=== PATIENT | male | born 1950 | race African-American/Black ===

== ENCOUNTER → 2021-03-31 09:17 | Outpatient (BNVA) | payer MEDICARE, OTHER, SELFPAY | PROVIDERS: Visit Provider Urology ==

== ENCOUNTER → 2021-03-31 14:30 | Outpatient (BNVA) | payer MEDICARE, OTHER, SELFPAY | PROVIDERS: Visit Provider Urology | DX: R97.20 Elevated prostate specific antigen [PSA] (principal); N40.0 Benign prostatic hyperplasia without lower urinary tract symptoms | CPT/HCPCS: Q3014 ==

== ENCOUNTER 2021-04-25 11:23 | Outpatient (REF) | payer MEDICARE, OTHER, SELFPAY ==
[2021-04-25 11:44] VITALS: BMI 28.7
[2021-04-25 11:48] VITALS: BP 153/83; PULSE 77; RESP 16; TEMP 36.4; O2SAT 100
--- NOTE | 2021-04-25 12:40 | W.PM.OPN ---
Operative Note Operative Note Date of Service: 04/25/21 Narrative: Preoperative diagnosis: Elevated PSA Postoperative diagnosis: Elevated PSA Procedure: 1. transrectal ultrasound measurement of prostate 2. transrectal ultrasound-guided pudendal nerve block 3. transrectal ultrasound-guided prostate biopsy 12 core Surgeon: Dr. Joey Kaiser Anesthetic: Local Indications for procedure: Elevated PSA Procedure: After informed consent was verified, the patient was brought into the procedure area and lay left-hand side down on the table. Patient identity confirmed. Perioperative antibiotics confirmed. Iodine/Gel was placed per rectum Ultrasound probe was placed per rectum The prostate was measured in 3 dimensions Total volume equals 90 gm There were no cystic structures and no calcifications noted and the prostate was homogeneous in nature A ultrasound-guided pudendal nerve block was performed using 10 cc of 1% lidocaine. 8 cc was placed at the base and 2 cc of the apex. A 12 core biopsy was performed with 6 cores each side. Two cores were taken at the apex, mid and base. Cores were spaced between lateral and medial. He tolerated the procedure well. Was able to ambulate to bathroom after 5 minutes. Printed instructions regarding antibiotic use and common side effects such as low-grade temperature and bleeding were given.
[2021-04-25 12:41] VITALS: BP 149/91; PULSE 77; RESP 16; O2SAT 97
== END 2021-04-25 11:24 | disposition home or self-care (01) ==
LOC: HO.MS 11:23
PROVIDERS: PCP Internal Medicine; Visit Provider Urology
PROC: (CPT 55700; principal; 2021-04-25 12:00)
DX: C61 Malignant neoplasm of prostate (principal); R97.20 Elevated prostate specific antigen [PSA]
CPT/HCPCS: 55700; 76942; 88305; 88344

== ENCOUNTER → 2021-05-02 08:40 | Outpatient (BNVA) | payer MEDICARE, OTHER, SELFPAY | PROVIDERS: PCP Internal Medicine; Visit Provider Urology | DX: Z13.89 Encounter for screening for other disorder (principal) | CPT/HCPCS: Q3014 ==

== ENCOUNTER 2021-10-02 11:22 | Outpatient (REF) | payer MEDICARE, OTHER, SELFPAY ==
[2021-10-02 13:12] LABS: PSA,Total (Free>4and<10) 5.73 ng/mL (0.00-4.00)
[2021-10-03 11:32] LABS: Free Prostate Spec Ag 0.3 ng/mL; Percent Free Prostate Spec Ag 6 % (calc) (>25); Prostate Specific Ag Total 4.7 ng/mL (< OR = 4.0)
== END 2021-10-02 11:23 | disposition home or self-care (01) ==
LOC: HO.LAB 11:22
PROVIDERS: PCP Internal Medicine; Visit Provider Urology
DX: Z12.5 Encounter for screening for malignant neoplasm of prostate (principal); N40.0 Benign prostatic hyperplasia without lower urinary tract symptoms
CPT/HCPCS: 36415; 84153; 84154

== ENCOUNTER → 2021-10-10 13:53 | Outpatient (BNVA) | payer MEDICARE, OTHER, SELFPAY | PROVIDERS: PCP Internal Medicine; Visit Provider Urology | DX: C61 Malignant neoplasm of prostate (principal); N40.0 Benign prostatic hyperplasia without lower urinary tract symptoms | CPT/HCPCS: 51798; 99212 ==

== ENCOUNTER → 2021-12-08 09:48 | Outpatient (BNVA) | payer MEDICARE, OTHER, SELFPAY | PROVIDERS: PCP Internal Medicine; Visit Provider Urology | DX: N40.0 Benign prostatic hyperplasia without lower urinary tract symptoms (principal); C61 Malignant neoplasm of prostate | CPT/HCPCS: 52000; 99212 ==

== ENCOUNTER → 2022-01-31 11:36 | Outpatient (BNVA) | payer MEDICARE, OTHER, SELFPAY | PROVIDERS: PCP Internal Medicine; Visit Provider Urology | DX: R97.20 Elevated prostate specific antigen [PSA] (principal); C61 Malignant neoplasm of prostate; N40.0 Benign prostatic hyperplasia without lower urinary tract symptoms | CPT/HCPCS: 99212; Q3014 ==

== ENCOUNTER 2022-02-12 05:42 | Day surgery (SDC) | payer MEDICARE, OTHER, SELFPAY ==
[2022-02-07 10:04] VITALS: BMI 28.7
--- NOTE | 2022-02-08 13:38 | HO.ANESPROP2 ---
Documented by User: Celi Tang NP 02/08/22 13:38 HPI - Anesthesia Eval Consult details Narrative: 71yo M for Laser Ablation Prostate w/Green Light PMFSH Active Problems Active Problems: All Active Problems (Updated 05/02/21 @ 10:37 by Joey Kaiser MD) Elevated PSA (Acute) Prostate cancer (Acute) Benign prostatic hyperplasia without lower urinary tract symptoms (Acute) Past Medical History Medical History Benign prostatic hyperplasia without lower urinary tract symptoms Chronic prostatitis Elevated PSA Hypertension Microscopic hematuria Surgical History Surgical History (Updated 02/07/22 @ 09:58 by Palmira Cruz RN) Hx of prostate biopsy Social History Social History Patient Tobacco Use Status: Former Tobacco user Substance Use Frequency: Occasionally Are you DNR?: No Advance Directives: No Advance Directives Information Provided: Yes Nutrition Risks: No Nutritional Risk Meds Allergies Allergy/AdvReac Type Severity Reaction Status Date / Time No Known Allergies Allergy Verified 02/12/22 06:38 Home Medications Medication Instructions Recorded Confirmed Last Taken Type terazosin 5 mg capsule 1 cap PO DAILY 02/07/22 02/07/22 Unknown History Exam Exam Date and Time: February 08, 2022 1338 Height,Weight and Vital Signs: Height 5 ft 11 in Weight 93.44 kg Assessment and Plan Assessment Anesthesia Assessment: Chart Reviewed Documented by User: Indu Coffey MD 02/12/22 07:13 PMFSH Past Medical History Medical History Benign prostatic hyperplasia without lower urinary tract symptoms Chronic prostatitis Elevated PSA Hypertension Microscopic hematuria Family History Family history of problems with anesthesia: No Surgical History Surgical History (Updated 02/07/22 @ 09:58 by Palmira Cruz RN) Hx of prostate biopsy History of Problems with Anesthesia: No Social History Social History Patient Tobacco Use Status: Former Tobacco user Substance Use Frequency: Occasionally Are you DNR?: No Advance Directives: No Advance Directives Information Provided: Yes Nutrition Risks: No Nutritional Risk Meds Allergies Allergy/AdvReac Type Severity Reaction Status Date / Time No Known Allergies Allergy Verified 02/12/22 06:38 Home Medications Medication Instructions Recorded Confirmed Last Taken Type terazosin 5 mg capsule 1 cap PO DAILY 02/07/22 02/07/22 Unknown History Exam Airway Mallampati Class: III TM Dist: >3cm Neck ROM: Full Partial: Upper and Lower Heart: rrr Lungs: cta Assessment and Plan Assessment Anesthesia Assessment: Anesthesia Plan Discussed and Chart Reviewed Final Anesthetic Review Family History of Problems with Anesthesia: No History of Problems with Anesthesia: No NPO: Yes ASA Class: II Final Preanesthetic Review: No Changes in Pt Med Stat, Meds/Allgs Chart Reviewed and Consent Obtained/Reviewed Patient Risk: Intermediate Procedure Risk: Intermediate Anesthetic Plan Anesthetic Plan: GA Disposition: Standard PACU
[2022-02-12] VITALS (7 sets, daily range): BP systolic 97–139; BP diastolic 40–84; PULSE 60–78; RESP 16–18; TEMP 36.3–36.4; O2SAT 96–98
[2022-02-12] MEDS: Lactated Ringers 1,000 ML 100 ML IVCONT (06:31)
--- NOTE | 2022-02-12 07:31 | MHC.SHP ---
Pre-Procedural Eval Section A Date of Service: 02/12/22 The patient is an INPATIENT: No Changes since office visit: No Cold of Flu in the past 2 weeks, No New Medical Problems, No Changes in Medication and No Patient answered all questions The History & Physical has been completed within 30 days and I have reviewed it.: Yes Section B Chief Complaint: bph Details of Present Illness: progressive bph Relevant Family History (Specify if Yes): No Relevant Social History: None Present Medications: see Short Stay Collaborative assessment Medical History: No relevant PMH History of Previous Operations: No relevant previous surgery Allergies: Allergies Allergy/AdvReac Type Severity Reaction Status Date / Time No Known Allergies Allergy Verified 02/12/22 06:38 Review of Systems Sugical H&P ROS: Negative: Constitution, Cardiovascular, Respiratory, Neurological, Psychiatric, Hem-Onc, Allergic/Immunologic, Gastrointestinal, Genitourinary, Musculoskeletal, Integumentary, Endocrine and Eyes/Ears/Nose/Throat Exam Surgical H&P Exam: Normal: HEENT, Normal: Heart, Normal: Lungs, Normal: Extremities, Normal: Abdomen, Normal: Skin and Normal: Neurological Plan Diagnosis/Plan: Unchanged (plan laser prostatectomy) I have reviewed the history and physical and performed a pertinent physical examination on my patient. No changes have occurred unless specified.
--- NOTE | 2022-02-12 08:41 | P.OP_ITS ---
Operative Note Operative Note Date of Service: 02/12/22 Narrative: PreOperative Diagnosis: Bladder outlet obstruction Post Operative Diagnosis: Bladder outlet obstruction Procedure: GreenLight Laser Enucleation of the prostate Surgeon: Dr Joey Kaiser Anesthesia: General Indications for procedure: Persistent progression of symptoms despite medications History of bladder outlet obstruction. Treated with alpha-nav and other medications. Still with symptoms. On cystoscopy in office has trilobar prostat e. Recommendation for prostate procedure with laser enucleation of prostate. It has been discussed. Focus was placed on development of retrograde examination which is a normal part of this procedure. Procedure: After informed consent was verified the patient was brought to the operating room and placed in a supine position. Anesthesia was administered per protocol. Patient was placed in modified dorsal lithotomy position and prepped and draped in a sterile fashion. Safety pause time-out was confirmed. Antibiotics have been given. Twenty-four Citizen [place] laser cystoscope was inserted per urethra. No abnormalities found the anterior posterior urethra. The bladder was filled on both ureteric orifices were seen in normal position away from our area of interest. Using a GreenLight laser settings of 80 w incisions were made at the 5 and 7 o'clock position. They were taken down and then laterally on each side. They were brought from the bladder neck down to the level of the veru. These defined the lateral aspects of the median lobe area. The median lobe was ablated and enucleated tissue removed. Once the median lobe area had been cleaned attention was directed to the lateral lobes. We started with the patient's left lateral lobe. Firstly the 05:00 o'clock groove was further developed. This was moved in the lateral position to undermine the tissue on the lateral side. Focus was then placed on the laser at the 1 o'clock position in developing a secondary groove down to the level of bladder fibers. The intervening tissue between these 2 grooves was removed with a combination of enucleation ablation working from the apex toward the bladder neck. A similar procedure was repeated on the patient's right-hand side. When this was completed debris and pieces of prostate removed from the bladder. Both ureteric orifices were reviewed again in shown to be patent in away from any areas of energy damage. The apical area was reviewed in any stray ooze was controlled. A 22 Citizen [place] 30 cc balloon Sanders catheter was placed over stylet into the bladder. Clear efflux was obtained. 30 cc was placed in the balloon and gentle traction was placed. A snap was used to hold tension once the patient will be moved and transported. Once transportation its finish this novel be removed. A belladonna and opiate suppository was placed for postprocedure pain management. He tolerated procedure well was extubated in the operating and transferred in a stable condition to the recovery area. Total Power 253 kW, lase time 32 minutes Pathology: Prostate tissue Drains: Sanders catheter
[2022-02-12] MEDS: traMADoL HCL 50 MG TABLET PO (09:04)
[2022-02-12] MEDS: Acetaminophen 325 MG TABLET 650 MG PO (09:04)
== END 2022-02-12 10:13 | disposition home or self-care (01) ==
PROVIDERS: PCP Internal Medicine; Visit Provider Urology
PROC: (CPT 52648; principal; 2022-02-12 07:30)
DX: N40.1 Benign prostatic hyperplasia with lower urinary tract symptoms (principal); N13.8 Other obstructive and reflux uropathy; N41.1 Chronic prostatitis; R97.20 Elevated prostate specific antigen [PSA]; R31.29 Other microscopic hematuria; I10 Essential (primary) hypertension; Z79.899 Other long term (current) drug therapy; Z87.891 Personal history of nicotine dependence
CPT/HCPCS: 52648; 88305; J1100; J1956; J2250; J2405; J3010

== ENCOUNTER → 2022-02-15 09:19 | Outpatient (BNVA) | payer MEDICARE, OTHER, SELFPAY | PROVIDERS: PCP Internal Medicine; Visit Provider Urology | DX: N40.0 Benign prostatic hyperplasia without lower urinary tract symptoms (principal) | CPT/HCPCS: 51700; 51798 ==

== ENCOUNTER → 2022-04-18 10:58 | Outpatient (BNVA) | payer MEDICARE, OTHER, SELFPAY | PROVIDERS: PCP Internal Medicine; Visit Provider Urology | DX: C61 Malignant neoplasm of prostate (principal); N40.0 Benign prostatic hyperplasia without lower urinary tract symptoms; M19.019 Primary osteoarthritis, unspecified shoulder | CPT/HCPCS: 51798; 99212 ==

== ENCOUNTER 2022-05-30 10:37 | Outpatient (REF) | payer MEDICARE, OTHER, SELFPAY ==
[2022-05-30 12:22] LABS: Appearance Urine Clear; Color Urine Yellow; Glucose Urine UA Negative (Negative); Leukocyte Esterase Urine Moderate (2+) (Negative); Nitrite Urine Negative (Negative); PH 5.5 (5.0-9.0); UMIC TRIGGER UA YES; Urine Blood Trace (Negative); Urine Ketones Negative (Negative); Urine Protein Negative (Neg-Trace)
[2022-05-30 12:26] LABS: Bacteria Urine None Seen (None Seen); Hyaline Casts Urine 0-2 /LPF (0-2); RBC Urine 0-2 /HPF (0-2); Squamous Epithelial Cell Urine 0-2 /HPF (0-2); WBC Urine 21-50 /HPF (0-5)
== END 2022-05-30 10:38 | disposition home or self-care (01) ==
LOC: HO.LAB 10:37
PROVIDERS: PCP Internal Medicine; Visit Provider Urology
DX: N40.0 Benign prostatic hyperplasia without lower urinary tract symptoms (principal)
CPT/HCPCS: 81001; 87086

== ENCOUNTER 2022-08-06 11:08 | Outpatient (REF) | payer MEDICARE, OTHER, SELFPAY ==
[2022-08-06 14:58] LABS: Prostate Specific Antigen 8.01 ng/mL (<0.05-4.0)
== END 2022-08-06 11:09 | disposition home or self-care (01) ==
LOC: HO.HMGCLDS 11:08
PROVIDERS: PCP Internal Medicine; Visit Provider Urology
DX: C61 Malignant neoplasm of prostate (principal)
CPT/HCPCS: 36415; 84153

== ENCOUNTER → 2022-08-15 10:19 | Outpatient (BNVA) | payer MEDICARE, OTHER, SELFPAY | PROVIDERS: PCP Internal Medicine; Visit Provider Urology | DX: C61 Malignant neoplasm of prostate (principal); N40.0 Benign prostatic hyperplasia without lower urinary tract symptoms | CPT/HCPCS: 99212 ==

== ENCOUNTER → 2022-09-05 12:28 | Outpatient (BNVA) | payer MEDICARE, OTHER, SELFPAY | PROVIDERS: PCP Internal Medicine; Visit Provider Urology | DX: C61 Malignant neoplasm of prostate (principal) | CPT/HCPCS: Q3014 ==

== ENCOUNTER 2022-11-12 06:32 | Day surgery (SDC) | payer MEDICARE, OTHER, SELFPAY ==
[2022-11-08 15:29] VITALS: BMI 28.4
--- NOTE | 2022-11-09 12:04 | HO.ANESPROP2 ---
Documented by User: Celi Tang NP 11/09/22 12:05 HPI - Anesthesia Eval Consult details Narrative: 72yo M for Targeted Prostate Needle Biopsy s/p green light laser 01/2022 with GA-LMA 5 PMFSH Active Problems Active Problems: All Active Problems (Updated 04/18/22 @ 11:58 by Joey Kaiser MD) Shoulder arthritis (Acute) Elevated PSA (Acute) Prostate cancer (Acute) Benign prostatic hyperplasia without lower urinary tract symptoms (Acute) Past Medical History Medical History Benign prostatic hyperplasia without lower urinary tract symptoms Chronic prostatitis Elevated PSA Hypertension Microscopic hematuria Family History Family history of problems with anesthesia: No Surgical History Surgical History (Updated 11/12/22 @ 06:42 by Judith Herr, FIDEL) History of prostate surgery Hx of knee surgery Hx of prostate biopsy History of Problems with Anesthesia: No Social History Social History (Updated 11/08/22 @ 15:29 by Annabelle Hanson RN) Are you a primary patient care provider to a significant other at home: No Do you presently have visiting nurse or other home services: No Patient Tobacco Use Status: Former Tobacco user Quit Date: Tobacco use type: Cigarette Use of substances other than those prescribed or required for medical reasons: No Have you been hit, kicked, punched, or otherwise hurt by someone within the past year? If so, by whom?: No Are you DNR?: No Advance Directives: No Advance Directives Information Provided: Yes Advance Directives on File: No Recently lost weight without trying: No Nutrition Risks: No Nutritional Risk Meds Allergies Allergy/AdvReac Type Severity Reaction Status Date / Time No Known Allergies Allergy Verified 11/12/22 06:42 Home Medications Medication Instructions Recorded Confirmed Last Taken Type finasteride 5 mg tablet 5 mg PO BEDTIME 11/08/22 11/08/22 Unknown History losartan 25 mg tablet 25 mg PO BEDTIME 11/08/22 11/08/22 Unknown History Exam Exam Date and Time: November 09, 2022 1204 Height,Weight and Vital Signs: Height 5 ft 11 in Weight 92.533 kg Assessment and Plan Assessment Anesthesia Assessment: Chart Reviewed Final Anesthetic Review Family History of Problems with Anesthesia: No History of Problems with Anesthesia: No Documented by User: Indu Coffey MD 11/12/22 07:13 PMFSH Past Medical History Medical History Benign prostatic hyperplasia without lower urinary tract symptoms Chronic prostatitis Elevated PSA Hypertension Microscopic hematuria Surgical History Surgical History (Updated 11/12/22 @ 06:42 by Judith Herr, RN) History of prostate surgery Hx of knee surgery Hx of prostate biopsy Social History Social History (Updated 11/08/22 @ 15:29 by Annabelle Hanson RN) Are you a primary patient care provider to a significant other at home: No Do you presently have visiting nurse or other home services: No Patient Tobacco Use Status: Former Tobacco user Quit Date: Tobacco use type: Cigarette Use of substances other than those prescribed or required for medical reasons: No Have you been hit, kicked, punched, or otherwise hurt by someone within the past year? If so, by whom?: No Are you DNR?: No Advance Directives: No Advance Directives Information Provided: Yes Advance Directives on File: No Recently lost weight without trying: No Nutrition Risks: No Nutritional Risk Meds Allergies Allergy/AdvReac Type Severity Reaction Status Date / Time No Known Allergies Allergy Verified 11/12/22 06:42 Home Medications Medication Instructions Recorded Confirmed Last Taken Type finasteride 5 mg tablet 5 mg PO BEDTIME 11/08/22 11/08/22 Unknown History losartan 25 mg tablet 25 mg PO BEDTIME 11/08/22 11/08/22 Unknown History Exam Airway Mallampati Class: II TM Dist: >3cm Neck ROM: Full Partial: Upper and Lower Heart: rrr Lungs: cta Assessment and Plan Assessment Anesthesia Assessment: Anesthesia Plan Discussed Final Anesthetic Review NPO: Yes ASA Class: II Final Preanesthetic Review: No Changes in Pt Med Stat, Meds/Allgs Chart Reviewed and Consent Obtained/Reviewed Patient Risk: Intermediate Procedure Risk: Intermediate Anesthetic Plan Anesthetic Plan: GA Disposition: Standard PACU
[2022-11-12 06:48] VITALS: BP 146/87; PULSE 79; RESP 15; TEMP 36.8; O2SAT 98
[2022-11-12] MEDS: Lactated Ringers 1,000 ML 100 ML IVCONT (07:02)
--- NOTE | 2022-11-12 08:41 | P.HPSUR_ITS ---
Pre-Procedural Eval Section A Date of Service: 11/12/22 The patient is an INPATIENT: No Changes since office visit: No Cold of Flu in the past 2 weeks, No New Medical Problems, No Changes in Medication and No Patient answered all questions The History & Physical has been completed within 30 days and I have reviewed it.: Yes Section B Chief Complaint: Elevated prostate specific antigen [PSA] Details of Present Illness: prostate cancer MRI fusion biopsy Allergies: Allergies Allergy/AdvReac Type Severity Reaction Status Date / Time No Known Allergies Allergy Verified 11/12/22 06:42 Review of Systems Sugical H&P ROS: Negative: Constitution, Cardiovascular, Respiratory, Neurolog ical, Psychiatric, Hem-Onc, Allergic/Immunologic, Gastrointestinal, Genitourinary, Musculoskeletal, Integumentary, Endocrine and Eyes/Ears/Nose/Throat Exam Surgical H&P Exam: Normal: HEENT, Normal: Heart, Normal: Lungs, Normal: Extremities, Normal: Abdomen, Normal: Skin and Normal: Neurological Plan Diagnosis/Plan: Unchanged ( MRI fusion biopsy) I have reviewed the history and physical and performed a pertinent physical examination on my patient. No changes have occurred unless specified. Time Spent With Patient Time: Total time managing care of this patient today ____ minutes.
--- NOTE | 2022-11-12 10:09 | P.OP_ITS ---
Operative Note Operative Note Date of Service: 11/12/22 Narrative: Preoperative diagnosis: Prostate Cancer Postoperative diagnosis: Prostate Cancer Procedure: 1. transrectal ultrasound measurement of prostate 2. transrectal ultrasound-guided pudendal nerve block 3. MRI-US fusion image registration performed 3. transperineal ultrasound-guided prostate biopsy 12 core including targets Surgeon: Dr. Joey Kaiser Anesthetic: Sedation plus local Indications for procedure: Prostate Cancer - PiRads 4 left lateral base Procedure: After informed consent was verified, the patient was brought into the procedure area. Patient identity confirmed. Perioperative antibiotics confirmed. Safety pause time out performed. Anesthesia performed per protocol Ultrasound probe was placed per rectum Focalis software and hardware platform used An ultrasound-guided pudendal nerve block was performed using 10 cc of 1% lid ocaine. 8 cc was placed at the base and 2 cc of the apex. Ultrasound placement was made with grid calibration for height and prostate diameter in both the transverse and longitudinal planes. Once gride calibration was confirmed ultrasound acquisition was performed in the transverse fashion. Three dimensional ultrasound model was created. The planned needle targeting based on prior acquisition of MRI imaging was overlaid on the ultrasound images and targets confirmed through ultrasound review. Based on pre -planning evaluation 18 targets had been identified. These included 3 targets of PiRads 4left lateral mid apical lesion identified lesion/s.. He tolerated the procedure well. Was transferred to stable condition in the PACU. Printed instructions regarding antibiotic use and common side effects such as low-grade temperature, potential infection and bleeding were given Pathology: 18 prostate biopsy
[2022-11-12 10:15] VITALS: BP 121/78; PULSE 64; RESP 16; TEMP 36.3; O2SAT 98
[2022-11-12 10:20] VITALS: BP 125/75; PULSE 61; RESP 16; O2SAT 95
[2022-11-12 10:25] VITALS: BP 140/94; PULSE 81; RESP 16; O2SAT 97
[2022-11-12 10:30] VITALS: BP 134/86; PULSE 72; RESP 16; O2SAT 98
[2022-11-12 10:38] VITALS: BP 140/92; PULSE 71; RESP 16; TEMP 36.1; O2SAT 98
== END 2022-11-12 11:31 | disposition home or self-care (01) ==
PROVIDERS: PCP Internal Medicine; Visit Provider Urology
PROC: (CPT 55700; principal; 2022-11-12 08:40)
DX: R97.20 Elevated prostate specific antigen [PSA] (principal); N40.0 Benign prostatic hyperplasia without lower urinary tract symptoms; N41.1 Chronic prostatitis; C61 Malignant neoplasm of prostate; I10 Essential (primary) hypertension; R31.29 Other microscopic hematuria; Z79.899 Other long term (current) drug therapy; Z98.890 Other specified postprocedural states; Z87.891 Personal history of nicotine dependence
CPT/HCPCS: 55700; 88305; J1100; J1956; J2405; J3010

== ENCOUNTER → 2022-11-30 13:27 | Outpatient (BNVA) | payer MEDICARE, OTHER, SELFPAY | PROVIDERS: PCP Internal Medicine; Visit Provider Urology | DX: C61 Malignant neoplasm of prostate (principal) | CPT/HCPCS: Q3014 ==

== ENCOUNTER → 2022-12-19 09:57 | Outpatient (BNVA) | payer MEDICARE, OTHER, SELFPAY | PROVIDERS: PCP Internal Medicine; Visit Provider Urology | DX: C61 Malignant neoplasm of prostate (principal) | CPT/HCPCS: 96402; J9217 ==

== ENCOUNTER 2023-02-20 11:17 | Outpatient (AMB) | payer MEDICARE, OTHER, SELFPAY ==
--- NOTE | 2023-02-20 11:18 | A.OFFVIS_ITS ---
Intake Intake Visit Reasons: PET/CT (set) Intake Note: Patient is present for Telephone pet/ct Urology Med:Finasteride Antibiotic Allergy:None Blood Thinner: None Pharmacy: [facility] Allergies No Known Allergies Allergy (Verified 02/20/23 11:19) HPI HPI Comments History of Present Illness Details Mr Jackson is a very pleasant male. a patient of Dr Greene. They are seen in the office today for the following urologic conditions. - prostate cancer - elevated PSA - BPH Telemedicine Evaluation 15 min Consultation [employer] [place] Video attempted GnRH given 12/14 Completed radiation oncology evaluation Suitable candidate for external beam with SpaceOAR Will to be organized for seed placement and SpaceOAR in March Prostate cancer diagnosed by Dr. Kaiser March 2021 grade group 3 low volume Prostate cancer diagnosed by Dr. Kaiser March 2021 PSA at diagnosis 5.2 on finasteride 2nd biopsy 11/13 PSA 8.0 on finasteride high-grade, increased volume [place] score: 4+4=8 (F 3.5, F 2.5, e 3.5, e 3.0, e 2.0, 4+3=7 (F 3.0) Tumor quantitation: ? Number cores positive: 6 Total number of cores: 18 % of tissue involved: 20% of all tissue examined Perineural inv.: Present 1st biopsy 05/14 - unfavorable intermediate, low volume Histologic grade: [place] score: 4+3=7 (left base lateral) 1/12 cores total - 20% of core % of tissue involved: Less than 5% of all tissue examined - Periprostatic fat inv. Not identified Seminal vesicle inv.: Not identified Perineural inv. Not identified LVI: Not identified Polaris 08/15 single modal therapy suggested PSA 10/13 4.7-5.7 - 6%, 08/16 8.0 on finasteride Prostate MRI - 75 g prostate, 14 mm left peripheral zone lesion BPH GreenLight procedure January 2022 Significant improvement symptomatology Voiding parameters nocturia x1 with good bladder emptying Elevated PSA/Abnormal JEFF:? ? Laboratory investigations include?a total PSA evaluation ?07/10 3.8, ?03/10 6.8, ?04/09 6.6, 07/11 4.4, 01/08 3.5, 01/09 3.6, 02/10 3.9, 03/14 5.2 ? Symptoms include?weak stream, and are stable ?02/09 , weak stream, nocturia, x 1, and are stable.? Overall symptoms are?mild.? His prior IPSS was?mild.? Therapeutic plan will be?continued surveillance. [facility] Medical History Benign prostatic hyperplasia without lower urinary tract symptoms Chronic prostatitis Elevated PSA Hypertension Microscopic hematuria Surgical History History of prostate surgery Hx of knee surgery Hx of prostate biopsy Social History Are you a primary acute care nursing assistant to a significant other at home: No Do you presently have visiting nurse or other home services: No Patient Tobacco Use Status: Former Tobacco user Quit Date: Tobacco use type: Cigarette Review of Systems Const All systems reviewed & are unremarkable except as noted in HPI and below Reports no additional complaints Resp Reports no additional complaints GI Reports no additional complaints Reports as per HPI Musc Reports no additional complaints Physical Exam Telemedicine evaluation Appropriate responses Regular breathing rate and rhythm HEENT Head: Yes normal to inspection Ears: hearing grossly normal bilaterally Eyes General: appearance normal, both eyes and all related structures Neck Neck: Yes normal visual inspection Chest Chest palpation & inspection: normal inspection of the chest Resp Effort & Inspection: normal respiratory effort and able to speak in complete sentences Assessment & Plan Assessment & Plan (1) Hot flashes related to aromatase inhibitor therapy: Code(s): R23.2 - [place]; T45.1X5A - Adverse effect of antineoplastic and immunosuppressive drugs, initial encounter (2) Prostate cancer: Comment: 04/13 Gl 4+3 07/05 core 20% Code(s): C61 - Malignant neoplasm of prostate Plan Risks, benefits and alternatives to therapy were discussed. These include but are not limited to infection, bleeding, damage to local organs and tissues, need for further interventions. Anesthetic risks regarding cardiac arrhythmia, blood clots, and potential mortality were discussed. The patient understands the typical recovery time and the outpatient nature of the procedure. After consideration of these risks the patient gives full informed consent and they wish to move ahead with the procedure. Space OAR with prostate marker placement Medications: Discontinued finasteride 5 mg PO DAILY 90 days 90 tabs 3RF C61 - Malignant neoplasm of prostate Patient Instructions: Imaging studies, laboratory and physical exam results were discussed and reviewed in detail. No major barriers to patient understanding were identified. An opportunity to ask questions regarding the treatment plan was provided. All questions were answered. The patient expressed understanding and agreement with the above treatment plan. The patient is aware they should contact our office by phone for worsening of their current condition or the appearance of new urologic symptoms. Compliance is encouraged with any medications and followup testing that is ordered. It is a privilege to participate in the urologic care of your patient. If you have any questions or concerns regarding treatment for the above conditions, or other urologic issues, please do not hesitate to contact me. The office te amelieradusin contact is [phone]. This note is constructed using voice recognition software. While every effort has been made to ensure accuracy broach trouble shooter errors may have been included. Yours sincerely, Dr Joey Kaiser MD, [facility] - Urology Providers of Expert, Compassionate Care for the Genitourinary System Telehealth Telehealth Location of provider rendering services: practice address Location of patient: address on file Patient Identification confirmed using: Name, : Yes Telehealth method: video Patient verbally consented to treatment: Yes Patient verbally consented to billing insurance company: Yes Patient informed of any privacy concerns related to visit: Yes Coding Level of Care Code Tele Est Pt Level 4 (08985) Diagnoses Hot flashes related to aromatase inhibitor therapy R23.2; T45.1X5A Prostate cancer C61
== END 2023-02-20 12:24 | disposition home or self-care (01) ==
LOC: HO.HUSH 11:17
PROVIDERS: PCP Internal Medicine; Visit Provider Urology
DX: C61 Malignant neoplasm of prostate (principal); R23.2 Flushing; T45.1X5A Adverse effect of antineoplastic and immunosuppressive drugs, initial encounter
CPT/HCPCS: 99213

== ENCOUNTER → 2023-02-20 11:17 | Outpatient (BNVA) | payer MEDICARE, OTHER, SELFPAY | PROVIDERS: PCP Internal Medicine; Visit Provider Urology ==

== ENCOUNTER 2023-04-15 07:45 | Day surgery (SDC) | payer MEDICARE, OTHER, SELFPAY ==
[2023-04-15 08:39] VITALS: BP 168/82; PULSE 70; RESP 18; TEMP 36.3; O2SAT 99; BMI 28.4
[2023-04-15] MEDS: Lactated Ringers 1,000 ML 100 ML IVCONT (08:50)
[2023-04-15] MEDS: levoFLOXacin 500 MG TABLET PO (08:50)
--- NOTE | 2023-04-15 09:47 | MHC.SHP ---
Pre-Procedural Eval Section A Date of Service: 04/15/23 The patient is an INPATIENT: No Changes since office visit: No Cold of Flu in the past 2 weeks, No New Medical Problems, No Changes in Medication and No Patient answered all questions The History & Physical has been completed within 30 days and I have reviewed it.: No Section B Chief Complaint: Malignant neoplasm of prostate Details of Present Illness: space oar placement with visicoil Relevant Family History (Specify if Yes): No Relevant Social History: None Present Medications: see Short Stay Collaborative assessment Medical History: No relevant PMH History of Previous Operations: Relevant previous surgery/procedure and date(s) Allergies: Allergies Allergy/AdvReac Type Severity Reaction Status Date / Time No Known Allergies Allergy Verified 02/20/23 11:19 Review of Systems Sugical H&P ROS: Negative: Constitution, Cardiovascular, Respiratory, Neurological, Psychiatric, Hem-Onc, Allergic/Immunologic, Gastrointestinal, Genitourinary, Musculoskeletal, Integumentary, Endocrine and Eyes/Ears/Nose/Throat Exam Surgical H&P Exam: Normal: HEENT, Normal: Heart, Normal: Lungs, Normal: Extremities, Normal: Abdomen, Normal: Skin and Normal: Neurological Plan Diagnosis/Plan: Unchanged (space oar with visicoil) I have reviewed the history and physical and performed a pertinent physical examination on my patient. No changes have occurred unless specified. Time Spent With Patient Time: Total time managing care of this patient today ____ minutes.
--- NOTE | 2023-04-15 09:48 | HO.ANESPROP2 ---
HPI - Anesthesia Eval Consult details Narrative: for prostate spacer PMFSH Active Problems Active Problems: All Active Problems (Updated 02/20/23 @ 12:01 by Joey Kaiser MD) Hot flashes related to aromatase inhibitor therapy (Acute) Elevated PSA (Acute) Prostate cancer (Acute) Shoulder arthritis (Acute) Benign prostatic hyperplasia without lower urinary tract symptoms (Acute) Past Medical History Medical History Benign prostatic hyperplasia without lower urinary tract symptoms Chronic prostatitis Elevated PSA Hypertension Microscopic hematuria Family History Family history of problems with anesthesia: No Surgical History Surgical History History of prostate surgery Hx of knee surgery Hx of prostate biopsy History of Problems with Anesthesia: No Social History Social History Are you a primary congregational care pastor to a significant other at home: No Do you presently have visiting nurse or other home services: No Patient Tobacco Use Status: Former Tobacco user Quit Date: Tobacco use type: Cigarette Have you been hit, kicked, punched, or otherwise hurt by someone within the past year? If so, by whom?: No Are you DNR?: No Advance Directives: No Advance Directives Information Provided: Yes Recently lost weight without trying: No Eating poorly because of decreased appetite: No Nutrition Risks: No Nutritional Risk Poor oral hygiene: No Meds Allergies Allergy/AdvReac Type Severity Reaction Status Date / Time No Known Allergies Allergy Verified 02/20/23 11:19 Active Medications: Current Medications Lactated Ringer's (Lr) 1,000 mls @ 100 mls/hr IVCONT .Q10H [facility] Last Admin: 04/15/23 08:50 Dose: 100 mls/hr Home Medications Medication Instructions Recorded Confirmed Last Taken Type finasteride 5 mg tablet 5 mg PO BEDTIME 11/08/22 11/30/22 Unknown History losartan 25 mg tablet 25 mg PO BEDTIME 11/08/22 11/30/22 Unknown History Exam Exam Date and Time: April 15, 2023 0948 Height,Weight and Vital Signs: Height 5 ft 11 in Weight 92.533 kg Last Vital Signs Temp 97.3 F 04/15/23 08:39 Pulse 70 04/15/23 08:39 Resp 18 04/15/23 08:39 BP 168/82 H 04/15/23 08:39 Pulse Ox 99 04/15/23 08:39 O2 Del Method Room Air 04/15/23 08:39 Airway Mallampati Class: II TM Dist: >3cm Neck ROM: Full Partial: Upper Heart: ok Lungs: ok Assessment and Plan Assessment Anesthesia Assessment: Anesthesia Plan Discussed Final Anesthetic Review Family History of Problems with Anesthesia: No History of Problems with Anesthesia: No NPO: Yes ASA Class: III Final Preanesthetic Review: No Changes in Pt Med Stat, Meds/Allgs Chart Reviewed, Consent Obtained/Reviewed and Anes Risks/Benef Reviewed Patient Risk: Intermediate Procedure Risk: Low Anesthetic Plan Anesthetic Plan: GA and Agree w/ Assess. and Plan Disposition: Standard PACU
--- NOTE | 2023-04-15 10:32 | P.OP_ITS ---
Operative Note Operative Note Date of Service: 04/15/23 Narrative: Preoperative diagnosis: Prostate cancer Postoperative diagnosis: Prostate cancer Procedure: 1. Transrectal ultrasound-guided perineal visicoil marker seed placement 2. Transrectal ultrasound-guided perineal SpaceOAR gel placement Surgeon: Dr. Joey Kaiser Anesthetic: Sedation Indications for procedure: Prostate Cancer Procedure: After informed consent was verified, the patient was brought into the operating room and anesthesia was performed per protocol. The patient was placed in a modified dorsal lithotomy position. Gel was placed per rectum Ultrasound probe was placed per rectum. The prostate was visualized in sagittal and transverse dimensions. Local anesthetic was infiltrated in the perineal area using 10 cc of lidocaine Visicoil seed markers were placed in a transperineal fashion using ultrasound guidance 1 on the right - 1 toward mid gland. 1 on the left at mid gland. The purpose is for target triangulation. The 2nd part of the procedure was placement of SpaceOAR gel to allow consolidation for radiation delivery. The kit was prepared on the backtable with assembly of the 2 part solution and syringe delivery system. The delivery needle was advanced bevel down in the midline under ultrasound guidance to the apex of the prostate. It was advanced in the plane the prostate from the rectum to the midpoint of the prostate. Location was determined using sagittal and transverse imaging. At the midpoint of the prostate 1 cc of saline was placed to confirm needle position. Further injection saline was placed to confirm spread toward the base of the prostate. Position was confirmed and needle confirmed to be free from tenting of the rectum. With the needle in the confirmed position 10 cc of gel mixture was injected. This was perfformed over a target time of 15-20 seconds to allow for adequate sp read.. Good separation was seen of the rectum from the prostate space running in the midline from the base toward the apex of the prostate. Following completion of the procedure the probe was removed from the rectum. He tolerated the procedure well. He was extubated in the operating room and transferred in stable condition to the recovery area. Pathology none Drains none
[2023-04-15 10:39] VITALS: BP 112/83; PULSE 76; RESP 14; TEMP 36.3; O2SAT 98
[2023-04-15 10:44] VITALS: BP 113/73; PULSE 70; RESP 16; O2SAT 98
[2023-04-15 10:49] VITALS: BP 115/64; PULSE 67; RESP 16; O2SAT 98
[2023-04-15 10:54] VITALS: BP 126/73; PULSE 65; RESP 16; O2SAT 98
[2023-04-15 11:09] VITALS: BP 123/70; PULSE 67; RESP 16; TEMP 36.4; O2SAT 99
== END 2023-04-15 11:28 | disposition home or self-care (01) ==
PROVIDERS: PCP Internal Medicine; Visit Provider Urology
PROC: (CPT 55874; principal; 2023-04-15 09:50)
DX: C61 Malignant neoplasm of prostate (principal); N40.0 Benign prostatic hyperplasia without lower urinary tract symptoms; N41.1 Chronic prostatitis; I10 Essential (primary) hypertension; Z87.891 Personal history of nicotine dependence
CPT/HCPCS: 55874; 55876; A4648; C1889; J3010

== ENCOUNTER → 2023-04-15 07:45 | Outpatient (BNV) | payer MEDICARE, OTHER, SELFPAY | PROVIDERS: PCP Internal Medicine; Visit Provider Urology | DX: C61 Malignant neoplasm of prostate (principal) | CPT/HCPCS: 55874; 55876; 76872 ==

== ENCOUNTER 2023-05-20 13:19 | Outpatient (AMB) | payer MEDICARE, OTHER, SELFPAY ==
--- NOTE | 2023-05-20 13:34 | HO.NEPHOV ---
HPI HPI Comments History of Present Illness Details I had the privilege of seeing Marc in the office in follow-up of his hypertension. He has prostate cancer and is currently getting radiotherapy . He had PET scan which did not show any metastatic disease as per him. He does not have any dysuria, frequency, hematuria, urinary infection, weight loss, bone pain, nausea, vomiting, diarrhea, orthostatic symptoms, chest pain, shortness of breath or pedal edema. His lipid profile showed high cholesterol and LDL which is closely monitored by his primary care physician. He has had condition on multiple medications for his prostate cancer. He feels well. [facility] Medical History (Updated 05/20/23 @ 22:29 by Ruddy Clifford MD) Benign prostatic hyperplasia without lower urinary tract symptoms Chronic prostatitis Elevated PSA Microscopic hematuria Hypertension Surgical History Hx of knee surgery History of prostate surgery Hx of prostate biopsy Are you a primary daycare manager to a significant other at home: No Do you presently have visiting nurse or other home services: No Patient Tobacco Use Status: Former Tobacco user Quit Date: Tobacco use type: Cigarette Vital Signs 05/20/23 13:37 Height 5 ft 11 in Weight 213 lb BMI 29.7 BP 114/72 Blood Pressure Location Lt brachial Position Sitting Pulse 77 Pulse Source Pulse Oximeter Physical Exam Vital Signs: Last Vital Signs Pulse 77 05/20/23 13:37 BP 114/72 05/20/23 13:37 BMI result Body Mass Index 29.7 Const General: comfortable and no acute distress Orientation/consciousness: patient oriented x3 HEENT Head: Yes normocephalic Mouth: Normal oral and palatal mucosa present Eyes EOM: EOMs intact bilaterally Neck Neck: Yes supple Resp Auscultation: clear to auscultation bilaterally Cardio Jugular venous distension: no JVD Rate: regular rate GI Palpation (GI): Soft to palpation Auscultation: normal bowel sounds General: Yes no CVA tenderness Back/Spine/Pelvis Back: no CVA tenderness Skin General skin exam: no rashes or lesions noted Neuro General: patient oriented x3 and moves all extremities Extrem General: Yes no pedal edema Assessment & Plan Assessment & Plan (1) Hypertension: Code(s): I10 - Essential (primary) hypertension Qualifiers: Hypertension type: primary hypertension Qualified Code(s): I10 - Essential (primary) hypertension Plan Marc has hypertension for long time. His blood pressure is well controlled on current dose of losartan and is at goal. He is compliant with his medications. He should cut back salt in the diet. He should maintain good hydration. He should avoid nonsteroidal anti-inflammatory medications. His renal functions are at baseline. He has no history of LVH or retinopathy. He has mildly high LDL and total cholesterol that is going to be repeated by PCP as per patient. He may need initiation of statins. I did not make any medication changes today. Time spent retrieving data, documentation and patient encounter 21 minutes. Follow-up appointment given. Follow-up blood work and urine studies ordered. Orders: Orders Blood Urea Nitrogen Today I10 - Essential (primary) hypertension Creatinine Today I10 - Essential (primary) hypertension Calcium Today I10 - Essential (primary) hypertension Electrolytes Today I10 - Essential (primary) hypertension Protein Creatinine Ratio, Ur Today I10 - Essential (primary) hypertension Medications: New losartan 25 mg PO BEDTIME 90 tabs 3RF Coding Level of Care Code Est Pt Level 3 (27474) Diagnoses Primary hypertension I10 Hypertension type: primary hypertension
[2023-05-20 13:37] VITALS: BP 114/72; PULSE 77; BMI 29.7
== END 2023-05-20 14:43 | disposition home or self-care (01) ==
PROVIDERS: PCP Internal Medicine; Visit Provider Internal Medicine Nephrology
DX: I10 Essential (primary) hypertension (principal)
CPT/HCPCS: 99213

== ENCOUNTER → 2023-05-20 13:19 | Outpatient (BNVA) | payer MEDICARE, OTHER, SELFPAY | PROVIDERS: PCP Internal Medicine; Visit Provider Internal Medicine Nephrology | DX: I10 Essential (primary) hypertension (principal); C61 Malignant neoplasm of prostate | CPT/HCPCS: 99212 ==

== ENCOUNTER 2023-07-16 09:49 | Outpatient (AMB) | payer MEDICARE, OTHER, SELFPAY ==
--- NOTE | 2023-07-16 10:01 | MHC.OFFVIS ---
Intake Intake Visit Reasons: 3 month PSA(SET) (spaceoar+goldseed) Intake Note: Patient is Present for Follow Up PSA Urology Medication: Finasteride, Dutasteride Antibiotic Allergies: None Blood Thinners: None PVR: 0 Allergies No Known Allergies Allergy (Verified 05/20/23 13:43) HPI HPI Comments History of Present Illness Details Mr Jackson is a very pleasant male. a patient of Dr Greene. They are seen in the office today for the following urologic conditions. - prostate cancer - elevated PSA - BPH PSA 07/17 <0.1 GnRH given 12/14 Radiation completed Effective urinary control Plan for final GnRH to be given by nursing Four month follow-up lab work Prostate cancer diagnosed by Dr. Kaiser March 2021 grade group 3 low volume Prostate cancer diagnosed by Dr. Kaiser March 2021 PSA at diagnosis 5.2 on finasteride 2nd biopsy 11/13 PSA 8.0 on finasteride high-grade, increased volume Joel score: 4+4=8 (F 3.5, F 2.5, e 3.5, e 3.0, e 2.0, 4+3=7 (F 3.0) Tumor quantitation: ? Number cores positive: 6 Total number of cores: 18 % of tissue involved: 20% of all tissue examined Perineural inv.: Present 1st biopsy 05/14 - unfavorable intermediate, low volume Histologic grade: Maywood score: 4+3=7 (left base lateral) 1/12 cores total - 20% of core % of tissue involved: Less than 5% of all tissue examined - Periprostatic fat inv. Not identified Seminal vesicle inv.: Not identified Perineural inv. Not identified LVI: Not identified Polaris 08/15 single modal therapy suggested PSA 10/13 4.7-5.7 - 6%, 08/16 8.0 on finasteride Prostate MRI - 75 g prostate, 14 mm left peripheral zone lesion BPH GreenLight procedure January 2022 Significant improvement symptomatology Voiding parameters nocturia x1 with good bladder emptying Elevated PSA/Abnormal JEFF:? ? Laboratory investigations include?a total PSA evaluation ?07/10 3.8, ?03/10 6.8, ?04/09 6.6, 07/11 4.4, 01/08 3.5, 01/09 3.6, 02/10 3.9, 03/14 5.2 ? Symptoms include?weak stream, and are stable ?02/09 , weak stream, nocturia, x 1, and are stable.? Overall symptoms are?mild.? His prior IPSS was?mild.? Therapeutic plan will be?continued surveillance. [facility] Medical History Benign prostatic hyperplasia without lower urinary tract symptoms Chronic prostatitis Elevated PSA Microscopic hematuria Hypertension Surgical History Hx of knee surgery History of prostate surgery Hx of prostate biopsy Social History Are you a primary pediatric acute care unit nurse to a significant other at home: No Do you presently have visiting nurse or other home services: No Patient Tobacco Use Status: Former Tobacco user Quit Date: Tobacco use type: Cigarette Review of Systems Const Denies chills and Denies fever(s) Card Reports no additional complaints and Denies syncope Resp Denies cough GI Denies abdominal pain and Denies heartburn Reports as per HPI and Denies change in libido Neuro Denies syncope Psych Denies change in libido Endo Denies change in libido Physical Exam Const General: cooperative, healthy appearing, comfortable and no acute distress Orientation/consciousness: patient oriented x3 HEENT Face and sinus: Yes normal facial exam Mouth: moist mucous membranes Neck Neck: Yes normal visual inspection, Yes full ROM and Yes trachea midline Chest Chest palpation & inspection: normal inspection of the chest Resp Effort & Inspection: normal respiratory effort, able to speak in complete sentences and no respiratory distress GI Inspection: Yes normal to inspection Back/Spine/Pelvis Cervical Spine: normal cervical lordosis Thoracic/Lumbar Spine: thoracic and lumbar spine normal to inspection Skin General skin exam: no rashes or lesions noted Neuro General: patient oriented x3, gait normal, tone normal and moves all extremities Extrem General: Yes normal to inspection and Yes capillary refill normal Office Procedures Post Void Residual Post Residual Void Post Void Residual (PVR): 0 14167-[id number] Void Residual by ultrasound Assessment & Plan Assessment & Plan (1) Prostate cancer: Comment: 04/13 Gl 4+3 07/05 core 20% Code(s): C61 - Malignant neoplasm of prostate (2) Hot flashes related to aromatase inhibitor therapy: Code(s): R23.2 - Flushing; T45.1X5A - Adverse effect of antineoplastic and immunosuppressive drugs, initial encounter Plan Two week follow-up GnRH Four month follow-up lab work Orders: Orders AMB Post Void Residual by ultrasound 07/16/23 N40.0 - Benign prostatic hyperplasia without lower urinary tract symptoms Prostate Specific Antigen 4 Months C61 - Malignant neoplasm of prostate Testosterone, Total 4 Months C61 - Malignant neoplasm of prostate Patient Instructions: Imaging studies, laboratory and physical exam results were discussed and reviewed in detail. No major barriers to patient understanding were identified. An opportunity to ask questions regarding the treatment plan was provided. All questions were answered. The patient expressed understanding and agreement with the above treatment plan. The patient is aware they should contact our office by phone for worsening of their current condition or the appearance of new urologic symptoms. Compliance is encouraged with any medications and followup testing that is ordered. It is a privilege to participate in the urologic care of your patient. If you have any questions or concerns regarding treatment for the above conditions, or other urologic issues, please do not hesitate to contact me. The office telephone contact is [phone]. This note is constructed using voice recognition software. While every effort has been made to ensure accuracy sewage reticulation drafting officer errors may have been included. Yours sincerely, Dr Joey Kaiser MD, MADHAV[facility] - Urology Providers of Expert, Compassionate Care for the Genitourinary System Coding Level of Care Code Est Pt Level 4 (17008) Diagnoses Prostate cancer C61 Hot flashes related to aromatase inhibitor therapy R23.2; T45.1X5A CPT Codes Post Residual Void - PVR CPT Code: 29572-Xjgf Void Residual by ultrasound ([id number])
== END 2023-07-16 10:45 | disposition home or self-care (01) ==
PROVIDERS: PCP Internal Medicine; Visit Provider Urology
DX: C61 Malignant neoplasm of prostate (principal); R23.2 Flushing; T45.1X5A Adverse effect of antineoplastic and immunosuppressive drugs, initial encounter
CPT/HCPCS: 99214

== ENCOUNTER → 2023-07-16 09:49 | Outpatient (BNVA) | payer MEDICARE, OTHER, SELFPAY | PROVIDERS: PCP Internal Medicine; Visit Provider Urology | DX: C61 Malignant neoplasm of prostate (principal); R23.2 Flushing; T45.1X5A Adverse effect of antineoplastic and immunosuppressive drugs, initial encounter; N40.0 Benign prostatic hyperplasia without lower urinary tract symptoms; Z92.3 Personal history of irradiation | CPT/HCPCS: 51798; 99212 ==

== ENCOUNTER 2023-07-31 08:57 | Outpatient (AMB) | payer MEDICARE, OTHER, SELFPAY ==
--- NOTE | 2023-07-31 09:00 | AM.OFFVISNUR ---
Intake Intake Visit Reasons: GnRH Allergies No Known Allergies Allergy (Verified 05/20/23 13:43) Office Meds Eligard (6 month) 45 mg (6 month) subcutaneous syringe Performing Provider: Joey Kaiser MD [facility] Administered by: Clifton Zimmer LPN on 07/31/23 09:00 Dose Route Admin Location Dispensed Lot Number Expiration Date [facility] Record Cutter 45 mg subcut left arm 45 mg [id number] 07/25/24 61288-499-40 [employer]. Coding Assessment & Plan Assessment & Plan Orders: Orders AMB Leuprolide Injection - Practice Supplied Today C61 - Malignant neoplasm of prostate
== END 2023-07-31 09:38 | disposition home or self-care (01) ==
PROVIDERS: PCP Internal Medicine; Visit Provider Urology
DX: C61 Malignant neoplasm of prostate (principal)

== ENCOUNTER → 2023-07-31 08:57 | Outpatient (BNVA) | payer MEDICARE, OTHER, SELFPAY | PROVIDERS: PCP Internal Medicine; Visit Provider Urology | DX: C61 Malignant neoplasm of prostate (principal) | CPT/HCPCS: 96402; J9217 ==

== ENCOUNTER 2023-10-28 12:20 | Outpatient (REF) | payer MEDICARE, OTHER, SELFPAY ==
[2023-10-28 15:13] LABS: Prostate Specific Antigen < 0.10 ng/mL (<0.05-4.0)
[2023-11-03 14:54] LABS: Testosterone, Total 4 ng/dL (250-1100)
== END 2023-10-28 12:21 | disposition home or self-care (01) ==
LOC: HO.LAB 12:20
PROVIDERS: PCP Internal Medicine; Visit Provider Urology
DX: Z12.5 Encounter for screening for malignant neoplasm of prostate (principal); C61 Malignant neoplasm of prostate
CPT/HCPCS: 36415; 84153; 84403

== ENCOUNTER 2023-11-13 10:03 | Outpatient (AMB) | payer MEDICARE, OTHER, SELFPAY ==
--- NOTE | 2023-11-13 10:19 | A.OFFVIS_ITS ---
Intake Visit Reasons: 4m/labs(set) Intake Note: Patient is Present for Follow Up PSA Urology Medication: Finasteride (not taking), Dutasteride Antibiotic Allergies: None Blood Thinners: None Probation Officer Required: No Accompanied by: Self / Same As Patient Allergies No Known Allergies Allergy (Verified 11/13/23 10:20) HPI Comments Details: Mr Jackson is a very pleasant male. a patient of Dr Greene. They are seen in the office today for the following urologic conditions. - prostate cancer - elevated PSA - BPH 11/14 PSA <0.1 T 4 - CC finasteride 07/17 <0.1 06/15 completed SBRT [facility] 7000 Gy 28 fractions 2nd GnRH given 04/15 space oar with markers Prostate cancer diagnosed by Dr. Kaiser March 2021 grade group 3 low volume Prostate cancer diagnosed by Dr. Kaiser March 2021 PSA at diagnosis 5.2 on finasteride 2nd biopsy 11/13 PSA 8.0 on finasteride high-grade, increased volume Joel score: 4+4=8 (F 3.5, F 2.5, e 3.5, e 3.0, e 2.0, 4+3=7 (F 3.0) Tumor quantitation: ? Number cores positive: 6 Total number of cores: 18 % of tissue involved: 20% of all tissue examined Perineural inv.: Present 1st biopsy 05/14 - unfavorable intermediate, low volume Histologic grade: Joel score: 4+3=7 (left base lateral) / cores total - 20% of core % of tissue involved: Less than 5% of all tissue examined - Periprostatic fat inv. Not identified Seminal vesicle inv.: Not identified Perineural inv. Not identified LVI: Not identified Polaris 08/15 single modal therapy suggested PSA 10/13 4.7-5.7 - 6%, 08/16 8.0 on finasteride Prostate MRI - 75 g prostate, 14 mm left peripheral zone lesion BPH GreenLight procedure January 2022 Significant improvement symptomatology Voiding parameters nocturia x1 with good bladder emptying Elevated PSA/Abnormal JEFF:? ? Laboratory investigations include?a total PSA evaluation ?07/10 3.8, ?03/10 6.8, ?04/09 6.6, 07/11 4.4, 01/08 3.5, 01/09 3.6, 02/10 3.9, 03/14 5.2 ? Symptoms include?weak stream, and are stable ?02/09 , weak stream, nocturia, x 1, and are stable.? Overall symptoms are?mild.? His prior IPSS was?mild.? Therapeutic plan will be?continued surveillance. [facility] Medical History Benign prostatic hyperplasia without lower urinary tract symptoms Chronic prostatitis Elevated PSA Microscopic hematuria Hypertension Surgical History Hx of knee surgery History of prostate surgery Hx of prostate biopsy Social History Are you a primary nurse care manager to a significant other at home: No Do you presently have visiting nurse or other home services: No Patient Tobacco Use Status: Former Tobacco user Quit Date: Tobacco use type: Cigarette Assessment & Plan Assessment & Plan (1) Hot flashes related to aromatase inhibitor therapy: Code(s): R23.2 - Flushing; T45.1X5A - Adverse effect of antineoplastic and immunosuppressive drugs, initial encounter Category: Medical (2) Prostate cancer: Comment: 04/13 Gl 4+3 07/05 core 20% Code(s): C61 - Malignant neoplasm of prostate Category: Medical Plan Four month follow-up labs Trial micronized progesterone for hot flashes Orders: Orders Prostate Specific Antigen 4 Months C61 - Malignant neoplasm of prostate Testosterone, Total 4 Months C61 - Malignant neoplasm of prostate Medications: New progesterone micronized 200 mg PO BEDTIME 30 caps 0RF 30 days R23.2 - Flushing, T45.1X5A - Adverse effect of antineoplastic and immunosuppressive drugs, initial encounter Patient Instructions: Imaging studies, laboratory and physical exam results were discussed and reviewed in detail. No major barriers to patient understanding were identified. An opportunity to ask questions regarding the treatment plan was provided. All questions were answered. The patient expressed understanding and agreement with the above treatment plan. The patient is aware they should contact our office by phone for worsening of their current condition or the appearance of new urologic symptoms. Compliance is encouraged with any medications and followup testing that is ordered. It is a privilege to participate in the urologic care of your patient. If you have any questions or concerns regarding treatment for the above conditions, or other urologic issues, please do not hesitate to contact me. The office telephone contact is [phone]. This note is constructed using voice recognition software. While every effort has been made to ensure accuracy pocket marker errors may have been included. Yours sincerely, Dr Joey Kaiser MD, MADH[facility] - Urology Providers of Expert, Compassionate Care for the Genitourinary System Coding Level of Care Code Est Pt Level 4 (75013) Complex EM visit Add On G2211 Diagnoses Hot flashes related to aromatase inhibitor therapy R23.2; T45.1X5A Prostate cancer C61
== END 2023-11-13 11:00 | disposition home or self-care (01) ==
PROVIDERS: PCP Internal Medicine; Visit Provider Urology
DX: C61 Malignant neoplasm of prostate (principal); T45.1X5A Adverse effect of antineoplastic and immunosuppressive drugs, initial encounter; R23.2 Flushing
CPT/HCPCS: 99214; G2211

== ENCOUNTER → 2023-11-13 10:03 | Outpatient (BNVA) | payer MEDICARE, OTHER, SELFPAY | PROVIDERS: PCP Internal Medicine; Visit Provider Urology | DX: C61 Malignant neoplasm of prostate (principal); R23.2 Flushing; T45.1X5A Adverse effect of antineoplastic and immunosuppressive drugs, initial encounter | CPT/HCPCS: 99212 ==

== ENCOUNTER 2023-11-26 13:25 | Outpatient (REF) | payer MEDICARE, OTHER, SELFPAY ==
[2023-11-26 18:29] LABS: Anion Gap 12 (12-20); Blood Urea Nitrogen 16 mg/dL (9-16); Calcium 10.5 mg/dL (8.4-10.2); Carbon Dioxide 28 mmol/L (22-29); Chloride 104 mmol/L (96-108); Estimated Glomerular Filt Rate > 60; Potassium 4.4 mmol/L (3.3-5.1); Sodium 140 mmol/L (135-145)
[2023-11-26 18:41] LABS: Creatinine Urine 177.18 mg/dL; Protein/Creatinine Ratio, Ur 0.12 (<0.2); Total Protein Urine Random 21 mg/dL (<12)
== END 2023-11-26 13:26 | disposition home or self-care (01) ==
LOC: HO.HKASLDS 13:25
PROVIDERS: Visit Provider Internal Medicine Nephrology
DX: I10 Essential (primary) hypertension (principal)
CPT/HCPCS: 36415; 80051; 82310; 82565; 82570; 84156; 84520

== ENCOUNTER 2023-12-03 13:20 | Outpatient (AMB) | payer MEDICARE, OTHER, SELFPAY ==
--- NOTE | 2023-12-03 13:22 | HO.NEPHOV ---
Vital Signs 12/03/23 13:35 BP 124/70 Blood Pressure Location Lt brachial Position Sitting Pulse 78 Pulse Source Palpation Intake Visit Reasons: 6M follow up/ Confirmed Allergies No Known Allergies Allergy (Verified 11/13/23 10:20) HPI Comments Details: I had the privilege of seeing Marc in the office in follow-up of his hypertension. He has prostate cancer and had radiotherapy . He had PET scan which did not show any metastatic disease as per him. He does not have any dysuria, frequency, hematuria, urinary infection, weight loss, bone pain, nausea, vomiting, diarrhea, orthostatic symptoms, chest pain, shortness of breath or pedal edema. His lipid profile showed high cholesterol and LDL which is closely monitored by his primary care physician. He has had condition on multiple medications for his prostate cancer. He feels well. [facility] Medical History Benign prostatic hyperplasia without lower urinary tract symptoms Chronic prostatitis Elevated PSA Microscopic hematuria Hypertension Surgical History Hx of knee surgery History of prostate surgery Hx of prostate biopsy Social History Are you a primary laboratory animal care veterinarian to a significant other at home: No Do you presently have visiting nurse or other home services: No Patient Tobacco Use Status: Former Tobacco user Tobacco use type: Cigarette Physical Exam Const General: comfortable and no acute distress Orientation/consciousness: patient oriented x3 HEENT Head: Yes normocephalic Mouth: Normal oral and palatal mucosa present Eyes EOM: EOMs intact bilaterally Neck Neck: Yes supple Resp Auscultation: clear to auscultation bilaterally Cardio Jugular venous distension: no JVD Rate: regular rate GI Palpation (GI): Soft to palpation Auscultation: normal bowel sounds General: Yes no CVA tenderness Back/Spine/Pelvis Back: no CVA tenderness Skin General skin exam: no rashes or lesions noted Neuro General: patient oriented x3 and moves all extremities Extrem General: Yes no pedal edema Results Reviewed Nephrology Results: Sodium 140 mmol/L (135-145) 11/26/23 Potassium 4.4 mmol/L (3.3-5.1) 11/26/23 Chloride 104 mmol/L (96-108) 11/26/23 Carbon Dioxide 28 mmol/L (22-29) 11/26/23 BUN 16 mg/dL (9-16) 11/26/23 Creatinine 1.00 mg/dL (0.5-1.4) 11/26/23 Calcium 10.5 mg/dL (8.4-10.2) H 11/26/23 Urine Creatinine 177.18 mg/dL 11/26/23 Protein/Creatinin Ratio 0.12 (<0.2) 11/26/23 Assessment & Plan Assessment & Plan (1) Hypertension: Code(s): I10 - Essential (primary) hypertension Category: Medical Qualifiers: Hypertension type: primary hypertension Qualified Code(s): I10 - Essential (primary) hypertension Plan Marc has hypertension for long time. His blood pressure is well controlled on current dose of losartan and is at goal. He is compliant with his medications. He should cut back salt in the diet. He should maintain good hydration. He should avoid nonsteroidal anti-inflammatory medications. His renal functions are at baseline. He has no history of LVH or retinopathy. He has mildly high LDL and total cholesterol that is going to be repeated by PCP as per patient. He may need initiation of statins. I asked him to hold Vitamin D and re check calcium . He may need a bone scan if his serum calcium doesn't settle down. I did not make any other medication changes today. Follow-up appointment given. Orders: Orders Creatinine Today I10 - Essential (primary) hypertension Blood Urea Nitrogen Today I10 - Essential (primary) hypertension Calcium Today I10 - Essential (primary) hypertension Immunofixation Pnl, Serum Today I10 - Essential (primary) hypertension Parathyroid Hormone Intact Today I10 - Essential (primary) hypertension Electrolytes Today I10 - Essential (primary) hypertension Vitamin D 25-OH Total Today I10 - Essential (primary) hypertension Vitamin D 1,25 dihydroxy Today I10 - Essential (primary) hypertension Coding Level of Care Code Est Pt Level 4 (65577) Diagnoses Primary hypertension I10 Hypertension type: primary hypertension
[2023-12-03 13:35] VITALS: BP 124/70; PULSE 78
== END 2023-12-03 13:55 | disposition home or self-care (01) ==
PROVIDERS: PCP Internal Medicine; Visit Provider Internal Medicine Nephrology
DX: I10 Essential (primary) hypertension (principal)
CPT/HCPCS: 99214

== ENCOUNTER → 2023-12-03 13:20 | Outpatient (BNVA) | payer MEDICARE, OTHER, SELFPAY | PROVIDERS: PCP Internal Medicine; Visit Provider Internal Medicine Nephrology | DX: I10 Essential (primary) hypertension (principal) | CPT/HCPCS: 99212 ==

== ENCOUNTER 2024-02-25 14:32 | Outpatient (REF) | payer MEDICARE, OTHER, SELFPAY ==
[2024-02-25 18:50] LABS: Prostate Specific Antigen < 0.10 ng/mL (<0.05-4.0)
[2024-03-02 00:33] LABS: Testosterone, Total 1 ng/dL (250-1100)
== END 2024-02-25 14:33 | disposition home or self-care (01) ==
LOC: HO.HKASLDS 14:32
PROVIDERS: Visit Provider Urology
DX: Z13.89 Encounter for screening for other disorder (principal); C61 Malignant neoplasm of prostate
CPT/HCPCS: 36415; 84153; 84403

== ENCOUNTER 2024-02-25 14:40 | Outpatient (REF) | payer MEDICARE, OTHER, SELFPAY ==
[2024-02-25 18:50] LABS: Prostate Specific Antigen < 0.10 ng/mL (<0.05-4.0)
== END 2024-02-25 14:41 | disposition home or self-care (01) ==
LOC: HO.HKASLDS 14:40
PROVIDERS: Visit Provider Urology
DX: C61 Malignant neoplasm of prostate (principal)
CPT/HCPCS: 36415; 84153

== ENCOUNTER 2024-02-25 14:43 | Outpatient (REF) | payer MEDICARE, OTHER, SELFPAY ==
[2024-02-25 18:20] LABS: Anion Gap 14 (12-20); Blood Urea Nitrogen 14 mg/dL (9-16); Calcium 10.3 mg/dL (8.4-10.2); Carbon Dioxide 26 mmol/L (22-29); Chloride 104 mmol/L (96-108); Estimated Glomerular Filt Rate > 60; Sodium 140 mmol/L (135-145)
[2024-02-25 18:25] LABS: Parathyroid Hormone Intact 81.7 pg/mL (8.7-77.1)
[2024-02-25 18:40] LABS: Vitamin D 25-OH Total 54.1 ng/mL (>30)
[2024-02-27 22:34] LABS: IgA 255 mg/dL (70-320); IgG 1170 mg/dL (600-1540); IgM 29 mg/dL (50-300)
[2024-02-29 18:39] LABS: VITAMIN D (1,25 OH) D3 32 pg/mL; Vit D (1,25-Dihydroxy) Total 32 pg/mL (18-72); Vitamin D (1,25 OH) D2 <8 pg/mL
== END 2024-02-25 14:44 | disposition home or self-care (01) ==
LOC: HO.HKASLDS 14:43
PROVIDERS: Visit Provider Internal Medicine Nephrology
DX: I10 Essential (primary) hypertension (principal); Z12.5 Encounter for screening for malignant neoplasm of prostate
CPT/HCPCS: 36415; 80051; 82306; 82310; 82565; 82652; 82784; 83970; 84153; 84403; 84520; 86334

== ENCOUNTER 2024-03-03 14:22 | Outpatient (AMB) | payer MEDICARE, OTHER, SELFPAY ==
[2024-03-03 14:57] VITALS: BP 132/80; PULSE 84; O2SAT 96; BMI 29.4
--- NOTE | 2024-03-03 14:57 | HO.NEPHOV_ITS ---
Vital Signs 03/03/24 14:57 Height 5 ft 11 in Weight 210 lb 8 oz BMI 29.4 BP 132/80 Blood Pressure Location Rt brachial Position Sitting Pulse 84 Pulse Source Pulse Oximeter Pulse Oximetry (%) 96 Oxygen Delivery Method Room Air Intake Visit Reasons: 3mon follow up- Conf Blueprint Duplicator Required: No Accompanied by: Self / Same As Patient Allergies No Known Allergies Allergy (Verified 03/03/24 15:02) HPI Comments Details: I had the privilege of seeing Marc in the office in follow-up of his hypertension. He has prostate cancer and had radiotherapy . He had PET scan which did not show any metastatic disease as per him. He feels depressed and is going to be evaluated for it. His serum calcium has been high which is being investigated. He does not have any dysuria, frequency, hematuria, urinary infection, weight loss, bone pain, nausea, vomiting, diarrhea, orthostatic symptoms, chest pain, shortness of breath or pedal edema. He has had condition on multiple medications for his prostate cancer. He feels well [facility] Medical History Benign prostatic hyperplasia without lower urinary tract symptoms Chronic prostatitis Elevated PSA Microscopic hematuria Hypertension Surgical History Hx of knee surgery History of prostate surgery Hx of prostate biopsy Social History Are you a primary child care lead teacher to a significant other at home: No Do you presently have visiting nurse or other home services: No Patient Tobacco Use Status: Former Tobacco user Tobacco use type: Cigarette Review of Systems Const All systems reviewed & are unremarkable except as noted in HPI and below Physical Exam Vital Signs: Last Vital Signs Pulse 84 03/03/24 14:57 BP 132/80 03/03/24 14:57 Pulse Ox 96 03/03/24 14:57 Oxygen Delivery Method Room Air 03/03/24 14:57 BMI result Body Mass Index 29.4 Const General: comfortable and no acute distress Orientation/consciousness: patient oriented x3 HEENT Head: Yes normocephalic Mouth: Normal oral and palatal mucosa present Eyes EOM: EOMs intact bilaterally Neck Neck: Yes supple Resp Auscultation: clear to auscultation bilaterally Cardio Jugular venous distension: no JVD Rate: regular rate GI Palpation (GI): Soft to palpation Auscultation: normal bowel sounds General: Yes no CVA tenderness Back/Spine/Pelvis Back: no CVA tenderness Skin General skin exam: no rashes or lesions noted Neuro General: patient oriented x3 and moves all extremities Extrem General: Yes no pedal edema Results Reviewed Nephrology Results: Sodium 140 mmol/L (135-145) 02/25/24 Potassium 4.0 mmol/L (3.3-5.1) 02/25/24 Chloride 104 mmol/L (96-108) 02/25/24 Carbon Dioxide 26 mmol/L (22-29) 02/25/24 BUN 14 mg/dL (9-16) 02/25/24 Creatinine 0.95 mg/dL (0.5-1.4) 02/25/24 Calcium 10.3 mg/dL (8.4-10.2) H 02/25/24 PTH Intact 81.7 pg/mL (8.7-77.1) H 02/25/24 Urine Creatinine 177.18 mg/dL 11/26/23 Protein/Creatinin Ratio 0.12 (<0.2) 11/26/23 Assessment & Plan Assessment & Plan (1) Hypertension: Code(s): I10 - Essential (primary) hypertension Category: Medical Qualifiers: Hypertension type: primary hypertension Qualified Code(s): I10 - Essential (primary) hypertension (2) Hypercalcemia: Code(s): E83.52 - Hypercalcemia Category: Medical Plan Marc has hypertension for long time. His blood pressure is well controlled on current dose of losartan and is at goal. He is compliant with his medications. He should cut back salt in the diet. He should maintain good hydration. He should avoid nonsteroidal anti-inflammatory medications. His renal functions are at baseline. He has no history of LVH or retinopathy. He may need initiation of statins. I asked him to hold Vitamin D and re check calcium . I have ordered sestamibi scan. He may need a bone scan if his serum calcium doesn't settle down. I did not make any other medication changes today. Follow- up appointment given. Orders: Orders NM parathyroid Today E83.52 - Hypercalcemia Calcium Today E83.52 - Hypercalcemia, I10 - Essential (primary) hypertension Coding Level of Care Code Est Pt Level 4 (18079) Diagnoses Primary hypertension I10 Hypertension type: primary hypertension Hypercalcemia E83.52
== END 2024-03-03 15:29 | disposition home or self-care (01) ==
PROVIDERS: PCP Internal Medicine; Visit Provider Internal Medicine Nephrology
DX: I10 Essential (primary) hypertension (principal); E83.52 Hypercalcemia
CPT/HCPCS: 99214

== ENCOUNTER → 2024-03-03 14:22 | Outpatient (BNVA) | payer MEDICARE, OTHER, SELFPAY | PROVIDERS: PCP Internal Medicine; Visit Provider Internal Medicine Nephrology | DX: I10 Essential (primary) hypertension (principal); E83.52 Hypercalcemia | CPT/HCPCS: 99212 ==

== ENCOUNTER 2024-03-18 09:52 | Outpatient (AMB) | payer MEDICARE, OTHER, SELFPAY ==
--- NOTE | 2024-03-18 10:05 | A.OFFVIS_ITS ---
Intake Visit Reasons: 4M Follow Up-PSA/Testosterone(set) Intake Note: Patient is Present for Follow Up LABS Urology Medication:Dutasteride Antibiotic Allergies:None Blood Thinners: None Recent PSA: 02/25/24- <0.10 Testo- 1 Charging Board Operator Required: No Allergies No Known Allergies Allergy (Verified 03/03/24 15:02) Medication List - Last Reconciled 03/18/24 by Joey Kaiser MD gabapentin 300 mg PO BEDTIME PRN losartan 25 mg PO BEDTIME progesterone micronized 200 mg PO BEDTIME 30 days HPI Comments Details: Mr Jackson is a very pleasant male. a patient of Dr Greene. They are seen in the office today for the following urologic conditions. - prostate cancer - elevated PSA - BPH Continue good biochemical control Has had some depression from prostate cancer treatment Is doing very well 03/17 PSA <0.1, T 1 11/14 PSA <0.1 T 4 - ceased finasteride 07/17 <0.1 06/15 completed SBRT [facility] 7000 Gy 28 fractions 2nd GnRH given 04/15 Space Oar with Markers Prostate cancer diagnosed by Dr. Kaiser March 2021 grade group 3 low volume Prostate cancer diagnosed by Dr. Kaiser March 2021 PSA at diagnosis 5.2 on finasteride 02/13 PET-CT tribe 2nd biopsy 11/13 PSA 8.0 on finasteride high-grade, increased volume Joel score: 4+4=8 (F 3.5, F 2.5, e 3.5, e 3.0, e 2.0, 4+3=7 (F 3.0) Tumor quantitation: ? Number cores positive: 6 Total number of cores: 18 % of tissue involved: 20% of all tissue examined Perineural inv.: Present 1st biopsy 05/14 - unfavorable intermediate, low volume Histologic grade: Gilbert score: 4+3=7 (left base lateral) / cores total - 20% of core % of tissue involved: Less than 5% of all tissue examined - Periprostatic fat inv. Not identified Seminal vesicle inv.: Not identified Perineural inv. Not identified LVI: Not identified Polaris 08/15 single modal therapy suggested PSA 10/13 4.7-5.7 - 6%, 08/16 8.0 on finasteride Prostate MRI - 75 g prostate, 14 mm left peripheral zone lesion BPH [facility] procedure January 2022 Significant improvement symptomatology Voiding parameters nocturia x1 with good bladder emptying Elevated PSA/Abnormal JEFF:? ? Laboratory investigations include?a total PSA evaluation ?07/10 3.8, ?03/10 6.8, ?04/09 6.6, 07/11 4.4, 01/08 3.5, 01/09 3.6, 02/10 3.9, 03/14 5.2 ? Symptoms include?weak stream, and are stable ?02/09 , weak stream, nocturia, x 1, and are stable.? Overall symptoms are?mild.? His prior IPSS was?mild.? Therapeutic plan will be?continued surveillance. [facility] Medical History Benign prostatic hyperplasia without lower urinary tract symptoms Chronic prostatitis Elevated PSA Microscopic hematuria Hypertension Surgical History Hx of knee surgery History of prostate surgery Hx of prostate biopsy Social History Are you a primary date night caregiver to a significant other at home: No Do you presently have visiting nurse or other home services: No Patient Tobacco Use Status: Former Tobacco user Tobacco use type: Cigarette Review of Systems Const Denies chills and Denies fever(s) Card Reports no additional complaints and Denies syncope Resp Denies cough GI Denies abdominal pain and Denies heartburn Reports as per HPI and Denies change in libido Neuro Denies syncope Psych Denies change in libido Endo Denies change in libido Physical Exam Const General: cooperative, healthy appearing, comfortable and no acute distress Orientation/consciousness: patient oriented x3 HEENT Face and sinus: Yes normal facial exam Mouth: moist mucous membranes Neck Neck: Yes normal visual inspection, Yes full ROM and Yes trachea midline Chest Chest palpation & inspection: normal inspection of the chest Resp Effort & Inspection: normal respiratory effort, able to speak in complete sentences and no respiratory distress GI Inspection: Yes normal to inspection Back/Spine/Pelvis Cervical Spine: normal cervical lordosis Thoracic/Lumbar Spine: thoracic and lumbar spine normal to inspection Skin General skin exam: no rashes or lesions noted Neuro General: patient oriented x3, gait normal, tone normal and moves all extremities Extrem General: Yes normal to inspection and Yes capillary refill normal Assessment & Plan Assessment & Plan (1) Prostate cancer: Comment: 04/13 Gl 4+3 07/05 core 20% Code(s): C61 - Malignant neoplasm of prostate Category: Medical (2) Benign prostatic hyperplasia without lower urinary tract symptoms: Code(s): N40.0 - Benign prostatic hyperplasia without lower urinary tract symptoms Category: Medical Plan continue interval surveillance Orders: Orders Prostate Specific Antigen 3 Months C61 - Malignant neoplasm of prostate Testosterone, Total 3 Months C61 - Malignant neoplasm of prostate Medications: Discontinued dutasteride Discontinued Reason: Patient Completed Course 0.5 mg orally; take 2 capsules daily throughout radiation therapy 90 caps 1RF Patient Instructions: Imaging studies, laboratory and physical exam results were discussed and reviewed in detail. No major barriers to patient understanding were identified. An opportunity to ask questions regarding the treatment plan was provided. All questions were answered. The patient expressed understanding and agreement with the above treatment plan. The patient is aware they should contact our office by phone for worsening of their current condition or the appearance of new urologic symptoms. Compliance is encouraged with any medications and followup testing that is ordered. It is a privilege to participate in the urologic care of your patient. If you have any questions or concerns regarding treatment for the above conditions, or other urologic issues, please do not hesitate to contact me. The office telephone contact is [phone]. This note is constructed using voice recognition software. While every effort has been made to ensure accuracy executive assistant errors may have been included. Yours sincerely, Dr Joey Kaisre MD, [facility] - Urology Providers of Expert, Compassionate Care for the Genitourinary System Coding Level of Care Code Est Pt Level 3 (29150) Diagnoses Prostate cancer C61 Benign prostatic hyperplasia without lower urinary tract symptoms N40.0
== END 2024-03-18 10:40 | disposition home or self-care (01) ==
PROVIDERS: PCP Internal Medicine; Visit Provider Urology
DX: C61 Malignant neoplasm of prostate (principal); N40.0 Benign prostatic hyperplasia without lower urinary tract symptoms
CPT/HCPCS: 99213

== ENCOUNTER → 2024-03-18 09:52 | Outpatient (BNVA) | payer MEDICARE, OTHER, SELFPAY | PROVIDERS: PCP Internal Medicine; Visit Provider Urology | DX: C61 Malignant neoplasm of prostate (principal); N40.0 Benign prostatic hyperplasia without lower urinary tract symptoms | CPT/HCPCS: 99212 ==

== ENCOUNTER → 2024-03-23 07:34 | Outpatient (REF) | payer MEDICARE, OTHER, SELFPAY ==
--- NOTE | ~2024-03-23 | NM_ITS ---
EXAMINATION: NM PARATHYROID SCAN CLINICAL INFORMATION: Hypercalcemia, question parathyroid adenoma. COMPARISON: No previous radionuclide parathyroid or thyroid imaging studies are available for comparison. TECHNIQUE: A double radionuclide study of the thyroid bed region and upper chest in multiple projections was performed 4 hours after the oral administration of 1.0 mCi I-123 sodium iodide and immediately following the intravenous administration of 30 mCi Tc-99m sestamibi. Repeat imaging was performed 2 hours later. The iodide images were electronically subtracted from the sestamibi images using different weighting factors. FINDINGS: There is homogeneous uptake of radioiodine throughout both lobes. The thyroid gland appears to be normal in size and shape. There are no focal areas of increased or diminished uptake. Technetium 99m sestamibi images demonstrate homogeneous thyroid activity. There are no focal areas of increased or decreased Technetium 99m sestamibi activity. Computer-generated digital subtraction images reveal no evidence of excess sestamibi activity. NM/NM parathyroid IMPRESSION: No evidence of excess sestamibi activity suggestive of parathyroid adenoma or hyperplasia. There is homogeneous uptake of radioiodine in the thyroid gland which is also normal in size and shape. Electronically signed by: Marcelo Mojica MD 03/24/2024 04:34 PM EDT
== END ==
LOC: HO.NUCMED 07:34
PROVIDERS: PCP Internal Medicine; Visit Provider Internal Medicine Nephrology
DX: E83.52 Hypercalcemia (principal)
CPT/HCPCS: 78070; A9500; A9516

== ENCOUNTER 2024-05-27 09:14 | Outpatient (REF) | payer MEDICARE, OTHER, SELFPAY ==
[2024-05-27 11:45] LABS: Prostate Specific Antigen < 0.10 ng/mL (<0.05-4.0)
[2024-05-31 06:44] LABS: Testosterone, Total 5 ng/dL (250-1100)
--- OUTSIDE RECORDS SUMMARY | 2024-06-02 16:53 | XMS_ITS | Encounter Summary ---
Author Name [facility] [place] Organization [facility] [place] [facility] [place] Address [address] [place] [id number] Care Team Providers Care Safety And Security Manager Name Role Phone BERENICE DOMINGUEZA Primary Care Provider Unavailabl e Insurance Providers: All historical and current Section Date Range: From patient's date of to the date document was created. This section includes the names of all active insurance providers for the patient. Insurance Provider Type of Coverage Plan Name Start of Policy Coverage End of Policy Coverage Group Number Member ID Insurance Provider's Telephone Number Policy Matias's Name Patient's Relationship to Policy Matias MEDICARE (WNR) MEDICARE (M) PART A Apr 24, 2013 PART A [id number] IMELDA LOZA HN PATIENT MEDICARE (WNR) MEDICARE (M) PART B Apr 24, 2013 PART B [id number] IMELDA LOZA HN PATIENT MEDICARE (WNR) MEDICARE (M) PART B Apr 24, 2013 PART B [id number] IMELDA LOZA HN PATIENT MEDICARE (WNR) MEDICARE (M) PART A Apr 24, 2013 PART A [id number] IMELDA LOZA HN PATIENT [facility] [place] RE Jun 24, 2006 [id number] ISABELLA LOZA SPOUSE [employer] (OPT/PROF ) [place] RE [facility] IN[facility] * Apr 24, 2013 [id number] [phone] ISABELLA LOZA SPOUSE [facility] MEDICAL EXPENSE (OPT/PROF ) NELLY BORGES IND Jun 24, 2006 [id number] ISABELLA LOZA SPOUSE Selected Encounter This section includes the information on record at [place] for the Encounter. Date/Time Encounter Type Encounter Description Reason Provider Source Jun 10, 2023 10:30 AM OFFICE O/P EST LOW 20-29 MIN PODIATRY ICD-10-CM L60.0 Ingrowing nail NEHA WATKINS Adriane Encounter Template Text not used by [place] Assessments - Encounter Diagnoses This section includes the primary and secondary diagnoses documented for the Encounter. Date/Time Primary/Secondary Diagnosis Diagnosis Name Provider Source Jun 10, 2023 10:35 AM PRIMARY Ingrowing nail NEHA WATKINS Jun 10, 2023 10:35 AM SECONDARY Idiopathic progressive neuropathy NEHA WATKINS Plan of Treatment: Future Appointments (+ 6 months) and Future Tests (+/- 45 days) The Plan of Treatment section includes future care activities for the patient from all [place] treatmentfacilities. This section includes future appointments and future orders which are active, pending or scheduled. Future Appointments This section includes appointments that were scheduled to occur 6 months from the date of the Encounter, up to a maximum of 20 appointments. The data comes from all [place] treatment facilities. Appointment Date/Time Appointment Type Appointme nt Facility Name Jul 22, 2023 10:30 AM AMBULATORY - MEDICINE [facility] Oct 16, 2023 09:00 AM AMBULATORY - PSYCHIATRY [facility] November 04, 2023 11:00 AM AMBUL[facility]ORY - MEDICINE [facility] Dec 04, 2023 10:00 AM AMBULATORY PSYCHIATRY [facility] Social History: Smoking Status (Most current) and Tobacco Use (All prior to encounter date) This section includes the most current, and the historical, smoking and tobacco- related health factors from the [facility] facility where the Encounter took place. Current Smoking Status This section includes the most current smoking, or tobacco-related health factor, from the VA facility where the Encounter took place. Date/Time Current Smoking Status Willy mclaughlin Jul 23, 2022 10:30 AM [place]TO[place] FORMER USER [facility] Tobacco Use History This section includes a history of the smoking, or tobacco-related health factors, that were collected on or before the date of the Encounter. The data comes from the [place] facility where the Encounter took place. Date/Time Smoking Status/Tobacco Use Comment F acility Jul 23, 2022 10:30 AM VA-TOBACCO QUIT 15 YRS OR MORE [facility] Jun 07, 2021 11:00 AM VA-TOBACCO FORMER USER [facility] Jun 07, 2021 11:00 AM VA-TOBACCO QUIT 15 YRS OR MORE [facility] Jun 02, 2018 05:44 AM VA-TOBACCO FORMER USER [facility] Jun 02, 2018 05:44 AM VA-TOBACCO QUIT 15 YRS OR MORE [facility] May 14, 2017 08:31 AM QUIT TOBACCO USE > 7 YEARS AGO 25 years ago [facility] May 10, 2016 10:40 AM LIFETIME NON-TOBACCO USER [facility] Aug 27, 2011 08:36 AM QUIT TOBACCO USE > 7 YEARS AGO Patient quit in 1999. [facility] Encounter Notes: All associated encounter notes This section contains the clinical notes associated to the Encounter. Date/Time Encounter Note(s) Provider Source Jun 10, 2023 08:52 AM PODIATRY NOTE: LOCAL TITLE: PODIATRY NOTE STANDARD TITLE: PODIATRY NOTE DATE OF NOTE: JUN 10, 2023@08:52 ENTRY DATE: JUN 10, 2023@08:52:57 AUTHOR: NEHA WATKINS EXP COSIGNER: URGENCY: STATUS: COMPLETED LAST SEEN FOR TREATMENT: 10/03/2022 NOTE: HAS RECEIVED BOTH COVID VACCINE DOSES + BOOSTER AT [facility] S: Pt. is a 73 yo alert [place] AFR/AMER MALE who IS SEEN for CONTINUED podiatric examination & CARE for treatment of a presenting complaint of painful ingrown toenails that he is unable to tend to due to back issues. Patient has been referred by: DR. DOMINGUEZ Location of symptoms are: NAILS 1-2-3-4-5 BILATERAL Onset of symptoms has been several weeks due to this being a recurrent condition that has been exacerbating over the past few weeks. Duration of symptoms is intermittently with periods of exacerbation and remission. Description of symptoms is of an aching nature. Contributing factors are: shoes and increased activity. PMH: Active problems - Computerized Problem List is the source for the following: *NOTE: REVIEWED ABOVE, NOTING NON-CONTRIBUTORY TO THE CC & NO CHANGES SINE PREVIOUS VISIT *NOTE: PLEASE SEE PROBLEM LIST TEMPLATE FOR COMPLETE LIST NEEDED. Family History: Non-contributory Social History: N/A *NOTE: DENIES ANY RECENT CHANGES IN MEDS UPON QUESTIONING TODAY-SEE RECONCILIATION PERFOMED THIS DATE BELOW TOBACCO USE = NONE Allergies:Patient has answered NKA Previous Surgery/Hospitalization: N/A TO THE CC HEIGHT:209 lb [94.80 kg] (07/23/2022 10:43) WEIGHT:71 in [180.3 cm] (07/23/2022 10:43) REVIEW OF SYSTEMS: DEFERRED BEING NON-CONTRIBUTORY TO THE CC & I HAVE REVIEWED THE PCP NOTES & PMH WELL. O: DERMATOLOGICAL: Exam reveals skin color, TEMP & text to be WNL. There is absence of hair noted. Nails are WNL BUT INCURVATED. The affected nails are 1-2-3-4-5 bilat. There are no superficial painful hyperkeratotic lesions noted at this time. There are no rashes, ulcers, indurations or nodules noted. VASCULAR: Exam reveals DP & PT pulses to be +2 equal & symmetrical bilateral. CFT is < 3 sec x 10. There are no superficial varices noted and there is no edema noted. MUSCULOSKELETAL: Exam reveals muscle strength and tone to be equal & symmetrical bilaterally & WNL for an individual of this age and present physical-medical condition. There is pain free ROM at all joints distal to and including the ankle. BILATERAL ASYMPTOMATIC HAV NEUROLOGICAL: Exam reveals S/D, vibratory, light touch & proprioception sensations to be equal & symmetrical bilaterally & diminished for an individual of this age and present physical-medical status. Protective sensation utilizing a [place] lOg monofilament is 0/10 bilateral. BIOMECHANICAL: Exam is deferred at this time as BEING non-contributory to the cc . 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 I DISPENSED A PAIR OF POWER STEPS M 10-10 1/2 IN AN ATTEMPT TOPROVIDE IMPROVED PAIN RELIF AND MAY REQUIRE CUSTOM ORTHOSES. A: Clinical Impression is painful onychocryptic nails in the presence of NEUROPATHY. P: Treatment consists of debridement-reduction of all nails via manual & electric means with excision of the offending nail borders. All care rendered without complications & the patient is progressing well after podiatric care this date and will be scheduled for periodic podiatric care in an attempt to prevent future complications due to the underlying medical conditions. Treatment by a non-professional could be extremely hazardous to the patient's wellbeing due to the underlying medical conditions. RTC: 24 Weeks (PT. CANC 04/08) *DISCVUSSED THE HOLIDAYS WHEN WE WERE YOUNG AND HOW THINGS ARE NOW *DISCUSSED NEW PROTOCOLS AND CALLED [facility] TODAY FOR RESCHEDULING I DISCUSSED THE FINDINGS & PLAN WITH PATIENT (UNCHANGED SINCE PREVIOUS VISIT) & PATIENT AGREES AND UNDERSTANDS PLAN Medication Reconciliation: PERFORMED TODAY - SEE BELOW. Outpatient: Has the patient been taking medications as documented in the EMLR? YES: The patient has been taking medications as documented in the EMLR. Essential Medication List for Review used to complete this medication reconciliation. INCLUDED IN THIS LIST: Alphabetical list of active outpatient prescriptions dispensed from this VA (local) and dispensed from another VA or DoD facility (remote) as well as inpatient orders (local, pending and active), local clinic medications, locally documented non-VA medications, and local prescriptions that have or been discontinued in the past 90 days. - All changes in medications, including all non-VA/Herbal/OTC medications were entered into CPRS. - If there were any medications the patient should no longer take, they were discontinued. - The patient/caregiver was instructed to update this list, discard old lists, and take this list to the next appointment, whether with a VA or non-VA provider. JLV Link Data on this list may not be complete. Please check JLV. Allergies/ADRs (Tool #5) FACILITY ALLERGY/ADR -------- No Remote Allergy/ADR Data available for this patient [facility] No Known Allergies Med Recon NoGlossary (Tool #1) INCLUDED IN THIS LIST: Alphabetical list of active outpatient prescriptions dispensed from this VA (local) and dispensed from another VA or DoD facility (remote) as well as inpatient orders (local pending and active), local clinic medications, locally documented non-VA medications, and local prescriptions that have or been discontinued in the past 90 days. Non-VA Meds Last Documented On: Jul 24, 2021 NOTE The display of VA prescriptions dispensed from another [place] or [facility] facility (remote) is limited to active outpatient prescription entries matched to National Drug File at the originating site and may not include some items such as investigational drugs, compounds, etc. NOT INCLUDED IN THIS LIST: Medications self-entered by the patient into personal health records (i.e. Mind[employer]er) are NOT included in this list. Non-VA medications documented outside this [place], remote inpatient orders (regardless of status) and remote clinic medications are NOT included in this list. The patient and provider must always discuss medications the patient is taking, regardless of where the medication was dispensed or obtained. Non-VA FINASTERIDE 5MG TAB TAKE ONE TABLET BY MOUTH ONCE DAILY Non-VA medication not recommended by VA provider. Medication prescribed by Non-VA provider. OUTPT LOSARTAN 25MG TAB (Status = Active) TAKE ONE TABLET BY MOUTH ONCE DAILY FOR BLOOD PRESSURE/HEART Rx# [id number] Last Released: 05/31/23 Qty/Days Supply: Rx Expiration Date: 08/30/23 Refills Remainin Indication: FOR HIGH BLOOD PRESSURE SUPPLIES /deepika/ NEHA WATKINS DPM SAP MOBILITY ARCHITECT Signed: 06/10/2023 10:37 NEHA WATKINSFIELD
--- OUTSIDE RECORDS SUMMARY | 2024-06-02 16:53 | XMS_ITS | Continuity of Care Document ---
Author Name [facility] Organization [facility] Care Team Providers Care Senior Applications Architect Name Role Phone [facility] Unavailable Unavailable Problems Combined list of problems from Department of Defense and Veterans Affairs facilities. It does not include entries that were removed or entered in error. Problem Status Onset Date Problem Type Date of Resolution Comments Source Benign prostatic hypertrophy Active Condition [facility] Bilateral hearing loss Active Condition [facility] Chronic prostatitis Active Condition Mar 15, 2017 Entered By: CANDE DOMINGUEZ Comment: [facility] Urology - Dr Kaiser [facility] [place] [facility] Colonoscopy Screening Active Condition May 14, 2017 Entered By: CANDE DOMINGUEZ Comment: Approx 2007 [facility] Elevated PSA Active Condition May 14, 2017 Entered By: CANDE DOMINGUEZ Comment: [facility] Urology - Dr Kaiser [facility] [place] [facility] Essential hypertension Active Condition [facility] Exposure to potentially hazardous substance Active Condition Sep 11, 2023 Entered By: JERMAINE MENDEZ Comment: Original MARCY Screen completed 07/23/22 [facility] [place] [facility] Hyperlipidemia Active Condition [facility] Obesity Active Condition [facility] [place] [facility] Primary Care Physician Active Condition May 14, 2017 Entered By: SHAUN HERNANDEZ Comment: Dr. Greene [phone] [facility] specialty providers Active Condition May 14, 2017 Entered By: CANDE DOMINGUEZ Comment: Skin Therapist- -----Dr. Ramirez 2016 Entered By: CANDE DOMINGUEZ Comment: Oncologist--- --Dr. Kaiser [facility] Vitamin D deficiency Active Condition [facility] Tinnitus Inactive Condition 05/14/2017 [facility] Diagnosis: ICD-10-CM L60.0 Ingrowing nail Active Diagnosis [facility] Diagnosis: ICD-10-CM F32.A Depression, unspecified Active Diagnosis [facility] Diagnosis: ICD-10-CM F43.10 Post-traumatic stress disorder, unspecified Active Diagnosis [facility] Diagnosis: ICD-10-CM R32 Unspecified urinary incontinence Active Diagnosis [facility] Diagnosis: ICD-10-CM I11.9 Hypertensive heart disease without heart failure Active Diagnosis [facility] Diagnosis: ICD-10-CM I10 Essential (primary) hypertension Active Diagnosis [facility] Medications Combined list of outpatient medications from Department of [facility] and [facility] facilities.Medications provided include 1) outpatient medications from the last 15 months, and 2) patient-reported medications. Medication Details Route Status Patient Instructions Prescription Expires Prescription Number Last Dispense Date Ordering Provider Order Date Order Qty Source FINASTERIDE 5MG TAB TAKE ONE TABLET BY MOUTH ONCE DAILY ORAL ACTIVE JORDI DOMINGUEZ SA 2021 [facility] LOSARTAN 25MG TAB TAKE ONE TABLET BY MOUTH ONCE DAILY FOR BLOOD PRESSURE /HEART ORAL ACTIVE 09/05/2024 [id number] JORDI DOMINGUEZ SA 2023 90 [facility] LOSARTAN 25MG TAB TAKE ONE TABLET BY MOUTH ONCE DAILY FOR BLOOD PRESSURE /HEART ORAL DISCONT INUED BY PROVIDE R 08/30/2023 [id number] JORDI DOMINGUEZ SA 2022 90 [facility] Immunizations Combined list of available immunizations from the Department of [facility] and [facility] facilities. Immunization Series Date Given Administered By Site Reaction Lot Number CVX Code Drug Pan Cleaner Status Comments Source ZOSTER RECOMBINANT 2 2021 187 complet ed [facility] ZOSTER RECOMBINANT 1 2021 187 complet ed [facility] COVID-19 (PFIZER), MRNA, LNP-S, PF, 30 MCG/0.3 ML DOSE 3 2020 208 complet ed [facility] INFLUENZA, UNSPECIFIED FORMULATION 2020 88 complet ed [facility] COVID-19 (PFIZER), MRNA, LNP-S, PF, 30 MCG/0.3 ML DOSE 2 2020 208 complet ed [facility] COVID-19 ([employer]), MRNA, LNP-S, PF, 30 MCG/0.3 ML DOSE 1 2020 208 complet ed [facility] INFLUENZA, SEASONAL, INJECTABLE 2018 141 complet ed outside [facility] TDAP 2017 115 complet ed Above re entered with correct date of vaccine is 09/04[facility] FLU,3 YRS (HISTORICAL) 2011 88 complet ed [facility] DTAP, UNSPECIFIED FORMULATION 2005 107 complet ed [facility] Vital Signs Combined list of inpatient and outpatient Vital Signs from Department of Defense and Veterans Affairs, ranging from 12 months to all on record, depending upon the facility. Vital Sign Value Date Comments Source SYSTOLIC BLOOD PRESSURE 135 12/16/19 09:14:12 [facility] [place] [facility] DIASTOLIC BLOOD PRESSURE 82 024 09:14:12 [facility] [place] [facility] PULSE OXIMETRY 98 12/16/2023 09:14:12 [facility] [place] [facility] WEIGHT 214.8 12/16/2023 09:14:12 [facility] [place] [facility] BMI 30kg/m2 12/16/2023 09:14:12 [facility] [place] [facility] PAIN 0 12/16/2023 09:14:12 [facility] [place] [facility] HEIGHT 71 12/16/2023 09:14:12 [facility] [place] [facility] TEMPERATURE 98.1 12/16/2023 09:14:12 [facility] [place] [facility] PULSE 81 12/16/2023 09:14:12 [facility] [place] [facility] RESPIRATION 16 12/16/2023 09:14:12 [facility] [place] [facility] SYSTOLIC BLOOD PRESSURE 126 07/22/19 24 10:35:36 [facility] [place] [facility] DIASTOLIC BLOOD PRESSURE 86 024 10:35:36 [facility] PULSE OXIMETRY 99 07/22/2023 10:35:36 [facility] WEIGHT 209.8 07/22/2023 10:35:36 [facility] BMI 29kg/m2 07/22/2023 10:35:36 [facility] PAIN 0 07/22/2023 10:35:36 [facility] HEIGHT 71 07/22/2023 10:35:36 [facility] TEMPERATURE 98.2 07/22/2023 10:35:36 [facility] PULSE 86 07/22/2023 10:35:36 [facility] RESPIRATION 16 07/22/2023 10:35:36 [facility] Encounters Combined list of: 1) Encounters from Department of Veterans Affairs facilities going back up to thelast 18 months. 2) Encounters from the Department of Defense facilities going back up to 280 months. Location Location Details Encounter Type Encounter Number Reason For Visit Attending Provider ADM Date DC Date Status Disposition Source [place] OFF/OP EST OCTOBER X REQ PHY/QHP [id number] Diagnos is: ICD-10- CM I10 Essenti al (primar y) hyperte nsion<b r/> MASSIEL SHARPE IC K 12/05 [place] [facility]counter [id number] 12/05 [facility] Encounter [id number] 04/03 [facility] [place] PSY[place] W PT 60 MINUTES [id number] Diagnos is: ICD-10- CM F43.10 Post-tr aumatic stress disorde r, unspeci fied
Doris GILLILAND YLER 04/10 [place] OFF[place] O/P EST LOW 20-29 MIN [id number] Diagnos is: ICD-10- CM L60.0 Ingrowi ng nail
YOGI WATKINS ES F 06/10 [place] [facility] Outpatient Encounter [id number] 07/22 [facility] [place] OFF[place] O/P EST LOW 20 MIN [id number] Diagnos is: ICD-10- CM I11.9 Hyperte nsive heart disease without heart failure
BERENICE DOMINGUEZ 07[place]22 [place] [facility] Outpatient Encounter [id number] 09/01 [facility] Outpatient Encounter [id number] 09/04 [facility] [place] [facility] W PT 60 MINUTES [id number] Diagnos is: ICD-10- CM F43.10 Post-tr aumatic stress disorde r, unspeci fied
Doris GILLILAND YLER 10/15 [place] [facility] Outpatient Encounter [id number] 11/03 [facility] [place] [facility] W PT 60 MINUTES [id number] Diagnos is: ICD-10- CM F43.10 Post-tr aumatic stress disorde r, unspeci fied
Doris GILLILAND YLER 12/03 [place] [facility] Outpatient Encounter [id number] 12/05 [facility] [place] [facility] O/P EST LOW 20 MIN [id number] Diagnos is: ICD-10- CM R32 Unspeci fied urinary inconti nence<b r/> BERENICE DOMINGUEZ 12/15 [place] W PT 60 MINUTES [id number] Diagnos is: ICD-10- CM F43.10 Post-tr aumatic stress disorde r, unspeci fied
TALAT,T YLER 12/17 [place] W PT 60 MINUTES [id number] Diagnos is: ICD-10- CM F43.10 Post-tr aumatic stress disorde r, unspeci fied
TALAT,T YLER 03/04 [place] W PT 60 MINUTES [id number] Diagnos is: ICD-10- CM F43.10 Post-tr aumatic stress disorde r, unspeci fied
REJI MOSCOSO 04/15 [place] W PT 60 MINUTES [id number] Diagnos is: ICD-10- CM F43.10 Post-tr aumatic stress disorde r, unspeci fied
TALAT,T YLER 05/06 [place] [facility]Y[place] W PT 60 MINUTES [id number] Diagnos is: ICD-10- CM F32.A Depress ion, unspeci fied
TALAT,T YLER 05/27 [place] O/P EST LOW 20 MIN [id number] Diagnos is: ICD-10- CM L60.0 Ingrowi ng nail
ROSS,CHARL ES F 05/29 [facility] Outpatient Encounter [id number] 06/02 [facility] Social History Combined list of available smoking, tobacco, and other social history from Department of Defense and Veterans Affairs facilities. Social History Type Response Date Comment Source Tobacco smoking status NHIS [facility]-TO[facility]ACCO FORMER USER 07/22/2023 [facility] History of tobacco use AL-TOBACCO QUIT 15 YRS OR MORE 07/22/2023 [facility] History of tobacco use AL-TOBACCO FORMER USER 07/23/2022 [facility] History of tobacco use AL-TOBACCO FORMER USER 06/07/2021 [facility] History of tobacco use AL-TOBACCO FORMER USER 06/03/2020 [facility] History of tobacco use AL-TOBACCO QUIT 15 YRS OR MORE 06/02/2018 [facility] History of tobacco use QUIT TOBACCO USE > 7 YEARS AGO 05/14/2017 25 years ago [facility] History of tobacco use LIFETIME NON-TOBACCO USER 05/10/2016 [facility] History of tobacco use QUIT TOBACCO USE > 7 YEARS AGO 08/27/2011 Patient quit in 1999. [facility] Plan of Care List of future care activities from Department of Veterans Affairs facilities. Additional future care activities may be listed in the Assessment and Plan section. Date/Time Care Activity Care Activity Detail Facili ty 07/03/2024 AMBULATORY - PSYCHIATRY AMBULAT[facility] 07/22/2024 AMBULATORY - MEDICINE [facility]BUL[facility] - MEDICI [facility]
--- OUTSIDE RECORDS SUMMARY | 2024-06-02 16:53 | XMS_ITS | Encounter Summary ---
Author Name [facility] [place] [facility] [place] Address [address] [place] [address] Care Team Providers Care Tint Layer Name Role Phone CANDE DOMINGUEZ Primary Care Provider Unavailabl e Insurance Providers: [...] PART A Apr 24, 2013 PART A [id number] IMELDA LOZA HN PATIENT MEDICARE (WNR) MEDICARE (M) PART B Apr 24, 2013 PART B [id number] IMELDA LOZA HN PATIENT MEDICARE (WNR) MEDICARE (M) PART A Apr 24, 2013 PART A [id number] IMELDA LOZA HN PATIENT MEDICARE (WNR) MEDICARE (M) PART B Apr 24, 2013 PART B [id number] IMELDA LOZA HN PATIENT [facility] [place] RE Jun 24, 2006 [id number] [phone] ISABELLA LOZA SPOUSE [employer] (OPT/PROF ) [place] RE STATE INDEM * Apr 24, 2013 [id number] [phone] ISABELLA LOZA SPOUSE [employer] (OPT/PROF ) NELLY BORGES IND Jun 24, 2006 [id number] ISABELLA LOZA SPOUSE Selected Encounter This section includes the information on record at [place] for the Encounter. Date/Time Encounter Type Encounter Description Reason Provider Source Jul 22, 2023 10:30 AM OFFICE O/P EST LOW 20 MIN PRIMARY CARE/MEDICINE ICD-10-CM I11.9 Hypertensive heart disease without heart failure CANDE DOMINGUEZ Encounter Template Text not used by [place] Assessments - Encounter Diagnoses This section includes the primary and secondary diagnoses documented for the Encounter. Date/Time Primary/Secondary Diagnosis Diagnosis Name Provider Source Jul 22, 2023 10:42 AM PRIMARY Hypertensive heart disease without heart failure CANDE DOMINGUEZ Jul 22, 2023 10:42 AM SECONDARY Benign prostatic hyperplasia with lower urinary tract symp CANDE DOMINGUEZ Jul 22, 2023 10:42 AM SECONDARY Hyperlipidemia, unspecified CANDE DOMINGUEZ Plan of Treatment: Future Appointments (+ 6 months) and Future Tests (+/- 45 days) The Plan of Treatment section includes future care activities for the patient from all [place] treatmentfacilities. This section includes future appointments and future orders which are active, pending or scheduled. Future Appointments This section includes appointments that were scheduled to occur 6 months from the date of the Encounter, up to a maximum of 20 appointments. The data comes from all [place] treatment facilities. Appointment Date/Time Appointment Type Appointme nt Facility Name Oct 16, 2023 09:00 AM [facility] November 04[facility] 2023 11:00 AM [facility] Dec 04, 2023 10:00 AM [place] [facility] [place] [facility] Dec 16, 2023 09:00 AM [facility] Dec 18, 2023 01:00 PM [facility] Social History: Smoking Status (Most current) and Tobacco Use (All prior to encounter date) This section includes the most current, and the historical, smoking and tobacco- related health factors from the [facility] facility where the Encounter took place. Current Smoking Status This section includes the most current smoking, or tobacco-related health factor, from the [facility] where the Encounter took place. Date/Time Current Smoking Status Comment George mclaughlin Jul 22, 2023 10:30 AM VA-TOBACCO FORMER USER [facility] Tobacco Use History This section includes a history of the smoking, or tobacco-related health factors, that were collected on or before the date of the Encounter. The data comes from the [place] facility where the Encounter took place. Date/Time Smoking Status/Tobacco Use Comment F acility Jul 22, 2023 10:30 AM VA-TOBACCO QUIT 15 YRS OR MORE [facility] Jul 23, 2022 10:30 AM VA-TOBACCO FORMER USER [facility] Jul 23, 2022 10:30 AM VA-TOBACCO QUIT 15 YRS OR MORE [facility] Jun 07, 2021 11:00 AM VA-TOBACCO FORMER USER [facility] Jun 07, 2021 11:00 AM VA-TOBACCO QUIT 15 YRS OR MORE [facility] Jun 02, 2018 05:44 AM VA-TOBACCO FORMER USER [facility] Jun 02, 2018 05:44 AM VA-TOBACCO QUIT 15 YRS OR MORE [facility] May 14, 2017 08:31 AM QUIT TOBACCO USE > 7 YEARS AGO 25 years ago [facility] May 10, 2016 10:40 AM LIFETIME NON-TOBACCO USER [facility] Aug 27, 2011 08:36 AM QUIT TOBACCO USE > 7 YEARS AGO Patient quit in 1999. [facility] Encounter Notes: All associated encounter notes This section contains the clinical notes associated to the Encounter. Date/Time Encounter Note(s) Provider Source Jul 22, 2023 10:36 AM PREVENTIVE MEDICIN E NURSING NOTE: LOCAL TITLE: CLINICAL REMINDERS/NURSING STANDARD TITLE: PREVENTIVE MEDICINE NURSING NOTE DATE OF NOTE: JUL 22, 2023@10:36 ENTRY DATE: JUL 22, 2023@10:36:23 AUTHOR: RM LYLES COSIGNER: URGENCY: STATUS: COMPLETED Tobacco Pack Year History: Patient used cigarettes in the past, but quit and does not currently use them: Quit smoking GREATER THAN OR EQUAL to 15 years ago. Advance Directive Screen MH AD: Patient does not have a completed advance directive on file at any facility, [place] or outside. S/he is not interested in completing one at this time. The patient received education about Advance Directives and written notification of his/her rights. Suicide Screen: C-SSRS Screening [place] Suicide Severity Rating Scale (C-SSRS) screener 1. Over the past month, have you wished you were or wished you could go to sleep and not wake up? No 2. Over the past month, have you had any actual thoughts of killing yourself? No 3. Over the past month, have you been thinking about how you might do this? Response not required due to responses to other questions. 4. Over the past month, have you had these thoughts and had some intention of acting on them? Response not required due to responses to other questions. 5. Over the past month, have you started to work out or worked out the details of how to kill yourself? Response not required due to responses to other questions. 6. If yes, at any time in the past month did you intend to carry out this plan? Response not required due to responses to other questions. 7. In your lifetime, have you ever done anything, started to do anything, or prepared to do anything to end your life (for example, collected pills, obtained a gun, gave away valuables, went to the roof but didn't jump)? No 8. If YES, was this within the past 3 months? Response not required due to responses to other questions. Homelessness/Food Insecurity Screen: In the past 2 months, have you been living in stable housing that you own, rent, or stay in as part of a household? Yes - Living in stable housing. Are you worried or concerned that in the next 2 months you may NOT have stable housing that you own, rent, or stay in as part of a household? No - Not worried about housing near future The [facility] reports the following: Within the past 12 months, you worried whether your food would run out before you got money to buy more. Never true Within the past 12 months, the food you bought just didn't last and you didn't have money to get more. Never true Depression Screening: Perform PHQ-2 A PHQ-2 screen was performed. The score was 0 which is a negative screen for depression. Over the past two weeks, how often have you been bothered by the following problems? 1. Little interest or pleasure in doing things Not at all 2. Feeling down, depressed, or hopeless Not at all Avg Risk Colorectal Cancer Screen: AVERAGE RISK colorectal cancer screening is due based on information available to this clinical reminder Patient has arranged or is choosing to arrange this care independent of and without assistance from this [facility]. Falls & Incontinence Screen: Falls Screen: During the past 12 months, did the patient report any falls? 4. No falls within the past year. Incontinence Screen: During the past 12 months, has the patient has any characteristics of incontinence (ability, voiding, leakage, etc.)? No incontinence. Pneumococcal Conjugate Vaccine (PCV15/PCV20): Refuses PCV vaccine Immunization: PNEUMOCOCCAL CONJUGATE, UNSPECIFIED FORMULATION Refusal Reason: PATIENT DECISION Patient refuses all immunization(s) in the PneumoPCV group Date Documented: 07/22/23 10:38 Tobacco Use Screening: The patient is a former tobacco user. The patient quit fifteen or more years ago. Influenza Immunization: The patient declines to receive the recommended dose of seasonal influenza vaccine. Immunization: INFLUENZA, UNSPECIFIED FORMULATION Refusal Reason: PATIENT DECISION Patient refuses all immunization(s) in the FLU group Date Documented: 07/22/23 10:38 Alcohol Use Screen (AUDIT-C): Alcohol Screen: SCREEN FOR ALCOHOL (AUDIT-C) An alcohol screening test (AUDIT-C) was negative (score=1). 1. How often did you have a drink containing alcohol in the past year? Consider a drink to be a 12 ounce can or bottle of regular beer, 8 ounces of malt liquor, a 5 ounce glass of table wine, or a 1.5 ounce shot of liquor (like scotch, gin, or vodka). Monthly or less 2. How many drinks containing alcohol did you have on a typical day when you were drinking in the past year? One or two drinks 3. How often did you have six or more drinks on one occasion in the past year? Never COVID-19 Immunization: Defer vaccine, reassess in 1 year Reason: decline Sexual Orientation: The patient thinks of their sexual orientation as: Straight or Heterosexual /deepika/ RM LYLES LPN PACDoris 10 Signed: 07/22/2023 10:40 RM LYLES [facility] Jul 22, 2023 06:05 AM PHYSICIAN NOTE: LOCAL TITLE: NOTE STANDARD TITLE: PHYSICIAN NOTE DATE OF NOTE: JUL 22, 2023@06:05 ENTRY DATE: JUL 22, 2023@06:05:06 AUTHOR: CANDE DOMINGUEZ EXP COSIGNER: URGENCY: STATUS: COMPLETED HISTORY OF PRESENT ILLNESS: ANANTH LOZA, is a 73 yo MALE , who presents at the [facility] for his annual visit. Pt maintains a non-VA PCP: Dr Greene. [facility] utilizes podiatry, pharmacy, and MH services at the [place]. NonVA Providers: Urologist: Dr Kaiser Coffee Machine Technician: Dr Alexis Active problems - Computerized Problem List is the source for the followin. Primary Care Physician 2. Colonoscopy Screening 3. Vitamin D deficiency 4. Obesity 5. Benign prostatic hypertrophy 6. specialty providers 7. Elevated PSA 8. Chronic prostatitis 9. Essential hypertension 10. Hyperlipidemia 11. Bilateral hearing loss The following VA and Non-VA meds were reconciled with patient: Active Outpatient Medications (including Supplies): Issue Date Status Last Fill Active Outpatient Medications Refills Expiration ======= 1) LOSARTAN 25MG TAB Qty: 90 for 90 days ACTIVE Issu:08-29-22 Sig: TAKE ONE TABLET BY MOUTH ONCE Refills: 0 Last:05-31-23 DAILY FOR BLOOD PRESSURE/HEART Expr:08-30-23 Start Date Active Non-VA Medications Refills Expiration ======= 1) Non-VA FINASTERIDE 5MG TAB SiMG BY ACTIVE MOUTH ONCE DAILY 2 Total Medications ALLERGIES: ========= Patient has answered NKA HISTORY: PERIOD OF SERVICE - FROM May TO Mar COMBAT SERVICE INDICATED: No VITAL SIGNS: Blood Pressure 126/86 (07/22/2023 10:35) Pulse 86 (07/22/2023 10:35) Respiration 16 (07/22/2023 10:35) Pulse Oximetry 99% (07/22/2023 10:35) Temperature 98.2 F [36.8 C] (07/22/2023 10:35) Pain 0 (07/22/2023 10:35) Height 71 in [180.3 cm] (07/22/2023 10:35) Weight 209.8 lb [95.16 kg] (07/22/2023 10:35) BMI BMI: 29.3 REVIEW OF SYSTEMS: CARDIOVASCULAR: No chest pain, no palpitations RESPIRATORY: No SOB, no wheezing GASTROINTESTINAL: No abd pain, no N/V/D GENITOURINARY: No dysuria, no hematuria MUSCULOSKELETAL: No joint pain, no joint swelling PSYCHIATRIC: No anxiety, no trouble sleeping, no depression NEUROLOGIC: No H/A, no numbness, no weakness, no tingling EXAMINATION: GENERAL: WD/WN , pleasant & in NAD HEENT: Moist mucosa NECK: Supple, no carotid bruits HEART: RRR, S1-S2, no murmurs LUNGS: CTA B/L, no wheezes ABDOMEN: Soft, NT/ND, no HSM, + BS x 4 Quads PERIPH PULSES: 2+ B/L EXTREMITIES: FROM x 4, no edema, gait normal NEUROLOGIC: AAO x3, no focal neurological deficits ASSESSMENT/PLAN: 1. Hypertension: well controlled on losartan 25mg/day, followed annually by Dr Alexis/hourly sign language interpreter 2. Prediabetes: encouraged to moniter carbs/simple sugars in diet 3. BPH/Chronic Prostatitis: on finasteride 5mg/day, managed by Dr Kaiser 4. Prostate CA: TURP 04/2021, completed radiation txs, now undergoing hormonal txs since 10/2022, monitered by Dr Kaiser 5. PTSD: [place] 05/1967 - 03/[place], managed by 6. Colonoscopy Screening: approx 2018 per vet, 2 polyps, repeat age 73, on hold for now due to recent treatment for prostate CA FOLLOW UP 1 year - Annual - vet to bring PCP labs ========= UPCOMING APPOINTMENTS: 10/21/2023 10:00 CWM/SO/KATI/TALAT [facility] 11/04/2023 11:00 CWM/SO/PODIATRY/ROLAND No barriers; Patient understands and agrees to current treatment plan. If pt has any questions, concerns, or changes in current health status he/she will call or come in to the VA. Medication Reconciliation: Outpatient: Has the patient been taking medications [...] Remote Allergy/ADR Data available for this patient [facility] [place] [facility] No Known Allergies Med Recon NoGlossary (Tool [...] display of VA prescriptions dispensed from another [place] or [facility] facility (remote) is limited to active outpatient prescription entries matched to National Drug File at the originating site and may not include some items such as investigational drugs, compounds, etc. NOT INCLUDED IN THIS LIST: Medications self-entered by the patient into personal health records (i.e. [employer]) are NOT included in this list. Non-VA medications documented outside this [place], remote inpatient orders (regardless of status) and remote clinic medications are NOT included in this list. The patient and provider must always discuss medications the patient is taking, regardless of where the medication was dispensed or obtained. ------ Non-VA FINASTERIDE 5MG TAB TAKE ONE TABLET BY MOUTH ONCE DAILY Non-VA medication not recommended by VA provider. Medication prescribed by Non-VA provider. OUTPT LOSARTAN 25MG TAB (Status = Active) TAKE ONE TABLET BY MOUTH ONCE DAILY FOR BLOOD PRESSURE/HEART Rx# [id number] Last Released: 05/31/23 Qty/Days Supply: Rx Expiration Date: 08/30/23 Refills Remainin Indication: FOR HIGH BLOOD PRESSURE ------ SUPPLIES ------ /deepika/ CANDE DOMINGUEZ MD Primary Care Physician Signed: 07/22/2023 11:46 CANDE DOMINGUEZ [facility]
--- OUTSIDE RECORDS SUMMARY | 2024-06-02 16:53 | XMS_ITS | Encounter Summary ---
Author Name [facility] [place] Address [address] [place] [address] Care Team Providers Care Benzol Still Operator Name Role Phone BERENICE DOMINGUEZA Primary Care [...] PART A Apr 24, 2013 PART A [id number] DAGOIMELDA HN PATIENT MEDICARE (WNR) MEDICARE (M) PART B Apr 24, 2013 PART B [id number] DAGOIMELDA HN PATIENT MEDICARE (WNR) MEDICARE (M) PART A Apr 24, 2013 PART A [id number] DAGOIMELDA HN PATIENT MEDICARE (WNR) MEDICARE (M) PART B Apr 24, 2013 PART B [id number] DAGOIMELDA HN PATIENT [facility] [place] RE Jun 24, 2006 [id number] ISABELLA LOZA ENDOLYN SPOUSE [employer] (OPT/PROF ) [place] RE STATE INDEM * Apr 24, 2013 [id number] ISABELLA LOZA SPOUSE [employer] (OPT/PROF ) NELLY BORGES IND Jun 24, 2006 [id number] ISABELLA LOZA SPOUSE Selected Encounter This section includes the information on record at [place] for the Encounter. Date/Time Encounter Type Encounter Description Reason Pro vider Source Jul 22, 2023 12:00 AM Outpatient Encounter EVENT (HISTORICAL) IHE Encounter Template Text not used by [place] Plan of Treatment: Future Appointments (+ 6 months) and Future Tests (+/- 45 days) The Plan of Treatment section includes future care activities for the patient from all [place] treatmentfacilities. This section includes future appointments and future orders which are active, pending or scheduled. Future Appointments This section includes appointments that were scheduled to occur 6 months from the date of the Encounter, up to a maximum of 20 appointments. The data comes from all [place] treatment facilities. Appointment Date/Time Appointment Type Appointme nt Facility Name Oct 16, 2023 09:00 AM [facility] November 04, 2023 11:00 AM [facility] Dec 04, 2023 10:00 AM AM[place] [facility] [place] [facility] Dec 16, 2023 09:00 AM [facility] Dec 18, 2023 01:00 PM [facility] Vital Signs: All taken on the encounter date This section contains inpatient and outpatient Vital Signs collected on the date of the Encounter. Date/Time Temperature Pulse Blood Pressure Respiratory Rate SP02 Pain Height Weight Body Mass Index Source Jul 22, 2023 10:35 AM 98.2 86 126/86 16 99 0 71 209.8 29 [facility] Social History: Smoking Status (Most current) and Tobacco Use (All prior to encounter date) This section includes the most current, and the historical, smoking and tobacco- related health factors from the [place] facility where the Encounter took place. Current Smoking Status This section includes the most current smoking, or tobacco-related health factor, from the [place] facility where the Encounter took place. Date/Time Current Smoking Status Willy mclaughlin Jun 03, 2020 10:02 AM [place]-TOBACCO QUIT 15 YRS OR MORE [facility] Tobacco Use History This section includes a history of the smoking, or tobacco-related health factors, that were collected on or before the date of the Encounter. The data comes from the [place] facility where the Encounter took place. Date/Time Smoking Status/Tobacco Use Comment F acility Jun 03, 2020 10:02 AM [place]-TOBACCO QUIT 15 YRS OR MORE [facility]
--- OUTSIDE RECORDS SUMMARY | 2024-06-02 16:56 | XMS_ITS | Encounter Summary ---
Author Name [facility] [place] [facility] [place] [facility] [place] Address [address] [place] [address] Care Team Providers Care Chapter Relations Administrator Name Role Phone ALBERTOCANDE Primary Care Provider Unavailabl e Insurance Providers: [...] PART A Apr 24, 2013 PART A [id number] IMELDA LOZA HN PATIENT MEDICARE (WNR) MEDICARE (M) PART B Apr 24, 2013 PART B [id number] IMELDA LOZA HN PATIENT MEDICARE (WNR) MEDICARE (M) PART A Apr 24, 2013 PART A [id number] IMELDA LOZA HN PATIENT MEDICARE (WNR) MEDICARE (M) PART B Apr 24, 2013 PART B [id number] IMELDA LOZA HN PATIENT [facility] [place] RE Jun 24, 2006 [id number] ISABELLA LOZA ENDOLYN SPOUSE [employer] MED[employer] EXPENSE (OPT/PROF ) [place] RE STATE INDEM * Apr 24, 2013 [id number] [phone] ISABELLA LOZA SPOUSE [employer] EXP[employer] (OPT/PROF ) NELLY LYNN STATE IND Jun 24, 2006 [id number] ISABELLA LOZA SPOUSE Selected Encounter This section includes the information on record at NH for the Encounter. Date/Time Encounter Type Encounter Description Reason Pro vider Source Dec 06, 2023 09:18 AM Outpatient Encounter ADMIN PAT ACTIVTIES (MASNONCT) IHE Encounter Template Text not used by NH Plan of Treatment: Future Appointments (+ 6 months) and Future Tests (+/- 45 days) The Plan of Treatment section includes future care activities for the patient from all NH treatmentfacilities. This section includes future appointments and future orders which are active, pending or scheduled. Future Appointments This section includes appointments that were scheduled to occur 6 months from the date of the Encounter, up to a maximum of 20 appointments. The data comes from all NH treatment facilities. Appointment Date/Time Appointment Type Appointme nt Facility Name Dec 16, 2023 09:00 AM AMBULATORY - MEDICINE [facility] [place] [facility] Dec 18, 2023 01:00 PM AMBULATORY - PSYCHIATRY [place] [facility] [place] [facility] Mar 04, 2024 09:00 AM AMBULATORY - PSYCHIATRY [place] [facility] [place] [facility] Apr 15, 2024 10:00 AM AMBULATORY - PSYCHIATRY [place] [facility] [place] [facility] May 06, 2024 10:00 AM AMBULATORY - PSYCHIATRY [place] [facility] [place] [facility] May 27, 2024 11:00 AM AMBULATORY - PSYCHIATRY [place] [facility] [place] [facility] May 29, 2024 09:30 AM AMBULATORY - MEDICINE [facility] Social History: Smoking Status (Most current) and Tobacco Use (All prior to encounter date) This section includes the most current, and the historical, smoking and tobacco- related health factors from the NH facility where the Encounter took place. Current Smoking Status This section includes the most current smoking, or tobacco-related health factor, from the NH facility where the Encounter took place. Date/Time Current Smoking Status Willy mclaughlin Jun 03, 2020 10:02 AM [facility]-TO[facility]ACCO [facility]RS [facility] Tobacco Use History This section includes a history of the smoking, or tobacco-related health factors, that were collected on or before the date of the Encounter. The data comes from the NH facility where the Encounter took place. Date/Time Smoking Status/Tobacco Use Comment F acility Jun 03, 2020 10:02 AM VA-TOBACCO QUIT 15 YRS OR MORE [facility] Encounter Notes: All associated encounter notes This section contains the clinical notes associated to the Encounter. Date/Time Encounter Note(s) Provider Source Dec 06, 2023 11:15 AM ADDENDUM: LOCAL TITLE: Addendum STANDARD TITLE: ADDENDUM DATE OF NOTE: DEC 06, 2023@11:15:09 ENTRY DATE: DEC 06, 2023@11:15:10 AUTHOR: TRAV RAMEY COSIGNER: URGENCY: STATUS: COMPLETED Spoke with the and he would like to discuss his prostate cancer with the provider. Inquired if the has spoken to his Non-VA PCP about this issue and he stated that he has and would like to speak with his VA provider. was asked if he is still seeing his Non-VA Urologist to which he stated I am all setup with them and we are good there . Will forward to PACT AMSA to please schedule an appointment with the provider to be seen. /deepika/ TRAV RAMEY RN REGISTERED NURSE Signed: 12/06/2023 11:20 Receipt Acknowledged By: 12/06/2023 16:16 /deepika/ SILVANO AGOSTO ADVANCED TAPE KELLER OPERATOR === --- Original Document --- 12/06/23 CCC: SCHEDULING ADMINISTRATION: Patient Demographics Patient Name: ANANTH LOZA Patient Primary Phone: [phone] Patient Primary [address]: [address] [place] [address] Patient : 1950 Patient Age: 73 Current Location: [facility] Call Back Number: [phone] Caller/Recipient Relation to Patient: Self If Other Describe Relation to Patient: OTHER Caller Name: LOZA Administrative Administrative Note Reason: Other Administrative Note Comments: [place] called who stated, he is a cancer survivor and he has a personal medical matter that he needs to speak with pcp team. Vet denied pain or discomfort, he also denied to speak with triage nurse. Please reached out to vet at [phone]. Homa DE GUZMAN Signed: 12/06/2023 09:19 Receipt Acknowledged By: 12/06/2023 11:15 /deepika/ TRAV RAMEY RN REGISTERED NURSE 12/06/2023 15:08 /es/ RM LYLES IN SHOP SERVICE TECHNICIAN PACT 10 12/06/2023 ADDENDUM STATUS: COMPLETED LM ON /deepika/ SILVANO AGOSTO ADVANCED TAPE KELLER OPERATOR Signed: 12/06/2023 13:49 12/06/2023 ADDENDUM STATUS: UNSIGNED You may not VIEW this UNSIGNED Addendum. TRAV RAMEY [facility] [place] [facility] Dec 06, 2023 09:18 AM ADMINISTRATIVE NOTE: LOCAL TITLE: CCC: SCHEDULING ADMINISTRATION STANDARD TITLE: ADMINISTRATIVE NOTE DATE OF NOTE: DEC 06, 2023@09:18:57 ENTRY DATE: DEC 06, 2023@09:18:57 AUTHOR: SIDNEY MCINTYRE EXP COSIGNER: URGENCY: STATUS: COMPLETED CCC: SCHEDULING ADMINISTRATION Has ADDENDA Patient Demographics Patient Name: NAANTH LOZA Patient Primary Phone: [phone] Patient Primary Address: [address] [place] [address] Patient : 1950 Patient Age: 73 Current Location: [facility] Call Back Number: [phone] Caller/Recipient Relation to Patient: Self If Other Describe Relation to Patient: OTHER Caller Name: LOZA Administrative Administrative Note Reason: Other Administrative Note Comments: called who stated, he is a cancer survivor and he has a personal medical matter that he needs to speak with pcp team. Vet denied pain or discomfort, he also denied to speak with triage nurse. Please reached out to vet at [phone]. Homa DE GUZMAN Signed: 12/06/2023 09:19 Receipt Acknowledged By: 12/06/2023 11:15 /es/ TRAV RAMEY RN REGISTERED NURSE 12/06/2023 15:08 /deepika/ RM LYLES LPN PACT 10 12/06/2023 ADDENDUM STATUS: COMPLETED Spoke with the and he would like to discuss his prostate cancer with the provider. Inquired if the has spoken to his Non-VA PCP about this issue and he stated that he has and would like to speak with his VA provider. was asked if he is still seeing his Non-VA Urologist to which he stated I am all setup with them and we are good there . Will forward to PACT AMSA to please schedule an appointment with the provider to be seen. /jackson RAMEY RN REGISTERED NURSE Signed: 12/06/2023 11:20 Receipt Acknowledged By: 12/06/2023 16:16 /jackson AGOSTO ADVANCED TAPE KELLER OPERATOR 12/06/2023 ADDENDUM STATUS: COMPLETED LM ON /jackson AGOSTO ADVANCED TAPE KELLER OPERATOR Signed: 12/06/2023 13:49 12/06/2023 ADDENDUM STATUS: COMPLETED SCHEDULED APPT WITH VET FOR 12/15 @ 9 AM /jackson AGOSTO ADVANCED TAPE KELLER OPERATOR Signed: 12/06/2023 16:16 SIDNEY MCINTYRE [place] [facility] [place] [facility]
--- OUTSIDE RECORDS SUMMARY | 2024-06-02 16:56 | XMS_ITS | Encounter Summary ---
Author Name [facility] [place] [facility] [place] Address [address] [place] [address] Care Team Providers Care Baseball Hand Sewer Name Role Phone CANDE DOMINGUEZ Primary Care [...] PART A Apr 24, 2013 PART A [id number] IMELDA LOZA HN PATIENT MEDICARE (WNR) MEDICARE (M) PART B Apr 24, 2013 PART B [id number] IMELDA LOZA HN PATIENT MEDICARE (WNR) MEDICARE (M) PART B Apr 24, 2013 PART B [id number] IMELDA LOZA HN PATIENT MEDICARE (WNR) MEDICARE (M) PART A Apr 24, 2013 PART A [id number] IMELDA LOZA HN PATIENT [facility] [place] RE Jun 24, 2006 [id number] [phone] ISABELLA LOZA SPOUSE [employer]PENSE (OPT/PROF ) [place] RE STATE INDEM * Apr 24, 2013 [id number] ISABELLA LOZA SPOUSE [employer] EXP[employer] (OPT/PROF ) NELLY LYNN STATE IND Jun 24, 2006 [id number] ISABELLA LOZA MARUJASON SPOUSE Selected Encounter This section includes the information on record at [place] for the Encounter. Date/Time Encounter Type Encounter Description Reason Provider Source Dec 04, 2023 10:00 AM PSYTX W PT 60 MINUTES [facility] - IND ICD-10-CM F43.10 Post-traumatic stress disorder, unspecified ELIF GILLILAND Adriane Encounter Template Text not used by [place] Assessments - Encounter Diagnoses This section includes the primary and secondary diagnoses documented for the Encounter. Date/Time Primary/Secondary Diagnosis Diagnosis Name Provider Source Jan 01, 2024 02:37 PM PRIMARY Post-traumatic stress disorder, unspecified ELIF GILLILAND [place] Plan of Treatment: Future Appointments (+ 6 months) and Future Tests (+/- 45 days) The Plan of Treatment section includes future care activities for the patient from all [place] treatmentfacilities. This section includes future appointments and future orders which are active, pending or scheduled. Future Appointments This section includes appointments that were scheduled to occur 6 months from the date of the Encounter, up to a maximum of 20 appointments. The data comes from all [place] treatment facilities. Appointment Date/Time Appointment Type Appointme nt Facility Name Dec 16, 2023 09:00 AM AMBULATORY - MEDICINE [facility] [place] [facility] Dec 18, 2023 01:00 PM AMBULATORY - PSYCHIATRY [place] [facility] [place] [facility] Mar 04, 2024 09:00 AM AMBULATORY - PSYCHIATRY [place] [facility] [place] [facility] Apr 15, 2024 10:00 AM AMBULATORY - PSYCHIATRY [facility] [place] [facility] May 06, 2024 10:00 AM AMBULATORY - PSYCHIATRY [place] [facility] [place] [facility] May 27, 2024 11:00 AM AMBULATORY - PSYCHIATRY [place] [facility] [place] [facility] May 29, 2024 09:30 AM AMBULATORY - MEDICINE [facility] Social History: Smoking Status (Most current) and Tobacco Use (All prior to encounter date) This section includes the most current, and the historical, smoking and tobacco- related health factors from the [place] facility where the Encounter took place. Current Smoking Status This section includes the most current smoking, or tobacco-related health factor, from the [place] facility where the Encounter took place. Date/Time Current Smoking Status Comment George ity Jul 22, 2023 10:30 AM VA-TOBACCO FORMER USER [place] Tobacco Use History This section includes a history of the smoking, or tobacco-related health factors, that were collected on or before the date of the Encounter. The data comes from the [place] facility where the Encounter took place. Date/Time Smoking Status/Tobacco Use Comment F acility Jul 22, 2023 10:30 AM VA-TOBACCO QUIT 15 YRS OR MORE [place] Jul 23, 2022 10:30 AM VA-TOBACCO FORMER USER [place] Jul 23, 2022 10:30 AM VA-TOBACCO QUIT 15 YRS OR MORE [place] Jun 07, 2021 11:00 AM VA-TOBACCO FORMER USER [place] Jun 07, 2021 11:00 AM VA-TOBACCO QUIT 15 YRS OR MORE [place] Jun 02, 2018 05:44 AM VA-TOBACCO FORMER USER [place] Jun 02, 2018 05:44 AM VA-TOBACCO QUIT 15 YRS OR MORE [place] May 14, 2017 08:31 AM QUIT TOBACCO USE > 7 YEARS AGO 25 years ago [place] May 10, 2016 10:40 AM LIFETIME NON-TOBACCO USER [place] Aug 27, 2011 08:36 AM QUIT TOBACCO USE > 7 YEARS AGO Patient quit in 1999. [place] Encounter Notes: All associated encounter notes This section contains the clinical notes associated to the Encounter. Date/Time Encounter Note(s) Provider Source Dec 05, 2023 09:44 AM SOCIAL WORK NOTE: LOCAL TITLE: SOCIAL WORK NOTE STANDARD TITLE: SOCIAL WORK NOTE DATE OF NOTE: DEC 05, 2023@09:44 ENTRY DATE: DEC 05, 2023@09:44:22 AUTHOR: ELIF GILLILAND COSIGNER: CECY MOSCOSO URGENCY: STATUS: COMPLETED INFORMED CONSENT REVIEWED: At beginning of session reviewed rights and limits of confidentiality, mandatory reporting situations, duty to warn and protect, Diop Warning, (if treatment team finds patient to be an acute danger to himself or others, that this information could be relayed to a court of law and presented to a grinding wheel facer), and DOD access for active duty service members. Provided Suicide Prevention Hotline number, and other contact numbers as necessary. VISIT DURATION 60 minutes DIAGNOSES: PTSD, unspec [employer]ER[employer] STATEMENT OF GOALS/CONCERNS: I had some things happen to me during [place], when I was in [place], that sometimes come back to haunt me and I have trouble getting them off my mind. I like to come in and talk to someone and get things back in order in my head just once in a while because most of the time my life is going really well. I just need help getting over these humps sometimes. SESSION FOCUS: Roberto reported an increase in anger and depression over the past two to three months that have gained the notice of his friends and family members. Roberto stated that he believes that the hormones that he was given after cancer radiation treatment has been affecting his moods. also stated that the treatment left many parts of his body hairless including his chest, which stated strong feelings of distress about. stated, Normally I'm a happy go hermilo sandie. I don't get stressed about things. But now I don't want to talk to people about anything, not even to say good morning. Roberto would like to increase session frequency to bi-weekly so that he can address these sympoms more carefully. INTERVENTIONS: Psychotherapeutic Interventions: Active listening, validating Psychoeducation reviewed: NA ASSESSMENT: BRIEF ASSESSMENT OF MENTAL STATUS: 1. Appearance (grooming, attire, apparent age) within normal limits: Yes 2. Thought content was organized and goal directed: Yes 3. Speech was coherent and unimpaired: Yes 4. Affect was appropriate and unremarkable: Yes 5. Demeanor was calm, with no signs of agitation or restlessness: Yes 6. Sleep was largely unimpaired and restful: Yes 7. No evidence of psychosis (hallucinations or delusions): Yes 8. Mood was normal: Yes Other Observations: RISK ASSESSMENT: Denies current suicidal/homicidal ideation PLAN FOR FOLLOW-UP: Semi-Annual Sessions This case is supervised by AV Stokes. Diagnosis, treatment plan, and response to care are reviewed in standard 1-hour, or more, weekly individual supervision meeting. /deepika/ ELIF GILLILAND LEARNING SUPPORT SPECIALIST Signed: 12/05/2023 09:50 /deepika/ [facility] [employer] Formula Checker Mental Health Cosigned: 12/05/2023 10:16 ELIF GILLILAND
--- OUTSIDE RECORDS SUMMARY | 2024-06-02 16:56 | XMS_ITS | Encounter Summary ---
Author Name [facility] [place] [place] Organization [facility] [place] Address [address] [place] [address] Care Team Providers Care Model And Dye Person Name Role Phone ALBERTOCANDE Primary Care Provider [...] PART A Apr 24, 2013 PART A [id number] DAGOIMELDA HN PATIENT MEDICARE (WNR) MEDICARE (M) PART B Apr 24, 2013 PART B [id number] IMELDA LOZA HN PATIENT MEDICARE (WNR) MEDICARE (M) PART A Apr 24, 2013 PART A [id number] DAGOIMELDA HN PATIENT MEDICARE (WNR) MEDICARE (M) PART B Apr 24, 2013 PART B [id number] DAGOIMELDA HN PATIENT [facility] [place] RE Jun 24, 2006 [id number] ISABELLA LOZALYN SPOUSE [employer] EXPENSE (OPT/PROF ) [place] RE STATE INDEM * Apr 24, 2013 [id number] [phone] ISABELLA LOZA SPOUSE [facility] MEDICAL EXPENSE (OPT/PROF ) NELLY BORGES IND Jun 24, 2006 [id number] ISABELLA LOZA SPOUSE Selected Encounter This section includes the information on record at NH for the Encounter. Date/Time Encounter Type Encounter Description Reason Pro vider Source November 04, 2023 04:05 PM Outpatient Encounter PODIATRY IHE Encounter Template Text not used by [...] Appointment Type Appointme nt Facility Name Dec 04, 2023 10:00 AM AMBULATORY - PSYCHIATRY [place] [facility] [place] [facility] Dec 16, 2023 09:00 AM AMBULATORY - MEDICINE [place] [facility] [place] [facility] Dec 18, 2023 01:00 PM AMBULATORY - PSYCHIATRY [place] [facility] [place] [facility] Mar 04, 2024 09:00 AM AMBULATORY PSYCHIATRY [place] [facility] [place] [facility] Apr 15, 2024 10:00 AM AMBULATORY - PSYCHIATRY [place] [facility] [place] [facility] May 06, 2024 10:00 AM [facility] Social History: Smoking Status (Most [...] took place. Date/Time Current Smoking Status Comment Facil ity Jun 03, 2020 10:02 AM [facility] Tobacco Use History This section includes a history of the smoking, or tobacco-related health factors, that were collected on or before the date of the Encounter. The data comes from the [place] facility where the Encounter took place. Date/Time Smoking Status/Tobacco Use Comment F acility Jun 03, 2020 10:02 AM VA-TOBACCO QUIT 15 YRS OR MORE [place] [facility] [place] [place] [facility] Encounter Notes: All associated encounter notes This section contains the clinical notes associated to the Encounter. Date/Time Encounter Note(s) Provider Source November 04, 2023 04:05 PM CLERICAL NOTE: LOCAL TITLE: APPOINTMENT NO SHOW STANDARD TITLE: CLERICAL NOTE DATE OF NOTE: NOVEMBER 04, 2023@16:05 ENTRY DATE: NOVEMBER 04, 2023@16:05:54 AUTHOR: RORY HOLCOMB EXP COSIGNER: URGENCY: STATUS: COMPLETED Patient Name: ANANTH LOZA Patient SSN: [id number] Date and time of Appointment No show : 11/04/23 16:05 PATIENT PHONE - PHONE NUMBER [CELLULAR] - Patient's medical record was reviewed. Follow-up actions were determined and initiated: Please check/complete as applies: [ ]Telephoned Directly [ ]Re-scheduled for next available appt [ ]Sent a N0-show letter ( must call for appointment) [ ]Other (Emergent/Overbook, etc.): Additional Comments: second cxp / ns Future Clinic Visits 05/06/2024 10:00 CWM/SO/MHC/TALAT ADAMS 07/22/2024 10:30 CWM/SO/PACT // RORY DE GUZMAN Signed: 11/04/2023 16:06 RORY HOLCOMB PAUPACK
--- OUTSIDE RECORDS SUMMARY | 2024-06-02 16:57 | XMS_ITS | Encounter Summary ---
Author Name [facility] [place] Organization [place] Address [address] [place] [id number] Care Team Providers Care Head Tennis Coach Name Role Phone CANDE DOMINGUEZ Primary Care [...] PART A Apr 24, 2013 PART A [id number] IMELDA LOZA HN PATIENT MEDICARE (WNR) MEDICARE (M) PART B Apr 24, 2013 PART B [id number] IMELDA LOZA HN PATIENT MEDICARE (WNR) MEDICARE (M) PART B Apr 24, 2013 PART B [id number] DAGOIMELDA HN PATIENT MEDICARE (WNR) MEDICARE (M) PART A Apr 24, 2013 PART A [id number] IMELDA LOZA HN PATIENT [facility] [place] RE Jun 24, 2006 [id number] ISABELLA OLZA SPOUSE [employer] MEDICAL EXPENSE (OPT/PROF ) [place] RE STATE INDEM * Apr 24, 2013 [id number] ISABELLA LOZA SPOUSE [employer] MEDICAL EXPENSE (OPT/PROF ) [place]LLY BORGES IND Jun 24, 2006 [id number] ISABELLA LOZA SPOUSE Selected Encounter This section includes the information on record at CT for the Encounter. Date/Time Encounter Type Encounter Description Reason Provider Source Dec 16, 2023 09:00 AM OFFICE O/P EST LOW 20 MIN PRIMARY CARE/MEDICINE ICD-10-CM R32 Unspecified urinary incontinence CANDE DOMINGUEZ Encounter Template Text not used by CT Assessments - Encounter Diagnoses This section includes the primary and secondary diagnoses documented for the Encounter. Date/Time Primary/Secondary Diagnosis Diagnosis Name Provider Source Jan 09, 2024 01:20 PM PRIMARY Unspecified urinary incontinence CANDE DOMINGUEZ Plan of Treatment: Future Appointments (+ 6 months) and Future Tests (+/- 45 days) The Plan of Treatment section includes future care activities for the patient from all CT treatmentfacilities. This section includes future appointments and future orders which are active, pending or scheduled. Future Appointments This section includes appointments that were scheduled to occur 6 months from the date of the Encounter, up to a maximum of 20 appointments. The data comes from all CT treatment facilities. Appointment Date/Time Appointment Type Appointme nt Facility Name Dec 18, 2023 01:00 PM [facility] Mar 04, 2024 09:00 AM [facility] Apr 15, 2024 10:00 AM [facility] May 06, 2024 10:00 AM [facility] May 27, 2024 11:00 AM [facility] May 29, 2024 09:30 AM AM[facility]ULATORY - MEDICINE [facility] Social History: Smoking Status (Most current) and Tobacco Use (All prior to encounter date) This section includes the most current, and the historical, smoking and tobacco- related health factors from the [place] facility where the Encounter took place. Current Smoking Status This section includes the most current smoking, or tobacco-related health factor, from the [place] facility where the Encounter took place. Date/Time Current Smoking Status Comment George mclaughlin Jul 22, 2023 10:30 AM VA-TOBACCO FORMER USER [place] Tobacco Use History This section includes a history of the smoking, or tobacco-related health factors, that were collected on or before the date of the Encounter. The data comes from the [place] facility where the Encounter took place. Date/Time Smoking Status/Tobacco Use Comment F acility Jul 22, 2023 10:30 AM VA-TOBACCO QUIT 15 YRS OR MORE [place] Jul 23, 2022 10:30 AM VA-TOBACCO FORMER USER [place] Jul 23, 2022 10:30 AM VA-TOBACCO QUIT 15 YRS OR MORE [place] Jun 07, 2021 11:00 AM VA-TOBACCO FORMER USER [place] Jun 07, 2021 11:00 AM VA-TOBACCO QUIT 15 YRS OR MORE [place] Jun 02, 2018 05:44 AM VA-TOBACCO FORMER USER [place] Jun 02, 2018 05:44 AM VA-TOBACCO QUIT 15 YRS OR MORE [place] May 14, 2017 08:31 AM QUIT TOBACCO USE > 7 YEARS AGO 25 years ago [place] May 10, 2016 10:40 AM LIFETIME NON-TOBACCO USER [place] Aug 27, 2011 08:36 AM QUIT TOBACCO USE > 7 YEARS AGO Patient quit in 1999. [place] Encounter Notes: All associated encounter notes This section contains the clinical notes associated to the Encounter. Date/Time Encounter Note(s) Provider Source Dec 16, 2023 09:14 AM PREVENTIVE MEDICIN E NURSING NOTE: LOCAL TITLE: CLINICAL REMINDERS/NURSING STANDARD TITLE: PREVENTIVE MEDICINE NURSING NOTE DATE OF NOTE: DEC 16, 2023@09:14 ENTRY DATE: DEC 16, 2023@09:14:50 AUTHOR: RM LYLES EXP COSIGNER: URGENCY: STATUS: COMPLETED Pneumococcal Conjugate Vaccine (PCV15/PCV20): Refuses PCV vaccine Immunization: PNEUMOCOCCAL CONJUGATE, UNSPECIFIED FORMULATION Refusal Reason: PARENTAL DECISION Patient refuses all immunization(s) in the PneumoPCV group Date Documented: 12/16/23 09:15 Influenza Immunization: No influenza vaccination was received during the recent influenza season. COVID-19 Immunization: Referred to another clinic for immunization (desired vaccine unavailable at this location) RHS Screen: RHS Screen Session Format: Face to Face Environmental Check Upon inquiry, the individual reports that the environment is safe to proceed. Informed Consent to Screen and Document The individual consents to proceed with screening. The individual consents to documentation of responses. PRIMARY SCREEN: In the past 12 months, how often did a current or former intimate partner (e.g., boyfriend, girlfriend, , , sexual partner): 1. Scream or curse at you Never 2. Insult or talk down to you Never 3. Threaten you with harm Never 4. Physically hurt you Never 5. Force or pressure you to have sexual contact against your will, or when you were unable to say no Never ?? The HITS tool (items 1-4 above) is US copyright protected by Jefferson Santizo MD, and the user has full rights to use it throughout the [place] system. PRIMARY SCREEN RESULT: The Primary Screen is NEGATIVE. The individual answered never to all forms of IPV above (i.e., answered never to all 5 items) The individual accepts education and/or resources: No EDUCATION: The individual indicated readiness to learn. Education offered during this session as noted above. The individual indicated understanding by asking relevant questions and making appropriate comments. No barriers to learning were observed or identified. /deepika/ RM LYLES LPN PACT 10 Signed: 12/16/2023 09:17 RM LYLES Dec 16, 2023 05:32 AM PHYSICIAN NOTE: LOCAL TITLE: MD NOTE STANDARD TITLE: PHYSICIAN NOTE DATE OF NOTE: DEC 16, 2023@05:32 ENTRY DATE: DEC 16, 2023@05:32:25 AUTHOR: CANDE DOMINGUEZ EXP COSIGNER: URGENCY: STATUS: COMPLETED HISTORY OF PRESENT ILLNESS: ANANTH LOZA, is a 73 yo MALE [place], who presents at the [facility] to discuss his prostate cancer. He has been having incontinence on occassion, a couple times a week. He is requesting liners to prevent leakage when he goes out. Pt maintains a non-VA PCP: Dr Greene. utilizes podiatry, pharmacy, and MH services at the [place]. NonVA Providers: Urologist: Dr Kaiser Trade Mark Examiner: Dr Alexis Active problems - Computerized Problem List is the source for the followin. Exposure to potentially hazardous substance 2. Primary Care Physician 3. Colonoscopy Screening 4. Vitamin D deficiency 5. Obesity 6. Benign prostatic hypertrophy 7. specialty providers 8. Elevated PSA 9. Chronic prostatitis 10. Essential hypertension 11. Hyperlipidemia 12. Bilateral hearing loss The following VA and Non-VA meds were reconciled with patient: Active Outpatient Medications (including Supplies): Issue Date Status Last Fill Active Outpatient Medications Refills Expiration ======= 1) LOSARTAN 25MG TAB Qty: 90 for 90 days ACTIVE Issu:09-05-23 Sig: TAKE ONE TABLET BY MOUTH ONCE Refills: 3 Last:09-06-23 DAILY FOR BLOOD PRESSURE/HEART Expr:09-05-24 Start Date Active Non-VA Medications Refills Expiration ======= 1) Non-VA FINASTERIDE 5MG TAB SiMG BY ACTIVE MOUTH ONCE DAILY 2 Total Medications ALLERGIES: ========= Patient has answered NKA HISTORY: PERIOD OF SERVICE - [facility] FROM May TO Mar COMBAT SERVICE INDICATED: No VITAL SIGNS: Blood Pressure 135/82 (12/16/2023 09:14) Pulse 81 (12/16/2023 09:14) Respiration 16 (12/16/2023 09:14) Pulse Oximetry 98% (12/16/2023 09:14) Temperature 98.1 F [36.7 C] (12/16/2023 09:14) Pain 0 (12/16/2023 09:14) Height 71 in [180.3 cm] (12/16/2023 09:14) Weight 214.8 lb [97.43 kg] (12/16/2023 09:14) BMI BMI: 30.0 REVIEW OF SYSTEMS: CARDIOVASCULAR: No chest pain RESPIRATORY: No SOB, no wheezing GASTROINTESTINAL: No abd pain, no N/V/D GENITOURINARY: + incontinence on occassion NEUROLOGIC: No H/A, no numbness, no weakness EXAMINATION: GENERAL: WD/WN , pleasant & in NAD HEENT: Moist mucosa NECK: Supple EXTREMITIES: FROM x 4 NEUROLOGIC: AAO x3, no focal findings PSYCHIATRIC: Good eye contact, affect normal ASSESSMENT/PLAN: 1. Prostate CA: TURP 04/2021, completed radiation txs, now undergoing hormonal txs since 10/2022, last Eliguard injection in 07/2023, monitered by Dr Kaiser 2. Incontinence: will Rx Depends for daily prn use, size XL FOLLOW UP: as scheduled 07/22/24 - Annual ========= UPCOMING APPOINTMENTS: 12/18/2023 13:00 CWM/SO/MHC/TALAT 05/06/2024 10:00 CWM/SO/MHC/TALAT 07/22/2024 10:30 CWM/SO/PACT 10 No barriers; Patient understands and agrees to [...] Remote Allergy/ADR Data available for this patient [facility] [place] [facility] No Known Allergies Med [facility]con [facility] ([facility] INCLUDED IN THIS LIST: Alphabetical list of active outpatient prescriptions dispensed from this CT (local) and dispensed from another CT or [facility] facility (remote) as well as inpatient orders (local pending and active), local clinic medications, locally documented non-VA medications, and local prescriptions that have or been discontinued in the past 90 days. Non-VA Meds Last Documented On: Jul 24, 2021 NOTE The display of VA prescriptions dispensed from another VA or DoD facility (remote) is limited to active outpatient prescription entries matched to National Drug File at the originating site and may not include some items such as investigational drugs, compounds, etc. NOT INCLUDED IN THIS LIST: Medications self-entered by the patient into personal health records (i.e. [facility]) are NOT included in this list. Non-VA medications documented outside this CT, remote inpatient orders (regardless of status) and [...] MOUTH ONCE DAILY FOR BLOOD PRESSURE/HEART Rx# [id number] Last Released: 09/07/23 Qty/Days Supply: Rx Expiration Date: 09/05/24 Refills Remainin Indication: FOR HIGH BLOOD PRESSURE ------ SUPPLIES ------ /deepika/ CANDE DOMINGUEZ MD Primary Care Physician Signed: 12/16/2023 09:33 CANDE DOMINGUEZFIELD
--- OUTSIDE RECORDS SUMMARY | 2024-06-02 16:58 | XMS_ITS | Encounter Summary ---
Author Name Department of [place]a [place] Organization [place] Address [address] [place] [id number] Care Team Providers Care Director Software Quality Assurance Name Role Phone CANDE DOMINGUEZ Primary Care [...] PART A Apr 24, 2013 PART A [id number] IMELDA LOZA HN PATIENT MEDICARE (WNR) MEDICARE (M) PART B Apr 24, 2013 PART B [id number] IMELDA LOZA HN PATIENT MEDICARE (WNR) MEDICARE (M) PART A Apr 24, 2013 PART A [id number] IMELDA LOZA HN PATIENT MEDICARE (WNR) MEDICARE (M) PART B Apr 24, 2013 PART B [id number] IMELDA LOZA HN PATIENT [facility] [place] RE Jun 24, 2006 [id number] ISABELLA LOZA SPOUSE [employer] MEDICAL EXPENSE (OPT/PROF ) [place] RE STATE INDEM * Apr 24, 2013 [id number] ISABELLA LOZA SPOUSE [employer] EXPENSE (OPT/PROF ) NELLY BORGES IND Jun 24, 2006 [id number] DAGOISABELLA MARUJASON SPOUSE Selected Encounter This section includes the information on record at [place] for the Encounter. Date/Time Encounter Type Encounter Description Reason Provider Source May 27, 2024 11:00 AM PSYTX W PT 60 MINUTES [facility] - IND ICD-10-CM F32.A Depression, unspecified ELIF GILLILAND Adriane Encounter Template Text not used by [place] Assessments - Encounter Diagnoses This section includes the primary and secondary diagnoses documented for the Encounter. Date/Time Primary/Secondary Diagnosis Diagnosis Name Provider Source May 27, 2024 12:03 PM PRIMARY Depression, unspecified ELIF GILLILAND May 27, 2024 12:03 PM SECONDARY Post-traumatic stress disorder, unspecified ELIF GILLILAND Plan of Treatment: Future Appointments (+ 6 months) and Future Tests (+/- 45 days) The Plan of Treatment section includes future care activities for the patient from all [place] treatmentfacilities. This section includes future appointments and future orders which are active, pending or scheduled. Future Appointments This section includes appointments that were scheduled to occur 6 months from the date of the Encounter, up to a maximum of 20 appointments. The data comes from all [place] treatment facilities. Appointment Date/Time Appointment Type Appointme nt Facility Name May 29, 2024 09:30 AM AMBULATORY - [facility]INE [facility] Jul 03, 2024 09:00 AM [facility] Jul 22, 2024 10:30 AM [facility]INE [facility] Social History: Smoking Status (Most current) [...] Date/Time Current Smoking Status Willy mclaughlin Jul 22, 2023 10:30 AM [place]-TOBACCO FORMER USER [place] Tobacco Use History This section includes a history of the smoking, or tobacco-related health factors, that were collected on or before the date of the Encounter. The data comes from the [place] facility where the Encounter took place. Date/Time Smoking Status/Tobacco Use Comment F acility Jul 22, 2023 10:30 AM VA-TOBACCO QUIT 15 YRS OR MORE [place] Jul 23, 2022 10:30 AM VA-TOBACCO FORMER USER [place] Jul 23, 2022 10:30 AM VA-TOBACCO QUIT 15 YRS OR MORE [place] Jun 07, 2021 11:00 AM VA-TOBACCO FORMER USER [place] Jun 07, 2021 11:00 AM VA-TOBACCO QUIT 15 YRS OR MORE [place] Jun 02, 2018 05:44 AM VA-TOBACCO FORMER USER [place] Jun 02, 2018 05:44 AM VA-TOBACCO QUIT 15 YRS OR MORE [place] May 14, 2017 08:31 AM QUIT TOBACCO USE > 7 YEARS AGO 25 years ago [place] May 10, 2016 10:40 AM LIFETIME NON-TOBACCO USER [place] Aug 27, 2011 08:36 AM QUIT TOBACCO USE > 7 YEARS AGO Patient quit in 1999. [place] Encounter Notes: All associated encounter notes This section contains the clinical notes associated to the Encounter. Date/Time Encounter Note(s) Provider Source May 27, 2024 11:56 AM SOCIAL WORK NOTE: LOCAL TITLE: SOCIAL WORK NOTE STANDARD TITLE: SOCIAL WORK NOTE DATE OF NOTE: MAY 27, 2024@11:56 ENTRY DATE: MAY 27, 2024@11:56:58 AUTHOR: ELIF GILLILAND COSIGNER: CECY MOSCOSO URGENCY: STATUS: COMPLETED INFORMED CONSENT REVIEWED: At beginning of session reviewed rights and limits of confidentiality, mandatory reporting situations, duty to warn and protect, Diop Warning, (if treatment team finds patient to be an acute danger to himself or others, that this information could be relayed to a court of law and presented to a personal lines account manager), and [facility] access for active duty service members. Provided [...] getting over these humps sometimes. SESSION FOCUS: Smyer reported continued struggle with having had prostate cancer. Smyer stated that he has noticed some reduction in his reactivity toward others but still feels a great deal of distress when thoughts of cancer emerge. used BLS tappers as an introduction to the possibility of EMDR treatment. processed his feelings about having cancer with some affective moments, but generally remained in too much of a protected state to experience the maximum value of the tapping. and Photographer Apprentice discussed doing the EMDR protocol formally in future sessions. expressed some reluctance and some curiosity. INTERVENTIONS: Psychotherapeutic Interventions: Active listening, validating Psychoeducation reviewed: EMDR ASSESSMENT: BRIEF ASSESSMENT OF MENTAL STATUS: 1. [...] Denies current suicidal/homicidal ideation PLAN FOR FOLLOW-UP: RTC March This case is supervised by [facility]. Diagnosis, treatment plan, and response to care are reviewed in standard 1-hour, or more, weekly individual supervision meeting. /deepika/ ELIF GILLILAND PURSE MAKER Signed: 05/27/2024 12:03 /deepika/ [facility] Normalizer Mental Health Cosigned: 05/28/2024 07:36 ELIF GILLILAND
--- OUTSIDE RECORDS SUMMARY | 2024-06-02 16:58 | XMS_ITS | Encounter Summary ---
Author Name [place] Address [address] [place] [id number] Care Team Providers Care Technical Marketing Engineer Name Role Phone CANDE DOMINGUEZ Primary Care [...] Policy [place] MEDICARE (WNR) MEDICARE (M) PART B Apr 24, 2013 PART B [id number] IMELDA LOZA HN PATIENT MEDICARE (WNR) MEDICARE (M) PART A Apr 24, 2013 PART A [id number] IMELDA LOZA HN PATIENT MEDICARE (WNR) MEDICARE (M) PART A Apr 24, 2013 PART A [id number] IMELDA LOZA HN PATIENT MEDICARE (WNR) MEDICARE (M) PART B Apr 24, 2013 PART B [id number] IMELDA LOZA HN PATIENT [facility] [place] RE Jun 24, 2006 [id number] [id number] ISABELLA LOZA SPOUSE [employer] EXPENSE (OPT/PROF ) [place] RE STATE INDEM * Apr 24, 2013 [id number] [phone] ISABELLA LOZA SPOUSE [employer] EXPENSE (OPT/PROF ) NELLY LYNN STATE IND Jun 24, 2006 [id number] ISABELLA LOZA MARUJASON SPOUSE Selected Encounter This section includes the information on record at [place] for the Encounter. Date/Time Encounter Type Encounter Description Reason Provider Source Dec 18, 2023 01:00 PM PSYTX W PT 60 MINUTES [facility]ENT[facility] - IND ICD-10-CM F43.10 Post-traumatic stress disorder, unspecified ELIF GILLILAND Adriane Encounter Template Text not used by [place] Assessments - Encounter Diagnoses This section includes the primary and secondary diagnoses documented for the Encounter. Date/Time Primary/Secondary Diagnosis Diagnosis Name Provider Source Jan 16, 2024 06:19 PM PRIMARY Post-traumatic stress disorder, unspecified ELIF GILLILAND ENRICO Plan of Treatment: Future Appointments (+ 6 months) and Future Tests (+/- 45 days) The Plan of Treatment section includes future care activities for the patient from all [place] treatmentfacilities. This section includes future appointments and future orders which are active, pending or scheduled. Future Appointments This section includes appointments that were scheduled to occur 6 months from the date of the Encounter, up to a maximum of 20 appointments. The data comes from all [place] treatment facilities. Appointment Date/Time Appointment Type Appointme nt Facility Name Mar 04, 2024 09:00 AM AMBULATORY PSYCHIATRY [facility] Apr 15, 2024 10:00 AM AMBULATORY PS[facility]CHIATRY [facility] May 06, 2024 10:00 AM AMBULATORY PSYCHIATRY [facility] May 27, 2024 11:00 AM AMBULATORY PS[facility]CHIATRY [facility] May 29, 2024 09:30 AM AMBULATORY - MEDICINE [facility] Social History: Smoking Status (Most current) and Tobacco Use (All prior to encounter date) This section includes the most current, and the historical, smoking and tobacco- related health factors from the [place] facility where the Encounter took place. Current Smoking Status This section includes the most current smoking, or tobacco-related health factor, from the [place] facility where the Encounter took place. Date/Time Current Smoking Status Willy mclaughlin Jul 22, 2023 10:30 [facility] [place] Tobacco Use History This section includes a history of the smoking, or tobacco-related health factors, that were collected on or before the date of the Encounter. The data comes from the [place] facility where the Encounter took place. Date/Time Smoking Status/Tobacco Use Comment F acility Jul 22, 2023 10:30 AM VA-TOBACCO QUIT 15 YRS OR MORE [place] Jul 23, 2022 10:30 AM VA-TOBACCO FORMER USER [place] Jul 23, 2022 10:30 AM VA-TOBACCO QUIT 15 YRS OR MORE [place] Jun 07, 2021 11:00 AM VA-TOBACCO FORMER USER [place] Jun 07, 2021 11:00 AM VA-TOBACCO QUIT 15 YRS OR MORE [place] Jun 02, 2018 05:44 AM VA-TOBACCO FORMER USER [place] Jun 02, 2018 05:44 AM VA-TOBACCO QUIT 15 YRS OR MORE [place] May 14, 2017 08:31 AM QUIT TOBACCO USE > 7 YEARS AGO 25 years ago [place] May 10, 2016 10:40 AM LIFETIME NON-TOBACCO USER [place] Aug 27, 2011 08:36 AM QUIT TOBACCO USE > 7 YEARS AGO Patient quit in 1999. [place] Encounter Notes: All associated encounter notes This section contains the clinical notes associated to the Encounter. Date/Time Encounter Note(s) Provider Source Jan 20, 2024 02:58 PM ADMINISTRATIVE NOT E: LOCAL TITLE: ADMINISTRATIVE NOTE STANDARD TITLE: ADMINISTRATIVE NOTE DATE OF NOTE: JAN 20, 2024@14:58 ENTRY DATE: JAN 20, 2024@14:58:43 AUTHOR: AIRAM MOOREIGNER: URGENCY: STATUS: COMPLETED information was passed to this rewriter that had called to rs his mh appt. rewriter spoke to and was able to get new appt 04/15/24 @ 1000. also requested reminder letter. sent at this time. /deepika/ AIRAM MOORE ADVANCED MACHINE TECH Signed: 01/20/2024 15:01 Receipt Acknowledged By: 01/20/2024 16:33 /deepika/ ELIF GILLILAND INTERMEDIATE MANAGER AIRAM MOORE [place] Dec 19, 2023 07:49 AM SOCIAL WORK NOTE: LOCAL TITLE: SOCIAL WORK NOTE STANDARD TITLE: SOCIAL WORK NOTE DATE OF NOTE: DEC 19, 2023@07:49 ENTRY DATE: DEC 19, 2023@07:49:38 AUTHOR: ELIF GILLILAND EXP COSIGNER: CECY MOSCOSO URGENCY: STATUS: COMPLETED INFORMED CONSENT REVIEWED: At beginning of session reviewed rights and limits of confidentiality, mandatory reporting situations, duty to warn and protect, Diop Warning, (if treatment team finds patient to be an acute danger to himself or others, that this information could be relayed to a court of law and presented to a dressage judge), and [employer] access for active duty service members. Provided Suicide Prevention Hotline number, and other contact numbers as necessary. VISIT DURATION 60 minutes DIAGNOSES: PTSD, unspec [employer] STATEMENT OF GOALS/CONCERNS: I had some things happen to me during [place], when I was in [facility], that sometimes come back to haunt me and I have trouble getting them off my mind. I like to come in and talk to someone and get things back in order in my head just once in a while because most of the time my life is going really well. I just need help getting over these humps sometimes. SESSION FOCUS: Florissant reported a slight improvement to mood swings since last session. Florissant stated, I wake up with thoughts in my head that I've never had before. I'm short fused and I don't want to speak to people and my family members keep asking me what's wrong with me? Florissant repeated his assertion that this shift is primarily due to the hormone injections that he received as part of his cancer treatment. Florissant stated that his doctor told him that this is one of the known side effects and that that the mood dysregulation usually passes with time. and Commercial Drafter talked about ways for him to monitor his own mood because he is having trouble noticing the mood shifts that others are. Roberto requested to follow up in March. INTERVENTIONS: Psychotherapeutic Interventions: Active listening, validating Psychoeducation [...] weekly individual supervision meeting. /deepika/ ELIF GILLILAND INTERMEDIATE MANAGER Signed: 12/19/2023 07:55 /deepika/ [facility] Box Loader Mental Health Cosigned: 12/19/2023 08:16 ELIF GILLILAND
--- OUTSIDE RECORDS SUMMARY | 2024-06-02 16:58 | XMS_ITS | Encounter Summary ---
Author Name [facility] [place] [facility] [place] Address [address] [place] [address] Care Team Providers Care Foreign Exchange Dealer Name Role Phone CANDE DOMINGUEZ Primary Care [...] PART A Apr 24, 2013 PART A [id number] IMELDA LOZA HN PATIENT MEDICARE (WNR) MEDICARE (M) PART B Apr 24, 2013 PART B [id number] IMELDA LOZA HN PATIENT MEDICARE (WNR) MEDICARE (M) PART B Apr 24, 2013 PART B [id number] IMELDA LOZA HN PATIENT MEDICARE (WNR) MEDICARE (M) PART A Apr 24, 2013 PART A [id number] IMELDA LOZA HN PATIENT [facility] [place] RE Jun 24, 2006 [id number] [phone] ISABELLA LOZA SPOUSE [employer] (OPT/PROF ) [place] RE STATE INDEM * Apr 24, 2013 [id number] ISABELLA LOZA SPOUSE [employer] (OPT/PROF ) NELLY BORGES IND Jun 24, 2006 [id number] ISABELLA LOZA MARUJASON SPOUSE Selected Encounter This section includes the information on record at [place] for the Encounter. Date/Time Encounter Type Encounter Description Reason Provider Source Mar 04, 2024 09:00 AM PSYTX W PT 60 MINUTES [facility] - IND ICD-10-CM F43.10 Post-traumatic stress disorder, unspecified ELIF GILLILAND Adriane Encounter Template Text not used by [place] Assessments - Encounter Diagnoses This section includes the primary and secondary diagnoses documented for the Encounter. Date/Time Primary/Secondary Diagnosis Diagnosis Name Provider Source Mar 21, 2024 06:25 AM PRIMARY Post-traumatic stress disorder, unspecified ELIF GILLILAND [facility] Plan of Treatment: Future Appointments (+ 6 months) and Future Tests (+/- 45 days) The Plan of Treatment section includes future care activities for the patient from all [place] treatmentfacilities. This section includes future appointments and future orders which are active, pending or scheduled. Future Appointments This section includes appointments that were scheduled to occur 6 months from the date of the Encounter, up to a maximum of 20 appointments. The data comes from all [place] treatment facilities. Appointment Date/Time Appointment Type Appointme nt Facility Name Apr 15, 2024 10:00 AM [facility] May 06, 2024 10:00 AM [facility] May 27, 2024 11:00 AM [facility] [place] [facility] [place] [facility] [place] [facility] May 29, 2024 09:30 AM [facility] Jul 03, 2024 09:00 AM AMBULATORY - [place]RY [place] [facility] [place] [facility] Jul 22, 2024 10:30 AM AMBULATORY - MEDICINE [place] [facility] Social History: Smoking Status (Most current) [...] place. Date/Time Current Smoking Status Comment Facil [facility] Jul 22, 2023 10:30 AM VA-TOBACCO FORMER USER [facility] Tobacco Use History This section includes a history of the smoking, or tobacco-related health factors, that were collected on or before the date of the Encounter. The data comes from the [place] facility where the Encounter took place. Date/Time Smoking Status/Tobacco Use Comment F acility Jul 22, 2023 10:30 AM VA-TOBACCO QUIT 15 YRS OR MORE [facility] Jul 23, 2022 10:30 AM VA-TOBACCO FORMER USER [facility] Jul 23, 2022 10:30 AM VA-TOBACCO QUIT 15 YRS OR MORE [facility] Jun 07, 2021 11:00 AM VA-TOBACCO FORMER USER [facility] Jun 07, 2021 11:00 AM VA-TOBACCO QUIT 15 YRS OR MORE [facility] Jun 02, 2018 05:44 AM VA-TOBACCO FORMER USER [facility] Jun 02, 2018 05:44 AM VA-TOBACCO QUIT 15 YRS OR MORE [facility] May 14, 2017 08:31 AM QUIT TOBACCO USE > 7 YEARS AGO 25 years ago [facility] May 10, 2016 10:40 AM LIFETIME NON-TOBACCO USER [facility] Aug 27, 2011 08:36 AM QUIT TOBACCO USE > 7 YEARS AGO Patient quit in 1999. [facility] Encounter Notes: All associated encounter notes This section contains the clinical notes associated to the Encounter. Date/Time Encounter Note(s) Provider Source Mar 04, 2024 09:57 AM SOCIAL WORK NOTE: LOCAL TITLE: SOCIAL WORK NOTE STANDARD TITLE: SOCIAL WORK NOTE DATE OF NOTE: MAR 04, 2024@09:57 ENTRY DATE: MAR 04, 2024@09:58:07 AUTHOR: ELIF GILLILAND EXP COSIGNER: CECY MOSCOSO URGENCY: STATUS: COMPLETED INFORMED CONSENT REVIEWED: At beginning of session reviewed rights and limits of confidentiality, mandatory reporting situations, duty to warn and protect, Diop Warning, (if treatment team finds patient to be an acute danger to himself or others, that this information could be relayed to a court of law and presented to a dye and chemical coordinator), and DOD access for active duty service members. Provided Suicide Prevention Hotline number, and other contact numbers as necessary. VISIT DURATION 60 minutes DIAGNOSES: PTSD, unspec VETERANS STATEMENT OF GOALS/CONCERNS: I had some things happen to me during [place], when I was in [place], that sometimes come back to haunt [...] these humps sometimes. SESSION FOCUS: Roberto reported continued struggle with having had prostate cancer. Although the cancer has been successfully treated, Roberto states that he is finding himself in a depressive state on a frequent basis. said that his family members are noticing mood swings that he is often unaware of. 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 Woolrich stated that there are times when he dreads going home and will go to the park instead. Woolrich expressed some strong emotion at this point in the session and stated that he has never publicly expressed these kinds of feelings. Official Greeter and sat together with the feelings for some time and then returned to conversation. denies suicide ideations. INTERVENTIONS: Psychotherapeutic Interventions: Active listening, validating Psychoeducation [...] weekly individual supervision meeting. /deepika/ ELIF GILLILAND HAND TUBE WINDER Signed: 03/04/2024 10:06 /deepika/ [facility] Cosigned: 03/04/2024 15:49 ELIF GILLILAND [facility]
--- OUTSIDE RECORDS SUMMARY | 2024-06-02 16:58 | XMS_ITS | Encounter Summary ---
Author Name [facility] [place] Address [address] [place] [id number] Care Team Providers Care Recruit Instructor Name Role Phone CANDE DOMINGUEZ Primary Care [...] PART A Apr 24, 2013 PART A [id number] IMELDA LOZA HN PATIENT MEDICARE (WNR) MEDICARE (M) PART B Apr 24, 2013 PART B [id number] IMELDA LOZA HN PATIENT MEDICARE (WNR) MEDICARE (M) PART A Apr 24, 2013 PART A [id number] IMELDA LOZA HN PATIENT MEDICARE (WNR) MEDICARE (M) PART B Apr 24, 2013 PART B [id number] IMELDA LOZA HN PATIENT [facility] [place] RE Jun 24, 2006 [id number] ISABELLA LOZA SPOUSE [employer] EXPENSE (OPT/PROF ) [place] RE STATE INDEM * Apr 24, 2013 [id number] ISABELLA LOZA SPOUSE [employer] (OPT/PROF ) NELLY BORGES IND Jun 24, 2006 [id number] DAGOISABELLA MARUJASON SPOUSE Selected Encounter This section includes the information on record at [place] for the Encounter. Date/Time Encounter Type Encounter Description Reason Provider Source Apr 15, 2024 10:00 AM PSYTX W PT 60 MINUTES [facility] - IND ICD-10-CM F43.10 Post-traumatic stress disorder, unspecified CECY MOSCOSO Adriane Encounter Template Text not used by [place] Assessments - Encounter Diagnoses This section includes the primary and secondary diagnoses documented for the Encounter. Date/Time Primary/Secondary Diagnosis Diagnosis Name Provider Source Apr 27, 2024 12:22 PM PRIMARY Post-traumatic stress disorder, unspecified ELIF GILLILAND Plan of Treatment: Future Appointments (+ 6 months) and Future Tests (+/- 45 days) The Plan of Treatment section includes future care activities for the patient from all [place] treatmentfacilities. This section includes future appointments and future orders which are active, pending or scheduled. Future Appointments This section includes appointments that were scheduled to occur 6 months from the date of the Encounter, up to a maximum of 20 appointments. The data comes from all [place] treatment facilities. Appointment Date/Time Appointment Type Appointme nt Facility Name May 06, 2024 10:00 AM [facility] May 27, 2024 11:00 AM [facility] May 29, 2024 09:30 AM [facility] Jul 03, 2024 09:00 AM [facility] Jul 22, 2024 10:30 AM AMBULATORY - MEDICINE [facility] Social History: Smoking Status (Most current) and Tobacco Use (All prior to encounter date) This section includes the most current, and the historical, smoking and tobacco- related health factors from the [place] facility where the Encounter took place. Current Smoking Status This section includes the most current smoking, or tobacco-related health factor, from the [place] facility where the Encounter took place. Date/Time Current Smoking Status Willy mclaughlin Jul 22, 2023 10:30 AM [place]-TOBACCO FORMER USER [facility] Tobacco Use History This section includes a history of the smoking, or tobacco-related health factors, that were collected on or before the date of the Encounter. The data comes from the [place] facility where the Encounter took place. Date/Time Smoking Status/Tobacco Use Comment F acility Jul 22, 2023 10:30 AM VA-TOBACCO QUIT 15 YRS OR MORE [facility] Jul 23, 2022 10:30 AM VA-TOBACCO FORMER USER [facility] Jul 23, 2022 10:30 AM VA-TOBACCO QUIT 15 YRS OR MORE [facility] Jun 07, 2021 11:00 AM VA-TOBACCO FORMER USER [facility] Jun 07, 2021 11:00 AM VA-TOBACCO QUIT 15 YRS OR MORE [facility] Jun 02, 2018 05:44 AM VA-TOBACCO FORMER USER [facility] Jun 02, 2018 05:44 AM VA-TOBACCO QUIT 15 YRS OR MORE [facility] May 14, 2017 08:31 AM QUIT TOBACCO USE > 7 YEARS AGO 25 years ago [facility] May 10, 2016 10:40 AM LIFETIME NON-TOBACCO USER [facility] Aug 27, 2011 08:36 AM QUIT TOBACCO USE > 7 YEARS AGO Patient quit in 1999. [facility] Encounter Notes: All associated encounter notes This section contains the clinical notes associated to the Encounter. Date/Time Encounter Note(s) Provider Source Apr 15, 2024 11:46 AM SOCIAL WORK NOTE: LOCAL TITLE: SOCIAL WORK NOTE STANDARD TITLE: SOCIAL WORK NOTE DATE OF NOTE: APR 15, 2024@11:46 ENTRY DATE: APR 15, 2024@11:46:26 AUTHOR: ELIF GILLILAND COSIGNER: CECY MOSCOSO URGENCY: STATUS: COMPLETED INFORMED CONSENT REVIEWED: At beginning of session reviewed rights and limits of confidentiality, mandatory reporting situations, duty to warn and protect, Diop Warning, (if treatment team finds patient to be an acute danger to himself or others, that this information could be relayed to a court of law and presented to a yarn examiner skeins), and DOD access for active duty service members. Provided Suicide Prevention Hotline number, and other contact numbers as necessary. VISIT DURATION 60 minutes DIAGNOSES: PTSD, unspec VETERANS STATEMENT OF GOALS/CONCERNS: I had some things happen to me during [place], when I was in [place], that sometimes come back to haunt me [...] a depressive state on a frequent basis. Roberto said that his family members are noticing mood swings that he is often unaware of. 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 Roberto said that he met people at his mosque who were also treated for cancer and they compared experiences. Roberto stated that this conversation was very helpful to him and felt relieving in many ways. Roberto stated that he is aware that there are cancer survivor groups that he might attend in the community and he thinks that he might actually attend one someday. INTERVENTIONS: Psychotherapeutic Interventions: Active listening, validating Psychoeducation [...] weekly individual supervision meeting. /deepika/ ELIF GILLILAND SHAKE SAWYER Signed: 04/15/2024 11:50 /deepika/ [facility] [employer] Cosigned: 04/15/2024 12:13 ELIF GILLILAND
--- OUTSIDE RECORDS SUMMARY | 2024-06-02 16:59 | XMS_ITS | Encounter Summary ---
Author Name [facility] [place] [facility] [place] [facility] [place] Address [address] [place] [id number] Care Team Providers Care Reciprocating Drill Operator Name Role Phone CANDE DOMINGUEZ Primary Care [...] PART A Apr 24, 2013 PART A [id number] IMELDA LOZA HN PATIENT MEDICARE (WNR) MEDICARE (M) PART B Apr 24, 2013 PART B [id number] IMELDA LOZA HN PATIENT MEDICARE (WNR) MEDICARE (M) PART A Apr 24, 2013 PART A [id number] IMELDA LOZA HN PATIENT MEDICARE (WNR) MEDICARE (M) PART B Apr 24, 2013 PART B [id number] IMELDA LOZA HN PATIENT [facility] [place] RE Jun 24, 2006 [id number] [phone] ISABELLA LOZA SPOUSE [employer] EXPENSE (OPT/PROF ) [place] RE STATE INDEM * Apr 24, 2013 [id number] ISABELLA LOZA SPOUSE [employer] MEDICAL EXPENSE (OPT/PROF ) NELLY BORGES IND Jun 24, 2006 [id number] ISABELLA LOZA SPOUSE Selected Encounter This section includes the information on [place] at [place] for the Encounter. Date/Time Encounter Type Encounter Description Reason Provider Source May 29, 2024 09:30 AM OFFICE O/P EST LOW 20 MIN PODIATRY ICD-10-CM L60.0 Ingrowing nail NEHA WATKINS Adriane Encounter Template Text not used by [place] Assessments - Encounter Diagnoses This section includes the primary and secondary diagnoses documented for the Encounter. Date/Time Primary/Secondary Diagnosis Diagnosis Name Provider Source May 29, 2024 09:58 AM PRIMARY Ingrowing nail NEHA WATKINS May 29, 2024 09:58 AM SECONDARY Pain in left toe(s) NEHA WATKINS May 29, 2024 09:58 AM SECONDARY Pain in right toe(s) NEHA WATKINS CHANCELLOR May 29, 2024 09:58 AM SECONDARY Peripheral vascular disease, unspecified NEHA WATKINS Plan of Treatment: Future Appointments [...] Appointment Type Appointme nt Facility Name Jul 03, 2024 09:00 AM AMBULATORY - PS[facility]CHIATRY [facility] Jul 22, 2024 10:30 AM [facility] [place] [facility] Social History: Smoking Status (Most current) [...] MEDICAL CENTERTOBACCO QUIT 15 YRS OR MORE [facility] Tobacco Use History This section includes a history of the smoking, or tobacco-related health factors, that were collected on or before the date of the Encounter. The data comes from the [place] facility where the Encounter took place. Date/Time Smoking Status/Tobacco Use Comment F acility Jul 22, 2023 10:30 AM VA-TOBACCO QUIT 15 YRS OR MORE [facility] Jul 23, 2022 10:30 AM VA-TOBACCO FORMER USER [facility] Jul 23, 2022 10:30 AM VA-TOBACCO QUIT 15 YRS OR MORE [facility] Jun 07, 2021 11:00 AM VA-TOBACCO FORMER USER [facility] Jun 07, 2021 11:00 AM VA-TOBACCO QUIT 15 YRS OR MORE [facility] Jun 02, 2018 05:44 AM VA-TOBACCO FORMER USER [facility] Jun 02, 2018 05:44 AM VA-TOBACCO QUIT 15 YRS OR MORE [facility] May 14, 2017 08:31 AM QUIT TOBACCO USE > 7 YEARS AGO 25 years ago [facility] May 10, 2016 10:40 AM LIFETIME NON-TOBACCO USER [facility] Aug 27, 2011 08:36 AM QUIT TOBACCO USE > 7 YEARS AGO Patient quit in 1999. [facility] Encounter Notes: All associated encounter notes This section contains the clinical notes associated to the Encounter. Date/Time Encounter Note(s) Provider Source May 29, 2024 07:34 AM PODIATRY NOTE: LOCAL TITLE: PODIATRY NOTE STANDARD TITLE: PODIATRY NOTE DATE OF NOTE: MAY 29, 2024@07:34 ENTRY DATE: MAY 29, 2024@07:35 AUTHOR: NEHA WATKINS COSIGNER: URGENCY: STATUS: COMPLETED LAST SEEN FOR TREATMENT: 06/10/2023 (11/03-N/S) NOTE: HAS RECEIVED BOTH COVID VACCINE DOSES + BOOSTER AT [facility] S: Pt. is a 74 yo alert WDWN AFR/AMER MALE who IS [...] NON-CONTRIBUTORY TO THE CC & NO CHANGES SINCE PREVIOUS VISIT *NOTE: PLEASE SEE PROBLEM LIST [...] strength and tone to be equal & symmetricalbilaterally & WNL for an individual of this age and present physical- medical condition. There is pain free ROM at all joints distal to and including the ankle. BILATERAL ASYMPTOMATIC HAV NEUROLOGICAL: Exam reveals S/D, vibratory, light touch & proprioception sensations to be equal & symmetrical bilaterally & diminished for an individual of this age and present physical-medical status. Protective sensation utilizing a Frostproof-Sonia lOg monofilament is 0/10 bilateral. BIOMECHANICAL: Exam is deferred at this time as BEING non-contributory to the cc . 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 I DISPENSED A PAIR OF POWER STEPS M 10-10 1/2 IN AN ATTEMPT TO PROVIDE IMPROVED PAIN RELIF AND MAY REQUIRE CUSTOM [...] the underlying medical conditions. RTC: 24 Weeks ( 09/23 @ 9:30am ) *DISCUSSED NEW PROTOCOLS AND CALLED [facility] TODAY FOR RESCHEDULING I DISCUSSED THE FINDINGS & PLAN WITH PATIENT (UNCHANGED SINCE PREVIOUS VISIT) & PATIENT AGREES AND UNDERSTANDS PLAN DISCUSSED A VARIETY OF FAMILY TOPICS ANAD OUR GROWING UP AND POSSIBLY HIM NOWQ WILLING TO TRY SUSHI WITH A FRIEND OF HIS Medication Reconciliation: PERFORMED TODAY - SEE BELOW. Outpatient: Has the patient been taking medications as documented in the EMLR? YES: The patient has been taking medications as documented in the EMLR. Essential Medication List for Review used to complete this medication reconciliation. INCLUDED IN THIS LIST: Alphabetical list of active outpatient prescriptions dispensed from this [place] (local) and dispensed from another [place] or [facility]D facility (remote) as well as [...] Remote Allergy/ADR Data available for this patient [place] [facility] [place] [facility] No Known Allergies Med Recon NoGlossary (Tool #1) INCLUDED IN THIS LIST: Alphabetical list of active outpatient prescriptions dispensed from this [place] (local) and dispensed from another [place] or [facility] facility (remote) as well as inpatient orders (local pending and active), local clinic medications, locally documented non-VA medications, and local prescriptions that have or been discontinued in the past 90 days. Non-VA Meds Last Documented On: Jul 24, 2021 NOTE The display of VA prescriptions dispensed from another [place] or [facility] facility (remote) is limited to active outpatient prescription entries matched to National Drug File at the originating site and may not include some items such as investigational drugs, compounds, etc. NOT INCLUDED IN THIS LIST: Medications self-entered by the patient into personal health records (i.e. [employer]) are NOT included in this list. Non-VA medications documented outside this [place], remote inpatient orders (regardless of status) and [...] MOUTH ONCE DAILY FOR BLOOD PRESSURE/HEART Rx# [id number] Last Released: 03/17/24 Qty/Days Supply: Rx Expiration Date: 09/05/24 Refills Remainin Indication: FOR HIGH BLOOD PRESSURE SUPPLIES OUTPT DEPEND UNDERWEAR,MAXIMUM,MEN X-LARGE (Status = Active) USE 1 BRIEF DIRECTED ONCE DAILY NEEDED FOR BLOWEL/BLADDER CARE Rx# [id number] Last Released: 12/17/23 Qty/Days Supply: Rx Expiration Date: 12/16/24 Refills Remainin Indication: FOR BLOWEL/BLADDER CARE /es/ NEHA WATKINS DPM THORACIC MEDICINE SPECIALIST Signed: 05/29/2024 09:59 NEHA WATKINS CHANCELLOR
== END 2024-05-27 09:15 | disposition home or self-care (01) ==
LOC: HO.10HDL 09:14
PROVIDERS: Visit Provider Urology
DX: Z12.5 Encounter for screening for malignant neoplasm of prostate (principal); C61 Malignant neoplasm of prostate
CPT/HCPCS: 36415; 84153; 84403

== ENCOUNTER 2024-06-03 09:26 | Outpatient (AMB) | payer MEDICARE, OTHER, SELFPAY ==
--- NOTE | 2024-06-03 09:27 | A.OFFVIS_ITS ---
Intake Visit Reasons: 3m/PSA/Testo(set) Intake Note: Patient is present for PSA/ testo. Urology Med: None Antibiotic Allergy: None Blood Thinner: None Patient Symptoms: Patient states everything is the same, no new symptoms Mold Carpenter Required: No Accompanied by: Self / Same As Patient Allergies No Known Allergies Allergy (Verified 06/03/24 09:28) HPI Comments Details: Mr Jackson is a very pleasant male. He is a patient of Dr. Greene. He seen for the following urologic conditions - prostate cancer - lower urinary tract symptoms Telemedicine Evaluation 15 min Consultation Automation Alley Padilla Video Lab work anayeli Has planned upcoming [place] cruise with family to [place] and [place] Continue good biochemical control Has had some reactive depressive symptoms from prostate cancer treatment Incidents of hot flashes slowly resolving 06/16 <0.1, T 5 03/17 PSA <0.1, T 1 11/14 PSA <0.1 T 4 - ceased finasteride 07/17 <0.1 06/15 completed SBRT [facility] 7000 Gy 28 fractions 2nd GnRH given 04/15 Space Oar with Markers Prostate cancer diagnosed by Dr. Kaiser March 2021 grade group 3 low volume Prostate cancer diagnosed by Dr. Kaiser March 2021 PSA at diagnosis 5.2 on finasteride 02/13 PET-CT [facility] 2nd biopsy 11/13 PSA 8.0 on finasteride high-grade, increased volume [place] score: 4+4=8 (F 3.5, F 2.5, e 3.5, e 3.0, e 2.0, 4+3=7 (F 3.0) Tumor quantitation: ? Number cores positive: 6 Total number of cores: 18 % of tissue involved: 20% of all tissue examined Perineural inv.: Present 1st biopsy 05/14 - unfavorable intermediate, low volume Histologic grade: [place] score: 4+3=7 (left base lateral) 07/05 cores total - 20% of core % of tissue involved: Less than 5% of all tissue examined - Periprostatic fat inv. Not identified Seminal vesicle inv.: Not identified Perineural inv. Not identified LVI: Not identified Polaris 08/15 single modal therapy suggested PSA 10/13 4.7-5.7 - 6%, 08/16 8.0 on finasteride Prostate MRI - 75 g prostate, 14 mm left peripheral zone lesion BPH GreenLight procedure January 2022 Significant improvement symptomatology Voiding parameters nocturia x1 with good bladder emptying Elevated PSA/Abnormal JEFF:? ? Laboratory investigations include?a total PSA evaluation ?07/10 3.8, ?03/10 6.8, ?04/09 6.6, 07/11 4.4, 01/08 3.5, 01/09 3.6, 02/10 3.9, 03/14 5.2 ? Symptoms include?weak stream, and are stable ?02/09 , weak stream, nocturia, x 1, and are stable.? Overall symptoms are?mild.? His prior IPSS was?mild.? Therapeutic plan will be?continued surveillance. [facility] Medical History Benign prostatic hyperplasia without lower urinary tract symptoms Chronic prostatitis Elevated PSA Microscopic hematuria Hypertension Surgical History Hx of knee surgery History of prostate surgery Hx of prostate biopsy Social History Are you a primary day care attendant to a significant other at home: No Do you presently have visiting nurse or other home services: No Patient Tobacco Use Status: Former Tobacco user Tobacco use type: Cigarette Review of Systems Const All systems reviewed & are unremarkable except as noted in HPI and below Reports no additional complaints Resp Reports no additional complaints GI Reports no additional complaints Reports as per HPI Musc Reports no additional complaints Physical Exam Telemedicine evaluation Appropriate responses Regular breathing rate and rhythm HEENT Head: Yes normal to inspection Ears: hearing grossly normal bilaterally Eyes General: appearance normal, both eyes and all related structures Neck Neck: Yes normal visual inspection Chest Chest palpation & inspection: normal inspection of the chest Resp Effort & Inspection: normal respiratory effort and able to speak in complete sentences Telehealth Telehealth Telehealth Platform: [facility] Location of provider rendering services: practice address Location of patient: address on file Patient Identification confirmed using: Name, : Yes Telehealth method: video Patient verbally consented to treatment: Yes Patient verbally consented to billing insurance company: Yes Patient informed of any privacy concerns related to visit: Yes Minutes spent on Phone/Video with Pt.: 15 Assessment & Plan Assessment & Plan (1) Prostate cancer: Comment: 04/13 Gl 4+3 07/05 core 20% Code(s): C61 - Malignant neoplasm of prostate Category: Medical (2) Hot flashes related to aromatase inhibitor therapy: Code(s): R23.2 - [place]; T45.1X5A - Adverse effect of antineoplastic and immunosuppressive drugs, initial encounter Category: Medical Plan Four month follow-up lab work Orders: Orders Testosterone, Total 4 Months C61 - Malignant neoplasm of prostate Prostate Specific Antigen 4 Months C61 - Malignant neoplasm of prostate Patient Instructions: Imaging studies, laboratory and physical exam results were discussed and reviewed in detail. No major barriers to patient understanding were identified. An opportunity to ask questions regarding the treatment plan was provided. All questions were answered. The patient expressed understanding and agreement with the above treatment plan. The patient is aware they should contact our office by phone for worsening of their current condition or the appearance of new urologic symptoms. Compliance is encouraged with any medications and followup testing that is ordered. It is a privilege to participate in the urologic care of your patient. If you have any questions or concerns regarding treatment for the above conditions, or other urologic issues, please do not hesitate to contact me. The office telephone contact is [phone]. This note is constructed using voice recognition software. While every effort has been made to ensure accuracy health social work professor errors may have been included. Yours sincerely, Dr Joey Kaiser MD, [facility] - Urology Providers of Expert, Compassionate Care for the Genitourinary System Coding Level of Care Code Tele Est Pt Level 3 (46870) Diagnoses Prostate cancer C61 Hot flashes related to aromatase inhibitor therapy R23.2; T45.1X5A
--- OUTSIDE RECORDS SUMMARY | 2024-06-03 23:45 | XMS_ITS | Encounter Summary ---
Author Name [facility] [place] Organization [facility] [place] Address [address] [place] [id number] Care Team Providers Care Car Salter Name Role Phone ALBERTOCANDE Primary Care Provider [...] PART A Apr 24, 2013 PART A [id number] DAGOIMELDA HN PATIENT MEDICARE (WNR) MEDICARE (M) PART B Apr 24, 2013 PART B [id number] DAGOIMELDA HN PATIENT MEDICARE (WNR) MEDICARE (M) PART A Apr 24, 2013 PART A [id number] DAGOIMELDA HN PATIENT MEDICARE (WNR) MEDICARE (M) PART B Apr 24, 2013 PART B [id number] DAGOIMELDA HN PATIENT [facility] [place] RE Jun 24, 2006 [id number] ISABELLA LOZA ENDOLYN SPOUSE [employer] (OPT/PROF ) [place] RE STATE INDEM * Apr 24, 2013 [id number] ISABELLA LOZA SPOUSE [employer] (OPT/PROF ) NELLY BORGES IND Jun 24, 2006 [id number] ISABELLA LOZA SPOUSE Selected Encounter This section includes the information on record at [place] for the Encounter. Date/Time Encounter Type Encounter Description Reason Pro vider Source Sep 02, 2023 02:37 PM Outpatient Encounter PRIMARY CARE/MEDICINE IHE Encounter Template Text not used by [place] Plan of Treatment: Future Appointments (+ 6 months) and Future Tests (+/- 45 days) The Plan of Treatment section includes future care activities for the patient from all [place] treatmentfacilities. This section includes future appointments and future orders which are active, pending or scheduled. Future Appointments This section includes appointments that were scheduled to occur 6 months from the date of the Encounter, up to a maximum of 20 appointments. The data comes from all [place] treatment facilities. Appointment Date/Time Appointment Type Appointme nt Facility Name Oct 16, 2023 09:00 [facility] [place] [facility] November 04, 2023 11:00 AM AMBULATORY MEDICINE [facility] Dec 04, 2023 10:00 AM AMBULATORY PSYCHIATRY [facility] [place] [facility] Dec 16, 2023 09:00 AM AMBULATORY MEDICINE [facility] Dec 18, 2023 01:00 PM AMBULATORY PSYCHIATRY [facility] [place] [facility] Mar 04, 2024 09:00 AM [facility] Social History: Smoking Status (Most current) and Tobacco Use (All prior to encounter date) This section includes the most current, and the historical, smoking and tobacco- related health factors from the [place] facility where the Encounter took place. Current Smoking Status This section includes the most current smoking, or tobacco-related health factor, from the [place] facility where the Encounter took place. Date/Time Current Smoking Status Comment George ity Jun 03, 2020 10:02 AM VA-TOBACCO FORMER USER [facility] Tobacco Use History This section includes a history of the smoking, or tobacco-related health factors, that were collected on or before the date of the Encounter. The data comes from the [place] facility where the Encounter took place. Date/Time Smoking Status/Tobacco Use Comment F acility Jun 03, 2020 10:02 AM DE-TOBACCO QUIT 15 YRS OR MORE [facility] [place] [facility] Encounter Notes: All associated encounter notes This section contains the clinical notes associated to the Encounter. Date/Time Encounter Note(s) Provider Source Sep 02, 2023 02:37 PM PRIMARY CARE NOTE: LOCAL TITLE: WALK-IN NOTE PRIMARY CARE (T) STANDARD TITLE: PRIMARY CARE NOTE DATE OF NOTE: SEP 02, 2023@14:37 ENTRY DATE: SEP 02, 2023@14:37:54 AUTHOR: LEVAR PLATA COSIGNER: URGENCY: STATUS: COMPLETED WALK-IN NOTE PRIMARY CARE (T) Has ADDENDA <====Click to Start Advanced Medical Support presents to the Primary Care clinic with the following request: [ X ]Medication Renewal/Refill [ ]Consultation with Team RN [ ]Symptoms [ ]Other [facility] states they are: [ ]Waiting [ X ]Not Waiting No Walk in visit scheduled with PACT Nurse [ X ] At this encounter the [facility]'s demographics were verified. [ X ] At this encounter the 's Insurance information was verified. [ X ] At this encounter the below scheduled visits for the [facility] were discussed and appointment reminder card was offered. IS REQUESTING PRESCRIPTION RENEWAL/REFILL FOR LOS[place]AN. WILL RAILWAY PATROL OFFICER PRESCRIPTION IN [facility]ARM[facility]Y. Future appointments: 10/21/2023 10:00 CWM/SO/MHC/TALAT ADAMS 11/04/2023 11:00 CWM/SO/PODIATRY/[place] 07/22/2024 10:30 CWM/SO/PACT 10 /deepika/ CHINTAN PLATA [employer] Signed: 09/02/2023 14:40 Receipt Acknowledged By: 09/02/2023 15:38 /deepika/ TRAV RAMEY RN REGISTERED NURSE 09/02/2023 14:51 /deepika/ GIOVANI FARRIS 10 09/02/2023 ADDENDUM STATUS: COMPLETED Left message for Vet to get a new script. /deepika/ RM LYLES LPN PACT 10 Signed: 09/02/2023 14:54 CHINTAN PLATA MELROSE
--- OUTSIDE RECORDS SUMMARY | 2024-06-03 23:45 | XMS_ITS | Continuity of Care Document ---
Author Name [facility] Organization [facility] Care Team Providers Care Money Counter Name Role Phone [facility] Unavailable Unavailable Problems Combined list of problems [...] 15, 2017 Entered By: CANDE DOMINGUEZ Comment: [facility] - [facility] Kaiser [facility] [place] [facility] Colonoscopy Screening Active Condition May 14, 2017 Entered By: CANDE DOMINGUEZ Comment: Approx 2007 [facility] [place] [facility] Elevated PSA Active Condition May 14, 2017 Entered By: CANDE DOMINGUEZ Comment: [facility] - Dr Kasier [place] [facility] [place] [facility] Essential hypertension Active Condition [facility] Exposure to potentially hazardous substance Active Condition Sep 11, 2023 Entered By: JERMAINE MENDEZ Comment: Original MARCY Screen completed 07/23/22 [facility] [place] [facility] Hyperlipidemia Active Condition [facility] Obesity Active Condition [facility] [place] [facility] Primary Care Physician Active Condition May 14, 2017 Entered By: SHAUN HERNANDEZ Comment: Dr. Greene [phone] [facility] [place] [facility] specialty providers Active Condition May 14, 2017 Entered By: CANDE DOMINGUEZ Comment: [employer]- -----Dr. Ramirez 2016 Entered By: CANDE DOMINGUEZ Comment: Oncologist--- --Dr. Kaiser [facility] [place] [facility] Vitamin D deficiency Active Condition [facility] [place] [facility] Tinnitus Inactive Condition 05/14/2017 [facility] [place] [facility] Diagnosis: ICD-10-CM L60.0 Ingrowing nail Active Diagnosis [facility] [facility] Diagnosis: ICD-10-CM F32.A Depression, unspecified Active Diagnosis [place] Diagnosis: ICD-10-CM F43.10 Post-traumatic stress disorder, unspecified Active Diagnosis [facility] Diagnosis: ICD-10-CM R32 Unspecified urinary incontinence Active Diagnosis [facility] Diagnosis: ICD-10-CM I11.9 Hypertensive heart disease without heart failure Active Diagnosis [place] Diagnosis: ICD-10-CM I10 Essential (primary) hypertension Active Diagnosis [facility] Medications Combined list of outpatient medications from Department of Defense and Veterans [facility] facilities.Medications provided include 1) outpatient medications from the last 15 months, and 2) patient-reported medications. Medication Details Route Status Patient Instructions Prescription Expires Prescription Number Last Dispense Date Ordering Provider Order Date Order Qty Source FINASTERIDE 5MG TAB TAKE ONE TABLET BY MOUTH ONCE DAILY ORAL ACTIVE JORDI DOMINGUEZ SA 2021 [facility] [place] 25MG TAB TAKE ONE TABLET BY MOUTH ONCE DAILY FOR BLOOD PRESSURE /HEART ORAL ACTIVE 09/05/2024 [id number] JORDI DOMINGUEZ SA 2023 90 [facility] [place] 25MG TAB TAKE ONE TABLET BY MOUTH ONCE DAILY FOR BLOOD PRESSURE /HEART ORAL DISCONT INUED BY PROVIDE R 08/30/2023 [id number] JORDI DOMINGUEZ SA 2022 90 [facility] Immunizations Combined list of available immunizations from the Department of [facility] and [facility] facilities. Immunization Series Date Given Administered By Site Reaction Lot Number CVX Code Drug Storage Garage Manager Status Comments Source ZOSTER RECOMBINANT 2 2021 187 complet ed [facility] ZOSTER RECOMBINANT 1 2021 187 complet ed [facility] COVID-19 (PFIZER), MRNA, LNP-S, PF, 30 MCG/0.3 ML DOSE 3 2020 208 complet ed [facility] [place] INFLUENZA, UNSPECIFIED FORMULATION 2020 88 complet ed [facility] [place] COVID-19 (PFIZER), MRNA, LNP-S, PF, 30 MCG/0.3 ML DOSE 2 2020 208 complet ed [facility] [place] COVID-19 ([employer]), MRNA, LNP-S, PF, 30 MCG/0.3 ML DOSE 1 2020 208 complet ed [facility] INFLUENZA, SEASONAL, INJECTABLE 2018 141 complet ed outside [facility] [place] [facility] TDAP 2017 115 complet ed Above re entered with correct date of vaccine is 09/04/2017 [facility] [place] FLU,3 YRS (HISTORICAL) 2011 88 complet ed [facility] [facility] DTAP, UNSPECIFIED FORMULATION 2005 107 complet ed [facility] Vital Signs Combined list of inpatient and outpatient Vital Signs from Department of Defense and Veterans Affairs, ranging from 12 months to all on record, depending upon the facility. Vital Sign Value Date Comments Source SYSTOLIC BLOOD PRESSURE 135 12/16/19 09:14:12 [facility] [place] [facility] DIASTOLIC BLOOD PRESSURE 82 024 09:14:12 [facility] [place] [facility] PULSE OXIMETRY 98 12/16/2023 09:14:12 [facility] [place] [facility] WEIGHT 214.8 12/16/2023 09:14:12 [facility] [place] [facility] BMI 30kg/m2 12/16/2023 09:14:12 [facility] [place] [facility] PAIN 0 12/16/2023 09:14:12 [facility] [place] [facility] HEIGHT 71 12/16/2023 09:14:12 [facility] [place] [facility] TEMPERATURE 98.1 12/16/2023 09:14:12 [facility] [place] [facility] PULSE 81 12/16/2023 09:14:12 [facility] [place] [facility] RESPIRATION 16 12/16/2023 09:14:12 [facility] [place] [facility] SYSTOLIC BLOOD PRESSURE 126 07/22/19 24 10:35:36 [facility] [place] [facility] DIASTOLIC BLOOD PRESSURE 86 024 10:35:36 [...] LD OFF/OP EST OCTOBER X REQ PHY/QHP [id number] Diagnos is: ICD-10- CM I10 Essenti al (primar y) hyperte nsion<b r/> MASSIEL SHARPE IC K 12/05 [place] [facility] [place] En[facility] [id number] 12/05 [facility] [place] Encounter [id number] 04/03 [facility] [place] [place] PSYTX W PT 60 MINUTES [id number] Diagnos is: ICD-10- CM F43.10 Post-tr aumatic stress disorde r, unspeci fied
Doris GILLILAND YLER 04/10 [place] OFF[place] O/P EST LOW 20-29 MIN [id number] Diagnos is: ICD-10- CM L60.0 Ingrowi ng nail
YOGI WATKINS ES F 06/10 [place] [facility] Outpatient Encounter [id number] 07/22 [facility] [place] [facility] [place] OFF[place] O/P EST LOW 20 MIN [id number] Diagnos is: ICD-10- CM I11.9 Hyperte nsive heart disease without heart failure
BERENICE DOMINGUEZ 07/22 [place] [facility] [place] Outpatient Encounter [id number] 09/01 [facility] [place] [facility] [place] [facility] Outpatient Encounter [id number] 09/04 [facility] [place] [facility] [place] PSY[place] W PT 60 MINUTES [id number] Diagnos is: ICD-10- CM F43.10 Post-tr aumatic stress disorde r, unspeci fied
Doris GILLILAND YLER 10/15 [place] [facility] [place] [facility] Outpatient Encounter [id number] 11/03 [facility] [place] [facility] [place] PSY[place] W PT 60 MINUTES [id number] Diagnos is: ICD-10- CM F43.10 Post-tr aumatic stress disorde r, unspeci fied
Doris G[place]IL[place] YLER 12/03 [place] [facility] [place] [facility] Outpatient Encounter [id number] 12/05 [facility] [place] [place] O/P EST LOW 20 MIN [id number] Diagnos is: ICD-10- CM R32 Unspeci fied urinary inconti nence<b r/> BERENICE DOMINGUEZ 12/15 [place] W PT 60 MINUTES [id number] Diagnos is: ICD-10- CM F43.10 Post-tr aumatic stress disorde r, unspeci fied
TALAT,T YLER 12/17 [place] PSY[place] W PT 60 MINUTES [id number] Diagnos is: ICD-10- CM F43.10 Post-tr aumatic stress disorde r, unspeci fied
TALAT,T YLER 03/04 [place] PSY[place] W PT 60 MINUTES [id number] Diagnos is: ICD-10- CM F43.10 Post-tr aumatic stress disorde r, unspeci fied
REJI MOSCOSO 04/15 [place] PSY[place] W PT 60 MINUTES [id number] Diagnos is: ICD-10- CM F43.10 Post-tr aumatic stress disorde r, unspeci fied
TALAT,T YLER 05/06 [place] PSY[place] W PT 60 MINUTES [id number] Diagnos is: ICD-10- CM F32.A Depress ion, unspeci fied
TALAT,T YLER 05/27 [place] OFF[place] O/P EST LOW 20 MIN [id number] Diagnos is: ICD-10- CM L60.0 Ingrowi ng nail
ROSS,CHARL ES F 05/29 [facility] [place] [facility] Outpatient Encounter [id number] 06[facility]02 [facility] Social History Combined list of available smoking, tobacco, and other social history from Department of Defense and Veterans Affairs facilities. Social History Type Response Date Comment Source Tobacco smoking status NHIS ME-TOBACCO FORMER USER 07/22/2023 [place] History of tobacco use ME-TOBACCO QUIT 15 YRS OR MORE 07/22/2023 [place] History of tobacco use ME-TOBACCO FORMER USER 07/23/2022 [place] History of tobacco use ME-TOBACCO FORMER USER 06/07/2021 [place] History of tobacco use ME-TOBACCO FORMER [facility]ER 06[facility]03/[facility] History of tobacco use ME-TOBACCO FORMER USER 06/02/2018 [place] History of tobacco use QUIT TOBACCO USE > 7 YEARS AGO 05/14/2017 25 years ago [facility] History of tobacco use LIFETIME NON-TOBACCO USER 05/10/2016 [place] History of tobacco use QUIT TOBACCO USE > 7 YEARS AGO 08/27/2011 Patient quit in 1999. [place] Plan of Care List of future care activities from Department of Veterans Affairs facilities. Additional future care activities may be listed in the Assessment and Plan section. Date/Time Care Activity Care Activity Detail Facili ty 07/03/2024 AMBULATORY - PSYCHIATRY AMBULATORY - [facility] 07/22/2024 AMBULATORY - MEDICINE [facility]
--- OUTSIDE RECORDS SUMMARY | 2024-06-03 23:46 | XMS_ITS | Encounter Summary ---
Author Name [facility] [place] Address [address] [place] [address] Care Team Providers Care Medical Claims Representative Name Role Phone ALBERTOCANDE Primary Care Provider [...] PART A Apr 24, 2013 PART A [id number] DAGOIMELDA HN PATIENT MEDICARE (WNR) MEDICARE (M) PART B Apr 24, 2013 PART B [id number] DAGOIMELDA HN PATIENT MEDICARE (WNR) MEDICARE (M) PART A Apr 24, 2013 PART A [id number] DAGOIMELDA HN PATIENT MEDICARE (WNR) MEDICARE (M) PART B Apr 24, 2013 PART B [id number] DAGOIMELDA HN PATIENT [facility] [place] RE Jun 24, 2006 [id number] ISABELLA LOZA ENDOLYN SPOUSE [employer] EXPENSE (OPT/PROF ) [place] RE STATE INDEM * Apr 24, 2013 [id number] [phone] ISABELLA LOZA SPOUSE [employer] EXPENSE (OPT/PROF ) NELLY BORGES IND Jun 24, 2006 [id number] ISABELLA LOZA SPOUSE Selected Encounter This section includes the information on record at [place] for the Encounter. Date/Time Encounter Type Encounter Description Reason Pro vider Source Jun 02, 2024 03:53 PM Outpatient Encounter [facility] - IND IHE Encounter Template Text not used by [place] Plan of Treatment: Future Appointments (+ 6 months) and Future Tests (+/- 45 days) The Plan of Treatment section includes future care activities for the [facility] [place] [facility] This section includes future appointments and future orders which are active, pending or scheduled. Future Appointments This section includes appointments that were scheduled to occur 6 months from the date of the Encounter, up to a maximum of 20 appointments. The data comes from all [place] treatment facilities. Appointment Date/Time Appointment Type Appointme nt Facility Name Jul 03, 2024 09:00 AM AMBULATORY - PSYCHIATRY [facility] Jul 22, 2024 10:30 AM AMBULATORY - MEDICINE [facility] Social History: Smoking Status (Most current) and Tobacco Use (All prior to encounter date) This section includes the most current, and the historical, smoking and tobacco- related health factors from the [place] facility where the Encounter took place. Current Smoking Status This section includes the most current smoking, or tobacco-related health factor, from the [place] facility where the Encounter took place. Date/Time Current Smoking Status Comment Facil ity Jun 03, 2020 10:02 AM [place]-TOBACCO QUIT 15 YRS OR MORE [facility] Tobacco Use History This section includes a history of the smoking, or tobacco-related health factors, that were collected on or before the date of the Encounter. The data comes from the [place] facility where the Encounter took place. Date/Time Smoking Status/Tobacco Use Comment F acility Jun 03, 2020 10:02 AM [place]-TOBACCO QUIT 15 YRS OR MORE [facility] Encounter Notes: All associated encounter notes This section contains the clinical notes associated to the Encounter. Date/Time Encounter Note(s) Provider Source Jun 02, 2024 03:53 PM ADMINISTRATIVE NOT E: LOCAL TITLE: ADMINISTRATIVE NOTE STANDARD TITLE: ADMINISTRATIVE NOTE DATE OF NOTE: JUN 02, 2024@15:53 ENTRY DATE: JUN 02, 2024@15:53:24 AUTHOR: AIRAM MOORE COSIGNER: URGENCY: STATUS: COMPLETED called office and asked to cx upcoming appt 06/10/24. states he thought he was doing once a month appts and will keep his july 02 appt. /deepika/ AIRMA MOORE ADVANCED ATHLETIC TURF WORKER Signed: 06/02/2024 15:55 Receipt Acknowledged By: 06/03/2024 07:46 /es/ ELIF GILLILAND ONLINE MARKETING MANAGERAIRAM GARRIDOFIELD
--- OUTSIDE RECORDS SUMMARY | 2024-06-03 23:46 | XMS_ITS | Encounter Summary ---
Author Name [facility] [place] Address [address] [place] [address] Care Team Providers Care Furniture Maker Name Role Phone BERENICE DOMINGUEZA Primary Care [...] PART A Apr 24, 2013 PART A [id number] IMELDA LOZA HN PATIENT MEDICARE (WNR) MEDICARE (M) PART B Apr 24, 2013 PART B [id number] IMELDA LOZA HN PATIENT MEDICARE (WNR) MEDICARE (M) PART A Apr 24, 2013 PART A [id number] IMELDA LOZA HN PATIENT MEDICARE (WNR) MEDICARE (M) PART B Apr 24, 2013 PART B [id number] IMELDA LOZA HN PATIENT [facility] [place] RE Jun 24, 2006 [id number] ISABELLA LOZA SPOUSE [employer] EXP[employer] (OPT/PROF ) [place] RE STATE INDEM * Apr 24, 2013 [id number] 37 ISABELLA LOZA SPOUSE [employer] (OPT/PROF ) [place] RE STATE IND Jun 24, 2006 [id number] ISABELLA LOZA SPOUSE Selected Encounter This section includes the information on record at [place] for the Encounter. Date/Time Encounter Type Encounter Description Reason Pro vider Source IHE Encounter Template Text not used by [place]
--- OUTSIDE RECORDS SUMMARY | 2024-06-03 23:46 | XMS_ITS | Encounter Summary ---
Author Name [facility] [place] [facility] [place] Address [address] [place] [address] Care Team Providers Care Casey Saw Operator Name Role Phone ALBERTOCANDE Primary Care Provider [...] PART A Apr 24, 2013 PART A [id number] DAGOIMELDA HN PATIENT MEDICARE (WNR) MEDICARE (M) PART B Apr 24, 2013 PART B [id number] DAGOIMELDA HN PATIENT MEDICARE (WNR) MEDICARE (M) PART A Apr 24, 2013 PART A [id number] DAGOIMELDA HN PATIENT MEDICARE (WNR) MEDICARE (M) PART B Apr 24, 2013 PART B [id number] DAGOIMELDA HN PATIENT [facility] [place] RE Jun 24, 2006 [id number] [phone] ISABELLA LOZA ENDOLYN SPOUSE [employer] EXPENSE (OPT/PROF ) [place] RE STATE INDEM * Apr 24, 2013 [id number] ISABELLA LOZA SPOUSE [employer] EXPENSE (OPT/PROF ) NELLY BORGES IND Jun 24, 2006 [id number] ISABELLA LOZA SPOUSE Selected Encounter This section includes the information on record at [place] for the Encounter. Date/Time Encounter Type Encounter Description Reason Pro vider Source Sep 05, 2023 03:52 PM Outpatient Encounter PRIMARY CARE/MEDICINE [place] Encounter Template Text not used by [place] Plan of Treatment: Future Appointments (+ 6 months) and Future Tests (+/- 45 days) The Plan of Treatment section includes future care activities for the patient from all [place] treatmentfacilities. This section includes future appointments and future orders which are active, pending or scheduled. Future Appointments This section includes appointments that were scheduled to occur 6 months from the date of the Encounter, up to a maximum of 20 appointments. The data comes from all [place] treatment facilities. Appointment Date/Time Appointment Type Appointme nt Facility Name Oct 16, 2023 09:00 AM [facility] November 04, 2023 11:00 AM [facility] Dec 04, 2023 10:00 AM [facility] [place] [facility] Dec 16, 2023 09:00 AM [facility]ORY MED[facility] Dec 18, 2023 01:00 PM AMBULATORY PS[facility]CHIAT[facility] [place] [facility] Mar 04, 2024 09[facility]00 AM [facility] Social History: Smoking Status (Most current) and Tobacco Use (All prior to encounter date) This section includes the most current, and the historical, smoking and tobacco- related health factors from the [place] facility where the Encounter took place. Current Smoking Status This section includes the most current smoking, or tobacco-related health factor, from the [place] facility where the Encounter took place. Date/Time Current Smoking Status Comment George ity Jun 03, 2020 10:02 AM [place]-TOBACCO [facility] US[facility] Tobacco Use History This section includes a history of the smoking, or tobacco-related health factors, that were collected on or before the date of the Encounter. The data comes from the [place] facility where the Encounter took place. Date/Time Smoking Status/Tobacco Use Comment F acility Jun 03, 2020 10:02 AM VA-TOBACCO QUIT 15 YRS OR MORE [facility] [place] [facility] Encounter Notes: All associated encounter notes This section contains the clinical notes associated to the Encounter. Date/Time Encounter Note(s) Provider Source Sep 05, 2023 03:52 PM NURSING ADMINISTRA BARBARA NOTE: LOCAL TITLE: NON-VA PRESCRIPTION STANDARD TITLE: NURSING ADMINISTRATIVE NOTE DATE OF NOTE: SEP 05, 2023@15:52 ENTRY DATE: SEP 05, 2023@15:52:41 AUTHOR: RM LYLES COSIGNER: URGENCY: STATUS: COMPLETED Outside script received form Dr. Ruddy Clifford [address] [place] [address]. [id number] P: Rx: Losartan 25 mg tablet Si tablet at bedtime Qty: 90 Ref: 3 Change: No /deepika/ RM LYLES LPN PACT 10 Signed: 09/05/2023 15:57 Receipt Acknowledged By: 09/05/2023 16:02 /es/ CANDE DOMINGUEZ MD Primary Care Physician RM LYLES
--- OUTSIDE RECORDS SUMMARY | 2024-06-03 23:46 | XMS_ITS | Encounter Summary ---
Author Name [facility] [place] Organization [facility] [place] Address [address] [place] [address] Care Team Providers Care Miscellaneous Machine Operator Name Role Phone CANDE DOMINGUEZ Primary [...] PART A Apr 24, 2013 PART A [id number] IMELDA LOZA HN PATIENT MEDICARE (WNR) MEDICARE (M) PART B Apr 24, 2013 PART B [id number] IMELDA LOZA HN PATIENT MEDICARE (WNR) MEDICARE (M) PART A Apr 24, 2013 PART A [id number] IMELDA LOZA HN PATIENT MEDICARE (WNR) MEDICARE (M) PART B Apr 24, 2013 PART B [id number] IMELDA LOZA HN PATIENT [facility] [place] RE Jun 24, 2006 [id number] ISABELLA LOZA SPOUSE [employer] EXPENSE (OPT/PROF ) [place] RE STATE INDEM * Apr 24, 2013 [id number] ISABELLA LOZA SPOUSE [employer] EXPENSE (OPT/PROF ) NELLY BORGES IND Jun 24, 2006 [id number] ISABELLA LOZA MARUJASON SPOUSE Selected Encounter This section includes the information on record at [place] for the Encounter. Date/Time Encounter Type Encounter Description Reason Provider Source May 06, 2024 10:00 AM PSYTX W PT 60 MINUTES [facility] - IND ICD-10-CM F43.10 Post-traumatic stress disorder, unspecified ELIF GILLILAND Adriane Encounter Template Text not used by [place] Assessments - Encounter Diagnoses This section includes the primary and secondary diagnoses documented for the Encounter. Date/Time Primary/Secondary Diagnosis Diagnosis Name Provider Source May 16, 2024 07:24 AM PRIMARY Post-traumatic stress disorder, unspecified ELIF GILLILAND ENRICO Plan of Treatment: Future Appointments (+ 6 months) and Future Tests (+/- 45 days) The Plan of Treatment section includes future care activities for the patient from all [place] treatmentfacilities. This section includes future appointments and future orders which are active, pending or scheduled. Future Appointments This section includes appointments that were scheduled to occur 6 months from the date of the Encounter, up to a maximum of 20 appointments. The data comes from all [place] treatment facilities. Appointment Date/Time Appointment Type Appointme nt Facility Name May 27, 2024 11:00 AM AMBULATORY - PSYCHIATRY [facility] May 29, 2024 09:30 AM AMBULATORY - MEDICINE [facility] Jul 03, 2024 09:00 AM AMBULATORY PSYCHIATRY [facility] Jul 22, 2024 10:30 AM AM[facility]ULATORY - MEDICINE [facility] Social History: Smoking Status (Most current) [...] Willy mclaughlin Jul 22, 2023 10:30 AM [place]-TOBACCO FORMER USER [facility] Tobacco Use History This section includes a history of the smoking, or tobacco-related health factors, that were collected on or before the date of the Encounter. The data comes from the [place] facility where the Encounter took place. Date/Time Smoking Status/Tobacco Use Comment F acility Jul 22, 2023 10:30 AM VA-TOBACCO QUIT 15 YRS OR MORE [facility] Jul 23, 2022 10:30 AM VA-TOBACCO FORMER USER [facility] Jul 23, 2022 10:30 AM VA-TOBACCO QUIT 15 YRS OR MORE [facility] Jun 07, 2021 11:00 AM VA-TOBACCO FORMER USER [facility] Jun 07, 2021 11:00 AM VA-TOBACCO QUIT 15 YRS OR MORE [facility] Jun 02, 2018 05:44 AM VA-TOBACCO FORMER USER [facility] Jun 02, 2018 05:44 AM VA-TOBACCO QUIT 15 YRS OR MORE [facility] May 14, 2017 08:31 AM QUIT TOBACCO USE > 7 YEARS AGO 25 years ago [facility] May 10, 2016 10:40 AM LIFETIME NON-TOBACCO USER [facility] Aug 27, 2011 08:36 AM QUIT TOBACCO USE > 7 YEARS AGO Patient quit in 1999. [facility] Encounter Notes: All associated encounter notes This section contains the clinical notes associated to the Encounter. Date/Time Encounter Note(s) Provider Source May 06, 2024 11:02 AM SOCIAL WORK NOTE: LOCAL TITLE: SOCIAL WORK NOTE STANDARD TITLE: SOCIAL WORK NOTE DATE OF NOTE: MAY 06, 2024@11:02 ENTRY DATE: MAY 06, 2024@11:02:12 AUTHOR: ELIF GILLILAND COSIGNER: CECY MOSCOSO URGENCY: STATUS: COMPLETED INFORMED CONSENT REVIEWED: At beginning of session reviewed rights and limits of confidentiality, mandatory reporting situations, duty to warn and protect, Diop Warning, (if treatment team finds patient to be an acute danger to himself or others, that this information could be relayed to a court of law and presented to a field cane scaler helper), and DOD access for active duty service members. Provided Suicide Prevention Hotline number, and other contact numbers as necessary. VISIT DURATION 60 minutes DIAGNOSES: PTSD, unspec [employer] STATEMENT OF GOALS/CONCERNS: I had some things happen to me during [place], when I was in [place], that sometimes come back to haunt me and I have trouble getting them off my mind. I like to come in and talk to someone and get things back in order in my head just once in a while because most of the time my life is going really well. I just need help getting over these humps sometimes. SESSION FOCUS: [place] reported continued struggle with having had prostate cancer. Although the cancer has been successfully treated, states that he is finding himself in a depressive or angry state on a frequent basis. said that his family members are noticing mood swings that he is often unaware of. and Platen Builder Up discussed treatment options including the possibility of EMDR to address both his distress around the cancer treatment and his earlier life experiences of racism in the . [place] expressed enthusiasm. INTERVENTIONS: Psychotherapeutic Interventions: Active listening, validating Psychoeducation [...] weekly individual supervision meeting. /deepika/ ELIF GILLILAND MEDICAL PRACTICE ADMINISTRATOR Signed: 05/06/2024 11:05 /deepika/ [facility] Civil Engineering Director Mental Health Cosigned: 05/06/2024 11:55 ELIF GILLILAND
--- OUTSIDE RECORDS SUMMARY | 2024-06-03 23:46 | XMS_ITS | Encounter Summary ---
Author Name [facility] [place] Address [address] [place] [address] Care Team Providers Care Outside Sales Advertising Executive Name Role Phone CANDE DOMINGUEZ Primary Care [...] PART B Apr 24, 2013 PART B [id number] IMELDA LOZA HN PATIENT MEDICARE (WNR) MEDICARE (M) PART A Apr 24, 2013 PART A [id number] IMELDA OLZA HN PATIENT MEDICARE (WNR) MEDICARE (M) PART A Apr 24, 2013 PART A [id number] IMELDA LOZA HN PATIENT MEDICARE (WNR) MEDICARE (M) PART B Apr 24, 2013 PART B [id number] IMELDA LOZA HN PATIENT [facility] [place] RE Jun 24, 2006 [id number] ISABELLA LOZA SPOUSE [employer] EXPENSE (OPT/PROF ) [place] RE STATE INDEM * Apr 24, 2013 [id number] ISABELLA LOZA SPOUSE [employer] EXPENSE (OPT/PROF ) NELLY BORGES IND Jun 24, 2006 [id number] ISABELLA LOZA MARUJASON SPOUSE Selected Encounter This section includes the information on record at [place] for the Encounter. Date/Time Encounter Type Encounter Description Reason Provider Source Oct 16, 2023 09:00 AM PSYTX W PT 60 MINUTES [facility] - IND ICD-10-CM F43.10 Post-traumatic stress disorder, unspecified ELIF GILLILAND Adriane Encounter Template Text not used by [place] Assessments - Encounter Diagnoses This section includes the primary and secondary diagnoses documented for the Encounter. Date/Time Primary/Secondary Diagnosis Diagnosis Name Provider Source Oct 16, 2023 10:05 AM PRIMARY Post-traumatic stress disorder, unspecified ELIF GILLILAND [facility] Plan of Treatment: Future Appointments (+ 6 months) and Future Tests (+/- 45 days) The Plan of Treatment section includes future care activities for the patient from all [place] treatmentfacilities. This section includes future appointments and future orders which are active, pending or scheduled. Future Appointments This section includes appointments that were scheduled to occur 6 months from the date of the Encounter, up to a maximum of 20 appointments. The data comes from all [place] treatment facilities. Appointment Date/Time Appointment Type Appointme nt Facility Name November 04, 2023 11:00 AM AMBULATORY - MEDICINE [facility] Dec 04, 2023 10:00 AM AM[facility] [place] [facility] [place] [place] [facility] Dec 16, 2023 09:00 AM AMBULATORY - MEDICINE [facility] [place] [facility] Dec 18, 2023 01:00 PM AMBULATORY - [facility] [place] [place] [facility] Mar 04, 2024 09:00 AM AMB[facility]ATORY [place] [place] [facility] [place] [facility] Apr 15, 2024 10:00 AM [facility] Social History: Smoking Status (Most [...] 22, 2023 10:30 AM [place]-TOBACCO FORMER USER [facility] Tobacco Use History This section includes a history of the smoking, or tobacco-related health factors, that were collected on or before the date of the Encounter. The data comes from the [place] facility where the Encounter took place. Date/Time Smoking Status/Tobacco Use Comment F acility Jul 22, 2023 10:30 AM VA-TOBACCO QUIT 15 YRS OR MORE [facility] Jul 23, 2022 10:30 AM VA-TOBACCO FORMER USER [facility] Jul 23, 2022 10:30 AM VA-TOBACCO QUIT 15 YRS OR MORE [facility] Jun 07, 2021 11:00 AM VA-TOBACCO FORMER USER [facility] Jun 07, 2021 11:00 AM VA-TOBACCO QUIT 15 YRS OR MORE [facility] Jun 02, 2018 05:44 AM VA-TOBACCO FORMER USER [facility] Jun 02, 2018 05:44 AM VA-TOBACCO QUIT 15 YRS OR MORE [facility] May 14, 2017 08:31 AM QUIT TOBACCO USE > 7 YEARS AGO 25 years ago [facility] May 10, 2016 10:40 AM LIFETIME NON-TOBACCO USER [facility] Aug 27, 2011 08:36 AM QUIT TOBACCO USE > 7 YEARS AGO Patient quit in 1999. [facility] Encounter Notes: All associated encounter notes This section contains the clinical notes associated to the Encounter. Date/Time Encounter Note(s) Provider Source Oct 16, 2023 09:57 AM SOCIAL WORK NOTE: LOCAL TITLE: SOCIAL WORK NOTE STANDARD TITLE: SOCIAL WORK NOTE DATE OF NOTE: OCT 16, 2023@09:57 ENTRY DATE: OCT 16, 2023@09:57:45 AUTHOR: ELIF GILLILAND EXP COSIGNER: CECY MOSCOSO URGENCY: STATUS: COMPLETED INFORMED CONSENT REVIEWED: At beginning of session reviewed rights and limits of confidentiality, mandatory reporting situations, duty to warn and protect, Diop Warning, (if treatment team finds patient to be an acute danger to himself or others, that this information could be relayed to a court of law and presented to a project management intern), and DOD access for active duty service [...] getting over these humps sometimes. SESSION FOCUS: oRberto reports his last six months have been generally positive however he was diagnosed with colon cancer and went through radiation treatment. [place] said the treatment was successful and painless. noted that this event brought about many thoughts about his life, especially the racist experiences that he's had both in and out of the . [place] talked about some specific racist experiences and his thoughts about whether or not he should have reacted more violently to the injustices. On balance, [place] stated that he is glad that he did not resort to violence in the face of racism but he acknowledges that sometimes he feels a desire to encounter certain perpetrators again so he can express to them his anger at being treated unfairly. Roberto will return to clinic in April 2024. INTERVENTIONS: Psychotherapeutic Interventions: Active listening, validating Psychoeducation [...] Semi-Annual Sessions This case is supervised by [facility]. Diagnosis, treatment plan, and response to care are reviewed in standard 1-hour, or more, weekly individual supervision meeting. /deepika/ ELIF GILLILAND SUPERVISOR FEED MILL Signed: 10/16/2023 10:06 /deepika/ [facility] Harp Regulator Mental Health Cosigned: 10/16/2023 11:59 ELIF GILLILAND
== END 2024-06-03 10:22 | disposition home or self-care (01) ==
LOC: HO.HUSH 09:26
PROVIDERS: PCP Internal Medicine; Visit Provider Urology
DX: C61 Malignant neoplasm of prostate (principal); R23.2 Flushing; T45.1X5A Adverse effect of antineoplastic and immunosuppressive drugs, initial encounter
CPT/HCPCS: 99213

== ENCOUNTER → 2024-06-03 09:26 | Outpatient (BNVA) | payer MEDICARE, OTHER, SELFPAY | PROVIDERS: PCP Internal Medicine; Visit Provider Urology ==

== ENCOUNTER 2024-06-10 08:11 | Outpatient (REF) | payer MEDICARE, OTHER, SELFPAY ==
--- OUTSIDE RECORDS SUMMARY | 2024-06-10 08:22 | XMS_ITS | Encounter Summary ---
Author Name [facility] [place] Organization [place] Address [address] [place] [address] Care Team Providers Care Pit Furnace Operator Name Role Phone BERENICE DOMINGUEZA Primary [...] PART B Apr 24, 2013 PART B [id number] IMELDA LOZA HN PATIENT MEDICARE (WNR) MEDICARE (M) PART A Apr 24, 2013 PART A [id number] IMELDA LOZA HN PATIENT MEDICARE (WNR) MEDICARE (M) PART A Apr 24, 2013 PART A [id number] IMELDA LOZA HN PATIENT MEDICARE (WNR) MEDICARE (M) PART B Apr 24, 2013 PART B [id number] IMELDA LOZA HN PATIENT [facility] [place] RE Jun 24, 2006 [id number] ISABELLA LOZA SPOUSE [facility] EXPENSE (OPT/PROF ) [place] RE [facility] INDEM * Apr 24, 2013 [id number] ISABELLA LOZA SPOUSE [facility] MEDICAL EXPENSE (OPT/PROF ) NELLY BORGES IND Jun 24, 2006 [id number] ISABELLA LOZA SPOUSE Selected Encounter This section includes the information on record at [place] for the Encounter. Date/Time Encounter Type Encounter Description Reason Provider Source Jun 10, 2023 10:30 AM OFFICE O/P EST LOW 20-29 MIN PODIATRY ICD-10-CM L60.0 Ingrowing nail NEHA WATKINS Adriane Encounter Template Text not used by [place] Assessments - Encounter Diagnoses This section includes [...] care activities for the patient from all [place] treatmentfacilities. This section includes future appointments and future orders which are active, pending or scheduled. Future Appointments This section includes appointments that were scheduled to occur 6 months from the date of the Encounter, up to a maximum of 20 appointments. The data comes from all [place] treatment facilities. Appointment Date/Time Appointment Type Appointme nt Facility Name Jul 22, 2023 10:30 AM AMBULATORY - MEDICINE [facility] Oct 16, 2023 09:00 AM AMBULATORY - PSYCHIATRY [facility] November 04, 2023 11:00 AM AMBULATORY - MEDICINE [facility] Dec 04, 2023 10:00 AM AMBULATORY - PSYCHIATRY [facility] Social History: Smoking Status (Most current) and [...] Willy mclaughlin Jul 23, 2022 10:30 [facility] OR [facility] Tobacco Use History This section includes a history of the smoking, or tobacco-related health factors, that were collected on or before the date of the Encounter. The data comes from the [place] facility where the Encounter took place. Date/Time Smoking Status/Tobacco Use Comment F acility Jul 23, 2022 10:30 AM VA-TOBACCO QUIT 15 YRS OR MORE [facility] Jun 07, 2021 11:00 AM VA-TOBACCO FORMER USER [facility] Jun 07, 2021 11:00 AM VA-TOBACCO QUIT 15 YRS OR MORE [facility] [place] Jun 02, 2018 05:44 AM VA-TOBACCO FORMER USER [facility] Jun 02, 2018 05:44 AM VA-TOBACCO QUIT 15 YRS OR MORE [facility] [place] May 14, 2017 08:31 AM QUIT TOBACCO USE > 7 YEARS AGO 25 years ago [facility] [place] May 10, 2016 10:40 AM LIFETIME NON-TOBACCO USER [facility] Aug 27, 2011 08:36 AM QUIT TOBACCO USE > 7 YEARS AGO Patient quit in 1999. [facility] [place] Encounter Notes: All associated encounter notes This [...] BOTH COVID VACCINE DOSES + BOOSTER AT [facility] S: Pt. is a 73 yo alert [...] present physical-medical status. Protective sensation utilizing a Concepcion-Sonia lOg monofilament is 0/10 bilateral. BIOMECHANICAL: Exam [...] Remote Allergy/ADR Data available for this patient [place] [facility] [place] [facility] No Known Allergies Med Recon [...] display of VA prescriptions dispensed from another [place] or [facility] facility (remote) is limited to active outpatient prescription entries matched to National Drug File at the originating site and may not include some items such as investigational drugs, compounds, etc. NOT INCLUDED IN THIS LIST: Medications self-entered by the patient into personal health records (i.e. [employer]) are NOT included in this list. Non-VA medications documented outside this [place], remote inpatient orders (regardless of status) and [...] MOUTH ONCE DAILY FOR BLOOD PRESSURE/HEART Rx# [id number] Last Released: 05/31/23 Qty/Days Supply: Rx Expiration Date: 08/30/23 Refills Remainin Indication: FOR HIGH BLOOD PRESSURE SUPPLIES /deepika/ NEHA WATKINS DPM MARKETING SALES REPRESENTATIVE Signed: 06/10/2023 10:37 NEHA WATKINSFIELD
--- OUTSIDE RECORDS SUMMARY | 2024-06-10 08:22 | XMS_ITS | Encounter Summary ---
Author Name Department [place] Organization [place] Address [address] [place] [id number] Care Team Providers Care Filling Hand Name Role Phone ALBERTOCANDE Primary Care Provider [...] PART A Apr 24, 2013 PART A [id number] DAGOIMELDA HN PATIENT MEDICARE (WNR) MEDICARE (M) PART B Apr 24, 2013 PART B [id number] DAGOIMELDA HN PATIENT MEDICARE (WNR) MEDICARE (M) PART B Apr 24, 2013 PART B [id number] DAGOIMELDA HN PATIENT MEDICARE (WNR) MEDICARE (M) PART A Apr 24, 2013 PART A [id number] DAGOIMELDA HN PATIENT [facility] [place] RE Jun 24, 2006 [id number] ISABELLA LOZA ENDOLYN SPOUSE [facility] (OPT/PROF ) [place] RE STATE INDEM * Apr 24, 2013 [id number] ISABELLA LOZA SPOUSE [facility] (OPT/PROF ) NELLY BORGES IND Jun 24, 2006 [id number] ISABELLA LOZA SPOUSE Selected Encounter This section includes the information on record at [place] for the Encounter. Date/Time Encounter Type Encounter Description Reason Pro vider Source Sep 02, 2023 02:37 PM Outpatient Encounter PRIMARY CARE/MEDICINE IHE Encounter Template Text not used by [place] Plan of Treatment: Future Appointments (+ 6 months) and Future Tests (+/- 45 days) The Plan of Treatment section includes future care activities for the patient from all [place] treatmentfacilities. This section includes future appointments and future orders which are active, pending or scheduled. Future Appointments This section includes appointments that were scheduled to occur 6 months from the date of the Encounter, up to a maximum of 20 appointments. The data comes from all [place] treatment facilities. Appointment Date/Time Appointment Type Appointme nt Facility Name Oct 16, 2023 09:00 [facility] [place] [facility] November 04, 2023 11:[address] [facility] Dec 04, 2023 10:00 AM AMBUL[place]RY [place] [facility] [place] [facility] Dec 16, 2023 09:00 AM [facility] Dec 18, 2023 01:00 PM AMBUL[place]RY [place] [facility] [place] [facility] Mar 04, 2024 09:00 AM [facility] Social History: Smoking Status (Most current) and Tobacco Use (All prior to encounter date) This section includes the most current, and the historical, smoking and tobacco- related health factors from the [place] facility where the Encounter took place. Current Smoking Status This section includes the most current smoking, or tobacco-related health factor, from the [place] facility where the Encounter took place. Date/Time Current Smoking Status Comment George ity Jun 03, 2020 10:02 AM VA-TOBACCO FOR[facility]ER [facility] Tobacco Use History This section includes a history of the smoking, or tobacco-related health factors, that were collected on or before the date of the Encounter. The data comes from the [place] facility where the Encounter took place. Date/Time Smoking Status/Tobacco Use Comment F acility Jun 03, 2020 10:02 AM [place]-TOBACCO QUIT 15 YRS OR MORE [place] [facility] [place] [facility] Encounter Notes: All associated encounter notes [...] Team RN [ ]Symptoms [ ]Other The [facility] states they are: [ ]Waiting [ X ]Not Waiting No Walk in visit scheduled with PACT Nurse [ X ] At this encounter the [facility]'s demographics were verified. [ X ] At this encounter the 's Insurance information was verified. [ X ] At this encounter the below scheduled visits for the [facility] were discussed and appointment reminder card was offered. IS REQUESTING PRESCRIPTION RENEWAL/REFILL FOR [place]. 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 /deepika/ RM LYLES LPN PACT 10 Signed: 09/02/2023 14:54 CHINTAN PLATA [place]
--- OUTSIDE RECORDS SUMMARY | 2024-06-10 08:22 | XMS_ITS | Encounter Summary ---
Author Name Department of [place] Organization [place] Address [address] [place] [address] Care Team Providers Care Freight Separator Name Role Phone BERENICE DOMINGUEZA Primary Care [...] PART B Apr 24, 2013 PART B [id number] IMELDA LOZA HN PATIENT MEDICARE (WNR) MEDICARE (M) PART A Apr 24, 2013 PART A [id number] IMELDA LOZA HN PATIENT MEDICARE (WNR) MEDICARE (M) PART A Apr 24, 2013 PART A [id number] IMELDA LOZA HN PATIENT MEDICARE (WNR) MEDICARE (M) PART B Apr 24, 2013 PART B [id number] IMELDA LOZA HN PATIENT [facility] [place] RE Jun 24, 2006 [id number] [phone] ISBAELLA LOZA SPOUSE [facility] [facility] (OPT/PROF ) [place] RE STATE INDEM * Apr 24, 2013 [id number] ISABELLA LOZA SPOUSE [facility] [facility] EXP[facility] (OPT/PROF ) [place] RE STATE IND Jun 24, 2006 [id number] ISABELLA LOZA SPOUSE Selected Encounter This section includes the information on record at [place] for the Encounter. Date/Time Encounter Type Encounter Description Reason Pro vider Source IHE Encounter Template Text not used by [place]
--- OUTSIDE RECORDS SUMMARY | 2024-06-10 08:22 | XMS_ITS | Encounter Summary ---
Author Name Department of [place] ([place] Organization [place] Address [address] [place] [address] Care Team Providers Care Tugboat Operator Name Role Phone CANDE DOMINGUEZ Primary [...] PART A Apr 24, 2013 PART A [id number] IMELDA LOZA HN PATIENT MEDICARE (WNR) MEDICARE (M) PART B Apr 24, 2013 PART B [id number] IMELDA LOZA HN PATIENT MEDICARE (WNR) MEDICARE (M) PART B Apr 24, 2013 PART B [id number] IMELDA LOZA HN PATIENT MEDICARE (WNR) MEDICARE (M) PART A Apr 24, 2013 PART A [id number] IMELDA LOZA HN PATIENT [facility] [place] RE Jun 24, 2006 [id number] ISABELLA LOZA SPOUSE [facility] (OPT/PROF ) [place] RE STATE INDEM * Apr 24, 2013 [id number] [phone] ISABELLA LOZA SPOUSE [facility] [facility] (OPT/PROF ) NELLY BORGES IND Jun 24, 2006 [id number] 37 ISABELLA LOZA MARUJASON SPOUSE Selected Encounter [...] PRIMARY Post-traumatic stress disorder, unspecified ELIF GILLILAND [place] Plan of Treatment: Future Appointments (+ 6 [...] 04, 2023 11:00 AM AMBULATORY - MEDICINE [facility] Dec 04, 2023 10:00 AM AMBULATORY - [place]CHIATRY [place] [place] [facility] Dec 16, 2023 09:00 AM AMBULATORY - MEDICINE [facility] [place] [facility] Dec 18, 2023 01:00 PM AMBULATORY - PSYCHIATRY [place] [facility] [place] [facility] Mar 04, 2024 09:00 AM AMBULATORY - PS[place]CHIATRY [place] [facility] [place] [facility] Apr 15, 2024 10:00 AM AMBULAT[facility] - [facility] Social History: Smoking Status (Most current) [...] 22, 2023 10:30 AM VA-TOBACCO FORMER USER [place] Tobacco Use History This section includes a history of the smoking, or tobacco-related health factors, that were collected on or before the date of the Encounter. The data comes from the [place] facility where the Encounter took place. Date/Time Smoking Status/Tobacco Use Comment F acility Jul 22, 2023 10:30 AM VA-TOBACCO QUIT 15 YRS OR MORE [facility] Jul 23, 2022 10:30 AM VA-TOBACCO FORMER USER [facility] Jul 23, 2022 10:30 AM VA-TOBACCO QUIT 15 YRS OR MORE [place] Jun 07, 2021 11:00 AM VA-TOBACCO FORMER USER [place] Jun 07, 2021 11:00 AM VA-TOBACCO QUIT 15 YRS OR MORE [place] Jun 02, 2018 05:44 AM VA-TOBACCO FORMER USER [place] Jun 02, 2018 05:44 AM VA-TOBACCO QUIT 15 YRS OR MORE [place] May 14, 2017 08:31 AM QUIT TOBACCO USE > 7 YEARS AGO 25 years ago [facility] May 10, 2016 10:40 AM LIFETIME NON-TOBACCO USER [facility] Aug 27, 2011 08:36 AM QUIT TOBACCO USE > 7 YEARS AGO Patient quit in 1999. 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 SESSION FOCUS: Roberto reports his last six months have been generally positive however he was diagnosed with colon cancer and went through radiation treatment. Acworth said the treatment was successful and painless. noted that this event brought about many thoughts about his life, especially the racist experiences that he's had both in and out of the . Acworth talked about some specific racist experiences and his thoughts about whether or not he should have reacted more violently to the injustices. On balance, Acworth stated that he is glad that he [...] weekly individual supervision meeting. /deepika/ ELIF GILLILAND PROCEDURE WRITER Signed: 10/16/2023 10:06 /deepika/ [facility] Fur Stylist Mental Health Cosigned: 10/16/2023 11:59 ELIF GILLILAND
--- OUTSIDE RECORDS SUMMARY | 2024-06-10 08:22 | XMS_ITS | Encounter Summary ---
Author Name Department [place] Organization [place] Address [address] [place] [address] Care Team Providers Care Communications Equipment Operator Name Role Phone BERENICE DOMINGUEZA Primary [...] PART A Apr 24, 2013 PART A [id number] DAGOIMELDA HN PATIENT MEDICARE (WNR) MEDICARE (M) PART B Apr 24, 2013 PART B [id number] DAGOIMELDA HN PATIENT MEDICARE (WNR) MEDICARE (M) PART A Apr 24, 2013 PART A [id number] DAGOIMELDA HN PATIENT MEDICARE (WNR) MEDICARE (M) PART B Apr 24, 2013 PART B [id number] DAGOIMELDA HN PATIENT [facility] [place] RE Jun 24, 2006 [id number] ISABELLA LOZA ENDOLYN SPOUSE [facility] [facility] (OPT/PROF ) [place] RE STATE INDEM * Apr 24, 2013 [id number] ISABELLA LOZA SPOUSE [employer] [facility] EXPENSE (OPT/PROF ) NELLY BORGES IND Jun 24, 2006 [id number] ISABELLA LOZA SPOUSE Selected Encounter This section includes the information on record at [place] for the Encounter. Date/Time Encounter Type Encounter Description Reason Pro vider Source Jul 22, 2023 12:00 AM Outpatient Encounter EVENT (HISTORICAL) IHE Encounter Template Text not used by [place] Plan of Treatment: Future Appointments (+ 6 months) and Future Tests (+/- 45 days) The Plan of Treatment section includes future care activities for the patient from all [place] treatmentfacilities. This section includes future appointments and future orders which are active, pending or scheduled. Future Appointments This section includes appointments that were scheduled to occur 6 months from the date of the Encounter, up to a maximum of 20 appointments. The data comes from all [place] treatment facilities. Appointment Date/Time Appointment Type Appointme nt Facility Name Oct 16, 2023 09:00 AM AMBULATORY - [place]ATRY [place] [place] [facility] November 04, 2023 11:00 AM AMBULATORY - MEDICINE [facility] Dec 04, 2023 10:00 AM AMBUL[place]ORY [place]RY [place] [facility] Dec 16, 2023 09:00 AM AM[facility]ULATORY [facility] Dec 18, 2023 01:00 PM [facility] Vital Signs: All taken on the encounter date This section contains inpatient and outpatient Vital Signs collected on the date of the Encounter. Date/Time Temperature Pulse Blood Pressure Respiratory Rate SP02 Pain Height Weight Body Mass Index Source Jul 22, 2023 10:35 AM 98.2 86 126/86 16 99 0 71 209.8 29 [place] [facility] Social History: Smoking Status (Most current) and Tobacco Use (All prior to encounter date) This section includes the most current, and the historical, smoking and tobacco- related health factors from the [place] facility where the Encounter took place. Current Smoking Status This section includes the most current smoking, or tobacco-related health factor, from the [place] facility where the Encounter took place. Date/Time Current Smoking Status Willy mclaughlin Jun 03, 2020 10:02 AM VA-TOBACCO FORMER USER [facility] Tobacco Use History This section includes a history of the smoking, or tobacco-related health factors, that were collected on or before the date of the Encounter. The data comes from the [place] facility where the Encounter took place. Date/Time Smoking Status/Tobacco Use Comment F acility Jun 03, 2020 10:02 AM [place]-TOBACCO QUIT 15 YRS OR MORE [facility]
--- OUTSIDE RECORDS SUMMARY | 2024-06-10 08:22 | XMS_ITS | Encounter Summary ---
Author Name Department [place] Organization [place] Address [address] [place] [address] Care Team Providers Care Floor Clerk Name Role Phone ALBERTOCANDE Primary Care Provider [...] PART B Apr 24, 2013 PART B [id number] DAGOIMELDA HN PATIENT MEDICARE (WNR) MEDICARE (M) PART A Apr 24, 2013 PART A [id number] DAGOIMELDA HN PATIENT MEDICARE (WNR) MEDICARE (M) PART A Apr 24, 2013 PART A [id number] DAGOIMELDA HN PATIENT MEDICARE (WNR) MEDICARE (M) PART B Apr 24, 2013 PART B [id number] DAGOIMELDA HN PATIENT [facility] [place] RE Jun 24, 2006 [id number] [phone] ISABELLA LOZALYN SPOUSE [employer] [facility]PENSE (OPT/PROF ) [place] RE STATE INDEM * Apr 24, 2013 [id number] [phone] ISABELLA LOZA SPOUSE [facility] MEDICAL EXPENSE (OPT/PROF ) NELLY BORGES IND Jun 24, 2006 [id number] ISABELLA LOZA SPOUSE Selected Encounter This section includes the information on record at [place] for the Encounter. Date/Time Encounter Type Encounter Description Reason Pro vider Source November 04, 2023 04:05 PM Outpatient Encounter PODIATRY IHE Encounter Template Text not used by [place] Plan of Treatment: Future Appointments (+ 6 months) and Future Tests (+/- 45 days) The Plan of Treatment section includes future care activities for the patient from all [place] treatmentfacilities. This section includes future appointments and future orders which are active, pending or scheduled. Future Appointments This section includes appointments that were scheduled to occur 6 months from the date of the Encounter, up to a maximum of 20 appointments. The data comes from all [place] treatment facilities. Appointment Date/Time Appointment Type Appointme nt Facility Name Dec 04, 2023 10:00 AM AMBULATORY - PS[place]CHIATRY [place] [place] [facility] Dec 16, 2023 09:00 AM AMBULATORY - MEDICINE [place] [facility] Dec 18, 2023 01:00 PM AMBULATORY - PSYCHIATRY [place] [facility] [place] [facility] Mar 04, 2024 09:00 AM AMBULATORY PSYCHIATRY [place] [place] [facility] Apr 15, 2024 10:00 AM AMBULATORY - PSYCHIATRY [place] [facility] May 06, 2024 10:00 AM [facility] Social History: Smoking Status (Most current) and Tobacco Use (All prior to encounter date) This section includes the most current, and the historical, smoking and tobacco- related health factors from the [place] facility where the Encounter took place. Current Smoking Status This section includes the most current smoking, or tobacco-related health factor, from the [place] facility where the Encounter took place. Date/Time Current Smoking Status Comment Facil ity Jun 03, 2020 10:02 AM [place]-TOBACCO [facility] Tobacco Use History This section includes a history of the smoking, or tobacco-related health factors, that were collected on or before the date of the Encounter. The data comes from the [place] facility where the Encounter took place. Date/Time Smoking Status/Tobacco Use Comment F acility Jun 03, 2020 10:02 AM VA-TOBACCO QUIT 15 YRS OR MORE [place] [facility] [place] [facility] Encounter Notes: All associated encounter [...] COMPLETED Patient Name: ANANTH LOZA Patient SSN: [id number] Date and time of Appointment No show [...] DE GUZMAN Signed: 11/04/2023 16:06 RORY HOLCOMB RUSSELL
--- OUTSIDE RECORDS SUMMARY | 2024-06-10 08:22 | XMS_ITS | Continuity of Care Document ---
Author Name [facility] Organization [facility] Care Team Providers Care Processes Chemical Design Engineer Name Role Phone [facility] Unavailable Unavailable Problems Combined list of problems [...] 15, 2017 Entered By: CANDE DOMINGUEZ Comment: [facility] - Dr Kaiser [place] [facility] [place] [facility] Colonoscopy Screening Active Condition May 14, 2017 Entered By: CANDE DOMINGUEZ Comment: Approx 2007 [facility] Elevated PSA Active Condition May 14, 2017 Entered By: CANDE DOMINGUEZ Comment: [facility] - [facility] Kaiser [place] [facility] [place] [facility] Essential hypertension Active Condition [facility] Exposure to potentially hazardous substance Active Condition Sep 11, 2023 Entered By: JERMAINE MENDEZ Comment: Original MARCY Screen completed 07/23/22 [facility] [place] [facility] Hyperlipidemia Active Condition [facility] [place] Obesity Active Condition [facility] [place] [facility] Primary Care Physician Active Condition May 14, 2017 Entered By: SHAUN HERNANDEZ Comment: Dr. Greene [phone] [facility] specialty providers Active Condition May 14, 2017 Entered By: CANDE DOMINGUEZ Comment: Selling Underwriter- -----Dr. Ramirez 2016 Entered By: CANDE DOMINGUEZ Comment: Oncologist--- --Dr. Kaiser [facility] Vitamin D deficiency Active Condition [facility] Tinnitus Inactive Condition 05/14/2017 [facility] Diagnosis: ICD-10-CM L60.0 Ingrowing nail Active Diagnosis [facility] Diagnosis: ICD-10-CM F32.A Depression, unspecified Active Diagnosis [facility] Diagnosis: ICD-10-CM F43.10 Post-traumatic stress disorder, unspecified Active Diagnosis [facility] Diagnosis: ICD-10-CM R32 Unspecified urinary incontinence Active Diagnosis [facility] Diagnosis: ICD-10-CM I11.9 Hypertensive heart disease without heart failure Active Diagnosis [facility] Medications Combined list of outpatient medications from Department of [facility] and [facility] facilities.Medications provided include 1) outpatient medications from the last 15 months, and 2) patient-reported medications. Medication Details Route Status Patient Instructions Prescription Expires Prescription Number Last Dispense Date Ordering Provider Order Date Order Qty Source FINASTERIDE 5MG TAB TAKE ONE TABLET BY MOUTH ONCE DAILY ORAL ACTIVE JORDI DOMINGUEZ SA 2021 [facility] LOSARTAN 25MG TAB TAKE ONE TABLET BY MOUTH ONCE DAILY FOR BLOOD PRESSURE /HEART ORAL ACTIVE 09/05/2024 [id number] JORDI DOMINGUEZ SA 2023 90 [facility] [place] LOSARTAN 25MG TAB TAKE ONE TABLET BY MOUTH ONCE DAILY FOR BLOOD PRESSURE /HEART ORAL DISCONT INUED BY PROVIDE R 08/30/2023 [id number] JORDI DOMINGUEZ SA 2022 90 [facility] [place] Immunizations Combined list of available immunizations from the Department of [facility] and [facility] facilities. Immunization Series Date Given Administered By Site Reaction Lot Number CVX Code Drug Aircrewman Status Comments Source ZOSTER RECOMBINANT 2 2021 187 complet ed [facility] I[facility] ZOSTER RECOMBINANT 1 2021 187 complet ed [facility] [place] COVID-19 (PFIZER), MRNA, LNP-S, PF, 30 MCG/0.3 ML DOSE 3 2020 208 complet ed [facility] INFLUENZA, UNSPECIFIED FORMULATION 2020 88 complet ed [facility] COVID-19 (PFIZER), MRNA, LNP-S, PF, 30 MCG/0.3 ML DOSE 2 2020 208 complet ed [facility] COVID-19 (PFIZER), MRNA, LNP-S, PF, 30 MCG/0.3 ML DOSE 1 2020 208 complet ed [facility] [place] [facility] INFLUENZA, SEASONAL, INJECTABLE 2018 141 complet ed outside [facility] TDAP 2017 115 complet ed Above re entered with correct date of vaccine is 09/04/2017 [facility] [place] FLU,3 YRS (HISTORICAL) 2011 88 complet ed [facility] [place] [facility] DTAP, UNSPECIFIED FORMULATION 2005 107 complet ed [facility] [place] [facility] Vital Signs Combined list of inpatient and outpatient Vital Signs from Department of Defense and Veterans Affairs, ranging from 12 months to all on record, depending upon the facility. Vital Sign Value Date Comments Source SYSTOLIC BLOOD PRESSURE 135 12/16/19 09:14:12 [facility] [place] [facility] DIASTOLIC BLOOD PRESSURE 82 024 09:14:12 [facility] [place] [facility] PULSE OXIMETRY 98 12/16/2023 09:14:12 [facility] [place] [facility] WEIGHT 214.8 12/16/2023 09:14:12 [facility] [place] [facility] BMI 30kg/m2 12/16/2023 09:14:12 [facility] PAIN 0 12/16/2023 09:14:12 [facility] [place] [facility] HEIGHT 71 12/16/2023 09:14:12 [facility] [place] [facility] TEMPERATURE 98.1 12/16/2023 09:14:12 [facility] [place] [facility] PULSE 81 12/16/2023 09:14:12 [facility] RESPIRATION 16 12/16/2023 09:14:12 [facility] [place] [facility] SYSTOLIC BLOOD PRESSURE 126 07/22/19 24 10:35:36 [facility] [place] [facility] DIASTOLIC BLOOD PRESSURE 86 024 10:35:36 [facility] [place] [facility] PULSE OXIMETRY 99 07/22/2023 10:35:36 [facility] [...] ADM Date DC Date Status Disposition Source [facility] Outpatient Encounter [id number] 04/03 [facility] [place] W PT 60 MINUTES [id number] Diagnos is: ICD-10- CM F43.10 Post-tr aumatic stress disorde r, unspeci fied
Doris GILLILAND YLER 04/10 [facility] [place] OFFICE O/P EST LOW 20-29 MIN [id number] Diagnos is: ICD-10- CM L60.0 Ingrowi ng nail
YOGI WATKINS ES F 06/10 [place] [facility] En[facility] [id number] 07/22 [facility] [place] O/P EST LOW 20 MIN [id number] Diagnos is: ICD-10- CM I11.9 Hyperte nsive heart disease without heart failure
BERENICE DOMINGUEZ 07/22 [place] [facility] Outpatient Encounter [id number] 09/01 [facility] Outpatient Encounter [id number] 09/04 [facility] [place] [facility] [place] W PT 60 MINUTES [id number] Diagnos is: ICD-10- CM F43.10 Post-tr aumatic stress disorde r, unspeci fied
Doris GILLILAND YLER 10/15 [place] [facility] [facility] Outpatient Encounter [id number] 11/03 [facility] [place] [facility] [place] W PT 60 MINUTES [id number] Diagnos is: ICD-10- CM F43.10 Post-tr aumatic stress disorde r, unspeci fied
Doris GILLILAND YLER 12/03 [place] [facility] [facility] Outpatient Encounter [id number] 12/05 [facility] [place] [facility] [place] O/P EST LOW 20 MIN [id number] Diagnos is: ICD-10- CM R32 Unspeci fied urinary inconti nence<b r/> BERENICE DOMINGUEZ 12/15 [place] W PT 60 MINUTES [id number] Diagnos is: ICD-10- CM F43.10 Post-tr aumatic stress disorde r, unspeci fied
TALAT,T YLER 12/17 [facility] [place] PSY[place] W PT 60 MINUTES [id number] Diagnos is: ICD-10- CM F43.10 Post-tr aumatic stress disorde r, unspeci fied
TALAT,T YLER 03/04 [facility] [place] PSY[place] W PT 60 MINUTES [id number] Diagnos is: ICD-10- CM F43.10 Post-tr aumatic stress disorde r, unspeci fied
REJI MOSCOSO AH 04/15 [facility] [place] PSY[place] W PT 60 MINUTES [id number] Diagnos is: ICD-10- CM F43.10 Post-tr aumatic stress disorde r, unspeci fied
TALAT,T YLER 05/06 [facility] [place] PSY[place] W PT 60 MINUTES [id number] Diagnos is: ICD-10- CM F32.A Depress ion, unspeci fied
TALAT,T YLER 05/27 [facility] [place] O/P EST LOW 20 MIN [id number] Diagnos is: ICD-10- CM L60.0 Ingrowi ng nail
YOGI WATKINS ES F 05/29 [facility] Outpatient Encounter [id number] 06/02 [facility] [place] [facility] Social History Combined list of available smoking, tobacco, and other social history from Department of Defense and Veterans Affairs facilities. Social History Type Response Date Comment Source Tobacco smoking status [facility] VA-TOBACCO FORMER USER 07/22/2023 [facility] History of tobacco use NV-TOBACCO QUIT 15 YRS OR MORE 07/22/2023 [facility] History of tobacco use VA-TOBACCO FORMER USER 07/23/2022 [facility] History of tobacco use NV-TOBACCO QUIT 15 YRS OR MORE 06/07/2021 [facility] History of tobacco use NV-TOBACCO FORMER USER 06/03/2020 [facility] History of tobacco use NV-TOBACCO FORMER USER 06/02/2018 [facility] History of tobacco use QUIT TOBACCO USE > 7 YEARS AGO 05/14/2017 25 years ago [facility] History of tobacco use LIFETIME NON-TOBACCO USER 05/10/2016 [facility] History of tobacco use QUIT TOBACCO USE > 7 YEARS AGO 08/27/2011 Patient quit in 1999. [facility] Plan of Care List of future care activities from Department of [facility] Affairs facilities. Additional future care activities may be listed in the Assessment and Plan section. Date/Time Care Activity Care Activity Detail Facili ty 07/03/2024 AMBULATORY - PSYCHIATRY AMBULATORY - PS[facility]C [facility] 07/22/2024 AMBULATORY - MEDICINE AMBULATORY - MEDICI NE [facility]
--- OUTSIDE RECORDS SUMMARY | 2024-06-10 08:22 | XMS_ITS | Encounter Summary ---
Author Name [facility] Organization [facility] [place] Address [address] [place] [address] Care Team Providers Care International Affairs Vice President Name Role Phone CANDE DOMINGUEZ Primary Care [...] PART A Apr 24, 2013 PART A [id number] IMELDA LOZA HN PATIENT MEDICARE (WNR) MEDICARE (M) PART B Apr 24, 2013 PART B [id number] IMELDA LOZA HN PATIENT MEDICARE (WNR) MEDICARE (M) PART B Apr 24, 2013 PART B [id number] IMELDA LOZA HN PATIENT MEDICARE (WNR) MEDICARE (M) PART A Apr 24, 2013 PART A [id number] IMELDA LOZA HN PATIENT [facility] [place] RE Jun 24, 2006 [id number] ISABELLA LOZA SPOUSE [employer] EXP[employer] (OPT/PROF ) [place] RE STATE INDEM * Apr 24, 2013 [id number] ISABELLA LOZA SPOUSE [employer] (OPT/PROF ) NELLY BORGES IND Jun 24, 2006 [id number] ISABELLA LOZA SPOUSE Selected Encounter This section includes the information on record at [place] for the Encounter. Date/Time Encounter Type Encounter Description Reason Provider Source Jul 22, 2023 10:30 AM OFFICE O/P EST LOW 20 MIN PRIMARY CARE/MEDICINE ICD-10-CM I11.9 Hypertensive heart disease without heart failure CANDE DOMINGUEZ Encounter Template Text not used by [place] Assessments - Encounter Diagnoses This section includes [...] 16, 2023 09:00 AM [facility] November 04, 2023 11:00 AM AMBULATORY - MEDICINE [facility] Dec 04, 2023 10:00 AM AMBULATORY PSYCHIATRY [place] [facility] [place] [facility] Dec 16, 2023 09:00 AM [facility] Dec 18, 2023 01:00 PM [facility] Social History: Smoking Status (Most current) and Tobacco Use (All prior to encounter date) This section includes the most current, and the historical, smoking and tobacco- related health factors from the VA facility where the Encounter took place. Current Smoking Status This section includes the most current smoking, or tobacco-related health factor, from the [facility] where the Encounter took place. Date/Time Current Smoking Status Comment George mclaughlin Jul 22, 2023 10:30 AM VA-TOBACCO FORMER USER [facility] Tobacco Use History This section includes a history of the smoking, or tobacco-related health factors, that were collected on or before the date of the Encounter. The data comes from the [place] facility where the Encounter took place. Date/Time Smoking Status/Tobacco Use Comment F acility Jul 22, 2023 10:30 AM VA-TOBACCO QUIT 15 YRS OR MORE [facility] Jul 23, 2022 10:30 AM VA-TOBACCO FORMER USER [facility] Jul 23, 2022 10:30 AM VA-TOBACCO QUIT 15 YRS OR MORE [facility] Jun 07, 2021 11:00 AM VA-TOBACCO FORMER USER [facility] Jun 07, 2021 11:00 AM VA-TOBACCO QUIT 15 YRS OR MORE [facility] Jun 02, 2018 05:44 AM VA-TOBACCO FORMER USER [facility] Jun 02, 2018 05:44 AM VA-TOBACCO QUIT 15 YRS OR MORE [facility] May 14, 2017 08:31 AM QUIT TOBACCO USE > 7 YEARS AGO 25 years ago [facility] May 10, 2016 10:40 AM LIFETIME NON-TOBACCO USER [facility] Aug 27, 2011 08:36 AM QUIT TOBACCO USE > 7 YEARS AGO Patient quit in 1999. [facility] Encounter Notes: All associated encounter notes This [...] advance directive on file at any facility, [place] or outside. S/he is not interested in completing one at this time. The patient received education about Advance Directives and written notification of his/her rights. Suicide Screen: C-SSRS Screening [place] Suicide Severity Rating Scale (C-SSRS) screener 1. [...] Not worried about housing near future [facility] reports the following: Within the past 12 [...] PACDoris 10 Signed: 07/22/2023 10:40 RM LYLES [facility] Jul 22, 2023 06:05 AM PHYSICIAN NOTE: LOCAL TITLE: NOTE STANDARD TITLE: PHYSICIAN NOTE DATE OF NOTE: JUL 22, 2023@06:05 ENTRY DATE: JUL 22, 2023@06:05:06 AUTHOR: CANDE DOMINGUEZ EXP COSIGNER: URGENCY: STATUS: COMPLETED HISTORY OF PRESENT ILLNESS: ANANTH LOZA, is a 73 yo MALE , who presents at the [facility] for his annual visit. Pt maintains a non-VA PCP: Dr Greene. [place] utilizes podiatry, pharmacy, and MH services at the [place]. NonVA Providers: Urologist: Dr Kaiser Manager Voice: Dr Alexis Active problems - Computerized Problem [...] on losartan 25mg/day, followed annually by Dr Alexis/cash specialist 2. Prediabetes: encouraged to moniter carbs/simple sugars in diet 3. BPH/Chronic Prostatitis: on finasteride 5mg/day, managed by Dr Kaiser 4. Prostate CA: TURP 04/2021, completed radiation txs, now undergoing hormonal txs since 10/2022, monitered by Dr Kaiser 5. PTSD: in the [facility] 05/1967 - 03/1969, managed by 6. Colonoscopy [...] Remote Allergy/ADR Data available for this patient [place] [facility] [place] [facility] No Known Allergies Med Recon NoGlossary (Tool [...] display of VA prescriptions dispensed from another [place] or [facility] facility (remote) is limited to active outpatient prescription entries matched to National Drug File at the originating site and may not include some items such as investigational drugs, compounds, etc. NOT INCLUDED IN THIS LIST: Medications self-entered by the patient into personal health records (i.e. [employer]) are NOT included in this list. Non-VA medications documented outside this [place], remote inpatient orders (regardless of status) and [...] MOUTH ONCE DAILY FOR BLOOD PRESSURE/HEART Rx# [id number] Last Released: 05/31/23 Qty/Days Supply: Rx Expiration Date: 08/30/23 Refills Remainin Indication: FOR HIGH BLOOD PRESSURE ------ SUPPLIES ------ /deepika/ CANDE DOMINGUEZ MD Primary Care Physician Signed: 07/22/2023 11:46 CANDE DOMINGUEZ [facility]
--- OUTSIDE RECORDS SUMMARY | 2024-06-10 08:23 | XMS_ITS | Encounter Summary ---
Author Name [facility] [place] Organization [facility] [place] Address [address] [place] [address] Care Team Providers Care Nurse Practitioner Adult Name Role Phone CANDE DOMINGUEZ Primary Care [...] PART B Apr 24, 2013 PART B [id number] IMELDA LOZA HN PATIENT MEDICARE (WNR) MEDICARE (M) PART A Apr 24, 2013 PART A [id number] IMELDA LOZA HN PATIENT MEDICARE (WNR) MEDICARE (M) PART A Apr 24, 2013 PART A [id number] IMELDA LOZA HN PATIENT MEDICARE (WNR) MEDICARE (M) PART B Apr 24, 2013 PART B [id number] IMELDA LOZA HN PATIENT [facility] [place] RE Jun 24, 2006 [id number] ISABELLA LOZA SPOUSE [employer] EXP[employer] (OPT/PROF ) [place] RE STATE IN[place]M * Apr 24, 2013 [id number] ISABELLA LOZA SPOUSE [employer] (OPT/PROF ) NELLY BORGES IND Jun 24, 2006 [id number] ISABELLA LOZA SPOUSE Selected Encounter This section includes the information on record at [place] for the Encounter. Date/Time Encounter Type Encounter Description Reason Provider Source Dec 16, 2023 09:00 AM OFFICE O/P EST LOW 20 MIN PRIMARY CARE/MEDICINE ICD-10-CM R32 Unspecified urinary incontinence CANDE DOMINGUEZ Encounter Template Text not used by [place] [...] 18, 2023 01:00 PM [facility] Mar 04, 2024 09:[address] [facility] [facility] Apr 15, 2024 10:[address] [facility] [facility] May 06, 2024 10:[address] [facility] [facility] May 27, 2024 11:[address] [facility] [facility] May 29, 2024 09:30 AM AMBULATORY - MEDICINE [facility] Social History: Smoking Status (Most current) and Tobacco Use (All prior to encounter date) This section includes the most current, and the historical, smoking and tobacco- related health factors from the [place] facility where the Encounter took place. Current Smoking Status This section includes the most current smoking, or tobacco-related health factor, from the [place] facility where the Encounter took place. Date/Time Current Smoking Status Comment George mclaughlin Jul 22, 2023 10:30 AM VA-TOBACCO FORMER USER [place] Tobacco Use History This section includes a history of the smoking, or tobacco-related health factors, that were collected on or before the date of the Encounter. The data comes from the [place] facility where the Encounter took place. Date/Time Smoking Status/Tobacco Use Comment F acility Jul 22, 2023 10:30 AM VA-TOBACCO QUIT 15 YRS OR MORE [place] Jul 23, 2022 10:30 AM VA-TOBACCO FORMER USER [place] Jul 23, 2022 10:30 AM VA-TOBACCO QUIT 15 YRS OR MORE [place] Jun 07, 2021 11:00 AM VA-TOBACCO FORMER USER [place] Jun 07, 2021 11:00 AM VA-TOBACCO QUIT 15 YRS OR MORE [place] Jun 02, 2018 05:44 AM VA-TOBACCO FORMER USER [place] Jun 02, 2018 05:44 AM VA-TOBACCO QUIT 15 YRS OR MORE [place] May 14, 2017 08:31 AM QUIT TOBACCO USE > 7 YEARS AGO 25 years ago [facility] May 10, 2016 10:40 AM LIFETIME NON-TOBACCO USER [place] Aug 27, 2011 08:36 AM QUIT TOBACCO USE > 7 YEARS AGO Patient quit in 1999. [facility] Encounter Notes: All associated encounter notes This [...] full rights to use it throughout the [place] system. PRIMARY SCREEN RESULT: The Primary Screen [...] ANANTH LOZA, is a 73 yo MALE [place], who presents at the [facility] to discuss his prostate cancer. He has been having incontinence on occassion, a couple times a week. He is requesting liners to prevent leakage when he goes out. Pt maintains a non-VA PCP: Dr Greene. utilizes podiatry, pharmacy, and MH services at the [place]. NonVA Providers: Urologist: Dr Kaiser Shoe Repairer Apprentice: Dr Alexis Active problems - Computerized Problem [...] answered NKA HISTORY: PERIOD OF SERVICE - [facility] FROM May TO Mar COMBAT SERVICE INDICATED: [...] Remote Allergy/ADR Data available for this patient [place] [facility] [place] [facility] No Known Allergies [facility] INCLUDED IN THIS LIST: Alphabetical list of active outpatient prescriptions dispensed from this [place] (local) and dispensed from another [place] or [facility] facility (remote) as well as inpatient orders [...] the patient into personal health records (i.e. [employer]) are NOT included in this list. Non-VA medications documented outside this [place], remote inpatient orders (regardless of status) and [...] MOUTH ONCE DAILY FOR BLOOD PRESSURE/HEART Rx# [id number] Last Released: 09/07/23 Qty/Days Supply: Rx Expiration Date: 09/05/24 Refills Remainin Indication: FOR HIGH BLOOD PRESSURE ------ SUPPLIES ------ /deepika/ CANDE DOMINGUEZ MD Primary Care Physician Signed: 12/16/2023 09:33 CANDE DOMINGUEZFIELD
--- OUTSIDE RECORDS SUMMARY | 2024-06-10 08:23 | XMS_ITS | Encounter Summary ---
Author Name [facility] [place] Address [address] [place] [address] Care Team Providers Care County Court Judge Name Role Phone CANDE DOMINGUEZ Primary Care [...] PART A Apr 24, 2013 PART A [id number] IMELDA LOZA HN PATIENT MEDICARE (WNR) MEDICARE (M) PART B Apr 24, 2013 PART B [id number] IMELDA LOZA HN PATIENT MEDICARE (WNR) MEDICARE (M) PART A Apr 24, 2013 PART A [id number] IMELDA LOZA HN PATIENT MEDICARE (WNR) MEDICARE (M) PART B Apr 24, 2013 PART B [id number] IMELDA LOZA HN PATIENT [facility] [place] RE Jun 24, 2006 [id number] ISABELLA LOZA SPOUSE UN[employer]ARE MEDICAL EXPENSE (OPT/PROF ) [place] RE STATE INDEM * Apr 24, 2013 [id number] ISABELLA LOZA SPOUSE [employer] MEDICAL EXPENSE (OPT/PROF ) NELLY LYNN STATE IND Jun 24, 2006 [id number] ISABELLA LOZA MARUJASON SPOUSE Selected Encounter This section includes the information on record at [place] for the Encounter. Date/Time Encounter Type Encounter Description Reason Provider Source Dec 18, 2023 01:00 PM PSYTX W PT 60 MINUTES [facility] ICD-10-CM F43.10 Post-traumatic stress disorder, unspecified ELIF GILLILAND Adriane Encounter Template Text not used by [place] Assessments - Encounter Diagnoses This section includes the primary and secondary diagnoses documented for the Encounter. Date/Time Primary/Secondary Diagnosis Diagnosis Name Provider Source Jan 16, 2024 06:19 PM PRIMARY Post-traumatic stress disorder, unspecified ELIF GILLILAND Plan of Treatment: Future Appointments (+ 6 months) and Future Tests (+/- 45 days) The Plan of Treatment section includes future care activities for the patient from all [place] treatmentfacilities. This section includes future appointments and future orders which are active, pending or scheduled. Future Appointments This section includes appointments that were scheduled to occur 6 months from the date of the Encounter, up to a maximum of 20 appointments. The data comes from all [place] treatment facilities. Appointment Date/Time Appointment Type Appointme nt Facility Name Mar 04, 2024 09:00 AM AMBULATORY PS[facility]CHI[facility]RY [facility] Apr 15, 2024 10:00 AM AMBULATORY [facility] May 06, 2024 10:00 AM AM[facility]ULATORY [facility] May 27, 2024 11:00 AM AMBULATORY [facility]RY [facility] May 29, 2024 09:30 AM AMBULATORY - MEDICINE [facility] Social History: Smoking Status (Most current) and Tobacco Use (All prior to encounter date) This section includes the most current, and the historical, smoking and tobacco- related health factors from the [place] facility where the Encounter took place. Current Smoking Status This section includes the most current smoking, or tobacco-related health factor, from the [place] facility where the Encounter took place. Date/Time Current Smoking Status Willy mclaughlin Jul 22, 2023 10:30 [facility] [place] Tobacco Use History This section includes a history of the smoking, or tobacco-related health factors, that were collected on or before the date of the Encounter. The data comes from the [place] facility where the Encounter took place. Date/Time Smoking Status/Tobacco Use Comment F acility Jul 22, 2023 10:30 AM VA-TOBACCO QUIT 15 YRS OR MORE [place] Jul 23, 2022 10:30 AM VA-TOBACCO FORMER USER [place] Jul 23, 2022 10:30 AM VA-TOBACCO QUIT 15 YRS OR MORE [place] Jun 07, 2021 11:00 AM VA-TOBACCO FORMER USER [place] Jun 07, 2021 11:00 AM VA-TOBACCO QUIT 15 YRS OR MORE [place] Jun 02, 2018 05:44 AM VA-TOBACCO FORMER USER [place] Jun 02, 2018 05:44 AM VA-TOBACCO QUIT 15 YRS OR MORE [place] May 14, 2017 08:31 AM QUIT TOBACCO USE > 7 YEARS AGO 25 years ago [place] May 10, 2016 10:40 AM LIFETIME NON-TOBACCO USER [place] Aug 27, 2011 08:36 AM QUIT TOBACCO USE > 7 YEARS AGO Patient quit in 1999. [place] Encounter Notes: All associated encounter notes This section contains the clinical notes associated to the Encounter. Date/Time Encounter Note(s) Provider Source Jan 20, 2024 02:58 PM ADMINISTRATIVE NOT E: LOCAL TITLE: ADMINISTRATIVE NOTE STANDARD TITLE: ADMINISTRATIVE NOTE DATE OF NOTE: JAN 20, 2024@14:58 ENTRY DATE: JAN 20, 2024@14:58:43 AUTHOR: AIRAM MOORE EXP COSIGNER: URGENCY: STATUS: COMPLETED information was passed to this policy writer sales that had called to rs his mh appt. policy writer sales spoke to and was able to get new appt 04/15/24 @ 1000. also requested reminder letter. sent at this time. /deepika/ AIRAM MOORE ADVANCED CUTTING AND SPLICING SUPERVISOR Signed: 01/20/2024 15:01 Receipt Acknowledged By: 01/20/2024 16:33 /deepika/ ELIF GILLILAND TRANSFER CAR OPERATOR AIRAM MOORE [place] Dec 19, 2023 07:49 AM SOCIAL WORK [...] court of law and presented to a material reprocessing associate), and DOD access for active duty service members. Provided Suicide Prevention Hotline number, and other contact numbers as necessary. VISIT DURATION 60 minutes DIAGNOSES: PTSD, unspec [employer]ETER[employer] STATEMENT OF GOALS/CONCERNS: I had some things happen to me during [place], when I was in [facility], that sometimes come back to haunt me and I have trouble getting them off my mind. I like to come in and talk to someone and get things back in order in my head just once in a while because most of the time my life is going really well. I just need help getting over these humps sometimes. SESSION FOCUS: reported a slight improvement to mood swings since last session. Jackson stated, I wake up with thoughts in my head that I've never had before. I'm short fused and I don't want to speak to people and my family members keep asking me what's wrong with me? Jackson repeated his assertion that this shift is primarily due to the hormone injections that he received as part of his cancer treatment. stated that his doctor told him that this is one of the known side effects and that that the mood dysregulation usually passes with time. Jackson and Cloth Edge Singer talked about ways for him to monitor his own mood because he is having trouble noticing the mood shifts that others are. requested to follow up in March. INTERVENTIONS: [...] weekly individual supervision meeting. /deepika/ ELIF GILLILAND TRANSFER CAR OPERATOR Signed: 12/19/2023 07:55 /deepika/ [place] [facility] Knowledge Architect Mental Health Cosigned: 12/19/2023 08:16 ELIF GILLILANDFIELD
--- OUTSIDE RECORDS SUMMARY | 2024-06-10 08:23 | XMS_ITS | Encounter Summary ---
Author Name [facility] [place] Address [address] [place] [address] Care Team Providers Care Supervisor Type Bar And Segment Name Role Phone CANDE DOMINGUEZ Primary Care [...] PART A Apr 24, 2013 PART A [id number] IMELDA LOZA HN PATIENT MEDICARE (WNR) MEDICARE (M) PART B Apr 24, 2013 PART B [id number] IMELDA LOZA HN PATIENT MEDICARE (WNR) MEDICARE (M) PART A Apr 24, 2013 PART A [id number] IMELDA LOZA HN PATIENT MEDICARE (WNR) MEDICARE (M) PART B Apr 24, 2013 PART B [id number] IMELDA LOZA HN PATIENT [facility] [place] RE Jun 24, 2006 [id number] [phone] ISABELLA LOZA SPOUSE [employer] MEDICAL EXPENSE (OPT/PROF ) [place] RE STATE INDEM * Apr 24, 2013 [id number] ISABELLA LOZA SPOUSE [employer] MEDICAL EXPENSE (OPT/PROF ) NELLY BORGES IND Jun 24, 2006 [id number] ISABELLA LOZA MARUJASON SPOUSE Selected Encounter This section includes the information on record at [place] for the Encounter. Date/Time Encounter Type Encounter Description Reason Provider Source Mar 04, 2024 09:00 AM PSYTX W PT 60 MINUTES [facility] - IND ICD-10-CM F43.10 Post-traumatic stress disorder, unspecified ELIF GILLILAND Adriane Encounter Template Text not used by [place] Assessments - Encounter Diagnoses This section includes the primary and secondary diagnoses documented for the Encounter. Date/Time Primary/Secondary Diagnosis Diagnosis Name Provider Source Mar 21, 2024 06:25 AM PRIMARY Post-traumatic stress disorder, unspecified ELIF GILLILAND [place] Plan of Treatment: Future Appointments (+ 6 months) and Future Tests (+/- 45 days) The Plan of Treatment section includes future care activities for the patient from all [place] treatmentfacilities. This section includes future appointments and future orders which are active, pending or scheduled. Future Appointments This section includes appointments that were scheduled to occur 6 months from the date of the Encounter, up to a maximum of 20 appointments. The data comes from all [place] treatment facilities. Appointment Date/Time Appointment Type Appointme nt Facility Name Apr 15, 2024 10:00 AM [facility] May 06, 2024 10:00 AM [facility] May 27, 2024 11:00 AM [facility] [place] [facility] May 29, 2024 09:30 AM [facility] Jul 03, 2024 09:00 AM AMBULATORY - [facility]RY [facility] [place] [facility] Jul 22, 2024 10:30 AM [facility] Social History: Smoking Status (Most current) [...] 22, 2023 10:30 AM VA-TOBACCO FORMER USER [place] Tobacco Use History This section includes a history of the smoking, or tobacco-related health factors, that were collected on or before the date of the Encounter. The data comes from the [place] facility where the Encounter took place. Date/Time Smoking Status/Tobacco Use Comment F acility Jul 22, 2023 10:30 AM VA-TOBACCO QUIT 15 YRS OR MORE [place] Jul 23, 2022 10:30 AM VA-TOBACCO FORMER USER [place] Jul 23, 2022 10:30 AM VA-TOBACCO QUIT 15 YRS OR MORE [place] Jun 07, 2021 11:00 AM VA-TOBACCO FORMER USER [place] Jun 07, 2021 11:00 AM VA-TOBACCO QUIT 15 YRS OR MORE [place] Jun 02, 2018 05:44 AM VA-TOBACCO FORMER USER [place] Jun 02, 2018 05:44 AM VA-TOBACCO QUIT 15 YRS OR MORE [place] May 14, 2017 08:31 AM QUIT TOBACCO USE > 7 YEARS AGO 25 years ago [place] May 10, 2016 10:40 AM LIFETIME NON-TOBACCO USER [place] Aug 27, 2011 08:36 AM QUIT TOBACCO USE > 7 YEARS AGO Patient quit in 1999. [place] Encounter Notes: All associated encounter notes This [...] court of law and presented to a trial judge), and DOD access for active duty [...] swings that he is often unaware of. 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 Unadilla stated that there are times when he dreads going home and will go to the park instead. [place] expressed some strong emotion at this point in the session and stated that he has never publicly expressed these kinds of feelings. Acid Loader and sat together with the feelings for [...] weekly individual supervision meeting. /deepika/ ELIF GILLILAND SALES SUPERVISOR Signed: 03/04/2024 10:06 /deepika/ [facility] Jewelry Maker Mental Health Cosigned: 03/04/2024 15:49 ELIF GILLILAND [place]
--- OUTSIDE RECORDS SUMMARY | 2024-06-10 08:23 | XMS_ITS | Encounter Summary ---
Author Name [facility] [place] [facility] [place] Organization [facility] [place] Address [address] [place] [address] Care Team Providers Care Locker Plant Attendant Name Role Phone ALBERTOCANDE Primary Care Provider [...] PART A Apr 24, 2013 PART A [id number] DAGOIMELDA HN PATIENT MEDICARE (WNR) MEDICARE (M) PART B Apr 24, 2013 PART B [id number] IMELDA LOZA HN PATIENT MEDICARE (WNR) MEDICARE (M) PART B Apr 24, 2013 PART B [id number] IMELDA LOZA HN PATIENT MEDICARE (WNR) MEDICARE (M) PART A Apr 24, 2013 PART A [id number] DAGOIMELDA HN PATIENT [facility] [place] RE Jun 24, 2006 [id number] ISABELLA LOZA ENDOLYN SPOUSE [employer] MEDICAL EXPENSE (OPT/PROF ) [place] RE STATE INDEM * Apr 24, 2013 [id number] [phone] ISABELLA LOZA SPOUSE [employer] MEDICAL EXPENSE (OPT/PROF ) NELLY LYNN STATE IND Jun 24, 2006 [id number] ISABELLA LOZA SPOUSE Selected Encounter This section includes the information on record at [place] for the Encounter. Date/Time Encounter Type Encounter Description Reason Pro vider Source Dec 06, 2023 09:18 AM Outpatient Encounter ADMIN PAT ACTIVTIES (MASNONCT) IHE Encounter Template Text not used by [place] Plan of Treatment: Future Appointments (+ 6 [...] 16, 2023 09:00 AM AMBULATORY - MEDICINE [place] [facility] [place] [facility] Dec 18, 2023 01:00 PM AMBULATORY - PSYCHIATRY [facility] [place] [facility] Mar 04, 2024 09:00 AM AMBULATORY - PSYCHIATRY [facility] [place] [facility] Apr 15, 2024 10:00 AM AMBULATORY - PSYCHIATRY [facility] [place] [facility] May 06, 2024 10:00 AM AMBULATORY - PSYCHIATRY [facility] [place] [facility] May 27, 2024 11:00 AM AMBULATORY - PSYCHIATRY [facility] [place] [facility] May 29, 2024 09:30 AM AMBULATORY - MEDICINE [facility] Social History: Smoking Status (Most current) and Tobacco Use (All prior to encounter date) This section includes the most current, and the historical, smoking and tobacco- related health factors from the [place] facility where the Encounter took place. Current Smoking Status This section includes the most current smoking, or tobacco-related health factor, from the [place] facility where the Encounter took place. Date/Time Current Smoking Status Willy mclaughlin Jun 03, 2020 10:02 AM [facility] Tobacco Use History This section includes a history of the smoking, or tobacco-related health factors, that were collected on or before the date of the Encounter. The data comes from the [place] facility where the Encounter took place. Date/Time Smoking Status/Tobacco Use Comment Hanna travis Jun 03, 2020 10:02 AM VA-TOBACCO QUIT 15 YRS OR MORE [facility] Encounter Notes: All associated encounter notes This section contains the clinical notes associated to the Encounter. Date/Time Encounter Note(s) Provider Source Dec 06, 2023 11:15 AM ADDENDUM: LOCAL TITLE: Addendum STANDARD TITLE: ADDENDUM DATE OF NOTE: DEC 06, 2023@11:15:09 ENTRY DATE: DEC 06, 2023@11:15:10 AUTHOR: TRAV RAMEY EXP COSIGNER: URGENCY: STATUS: COMPLETED Spoke with the [...] By: 12/06/2023 16:16 /deepika/ SILVANO AGOSTO ADVANCED CORPORATE ASSOCIATE === --- Original Document --- 12/06/23 CCC: SCHEDULING ADMINISTRATION: Patient Demographics Patient Name: ANANTH LOZA Patient Primary Phone: [phone] Patient Primary Address: [address] [place] [address] Patient : 1950 Patient Age: 73 Current Location: [facility] Call Back Number: [phone] Caller/Recipient Relation to Patient: Self If Other Describe Relation to Patient: OTHER Caller Name: [place] Administrative Administrative Note Reason: Other Administrative Note Comments: [place] called who stated, he is a cancer survivor and he has a personal medical matter that he needs to speak with pcp team. Vet denied pain or discomfort, he also denied to speak with triage nurse. Please reached out to vet at [phone]. Homa /jackson DE GUZMAN Signed: 12/06/2023 09:19 Receipt Acknowledged By: 12/06/2023 11:15 /jackson RAMEY RN REGISTERED NURSE 12/06/2023 15:08 /deepika/ RM LYLES LPN PACT 10 12/06/2023 ADDENDUM STATUS: COMPLETED LM ON /deepika/ SILVANO AGOSTO ADVANCED CORPORATE ASSOCIATE Signed: 12/06/2023 13:49 12/06/2023 ADDENDUM STATUS: UNSIGNED You may not VIEW this UNSIGNED Addendum. TRAV RAMEY [facility] [place] [facility] Dec 06, 2023 09:18 AM ADMINISTRATIVE NOTE: LOCAL TITLE: CCC: SCHEDULING ADMINISTRATION STANDARD TITLE: ADMINISTRATIVE NOTE DATE OF NOTE: DEC 06, 2023@09:18:57 ENTRY DATE: DEC 06, 2023@09:18:57 AUTHOR: SIDNEY MCINTYRE EXP COSIGNER: URGENCY: STATUS: COMPLETED CCC: SCHEDULING ADMINISTRATION Has ADDENDA Patient Demographics Patient Name: ANANTH LOZA Patient Primary Phone: [phone] Patient Primary Address: [address] [place] [address] Patient : 1950 Patient Age: 73 Current Location: [facility] Call Back Number: [phone] Caller/Recipient Relation to Patient: Self If Other Describe Relation to Patient: OTHER Caller Name: [place] Administrative Administrative Note Reason: Other Administrative Note Comments: called who stated, he is a cancer survivor and he has a personal medical matter that he needs to speak with pcp team. Vet denied pain or discomfort, he also denied to speak with triage nurse. Please reached out to vet at [phone]. Homa DE GUZMAN Signed: 12/06/2023 09:19 Receipt Acknowledged By: 12/06/2023 11:15 /jackson RAMEY RN REGISTERED NURSE 12/06/2023 15:08 /deepika/ [...] Acknowledged By: 12/06/2023 16:16 /jackson AGOSTO ADVANCED CORPORATE ASSOCIATE 12/06/2023 ADDENDUM STATUS: COMPLETED LM ON VM /jackson AGOSTO ADVANCED CORPORATE ASSOCIATE Signed: 12/06/2023 13:49 12/06/2023 ADDENDUM STATUS: COMPLETED SCHEDULED APPT WITH VET FOR 12/15 @ 9 AM /jackson AGOSTO ADVANCED CORPORATE ASSOCIATE Signed: 12/06/2023 16:16 SIDNEY MCINTYRE ME [facility]
--- OUTSIDE RECORDS SUMMARY | 2024-06-10 08:23 | XMS_ITS | Encounter Summary ---
Author Name [facility] [place] Address [address] [place] [address] Care Team Providers Care Set Illustrator Name Role Phone CANDE DOMINGUEZ Primary Care [...] PART A Apr 24, 2013 PART A [id number] IMELDA LOZA HN PATIENT MEDICARE (WNR) MEDICARE (M) PART B Apr 24, 2013 PART B [id number] IMELDA LOZA HN PATIENT MEDICARE (WNR) MEDICARE (M) PART A Apr 24, 2013 PART A [id number] IMELDA LOZA HN PATIENT MEDICARE (WNR) MEDICARE (M) PART B Apr 24, 2013 PART B [id number] IMELDA LOZA HN PATIENT [facility] [place] RE Jun 24, 2006 [id number] ISABELLA LOZA SPOUSE [employer]ICAL EXPENSE (OPT/PROF ) [place] RE STATE INDEM * Apr 24, 2013 [id number] ISABELLA LOZA SPOUSE [employer]ICAL EXPENSE (OPT/PROF ) NELLY BORGES IND Jun 24, 2006 [id number] DAGOISABELLA MARUJASON SPOUSE Selected Encounter This section includes the information on record at [place] for the Encounter. Date/Time Encounter Type Encounter Description Reason Provider Source Apr 15, 2024 10:00 AM PSYTX W PT 60 MINUTES [facility] - [place] ICD-10-CM F43.10 Post-traumatic stress disorder, unspecified CECY MOSCOSO Adriane Encounter Template Text not used by [place] Assessments - Encounter Diagnoses This section includes the primary and secondary diagnoses documented for the Encounter. Date/Time Primary/Secondary Diagnosis Diagnosis Name Provider Source Apr 27, 2024 12:22 PM PRIMARY Post-traumatic stress disorder, unspecified ELIF GILLILAND Plan of Treatment: Future Appointments (+ 6 months) and Future Tests (+/- 45 days) The Plan of Treatment section includes future care activities for the patient from all [place] treatmentfacilities. This section includes future appointments and future orders which are active, pending or scheduled. Future Appointments This section includes appointments that were scheduled to occur 6 months from the date of the Encounter, up to a maximum of 20 appointments. The data comes from all [place] treatment facilities. Appointment Date/Time Appointment Type Appointme nt Facility Name May 06, 2024 10:00 AM [facility] May 27, 2024 11:00 AM [facility] May 29, 2024 09:30 AM [facility] Jul 03, 2024 09:00 AM [facility] Jul 22, 2024 10:30 AM AMBULATORY - MEDICINE [facility] Social History: Smoking Status (Most current) and Tobacco Use (All prior to encounter date) This section includes the most current, and the historical, smoking and tobacco- related health factors from the [place] facility where the Encounter took place. Current Smoking Status This section includes the most current smoking, or tobacco-related health factor, from the [place] facility where the Encounter took place. Date/Time Current Smoking Status Willy mclaughlin Jul 22, 2023 10:30 AM [place]-TOBACCO FORMER USER [place] Tobacco Use History This section includes a history of the smoking, or tobacco-related health factors, that were collected on or before the date of the Encounter. The data comes from the [place] facility where the Encounter took place. Date/Time Smoking Status/Tobacco Use Comment F acility Jul 22, 2023 10:30 AM VA-TOBACCO QUIT 15 YRS OR MORE [place] Jul 23, 2022 10:30 AM VA-TOBACCO FORMER USER [place] Jul 23, 2022 10:30 AM VA-TOBACCO QUIT 15 YRS OR MORE [place] Jun 07, 2021 11:00 AM VA-TOBACCO FORMER USER [place] Jun 07, 2021 11:00 AM VA-TOBACCO QUIT 15 YRS OR MORE [place] Jun 02, 2018 05:44 AM VA-TOBACCO FORMER USER [place] Jun 02, 2018 05:44 AM VA-TOBACCO QUIT 15 YRS OR MORE [place] May 14, 2017 08:31 AM QUIT TOBACCO USE > 7 YEARS AGO 25 years ago [place] May 10, 2016 10:40 AM LIFETIME NON-TOBACCO USER [place] Aug 27, 2011 08:36 AM QUIT TOBACCO USE > 7 YEARS AGO Patient quit in 1999. 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 Roberto said that he met people at his spiritism who were also treated for cancer and [...] weekly individual supervision meeting. /deepika/ ELIF GILLILAND WEB DEVELOPMENT DIRECTOR Signed: 04/15/2024 11:50 /deepika/ [place] [facility] Tin Tie Machine Operator Automatic Mental Health Cosigned: 04/15/2024 12:13 ELIF GILLILAND
--- OUTSIDE RECORDS SUMMARY | 2024-06-10 08:24 | XMS_ITS | Encounter Summary ---
Author Name [facility] [place] Organization [place] Address [address] [place] [address] Care Team Providers Care Refrigeration Service Technician Name Role Phone CANDE DOMINGUEZ Primary Care [...] PART A Apr 24, 2013 PART A [id number] IMELDA LOZA HN PATIENT MEDICARE (WNR) MEDICARE (M) PART B Apr 24, 2013 PART B [id number] IMELDA LOZA HN PATIENT MEDICARE (WNR) MEDICARE (M) PART B Apr 24, 2013 PART B [id number] IMELDA LOZA HN PATIENT MEDICARE (WNR) MEDICARE (M) PART A Apr 24, 2013 PART A [id number] IMELDA LOZA HN PATIENT [facility] [place] RE Jun 24, 2006 [id number] [phone] ISABELLA LOZA SPOUSE [employer] EXPENSE (OPT/PROF ) [place] RE STATE INDEM * Apr 24, 2013 [id number] ISABELLA LOZA SPOUSE [employer] EXPENSE (OPT/PROF ) [facility]GES IND Jun 24, 2006 [id number] ISABELLA LOZA SPOUSE Selected Encounter This section includes the information on record at [place] for the Encounter. Date/Time Encounter Type Encounter Description Reason Provider Source May 29, 2024 09:30 AM OFFICE O/P EST LOW 20 MIN PODIATRY ICD-10-CM L60.0 Ingrowing nail NEHA WATKINS Adriane Encounter Template Text not used by [place] Assessments - Encounter Diagnoses This section includes the primary and secondary diagnoses documented for the Encounter. Date/Time Primary/Secondary Diagnosis Diagnosis Name Provider Source May 29, 2024 09:58 AM PRIMARY Ingrowing nail NEHA WATKINS May 29, 2024 09:58 AM SECONDARY Pain in left toe(s) NEHA WATKINS May 29, 2024 09:58 AM SECONDARY Pain in right toe(s) NEHA WATKINS May 29, 2024 09:58 AM SECONDARY Peripheral vascular disease, unspecified NEHA WATKINS Plan of Treatment: Future Appointments (+ 6 months) and Future Tests (+/- 45 days) The Plan of Treatment section includes future care activities for the patient from all [place] treatmentfacilities. This section includes future appointments and future orders which are active, pending or scheduled. Future Appointments This section includes appointments that were scheduled to occur 6 months from the date of the Encounter, up to a maximum of 20 appointments. The data comes from all [place] treatment facilities. Appointment Date/Time Appointment Type Appointme nt Facility Name Jul 03, 2024 09:00 AM AMBULATORY - [facility]CHIATRY [facility] Jul 22, 2024 10:30 AM [facility] Social History: Smoking Status (Most [...] Willy mclaughlin Jul 22, 2023 10:30 AM [place]-TOBACCO FORMER USER [facility] Tobacco Use History This section includes a history of the smoking, or tobacco-related health factors, that were collected on or before the date of the Encounter. The data comes from the [place] facility where the Encounter took place. Date/Time Smoking Status/Tobacco Use Comment F acility Jul 22, 2023 10:30 AM VA-TOBACCO QUIT 15 YRS OR MORE [facility] Jul 23, 2022 10:30 AM VA-TOBACCO FORMER USER [facility] Jul 23, 2022 10:30 AM VA-TOBACCO QUIT 15 YRS OR MORE [facility] Jun 07, 2021 11:00 AM VA-TOBACCO FORMER USER [facility] Jun 07, 2021 11:00 AM VA-TOBACCO QUIT 15 YRS OR MORE [facility] Jun 02, 2018 05:44 AM VA-TOBACCO FORMER USER [facility] Jun 02, 2018 05:44 AM VA-TOBACCO QUIT 15 YRS OR MORE [facility] May 14, 2017 08:31 AM QUIT TOBACCO USE > 7 YEARS AGO 25 years ago [facility] May 10, 2016 10:40 AM LIFETIME NON-TOBACCO USER [facility] Aug 27, 2011 08:36 AM QUIT TOBACCO USE > 7 YEARS AGO Patient quit in 1999. [facility] Encounter Notes: All associated encounter notes This [...] BOTH COVID VACCINE DOSES + BOOSTER AT [facility] S: Pt. is a 74 yo alert [...] present physical-medical status. Protective sensation utilizing a Clinton-Sonia lOg monofilament is 0/10 bilateral. BIOMECHANICAL: Exam [...] of active outpatient prescriptions dispensed from this [facility] (local) and dispensed from another [place] or [facility] facility (remote) as well as inpatient orders [...] Remote Allergy/ADR Data available for this patient [facility] No Known Allergies Med Recon NoGlossary (Tool #1) INCLUDED IN THIS LIST: Alphabetical list of active outpatient prescriptions dispensed from this [facility] (local) and dispensed from another [facility] or [facility] facility (remote) as well as inpatient orders (local pending and active), local clinic medications, locally documented non-VA medications, and local prescriptions that have or been discontinued in the past 90 days. Non-VA Meds Last Documented On: Jul 24, 2021 NOTE The display of VA prescriptions dispensed from another [place] or [facility] facility (remote) is limited to active outpatient prescription entries matched to National Drug File at the originating site and may not include some items such as investigational drugs, compounds, etc. NOT INCLUDED IN THIS LIST: Medications self-entered by the patient into personal health records (i.e. [facility]) are NOT included in this list. Non-VA medications documented outside this [place], remote inpatient orders (regardless of status) and [...] MOUTH ONCE DAILY FOR BLOOD PRESSURE/HEART Rx# [id number] Last Released: 03/17/24 Qty/Days Supply: Rx Expiration Date: 09/05/24 Refills Remainin Indication: FOR HIGH BLOOD PRESSURE SUPPLIES OUTPT DEPEND UNDERWEAR,MAXIMUM,MEN X-LARGE (Status = Active) USE 1 BRIEF DIRECTED ONCE DAILY NEEDED FOR BLOWEL/BLADDER CARE Rx# [id number] Last Released: 12/17/23 Qty/Days Supply: Rx Expiration Date: 12/16/24 Refills Remainin Indication: FOR BLOWEL/BLADDER CARE /es/ NEHA WATKINS DPM ANALYTICS ANALYST Signed: 05/29/2024 09:59 NEHA WATKINS
--- OUTSIDE RECORDS SUMMARY | 2024-06-10 08:24 | XMS_ITS | Encounter Summary ---
Author Name [facility] [place] [place] Organization [facility] [place] Address [address] [place] [address] Care Team Providers Care Pork Cutlet Maker Name Role Phone ALBERTOCANDE Primary Care Provider [...] PART B Apr 24, 2013 PART B [id number] DAGOIMELDA HN PATIENT MEDICARE (WNR) MEDICARE (M) PART A Apr 24, 2013 PART A [id number] DAGOIMELDA HN PATIENT MEDICARE (WNR) MEDICARE (M) PART A Apr 24, 2013 PART A [id number] DAGOIMELDA HN PATIENT MEDICARE (WNR) MEDICARE (M) PART B Apr 24, 2013 PART B [id number] DAGOIMELDA HN PATIENT [facility] [place] RE Jun 24, 2006 [id number] [phone] ISABELLA LOZA ENDOLYN SPOUSE [employer] EXPENSE (OPT/PROF ) [place] RE STATE INDEM * Apr 24, 2013 [id number] ISABELLA LOZA SPOUSE [employer] EXPENSE (OPT/PROF ) NELLY BORGES IND Jun 24, 2006 [id number] ISABELLA LOZA SPOUSE Selected Encounter This section includes the information on record at [place] for the Encounter. Date/Time Encounter Type Encounter Description Reason Pro vider Source Jun 02, 2024 03:53 PM Outpatient Encounter [facility] Encounter Template Text not used by [place] Plan of Treatment: Future Appointments (+ 6 [...] 03, 2024 09:00 AM AMBULATORY - PSYCHIATRY [facility] Jul 22, 2024 10:30 AM AMBULATORY - MEDICINE [facility] Social History: Smoking Status (Most current) and Tobacco Use (All prior to encounter date) This section includes the most current, and the historical, smoking and tobacco- related health factors from the [place] facility where the Encounter took place. Current Smoking Status This section includes the most current smoking, or tobacco-related health factor, from the [place] facility where the Encounter took place. Date/Time Current Smoking Status Comment Facil ity Jun 03, 2020 10:02 AM [place]-TOBACCO FORMER USER [facility] Tobacco Use History This section includes a history of the smoking, or tobacco-related health factors, that were collected on or before the date of the Encounter. The data comes from the [place] facility where the Encounter took place. Date/Time Smoking Status/Tobacco Use Comment F acility Jun 03, 2020 10:02 AM [place]-TOBACCO QUIT 15 YRS OR MORE [facility] Encounter Notes: All associated encounter notes This section contains the clinical notes associated to the Encounter. Date/Time Encounter Note(s) Provider Source Jun 02, 2024 03:53 PM ADMINISTRATIVE NOT E: LOCAL TITLE: ADMINISTRATIVE NOTE STANDARD TITLE: ADMINISTRATIVE NOTE DATE OF NOTE: JUN 02, 2024@15:53 ENTRY DATE: JUN 02, 2024@15:53:24 AUTHOR: AIRAM MOORE EXP COSIGNER: URGENCY: STATUS: COMPLETED called office and asked to cx upcoming appt 06/10/24. states he thought he was doing once a month appts and will keep his july 02 appt. /deepika/ AIRAM MOORE ADVANCED CHIEF AIRLINE RADIO OPERATOR Signed: 06/02/2024 15:55 Receipt Acknowledged By: 06/03/2024 07:46 /es/ ELIF GILLILAND SILICA DRY PRESS HELPER AIRAM MOOREFIELD
--- OUTSIDE RECORDS SUMMARY | 2024-06-10 08:24 | XMS_ITS | Encounter Summary ---
Author Name [facility] [place] [facility] [place] [facility] [place] Address [address] [place] [address] Care Team Providers Care Supervisory Lifeguard Name Role Phone CANDE DOMINGUEZ Primary Care [...] PART A Apr 24, 2013 PART A [id number] IMELDA LOZA HN PATIENT MEDICARE (WNR) MEDICARE (M) PART B Apr 24, 2013 PART B [id number] IMELDA LOZA HN PATIENT MEDICARE (WNR) MEDICARE (M) PART A Apr 24, 2013 PART A [id number] IMELDA LOZA HN PATIENT MEDICARE (WNR) MEDICARE (M) PART B Apr 24, 2013 PART B [id number] IMELDA LOZA HN PATIENT [facility] [place] RE Jun 24, 2006 [id number] ISABELLA LOZA SPOUSE [employer] EXPENSE (OPT/PROF ) [place] RE STATE INDEM * Apr 24, 2013 [id number] ISABELLA LOZA SPOUSE [employer] EXPENSE (OPT/PROF ) NELLY BORGES IND Jun 24, 2006 [id number] ISABELLA LOZA MARUJASON SPOUSE Selected Encounter This section includes the information on record at [place] for the Encounter. Date/Time Encounter Type Encounter Description Reason Provider Source May 06, 2024 10:00 AM PSYTX W PT 60 MINUTES [facility] - IND ICD-10-CM F43.10 Post-traumatic stress disorder, unspecified ELIF GILLILAND Adriane Encounter Template Text not used by [place] Assessments - Encounter Diagnoses This section includes [...] 27, 2024 11:00 AM AMBULATORY - PSYCHIATRY [facility] May 29, 2024 09:30 AM AMBULATORY - MEDICINE [facility] Jul 03, 2024 09:00 AM AMBULATORY PSYCHIATRY [facility] Jul 22, 2024 10:30 AM AMBULATORY - MEDICINE [facility] Social History: Smoking Status (Most current) and [...] Willy mclaughlin Jul 22, 2023 10:30 AM [place]-TOBACCO FORMER USER [facility] Tobacco Use History This section includes a history of the smoking, or tobacco-related health factors, that were collected on or before the date of the Encounter. The data comes from the [place] facility where the Encounter took place. Date/Time Smoking Status/Tobacco Use Comment F acility Jul 22, 2023 10:30 AM VA-TOBACCO QUIT 15 YRS OR MORE [facility] Jul 23, 2022 10:30 AM VA-TOBACCO FORMER USER [facility] Jul 23, 2022 10:30 AM VA-TOBACCO QUIT 15 YRS OR MORE [facility] Jun 07, 2021 11:00 AM VA-TOBACCO FORMER USER [facility] Jun 07, 2021 11:00 AM VA-TOBACCO QUIT 15 YRS OR MORE [facility] Jun 02, 2018 05:44 AM VA-TOBACCO FORMER USER [facility] Jun 02, 2018 05:44 AM VA-TOBACCO QUIT 15 YRS OR MORE [facility] May 14, 2017 08:31 AM QUIT TOBACCO USE > 7 YEARS AGO 25 years ago [facility] May 10, 2016 10:40 AM LIFETIME NON-TOBACCO USER [facility] Aug 27, 2011 08:36 AM QUIT TOBACCO USE > 7 YEARS AGO Patient quit in 1999. [facility] Encounter Notes: All associated encounter notes This [...] court of law and presented to a development officer), and DOD access for active duty service members. Provided Suicide Prevention Hotline number, and other contact numbers as necessary. VISIT DURATION 60 minutes DIAGNOSES: PTSD, unspec [employer]ETERANS STATEMENT OF GOALS/CONCERNS: I had some things happen to me during [place], when I was in [place], that sometimes come back to haunt me and I have trouble getting them off my mind. I like to come in and talk to someone and get things back in order in my head just once in a while because most of the time my life is going really well. I just need help getting over these humps sometimes. SESSION FOCUS: [place] reported continued struggle with having had prostate cancer. Although the cancer has been successfully treated, states that he is finding himself in a depressive or angry state on a frequent basis. said that his family members are noticing mood swings that he is often unaware of. and Belt Press Operator discussed treatment options including the possibility of EMDR to address both his distress around the cancer treatment and his earlier life experiences of racism in the . [place] expressed enthusiasm. INTERVENTIONS: Psychotherapeutic Interventions: Active listening, [...] weekly individual supervision meeting. /deepika/ ELIF GILLILAND RAILWAY PATROL OFFICER Signed: 05/06/2024 11:05 /deepika/ [facility] Tunnel Kiln Repairer Mental Health Cosigned: 05/06/2024 11:55 ELIF GILLILAND
--- OUTSIDE RECORDS SUMMARY | 2024-06-10 08:24 | XMS_ITS | Encounter Summary ---
Author Name [facility] [place] [facility] [place] Organization [place] Address [address] [place] [address] Care Team Providers Care Cost Manager Name Role Phone CANDE DOMINGUEZ Primary Care [...] PART B Apr 24, 2013 PART B [id number] IMELDA LOZA HN PATIENT MEDICARE (WNR) MEDICARE (M) PART A Apr 24, 2013 PART A [id number] IMELDA LOZA HN PATIENT MEDICARE (WNR) MEDICARE (M) PART A Apr 24, 2013 PART A [id number] IMELDA LOZA HN PATIENT MEDICARE (WNR) MEDICARE (M) PART B Apr 24, 2013 PART B [id number] IMELDA LOZA HN PATIENT [facility] [place] RE Jun 24, 2006 [id number] ISABELLA LOZA SPOUSE [employer] MEDICAL EXPENSE (OPT/PROF ) [place] RE STATE INDEM * Apr 24, 2013 [id number] ISABELLA LOZA SPOUSE [employer] EXPENSE (OPT/PROF ) NELLY BORGES IND Jun 24, 2006 [id number] DAGOISABELLA MARUJASON SPOUSE Selected Encounter This [...] 29, 2024 09:30 AM AMBULATORY - MEDICINE [facility] Jul 03, 2024 09:00 AM [facility] Jul 22, 2024 10:30 AM [place] [facility] Social History: Smoking Status (Most current) [...] Willy mclaughlin Jul 22, 2023 10:30 AM [place]-TOBACCO FORMER USER [facility] Tobacco Use History This section includes a history of the smoking, or tobacco-related health factors, that were collected on or before the date of the Encounter. The data comes from the [place] facility where the Encounter took place. Date/Time Smoking Status/Tobacco Use Comment F acility Jul 22, 2023 10:30 AM VA-TOBACCO QUIT 15 YRS OR MORE [facility] Jul 23, 2022 10:30 AM VA-TOBACCO FORMER USER [facility] Jul 23, 2022 10:30 AM VA-TOBACCO QUIT 15 YRS OR MORE [facility] Jun 07, 2021 11:00 AM VA-TOBACCO FORMER USER [facility] Jun 07, 2021 11:00 AM VA-TOBACCO QUIT 15 YRS OR MORE [facility] Jun 02, 2018 05:44 AM VA-TOBACCO FORMER USER [facility] Jun 02, 2018 05:44 AM VA-TOBACCO QUIT 15 YRS OR MORE [facility] May 14, 2017 08:31 AM QUIT TOBACCO USE > 7 YEARS AGO 25 years ago [facility] May 10, 2016 10:40 AM LIFETIME NON-TOBACCO USER [facility] Aug 27, 2011 08:36 AM QUIT TOBACCO USE > 7 YEARS AGO Patient quit in 1999. [facility] Encounter Notes: All associated encounter notes This [...] court of law and presented to a juvenile court judge), and [facility] access for active duty service members. Provided [...] getting over these humps sometimes. SESSION FOCUS: [place] reported continued struggle with having had prostate cancer. [place] stated that he has noticed some reduction in his reactivity toward others but still feels a great deal of distress when thoughts of cancer emerge. [place] used BLS tappers as an introduction to the possibility of EMDR treatment. processed his feelings about having cancer with some affective moments, but generally remained in too much of a protected state to experience the maximum value of the tapping. and Horizontal Drill Operator discussed doing the EMDR protocol formally in [...] weekly individual supervision meeting. /deepika/ ELIF GILLILAND SOLDERER Signed: 05/27/2024 12:03 /deepika/ [facility] Inspector Advanced [employer]posite Mental Health Cosigned: 05/28/2024 07:36 ELIF GILLILAND
[2024-06-10 10:43] LABS: Calcium 9.9 mg/dL (8.4-10.2)
== END 2024-06-10 08:12 | disposition home or self-care (01) ==
LOC: HO.10HDL 08:11
PROVIDERS: Visit Provider Internal Medicine Nephrology
DX: I10 Essential (primary) hypertension (principal); E83.52 Hypercalcemia
CPT/HCPCS: 36415; 82310

== ENCOUNTER 2024-06-30 14:49 | Outpatient (AMB) | payer MEDICARE, OTHER, SELFPAY ==
--- NOTE | 2024-06-30 14:52 | HO.NEPHOV ---
Vital Signs 06/30/24 14:57 Height 5 ft 11 in Weight 213 lb 8 oz BMI 29.8 BP 122/70 Blood Pressure Location Lt brachial Position Sitting Pulse 86 Pulse Source Pulse Oximeter Pulse Oximetry (%) 98 Oxygen Delivery Method Room Air Intake Visit Reasons: 3 mon follow up/ Conf Screen Print Operator Required: No Accompanied by: Self / Same As Patient Allergies No Known Allergies Allergy (Verified 06/30/24 14:56) HPI Comments Details: Marc in the office in follow-up of his hypertension. He has prostate cancer and had radiotherapy . He had PET scan which did not show any metastatic disease as per him. He feels depressed and is going to be evaluated for it. His serum calcium has been high which is being investigated. He does not have any dysuria, frequency, hematuria, urinary infection, weight loss, bone pain, nausea, vomiting, diarrhea, orthostatic symptoms, chest pain, shortness of breath or pedal edema. He has had condition on multiple medications for his prostate cancer. He feels well [facility] Medical History Benign prostatic hyperplasia without lower urinary tract symptoms Chronic prostatitis Elevated PSA Microscopic hematuria Hypertension Surgical History Hx of knee surgery History of prostate surgery Hx of prostate biopsy Social History Are you a primary career guidance technician to a significant other at home: No Do you presently have visiting nurse or other home services: No Patient Tobacco Use Status: Former Tobacco user Tobacco use type: Cigarette Review of Systems Const All systems reviewed & are unremarkable except as noted in HPI and below Physical Exam Vital Signs: Last Vital Signs Pulse 86 06/30/24 14:57 BP 122/70 06/30/24 14:57 Pulse Ox 98 06/30/24 14:57 Oxygen Delivery Method Room Air 06/30/24 14:57 BMI result Body Mass Index 29.8 Const General: comfortable and no acute distress Orientation/consciousness: patient oriented x3 HEENT Head: Yes normocephalic Mouth: Normal oral and palatal mucosa present Eyes EOM: EOMs intact bilaterally Neck Neck: Yes supple Resp Auscultation: clear to auscultation bilaterally Cardio Jugular venous distension: no JVD Rate: regular rate GI Palpation (GI): Soft to palpation Auscultation: normal bowel sounds General: Yes no CVA tenderness Back/Spine/Pelvis Back: no CVA tenderness Skin General skin exam: no rashes or lesions noted Neuro General: patient oriented x3 and moves all extremities Extrem General: Yes no pedal edema Results Reviewed Nephrology Results: Sodium 140 mmol/L (135-145) 02/25/24 Potassium 4.0 mmol/L (3.3-5.1) 02/25/24 Chloride 104 mmol/L (96-108) 02/25/24 Carbon Dioxide 26 mmol/L (22-29) 02/25/24 BUN 14 mg/dL (9-16) 02/25/24 Creatinine 0.95 mg/dL (0.5-1.4) 02/25/24 Calcium 9.9 mg/dL (8.4-10.2) 06/10/24 PTH Intact 81.7 pg/mL (8.7-77.1) H 02/25/24 Assessment & Plan Assessment & Plan (1) Hypercalcemia: Code(s): E83.52 - Hypercalcemia Category: Medical (2) Hypertension: Code(s): I10 - Essential (primary) hypertension Category: Medical Qualifiers: Hypertension type: primary hypertension Qualified Code(s): I10 - Essential (primary) hypertension Plan Macr has hypertension for long time. His blood pressure is well controlled on current dose of losartan and is at goal. He is compliant with his medications. He should cut back salt in the diet. He should maintain good hydration. He should avoid nonsteroidal anti-inflammatory medications. His renal functions are at baseline. He has no history of LVH or retinopathy. He may need initiation of statins. I asked him to hold Vitamin D and re check calcium . His calcium has normalized. Sestamibi scan was negative. If calcium goes up, he needs a bone scan. I did not make any other medication changes today. Follow-up appointment given. Orders: Orders Calcium 6 Months E83.52 - Hypercalcemia, I10 - Essential (primary) hypertension Blood Urea Nitrogen 6 Months E83.52 - Hypercalcemia, I10 - Essential (primary) hypertension Creatinine 6 Months E83.52 - Hypercalcemia, I10 - Essential (primary) hypertension Electrolytes 6 Months E83.52 - Hypercalcemia, I10 - Essential (primary) hypertension Coding Level of Care Code Est Pt Level 4 (48719) Diagnoses Hypercalcemia E83.52 Primary hypertension I10 Hypertension type: primary hypertension
[2024-06-30 14:57] VITALS: BP 122/70; PULSE 86; O2SAT 98; BMI 29.8
--- OUTSIDE RECORDS SUMMARY | 2024-06-30 18:39 | XMS_ITS | Continuity of Care Document ---
Author Name [facility] Organization [facility] Care Team Providers Care Customer Sales Service Manager Name Role Phone [facility] Unavailable Unavailable Problems Combined list of problems [...] 15, 2017 Entered By: CANDE DOMINGUEZ Comment: [facility] Urology - Dr Kaiser [place] [facility] [facility] Colonoscopy Screening Active Condition May 14, 2017 Entered By: CANDE DOMINGUEZ Comment: Approx 2007 [facility] [place] [facility] Elevated PSA Active Condition May 14, 2017 Entered By: CANDE DOMINGUEZ Comment: [facility] Urology - Dr Kaiser [place] [facility] [facility] [facility] Essential hypertension Active Condition [place] Exposure to potentially hazardous substance Active Condition Sep 11, 2023 Entered By: JERMAINE MENDEZ Comment: Original MARCY Screen completed 07/23/22 [place] [facility] [place] [facility] Hyperlipidemia Active Condition [facility] Obesity Active Condition [place] [facility] [place] [facility] Primary Care Physician Active Condition May 14, 2017 Entered By: SHAUN HERNANDEZ Comment: Dr. Greene [phone] [facility] [place] [facility] specialty providers Active Condition May 14, 2017 Entered By: CANDE DOMINGUEZ Comment: [employer]- -----Dr. Ramirez 2016 Entered By: CANDE DOMINGUEZ Comment: Oncologist--- --Dr. Kaiser [facility] [place] [facility] Vitamin D deficiency Active Condition [facility] Tinnitus Inactive Condition 05/14/2017 [facility] [place] [facility] Diagnosis: ICD-10-CM L60.0 Ingrowing nail Active Diagnosis [place] Diagnosis: ICD-10-CM F32.A Depression, unspecified Active Diagnosis [place] Diagnosis: ICD-10-CM F43.10 Post-traumatic stress disorder, unspecified Active Diagnosis [place] Diagnosis: ICD-10-CM R32 Unspecified urinary incontinence Active Diagnosis [place] Diagnosis: ICD-10-CM I11.9 Hypertensive heart disease without heart failure Active Diagnosis [place] Medications Combined list of outpatient medications from Department of [facility] and [facility] facilities.Medications provided include 1) outpatient medications from the last 15 months, and 2) patient-reported medications. Medication Details Route Status Patient Instructions Prescription Expires Prescription Number Last Dispense Date Ordering Provider Order Date Order Qty Source FINASTERIDE 5MG TAB TAKE ONE TABLET BY MOUTH ONCE DAILY ORAL ACTIVE JORDI DOMINGUEZ SA 2021 [place] [facility] LOSARTAN 25MG TAB TAKE ONE TABLET BY MOUTH ONCE DAILY FOR BLOOD PRESSURE /HEART ORAL ACTIVE 09/05/2024 [id number] JORDI DOMINGUEZ SA 2023 90 [facility] LOSARTAN 25MG TAB TAKE ONE TABLET BY MOUTH ONCE DAILY FOR BLOOD PRESSURE /HEART ORAL DISCONT INUED BY PROVIDE R 08/30/2023 [id number] JORDI DOMINGUEZ SA 2022 90 [facility] Immunizations Combined list of available immunizations from the Department of Defense and [facility] facilities. Immunization Series Date Given Administered By Site Reaction Lot Number CVX Code Drug Truck Safety Inspector Status Comments Source ZOSTER RECOMBINANT 2 2021 187 complet ed [facility] ZOSTER RECOMBINANT 1 2021 187 complet ed [facility] COVID-19 (PFIZER), MRNA, LNP-S, PF, 30 [...] complet ed [place] [facility] [place] [facility] INFLUENZA, SEASONAL, INJECTABLE 2018 141 complet ed outside [facility] TDAP 2017 115 complet ed Above re entered with correct date of vaccine is 09/04/2017 [facility] [place] [facility] FLU,3 YRS (HISTORICAL) 2011 88 complet ed [facility] [place] [facility] DTAP, UNSPECIFIED FORMULATION 2005 107 complet ed [facility] [place] [facility] Vital Signs Combined list of inpatient and outpatient Vital Signs from Department of Defense and Veterans Affairs, ranging from 12 months to all on record, depending upon the facility. Vital Sign Value Date Comments Source SYSTOLIC BLOOD PRESSURE 135 12/16/19 09:14:12 [facility] [place] [facility] DIASTOLIC BLOOD PRESSURE 82 024 09:14:12 [facility] [place] [facility] PULSE OXIMETRY 98 12/16/2023 09:14:12 [facility] [place] [facility] WEIGHT 214.8 12/16/2023 09:14:12 [facility] [place] [facility] BMI 30kg/m2 12/16/2023 09:14:12 [facility] PAIN 0 12/16/2023 09:14:12 [facility] [place] [facility] HEIGHT 71 12/16/2023 09:14:12 [facility] [place] [facility] TEMPERATURE 98.1 12/16/2023 09:14:12 [facility] [place] [facility] PULSE 81 12/16/2023 09:14:12 [facility] RESPIRATION 16 12/16/2023 09:14:12 [facility] [place] [facility] SYSTOLIC BLOOD PRESSURE 126 07/22/19 24 10:35:36 [facility] [place] [facility] DIASTOLIC BLOOD PRESSURE 86 024 10:35:36 [facility] [place] [facility] PULSE OXIMETRY 99 07/22/2023 10:35:36 [...] Disposition Source [facility] [facility] Outpatient Encounter [id number] 04/03 [facility] [place] W PT 60 MINUTES [id number] Diagnos is: ICD-10- CM F43.10 Post-tr aumatic stress disorde r, unspeci fied
Doris GILLILAND YLER 04/10 [facility] [place] OFFICE O/P EST LOW 20-29 MIN [id number] Diagnos is: ICD-10- CM L60.0 Ingrowi ng nail
YOGI WATKINS ES F 06/10 [place] [facility] Out[facility] En[facility] [id number] 07/22 [facility] [place] O/P EST LOW 20 MIN [id number] Diagnos is: ICD-10- CM I11.9 Hyperte nsive heart disease without heart failure
BERENICE DOMINGUEZ 07/22 [place] [facility] [place] [facility] Outpatient Encounter [id number] 09/01 [facility] [place] [facility] [place] [facility] Outpatient Encounter [id number] 09/04 [facility] [place] [facility] [place] W PT 60 MINUTES [id number] Diagnos is: ICD-10- CM F43.10 Post-tr aumatic stress disorde r, unspeci fied
Doris GILLILAND YLER 10/15 [place] [facility] [facility] [facility] Outpatient Encounter [id number] 11/03 [facility] [place] [facility] [place] W PT 60 MINUTES [id number] Diagnos is: ICD-10- CM F43.10 Post-tr aumatic stress disorde r, unspeci fied
Doris GILLILAND YLER 12/03 [place] [facility] [facility] [facility] Outpatient Encounter [id number] 12/05 [facility] [place] [facility] [place] O/P EST LOW 20 MIN [id number] Diagnos is: ICD-10- CM R32 Unspeci fied urinary inconti nence<b r/> BERENICE DOMINGUEZ 12/15 [place] W PT 60 MINUTES [id number] Diagnos is: ICD-10- CM F43.10 Post-tr aumatic stress disorde r, unspeci fied
TALAT,T YLER 12/17 [facility] [place] PSY[place] W PT 60 MINUTES [id number] Diagnos is: ICD-10- CM F43.10 Post-tr aumatic stress disorde r, unspeci fied
TALAT,T YLER 03/04 [facility] [place] W PT 60 MINUTES [id number] Diagnos is: ICD-10- CM F43.10 Post-tr aumatic stress disorde r, unspeci fied
REJI MOSCOSO AH 04/15 [facility] [place] W PT 60 MINUTES [id number] Diagnos is: ICD-10- CM F43.10 Post-tr aumatic stress disorde r, unspeci fied
TALAT,T YLER 05/06 [facility] [place] W PT 60 MINUTES [id number] Diagnos is: ICD-10- CM F32.A Depress ion, unspeci fied
TALAT,T YLER 05/27 [facility] [place] O/P EST LOW 20 MIN [id number] Diagnos is: ICD-10- CM L60.0 Ingrowi ng nail
[facility]I [facility]INS ES F [facility]29 [facility] [place] [facility] [facility] Outpatient Encounter [id number] 06/02 [place] [facility] [facility] Social History Combined list of available smoking, tobacco, and other social history from Department of Defense and Veterans Affairs facilities. Social History Type Response Date Comment Source Tobacco smoking status [facility] [place]-TOBACCO FORMER USER 07/22/2023 [place] History of tobacco use [place] 15 YRS OR MORE 07/22/2023 [place] History of tobacco use VA-TOBACCO FORMER USER 07/23/2022 [place] History of tobacco use [place] FORMER US[place] 06/07/2021 [place] of tobacco use [place] [facility] History of tobacco use [place] FORMER US[place] 06/02/2018 [place] History of tobacco use QUIT TOBACCO USE > 7 YEARS AGO 05/14/2017 25 years ago [place] History of tobacco use LIFETIME NON-TOBACCO USER 05/10/2016 [place] History of tobacco use QUIT TOBACCO USE > 7 YEARS AGO 08/27/2011 Patient quit in 1999. [place] Plan of Care List of future care activities from Department of [facility] facilities. Additional future care activities may be listed in the Assessment and Plan section. Date/Time Care Activity Care Activity Detail Facili ty 07/03/2024 AMBULATORY - PSYCHIATRY AMBULATORY - [facility]C [facility] 07/22/2024 AMBULATORY - MEDICINE [facility] 09/23/2024 AMBULATORY - MEDICINE AMBULATORY - MEDICI [facility]
--- OUTSIDE RECORDS SUMMARY | 2024-06-30 18:40 | XMS_ITS | Encounter Summary ---
Author Name [facility] Organization [facility] [place] Address [address] [place] [address] Care Team Providers Care Claim Manager Name Role Phone ALBERTOCANDE Primary Care Provider [...] PART A Apr 24, 2013 PART A [id number] DAGOIMELDA HN PATIENT MEDICARE (WNR) MEDICARE (M) PART B Apr 24, 2013 PART B [id number] DAGOIMELDA HN PATIENT MEDICARE (WNR) MEDICARE (M) PART A Apr 24, 2013 PART A [id number] DAGOIMELDA HN PATIENT MEDICARE (WNR) MEDICARE (M) PART B Apr 24, 2013 PART B [id number] DAGOIMELDA HN PATIENT [facility] [place] RE Jun 24, 2006 [id number] [phone] ISABELLA LOZA ENDOLYN SPOUSE [employer] (OPT/PROF ) [place] RE STATE INDEM * Apr 24, 2013 [id number] [phone] ISABELLA LOZA SPOUSE [employer] (OPT/PROF ) NELLY BORGES IND Jun 24, 2006 [id number] ISABELLA LOZA SPOUSE Selected Encounter This [...] Oct 16, 2023 09:00 AM AMBULATORY [facility]RY [facility] November 04, 2023 11:00 AM AMBULATORY MEDICINE [facility] Dec 04, 2023 10:00 AM AMBULATORY PSYCHIATRY [facility] [place] [facility] Dec 16, 2023 09:00 AM AMBULATORY MEDICINE [facility] Dec 18, 2023 01:00 PM AMBULATORY PS[place]CHIATRY [place] [facility] [place] [facility] Mar 04, 2024 09:00 AM [facility] Social History: Smoking Status (Most current) and [...] 03, 2020 10:02 AM VA-TOBACCO FOR[facility] USER [facility] Tobacco Use History This section includes a [...] Outside script received form Dr. Ruddy Clifford [address] [place] [address]. [phone] P: Rx: Losartan 25 mg tablet Si tablet at bedtime Qty: 90 Ref: 3 Change: No /deepika/ RM LYLES LPN PACT 10 Signed: 09/05/2023 15:57 Receipt Acknowledged By: 09/05/2023 16:02 /es/ CANDE DOMINGUEZ MD Primary Care Physician RM LYLES
--- OUTSIDE RECORDS SUMMARY | 2024-06-30 18:40 | XMS_ITS | Encounter Summary ---
Author Name [facility] Organization [facility] [place] Address [address] [place] [address] Care Team Providers Care Cad Designer Name Role Phone CANDE DOMINGUEZ Primary Care [...] PART A Apr 24, 2013 PART A [id number] IMELDA LOZA HN PATIENT MEDICARE (WNR) MEDICARE (M) PART B Apr 24, 2013 PART B [id number] IMELDA LOZA HN PATIENT MEDICARE (WNR) MEDICARE (M) PART B Apr 24, 2013 PART B [id number] IMELDA LOZA HN PATIENT MEDICARE (WNR) MEDICARE (M) PART A Apr 24, 2013 PART A [id number] IMELDA LOZA HN PATIENT [facility] [place] RE Jun 24, 2006 [id number] [phone] ISABELLA LOZA SPOUSE [employer] (OPT/PROF ) [place] RE STATE INDEM * Apr 24, 2013 [id number] ISABELLA LOZA SPOUSE [employer] (OPT/PROF ) NELLY LYNN STATE IND Jun 24, 2006 [id number] ISABELLA LOZA MARUJASON SPOUSE Selected Encounter [...] PRIMARY Post-traumatic stress disorder, unspecified ELIF GILLILAND [place] Plan of Treatment: Future Appointments (+ 6 [...] 16, 2023 09:00 AM AMBULATORY - MEDICINE [facility] [place] [facility] Dec 18, 2023 01:00 PM AMBULATORY [place]CHIAT[place] [facility] [place] [facility] Mar 04, 2024 09:00 AM AMBULATORY [place]IAT[place] [facility] [place] [facility] Apr 15, 2024 10:00 AM AMBULATORY [place]IAT[place] [facility] [place] [facility] May 06, 2024 10:00 AM AMBUL[place]ORY [place]AT[place] [facility] [place] [facility] May 27, 2024 11:00 AM AMBUL[place]ORY - [place]IATRY [place] [facility] [place] [facility] May 29, 2024 09:30 AM AMBULATORY - MEDICINE [facility] Social History: Smoking Status (Most current) [...] 22, 2023 10:30 AM VA-TOBACCO FORMER USER [place] Tobacco Use History This section includes a history of the smoking, or tobacco-related health factors, that were collected on or before the date of the Encounter. The data comes from the [place] facility where the Encounter took place. Date/Time Smoking Status/Tobacco Use Comment F acility Jul 22, 2023 10:30 AM VA-TOBACCO QUIT 15 YRS OR MORE [place] Jul 23, 2022 10:30 AM VA-TOBACCO FORMER USER [place] Jul 23, 2022 10:30 AM VA-TOBACCO QUIT 15 YRS OR MORE [place] Jun 07, 2021 11:00 AM VA-TOBACCO FORMER USER [place] Jun 07, 2021 11:00 AM VA-TOBACCO QUIT 15 YRS OR MORE [place] Jun 02, 2018 05:44 AM VA-TOBACCO FORMER USER [place] Jun 02, 2018 05:44 AM VA-TOBACCO QUIT 15 YRS OR MORE [place] May 14, 2017 08:31 AM QUIT TOBACCO USE > 7 YEARS AGO 25 years ago [place] May 10, 2016 10:40 AM LIFETIME NON-TOBACCO USER [place] Aug 27, 2011 08:36 AM QUIT TOBACCO USE > 7 YEARS AGO Patient quit in 1999. 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 /deepika/ ELIF GILLILAND LOADER MACHINE Signed: 12/05/2023 09:50 /deepika/ [facility] [employer] [facility] Cosigned: 12/05/2023 10:16 ELIF GILLILAND
--- OUTSIDE RECORDS SUMMARY | 2024-06-30 18:40 | XMS_ITS | Encounter Summary ---
Author Name [facility] [place] [facility] [place] Organization [facility] [place] Address [address] [place] [address] Care Team Providers Care Post Office Clerk Name Role Phone CANDE DOMINGUEZ Primary Care [...] PART A Apr 24, 2013 PART A [id number] IMELDA LOZA HN PATIENT MEDICARE (WNR) MEDICARE (M) PART B Apr 24, 2013 PART B [id number] IMELDA LOZA HN PATIENT MEDICARE (WNR) MEDICARE (M) PART A Apr 24, 2013 PART A [id number] IMELDA LOZA HN PATIENT MEDICARE (WNR) MEDICARE (M) PART B Apr 24, 2013 PART B [id number] IMELDA LOZA HN PATIENT [facility] [place] RE Jun 24, 2006 [id number] [phone] ISABELLA LOZA SPOUSE [employer] (OPT/PROF ) [place] RE STATE INDEM * Apr 24, 2013 [id number] [phone] ISABELLA LOZA SPOUSE [employer] EXPENSE (OPT/PROF ) NELLY BORGES IND Jun 24, 2006 [id number] ISABELLA LOZA SPOUSE Selected Encounter This section includes the information on record at [place] for the Encounter. Date/Time Encounter Type Encounter Description Reason Provider Source May 29, 2024 09:30 AM OFFICE O/P EST LOW 20 MIN PODIATRY ICD-10-CM L60.0 Ingrowing nail NEHA WATKINS Adriane Encounter Template Text not used by [place] Assessments - Encounter Diagnoses This section includes the primary and secondary diagnoses documented for the Encounter. Date/Time Primary/Secondary Diagnosis Diagnosis Name Provider Source Jun 30, 2024 12:56 PM PRIMARY Ingrowing nail NEHA WATKINS Jun 30, 2024 12:56 PM SECONDARY Pain in left toe(s) NEHA WATKINS Jun 30, 2024 12:56 PM SECONDARY Pain in right toe(s) NEHA WATKINS [place] Jun 30, 2024 12:56 PM SECONDARY Peripheral vascular disease, unspecified NEHA WATKINS Plan of Treatment: Future Appointments (+ 6 months) and Future Tests (+/- 45 days) The Plan of Treatment section includes future care activities for the patient from all [place] treatmentfacilities. This section includes future appointments and future orders which are active, pending or scheduled. Future Appointments This section includes appointments that were scheduled to occur 6 months from the date of the Encounter, up to a maximum of 20 appointments. The data comes from all [place] treatment facilities. Appointment Date/Time Appointment Type Appointme nt Facility Name Jul 03, 2024 09:00 AM [facility] Jul 22, 2024 10:30 AM [facility] [place] [facility] Sep 23, 2024 09:30 AM AMBULATORY - MEDICINE [facility] Social History: Smoking Status (Most current) and Tobacco Use (All prior to encounter date) This section includes the most current, and the historical, smoking and tobacco- related health factors from the [facility] facility where the Encounter took place. Current Smoking Status This section includes the most current smoking, or tobacco-related health factor, from the [place] facility where the Encounter took place. Date/Time Current Smoking Status Willy mclaughlin Jul 22, 2023 10:30 AM VA-TOBACCO FORMER USER [place] Tobacco Use History This section includes a history of the smoking, or tobacco-related health factors, that were collected on or before the date of the Encounter. The data comes from the [place] facility where the Encounter took place. Date/Time Smoking Status/Tobacco Use Comment F acility Jul 22, 2023 10:30 AM VA-TOBACCO QUIT 15 YRS OR MORE [place] Jul 23, 2022 10:30 AM VA-TOBACCO FORMER USER [place] Jul 23, 2022 10:30 AM VA-TOBACCO QUIT 15 YRS OR MORE [place] Jun 07, 2021 11:00 AM VA-TOBACCO FORMER USER [place] Jun 07, 2021 11:00 AM VA-TOBACCO QUIT 15 YRS OR MORE [place] Jun 02, 2018 05:44 AM VA-TOBACCO FORMER USER [place] Jun 02, 2018 05:44 AM VA-TOBACCO QUIT 15 YRS OR MORE [place] May 14, 2017 08:31 AM QUIT TOBACCO USE > 7 YEARS AGO 25 years ago [place] May 10, 2016 10:40 AM LIFETIME NON-TOBACCO USER [place] Aug 27, 2011 08:36 AM QUIT TOBACCO USE > 7 YEARS AGO Patient quit in 1999. [place] Encounter Notes: All associated encounter notes This [...] BOTH COVID VACCINE DOSES + BOOSTER AT [facility] S: Pt. is a 74 yo alert [...] present physical-medical status. Protective sensation utilizing a Heber-Sonia lOg monofilament is 0/10 bilateral. BIOMECHANICAL: Exam [...] of active outpatient prescriptions dispensed from this [place] (local) and dispensed from another [place] or DoD facility (remote) as well as [...] Remote Allergy/ADR Data available for this patient [place] [facility] [place] [facility] No Known Allergies [...] the patient into personal health records (i.e. [employer]) are NOT included in this list. Non-VA medications documented outside this [place], remote inpatient orders (regardless of status) and [...] MOUTH ONCE DAILY FOR BLOOD PRESSURE/HEART Rx# [id number] Last Released: 03/17/24 Qty/Days Supply: Rx Expiration Date: 09/05/24 Refills Remainin Indication: FOR HIGH BLOOD PRESSURE SUPPLIES OUTPT DEPEND UNDERWEAR,MAXIMUM,MEN X-LARGE (Status = Active) USE 1 BRIEF DIRECTED ONCE DAILY NEEDED FOR BLOWEL/BLADDER CARE Rx# [id number] Last Released: 12/17/23 Qty/Days Supply: Rx Expiration Date: 12/16/24 Refills Remainin Indication: FOR BLOWEL/BLADDER CARE /es/ NEHA WATKINS DPM DEVELOPMENTAL MATHEMATICS PROFESSOR Signed: 05/29/2024 09:59 NEHA WATKINS
== END 2024-06-30 15:33 | disposition home or self-care (01) ==
PROVIDERS: PCP Internal Medicine; Visit Provider Internal Medicine Nephrology
DX: E83.52 Hypercalcemia (principal); I10 Essential (primary) hypertension
CPT/HCPCS: 99214

== ENCOUNTER → 2024-06-30 14:49 | Outpatient (BNVA) | payer MEDICARE, OTHER, SELFPAY | PROVIDERS: PCP Internal Medicine; Visit Provider Internal Medicine Nephrology | DX: I10 Essential (primary) hypertension (principal); E83.52 Hypercalcemia | CPT/HCPCS: 99212 ==

== ENCOUNTER 2024-09-21 11:05 | Outpatient (REF) | payer MEDICARE, OTHER, SELFPAY ==
--- OUTSIDE RECORDS SUMMARY | 2024-09-21 12:43 | XMS_ITS | Clinical Summary ---
Author Organization [facility] Address [address] [facility] [address] [place] [address] Phone Care Team Providers Care Mutuel Teller Name Role Phone Tor Greene MD Primary Care Provider [phone] Allergies No known active allergies Medications finasteride (PROSCAR) 5 MG tablet Take 1 tablet by mouth 1 (one) time each day Active losartan (COZAAR) 25 MG tablet Take 1 tablet (25 mg total) by mouth 1 (one) time each day 90 tablet 5 08/28/2022 Active Active Problems Problem Noted Date Diagnosed Date Hypertension 08/07/2021 Benign essential hypertension 08/15/2020 Family History Medical History Relation Comments Hypertension Mother Hypertension Sibling 1 Cancer Sibling 2 Relation Status Comments Father Mother Alive Sibling 1 Sibling 2 Social History Tobacco Use Types Packs/Day Years Used Date Smoking Tobacco: Never Smokeless Tobacco: Never Tobacco Cessation:Counseling Given: Not Answered Alcohol Use Standard Drinks/Week Comments Yes 0 (1 standard drink = 0.6 oz pure alcohol) Alcoholic Drinks/day: Occasional social drink Sex and Gender Information Value Date Recorded Sex Assigned at Not on file Legal Sex Male 5:09 PM EST Gender Identity Not on file Sexual Orientation Not on file Last Filed Vital Signs Vital Sign Reading Time Taken Comments Blood Pressure 130/72 07/16/2022 1:06 PM EST Pulse 76 07/16/2022 1:06 PM EST Temperature - - Respiratory Rate - - Oxygen Saturation 99% 08/07/2021 1:12 PM EST Inhaled Oxygen Concentration - - Weight 97.3 kg (214 lb 6.4 oz) 07/16/2022 1:06 P M EST Height 180.3 cm (5' 11 ) 05/05/2019 12:00 PM EST Body Mass Index 29.9 05/05/2019 12:00 PM EST Plan of Treatment Health Maintenance Due Date Last Done Comments Pneumococcal Vaccine: 65+ Years (1 of 2 - PCV) 1956 Influenza Vaccine (#1) 2024 1, 06/24/2011 Hepatitis B Vaccine Aged Out No longe r eligible based on patient's age to complete this topic [facility] Care Teams Mutuel Teller Relationship Specialty Start Date End Date Tor Greene MD [address] [place] [address] PCP - General 07/04/20
--- OUTSIDE RECORDS SUMMARY | 2024-09-21 12:43 | XMS_ITS | Continuity of Care Document ---
Author Name [facility] Organization [facility] Care Team Providers Care Setter Induction Heating Equipment Name Role Phone [facility] Unavailable Unavailable Problems Combined list of problems from Department of Defense and Veterans Affairs facilities. It does not include entries that were removed or entered in error. Problem Status Onset Date Problem Type Date of Resolution Comments Source Benign prostatic hypertrophy Active Condition [facility] Bilateral hearing loss Active Condition [facility] [facility] Chronic prostatitis Active Condition Mar 15, 2017 Entered By: CANDE DOMINGUEZ Comment: [facility] [place] Kaiser [place] [facility] [place] [facility] Colonoscopy Screening Active Condition May 14, 2017 Entered By: CANDE DOMINGUEZ Comment: Approx 2007 [place] [facility] [place] [facility] Elevated PSA Active Condition May 14, 2017 Entered By: CANDE DOMINGUEZ Comment: [facility] [place] [facility] Kaiser [place] [facility] [place] [facility] Essential hypertension Active Condition [place] Exposure to potentially hazardous substance Active Condition Sep 11, 2023 Entered By: JERMAINE MENDEZ Comment: Original MARCY Screen completed 07/23/22 [facility] [place] [facility] Hyperlipidemia Active Condition [facility] Obesity Active Condition [facility] [place] [facility] Primary Care Physician Active Condition May 14, 2017 Entered By: SHAUN HERNANDEZ Comment: Dr. Greene [phone] [place] [facility] [place] [facility] specialty providers Active Condition May 14, 2017 Entered By: CANDE DOMINGUEZ Comment: [facility] Lumite Injector- -----Dr. Ramirez 2016 Entered By: CANDE DOMINGUEZ Comment: Oncologist--- --Dr. Kaiser [facility] Tinnitus Inactive Condition 05/14/2017 [place] [facility] [place] [facility] Diagnosis: ICD-10-CM I11.9 Hypertensive heart disease without heart failure Active Diagnosis [facility] Diagnosis: ICD-10-CM F43.12 Post-traumatic stress disorder, chronic Active Diagnosis [place] Diagnosis: ICD-10-CM F43.10 Post-traumatic stress disorder, unspecified Active Diagnosis [place] Diagnosis: ICD-10-CM F32.A Depression, unspecified Active Diagnosis [place] Diagnosis: ICD-10-CM L60.0 Ingrowing nail Active Diagnosis [place] Diagnosis: ICD-10-CM R32 Unspecified urinary incontinence Active Diagnosis [place] Medications Combined list of outpatient medications from Department of Defense and Veterans [facility] facilities.Medications provided include 1) outpatient medications from the last 15 months, and 2) patient-reported medications. Medication Details Route Status Patient Instructions Prescription Expires Prescription Number Last Dispense Date Ordering Provider Order Date Order Qty Source LOSARTAN 25MG TAB TAKE ONE TABLET BY MOUTH ONCE DAILY FOR BLOOD PRESSURE /HEART ORAL ACTIVE 09/19/2025 [id number] JORDI DOMINGUEZ SA 2024 90 [facility] LOSARTAN 25MG TAB TAKE ONE TABLET BY MOUTH ONCE DAILY FOR BLOOD PRESSURE /HEART ORAL DISCONT INUED BY PROVIDE R 09/05/2024 [id number] JORDI DOMINGUEZ SA 2023 90 [facility] Immunizations Combined list of available immunizations from the Department of Defense and [facility] facilities. Immunization Series Date Given Administered By Site Reaction Lot Number CVX Code Drug Alarm Signaler Status Comments Source ZOSTER RECOMBINANT 2 2021 187 complet ed [facility] ZOSTER RECOMBINANT 1 2021 187 complet ed [facility] COVID-19 (PFIZER), MRNA, LNP-S, PF, 30 [...] complet ed [facility] INFLUENZA, SEASONAL, INJECTABLE 2018 141 complet ed outside [facility] TDAP 2017 115 complet ed Above re entered with correct date of vaccine is 09/04/2017 [facility] [place] [place] FLU,3 YRS (HISTORICAL) 2011 88 complet ed [facility] DTAP, UNSPECIFIED FORMULATION 2005 107 complet ed [facility] [place] Vital Signs Combined list of inpatient and outpatient Vital Signs from Department of Defense and Veterans Affairs, ranging from 12 months to all on record, depending upon the facility. Vital Sign Value Date Comments Source SYSTOLIC BLOOD PRESSURE 139 07/22/19 25 10:50:52 [facility] DIASTOLIC BLOOD PRESSURE 89 025 10:50:52 [facility] PULSE OXIMETRY 97 07/22/2024 10:50:52 [facility] WEIGHT 210 07/22/2024 10:50:52 [facility] BMI 29 kg/m2 07/22/2024 10:50:52 [facility] PAIN 0 07/22/2024 10:50:52 [facility] [place] [facility] HEIGHT 71 07/22/2024 10:50:52 [facility] TEMPERATURE 97.6 07/22/2024 10:50:52 [facility] PULSE 76 07/22/2024 10:50:52 [facility] RESPIRATION 16 07/22/2024 10:50:52 [facility] SYSTOLIC BLOOD PRESSURE 135 12/16/19 24 09:14:12 [facility] DIASTOLIC BLOOD PRESSURE 82 024 09:14:12 [facility] PULSE OXIMETRY 98 12/16/2023 09:14:12 [facility] WEIGHT 214.8 12/16/2023 09:14:12 [facility] BMI 30 kg/m2 12/16/2023 09:14:12 [facility] PAIN 0 12/16/2023 09:14:12 [facility] HEIGHT 71 12/16/2023 09:14:12 [facility] TEMPERATURE 98.1 12/16/2023 09:14:12 [facility] PULSE 81 12/16/2023 09:14:12 [facility] RESPIRATION 16 12/16/2023 09:14:12 [facility] Encounters Combined list of: 1) Encounters from Department of Veterans Affairs facilities going backup to the last 18 months, not all VA inpatient encounters are included; 2) Encounters from the Department of [facility] facilities going backup to 280 months. Location Location Details Encounter Type Encounter Number Reason For Visit Attending Provider ADM Date DC Date Status Disposition Source [facility] Outpatient Encounter [id number] 04/03 [facility] [place] PT 60 MINUTES [id number] Diagnos is: ICD-10- CM F43.10 Post-tr aumatic stress disorde r, unspeci fiDoris Coker 04/10 [facility] [place] OFF[place] O/P EST LOW 20-29 MIN [id number] Diagnos is: ICD-10- CM L60.0 Ingrowi ng YOGI Rodas F 06/10 [place] [facility] Out[facility] Encounter [id number] 07/22 [facility] [place] O/P EST LOW 20 MIN [id number] Diagnos is: ICD-10- CM I11.9 Hyperte nsive heart disease without heart failure BERENICE DOMINGUEZ JANN 07/22 [place] [facility] Outpatient Encounter [id number] 09/01 [facility] [facility] Outpatient Encounter [id number] 09/04 [facility] [place] W PT 60 MINUTES [id number] Diagnos is: ICD-10- CM F43.10 Post-tr aumatic stress disorde r, unspeci fied Doris GILLILAND YLER 10/15 [place] [facility] Outpatient Encounter [id number] 11/03 [facility] [place] [facility] [place] W PT 60 MINUTES [id number] Diagnos is: ICD-10- CM F43.10 Post-tr aumatic stress disorde r, unspeci fied Doris GILLILAND YLER 12/03 [place] [facility] Outpatient Encounter [id number] 12/05 [facility] [place] [facility] [place] O/P EST LOW 20 MIN [id number] Diagnos is: ICD-10- CM R32 Unspeci fied urinary inconti BERENICE Quinonez 12/15 [place] W PT 60 MINUTES [id number] Diagnos is: ICD-10- CM F43.10 Post-tr aumatic stress disorde r, unspeci fied Doris GILLILAND YLER 12/17 [place] W PT 60 MINUTES [id number] Diagnos is: ICD-10- CM F43.10 Post-tr aumatic stress disorde r, unspeci fied TALAT,T YLER 03/04 [facility] [place] W PT 60 MINUTES [id number] Diagnos is: ICD-10- CM F43.10 Post-tr aumatic stress disorde r, unspeci fied REJI MOSCOSO 04/15 [place] W PT 60 MINUTES [id number] Diagnos is: ICD-10- CM F43.10 Post-tr aumatic stress disorde r, unspeci fied TALAT,Doris YLER 05/06 [place] W PT 60 MINUTES [id number] Diagnos is: ICD-10- CM F32.A Depress ion, unspeci firamone TALAT,Doris YLER 05/27 [facility] [place] O/P EST LOW 20 MIN [id number] Diagnos is: ICD-10- CM L60.0 Ingrowi YOGI Aguilar F 05/29 [facility] [place] [facility] [facility] Outpatient Encounter [id number] 06/02 [place] [facility] [place] [place] [facility] [place] W PT 60 MINUTES [id number] Diagnos is: ICD-10- CM F32.A Depress ion, unspeci fied TALAT,T YLER 07/03 [facility] [place] [facility] [place] [facility] Outpatient Encounter [id number] 07/20 [facility] [place] [place] [facility] O/P EST LOW 20 MIN [id number] Diagnos is: ICD-10- CM I11.9 Hyperte nsive heart disease without heart failure BERENICE DOMINGUEZ JANN 07/22 [facility] [place] W PT 60 MINUTES [id number] 1BY. [id number] Diagnos is: ICD-10- CM F43.10 Post-tr aumatic stress disorde r, unspeci fied TALAT,T YLER 08/26 [facility] [place] W PT 60 MINUTES [id number] Diagnos is: ICD-10- CM F43.12 Post-tr aumatic stress disorde r, chronic TALAT,T YLER 09/09 [facility] [place] [facility] [place] [facility] Outpatient Encounter [id number] 09/18 [facility] [place] [place] [facility] NQHP OL DIG ASSMT&MGMT 5-10 [id number] 1. Diagnos is: ICD-10- CM I11.9 Hyperte nsive heart disease without heart failure JUAN CARLOSKATHERINDIOKIESHA RISTY A 09/18 [place] [facility] [facility] [place] [facility] Social History Combined list of available smoking, tobacco, and other social history from Department of Defense and Veterans Affairs facilities. Social History Type Response Date Comment Source Tobacco smoking status [facility]-TOBACCO NEVER USED CIGARETTES 07/22/2024 [place] History of tobacco use [place]-TOBACCO NEVER USED OTHER TYPE 07/22/2024 [place] History of tobacco use [place]-TOBACCO QUIT 15 YRS OR MORE 07/22/2023 [place] History of tobacco use [place]-TOBACCO FORMER USER 07/23/2022 [place] History of tobacco use VA-TOBACCO FORMER USER 06/07/2021 [place] History of tobacco use [place]-TOBACCO QUIT 15 YRS OR MORE 06/03/2020 [place] [facility] [place] [facility] History of tobacco use VA-TOBACCO QUIT 15 YRS OR MORE 06/02/2018 [place] History of tobacco use QUIT TOBACCO USE > 7 YEARS AGO 05/14/2017 25 years ago [place] History of tobacco use LIFETIME NON-TOBACCO USER 05/10/2016 [place] History of tobacco use QUIT TOBACCO USE > 7 YEARS AGO 08/27/2011 Patient quit in 1999. [place] Plan of Care List of future care activities from Department of Veterans Affairs facilities. Additional future care activities may be listed in the Assessment and Plan section. Date/Time Care Activity Care Activity Detail Facili ty 09/23/2024 AMBULATORY - MEDICINE AMBULATORY - MEDICI [facility]
--- OUTSIDE RECORDS SUMMARY | 2024-09-21 12:43 | XMS_ITS | Encounter Summary ---
Author Name [facility] [place] Address [address] [place] [address] Care Team Providers Care Dye Blender Name Role Phone ALBERTOCANDE Primary Care Provider [...] PART B Apr 24, 2013 PART B [id number] IMELDA LOZA HN PATIENT MEDICARE (WNR) MEDICARE (M) PART A Apr 24, 2013 PART A [id number] IMELDA LOZA HN PATIENT MEDICARE (WNR) MEDICARE (M) PART A Apr 24, 2013 PART A [id number] IMELDA LOZA HN PATIENT MEDICARE (WNR) MEDICARE (M) PART B Apr 24, 2013 PART B [id number] IMELDA LOZA HN PATIENT [facility] [place] [facility] Jun 24, 2006 [id number] ISABELAL LOZA ENDOLYN SPOUSE [employer] (OPT/PROF ) [place] [facility] Jun 24, 2006 [id number] [phone] ISABELLA LOZA SPOUSE [facility] (OPT/PROF ) [facility] Apr 24, 2013 [id number] ISABELLA LOZA SPOUSE [facility] (OPT/PROF ) [facility] Jun 24, 2006 [id number] ISABELLA LOZA SPOUSE Selected Encounter This section includes the information on record at [place] for the Encounter. Date/Time Encounter Type Encounter Description Reason Provider Source Jul 22, 2024 10:30 AM OFFICE O/P EST LOW 20 MIN PRIMARY CARE/MEDICINE ICD-10-CM I11.9 Hypertensive heart disease without heart failure CANDE DOMINGUEZ Encounter Template Text not used by [place] Assessments - Encounter Diagnoses This section includes [...] care activities for the patient from all [place] treatmentfacounts [facility] This section includes future appointments and future orders which are active, pending or scheduled. Future Appointments This section includes appointments that were scheduled to occur 6 months from the date of the Encounter, up to a maximum of 20 appointments. The data comes from all [place] treatment facilities. Appointment Date/Time Appointment Type Appointme nt Facility Name Aug 26, 2024 11:00 AM AMBULATORY - PSYCHIATRY [facility] Sep 09, 2024 10:00 AM AMBULATORY PSYCHIATRY [facility] Sep 23, 2024 09:30 AM AMBULATORY - MEDICINE [facility] Nov 25, 2024 09:00 AM AMBULATORY PSYCHIATRY [facility] Social History: Smoking Status (Most current) and Tobacco Use (All prior to encounter date) This section includes the most current, and the historical, smoking and tobacco- related health factors from the [place] facility where the Encounter took place. Current Smoking Status This section includes the most current smoking, or tobacco-related health factor, from the [place] facility where the Encounter took place. Date/Time Current Smoking Status Comment George mclaughlin Jul 22, 2024 10:30 AM VA-TOBACCO NEVER USED CIGARETTES [facility] Tobacco Use History This section includes a history of the smoking, or tobacco-related health factors, that were collected on or before the date of the Encounter. The data comes from the [place] facility where the Encounter took place. Date/Time Smoking Status/Tobacco Use Comment F acility Jul 22, 2024 10:30 AM VA-TOBACCO NEVER U SED OTHER TYPE [facility] Jul 22, 2023 10:30 AM VA-TOBACCO FORMER USER [facility] Jul 22, 2023 10:30 AM VA-TOBACCO QUIT 15 YRS OR MORE [facility] Jul 23, 2022 10:30 AM VA-TOBACCO FORMER USER [facility] Jul 23, 2022 10:30 AM VA-TOBACCO QUIT 15 YRS OR MORE [facility] Jun 07, 2021 11:00 AM VA-TOBACCO FORMER USER [facility] Jun 07, 2021 11:00 AM VA-TOBACCO QUIT 15 YRS OR MORE [facility] Jun 02, 2018 05:44 AM VA-TOBACCO FORMER USER [facility] Jun 02, 2018 05:44 AM VA-TOBACCO QUIT 15 YRS OR MORE [facility] May 14, 2017 08:31 AM QUIT TOBACCO USE > 7 YEARS AGO 25 years ago [facility] May 10, 2016 10:40 AM LIFETIME NON-TOBACCO USER [facility] Aug 27, 2011 08:36 AM QUIT TOBACCO USE > 7 YEARS AGO Patient quit in 1999. [facility] Encounter Notes: All associated encounter notes This section contains the clinical notes associated to the Encounter. Date/Time Encounter Note(s) Provider Source Jul 22, 2024 10:51 AM PREVENTIVE MEDICIN E NURSING NOTE: LOCAL TITLE: CLINICAL REMINDERS/NURSING STANDARD TITLE: PREVENTIVE MEDICINE NURSING NOTE DATE OF NOTE: JUL 22, 2024@10:51 ENTRY DATE: JUL 22, 2024@10:51:27 AUTHOR: RM LYLES COSIGNER: URGENCY: STATUS: COMPLETED Advance Directive Screen MH AD: Patient does not have a completed advance directive on file at any facility, [place] or outside. S/he is not interested in [...] Not worried about housing near future [facility] reports the following: Within the past 12 [...] Immunization: Respiratory Syncytial Virus (RSV) Vaccine: Refused [employer] (Abrysvo, RSVpreF vaccine). Immunization: RSV, BIVALENT, PROTEIN SUBUNIT RSVPREF, DILUENT RECONSTITUTED, 0.5 ML, PF Refusal Reason: PATIENT DECISION Patient refuses all immunization(s) in the RSV group Date Documented: 07/22/24 10:55 /deepika/ RM LYLES LPN PACT 10 Signed: 07/22/2024 10:55 RM LYLES [facility] Jul 22, 2024 06:21 AM PHYSICIAN NOTE: LOCAL TITLE: MD NOTE STANDARD TITLE: PHYSICIAN NOTE DATE OF NOTE: JUL 22, 2024@06:21 ENTRY DATE: JUL 22, 2024@06:21:28 AUTHOR: CANDE DOMINGUEZ EXP COSIGNER: URGENCY: STATUS: COMPLETED HISTORY OF PRESENT ILLNESS: ANANTH LOZA is a 74 yo MALE who [facility] for his annual visit. Pt maintains a non-VA PCP: Dr Greene. utilizes podiatry, pharmacy, and MH services at the AR. NonVA Providers: Urologist: Dr [employer] Tester: Dr Alexis Active problems - Computerized Problem [...] answered NKA HISTORY: PERIOD OF SERVICE - Sat[facility] FROM May TO Mar COMBAT SERVICE INDICATED: [...] use, size XL 6. PTSD: in the [place] 05/1967 - 03/1969, managed by 7. Colonoscopy Screening: managed by nonVA PCP FOLLOW UP 1 year - Annual - vet to bring PCP labs ========= UPCOMING APPOINTMENTS: 08/07/2024 08:00 CWM/SO/KATI/TALAT 09/23/2024 09:30 SPR PODIATRY 1 No barriers; Patient understands and [...] Remote Allergy/ADR Data available for this patient [facility] No Known Allergies Med Recon NoGlossary (Tool #1) INCLUDED IN THIS LIST: Alphabetical list of active outpatient prescriptions dispensed from this [place] (local) and dispensed from another [place] or [facility] facility (remote) as well as inpatient orders (local pending and active), local clinic medications, locally documented non-VA medications, and local prescriptions that have or been discontinued in the past 90 days. Non-VA Meds Last Documented On: Jul 24, 2021 NOTE The display of VA prescriptions dispensed from another AR or [facility] facility (remote) is limited to active outpatient prescription entries matched to National Drug File at the originating site and may not include some items such as investigational drugs, compounds, etc. NOT INCLUDED IN THIS LIST: Medications self-entered by the patient into personal health records (i.e. [employer]) are NOT included in this list. Non-VA medications documented outside this AR, remote inpatient orders (regardless of status) and remote clinic medications are NOT included in this list. The patient and provider must always discuss medications the patient is taking, regardless of where the medication was dispensed or obtained. ------ OUTPT LOSARTAN 25MG TAB (Status = Active) TAKE ONE TABLET BY MOUTH ONCE DAILY FOR BLOOD PRESSURE/HEART Rx# [id number] Last Released: 06/10/24 Qty/Days Supply: Rx Expiration Date: 09/05/24 Refills Remainin Indication: FOR HIGH BLOOD PRESSURE ------ SUPPLIES ------ OUTPT DEPEND UNDERWEAR,MAXIMUM,MEN X-LARGE (Status = Active) USE 1 BRIEF DIRECTED ONCE DAILY NEEDED FOR BLOWEL/BLADDER CARE Rx# [id number] Last Released: 12/17/23 Qty/Days Supply: Rx Expiration Date: 12/16/24 Refills Remainin Indication: FOR BLOWEL/BLADDER CARE /es/ CANDE DOMINGUEZ MD Primary Care Physician Signed: 07/22/2024 11:10 CANDE DOMINGUEZ [facility]
--- OUTSIDE RECORDS SUMMARY | 2024-09-21 12:43 | XMS_ITS | Encounter Summary ---
Author Name [facility] [facility] [place] Address [address] [place] [address] Care Team Providers Care Reverse Engineer Name Role Phone CANDE DOMINGUEZ Primary [...] PART B Apr 24, 2013 PART B [id number] IMELDA LOZA HN PATIENT MEDICARE (WNR) MEDICARE (M) PART A Apr 24, 2013 PART A [id number] IMELDA LOZA HN PATIENT MEDICARE (WNR) MEDICARE (M) PART A Apr 24, 2013 PART A [id number] [phone] [id number] IMELDA LOZA HN PATIENT MEDICARE (WNR) MEDICARE (M) PART B Apr 24, 2013 PART B [id number] IMELDA LOZA HN PATIENT [facility] [place] [facility] Jun 24, 2006 [id number] ISABELLA LOZA SPOUSE [employer] (OPT/PROF ) [place] [facility] Jun 24, 2006 [id number] ISABELLA LOZA SPOUSE [facility] [facility] (OPT/PROF ) [facility] * Apr 24, 2013 [id number] ISABELLA LOZA SPOUSE [facility] [employer] (OPT/PROF ) [facility] Jun 24, 2006 [id number] ISABELLA LOZA SPOUSE Selected Encounter This section includes the information on record at VA for the Encounter. Date/Time Encounter Type Encounter Description Reason Pro vider Source IHE Encounter Template Text not used by VA
--- OUTSIDE RECORDS SUMMARY | 2024-09-21 12:43 | XMS_ITS | Encounter Summary ---
Author Name [place] Address [address] [place] [id number] Care Team Providers Care Physicist Solid State Name Role Phone ALBERTOCANDE Primary Care Provider [...] PART B Apr 24, 2013 PART B [id number] IMELDA LOZA HN PATIENT MEDICARE (WNR) MEDICARE (M) PART A Apr 24, 2013 PART A [id number] MIELDA LOZA HN PATIENT MEDICARE (WNR) MEDICARE (M) PART A Apr 24, 2013 PART A [id number] IMELDA LOZA HN PATIENT MEDICARE (WNR) MEDICARE (M) PART B Apr 24, 2013 PART B [id number] IMELDA LOZA HN PATIENT [facility] [place] RE Jun 24, 2006 [id number] ISABELLA LOZA ENDOLYN SPOUSE [employer] EXPENSE (OPT/PROF ) [facility] Jun 24, 2006 [id number] ISABELLA LOZA SPOUSE [employer] (OPT/PROF ) [facility] * Apr 24, 2013 [id number] ISABELLA LOZA SPOUSE [employer] (OPT/PROF ) [facility] IND Jun 24, 2006 [id number] ISABELLA LOZA SPOUSE Selected Encounter This section includes the information on record at [place] for the Encounter. Date/Time Encounter Type Encounter Description Reason Provider Source May 27, 2024 11:00 AM PSYTX W PT 60 MINUTES [facility] - IND ICD-10-CM F32.A Depression, unspecified ELIF GILLILAND Encounter Template Text not used by [place] Assessments - Encounter Diagnoses This section includes the primary and secondary diagnoses documented for the Encounter. Date/Time Primary/Secondary Diagnosis Diagnosis Name Provider Source May 27, 2024 12:03 PM PRIMARY Depression, unspecELIF Shah May 27, 2024 12:03 PM SECONDARY Post-traumatic stress disorder, unspecified ELIF GILLILAND Plan of Treatment: Future Appointments (+ 6 months) and Future Tests (+/- 45 days) The Plan of Treatment section includes future care activities for the patient from all [place] treatmentfacilities. This section includes future appointments and [...] 29, 2024 09:30 AM [facility] Jul 03, 2024 09:00 AM AMBULATORY - [place] [facility] [place] [facility] Jul 22, 2024 10:30 AM AMBULATORY - MEDICINE [place] [facility] Aug 26, 2024 11:00 AM AMBULATORY - [place]ATRY [place] [facility] [place] [facility] Sep 09, 2024 10:00 AM AMBULATORY - [place]ATRY [place] [facility] [place] [facility] Sep 23, 2024 09:30 AM AMBULATORY - MEDICINE [facility] Nov 25, 2024 09:00 AM AMBULATORY - [place]IATRY [place] [facility] [place] [facility] Social History: Smoking Status (Most current) and Tobacco Use (All prior to encounter date) This section includes the most current, and the historical, smoking and tobacco- related health factors from the [facility] where the Encounter took place. Current Smoking Status This section includes the most current smoking, or tobacco-related health factor, from the [place] facility where the Encounter took place. Date/Time Current Smoking Status Comment George ity Jul 22, 2023 10:30 AM VA-TOBACCO FORMER USER [place] Tobacco Use History This section includes a history of the smoking, or tobacco-related health factors, that were collected on or before the date of the Encounter. The data comes from the [place] facility where the Encounter took place. Date/Time Smoking Status/Tobacco Use Comment F acility Jul 22, 2023 10:30 AM VA-TOBACCO QUIT 15 YRS OR MORE [facility] Jul 23, 2022 10:30 AM VA-TOBACCO FORMER USER [place] Jul 23, 2022 10:30 AM VA-TOBACCO QUIT 15 YRS OR MORE [place] Jun 07, 2021 11:00 AM VA-TOBACCO FORMER USER [place] Jun 07, 2021 11:00 AM VA-TOBACCO QUIT 15 YRS OR MORE [place] Jun 02, 2018 05:44 AM VA-TOBACCO FORMER USER [place] Jun 02, 2018 05:44 AM VA-TOBACCO QUIT 15 YRS OR MORE [place] May 14, 2017 08:31 AM QUIT TOBACCO USE > 7 YEARS AGO 25 years ago [facility] May 10, 2016 10:40 AM LIFETIME NON-TOBACCO USER [place] Aug 27, 2011 08:36 AM QUIT TOBACCO USE > 7 YEARS AGO Patient quit in 1999. [place] Encounter Notes: All associated encounter notes This section contains the clinical notes associated to the Encounter. Date/Time Encounter Note(s) Provider Source May 27, 2024 11:56 AM SOCIAL WORK NOTE: LOCAL TITLE: SOCIAL WORK NOTE STANDARD TITLE: SOCIAL WORK NOTE DATE OF NOTE: MAY 27, 2024@11:56 ENTRY DATE: MAY 27, 2024@11:56:58 AUTHOR: ELIF GILLILANDIGNER: CECY MOSCOSO URGENCY: STATUS: COMPLETED INFORMED CONSENT REVIEWED: At beginning of session reviewed rights and limits of confidentiality, mandatory reporting situations, duty to warn and protect, Diop Warning, (if treatment team finds patient to be an acute danger to himself or others, that this information could be relayed to a court of law and presented to a environmental resource specialist), and DOD access for active duty [...] getting over these humps sometimes. SESSION FOCUS: [place] reported continued struggle with having had prostate cancer. stated that he has noticed some reduction in his reactivity toward others but still feels a great deal of distress when thoughts of cancer emerge. [place] used BLS tappers as an introduction to the possibility of EMDR treatment. processed his feelings about having cancer with some affective moments, but generally remained in too much of a protected state to experience the maximum value of the tapping. [place] and Brand Director discussed doing the EMDR protocol formally in [...] weekly individual supervision meeting. /deepika/ ELIF GILLILAND DOCUMENTATION LIAISON Signed: 05/27/2024 12:03 /deepika/ [facility] Rn Labor Delivery Mental Health Cosigned: 05/28/2024 07:36 ELIF GILLILAND [place]
--- OUTSIDE RECORDS SUMMARY | 2024-09-21 12:43 | XMS_ITS | Encounter Summary ---
Author Name [facility] [place] Address [address] [place] [address] Care Team Providers Care Mandarin Speaking Nanny Name Role Phone ALBERTOCANDE Primary Care Provider [...] PART B Apr 24, 2013 PART B [id number] IMELDA LOZA HN PATIENT MEDICARE (WNR) MEDICARE (M) PART A Apr 24, 2013 PART A [id number] IMELDA LOZA HN PATIENT MEDICARE (WNR) MEDICARE (M) PART A Apr 24, 2013 PART A [id number] IMELDA LOZA HN PATIENT MEDICARE (WNR) MEDICARE (M) PART B Apr 24, 2013 PART B [id number] IMELDA LOZA HN PATIENT [facility] [place] RE Jun 24, 2006 [id number] [phone] ISABELLA LOZA ENDOLYN SPOUSE [employer] EXPENSE (OPT/PROF ) [facility] Jun 24, 2006 [id number] [phone] ISABELLA LOZA SPOUSE [facility] [facility] (OPT/PROF ) [facility] Apr 24, 2013 [id number] ISABELLA LOZA SPOUSE [employer] (OPT/PROF ) [facility] IND Jun 24, 2006 [id number] ISABELLA LOZA SPOUSE Selected Encounter This [...] AMBULATORY - [place]ATRY [place] [facility] [facility] May 27, 2024 11:00 AM AMBULATORY - [place]ATRY [place] [facility] [place] [facility] May 29, 2024 09:30 AM AMBULATORY - MEDICINE [place] [place] Jul 03, 2024 09:00 AM AMBULATORY - [place]IATRY [place] [facility] [place] [facility] Jul 22, 2024 10:30 AM AMBULATORY - MEDICINE [place] [facility] Aug 26, 2024 11:00 AM AMBULATORY - [place]IATRY [place] [facility] [place] [facility] Sep 09, 2024 10:00 AM AMBULATORY - [place]IATRY [place] [facility] [place] [facility] Sep 23, 2024 09:30 AM AMBULATORY - MEDICINE [facility] Social History: Smoking Status (Most [...] 22, 2023 10:30 AM VA-TOBACCO FORMER USER [place] Tobacco Use History This section includes a history of the smoking, or tobacco-related health factors, that were collected on or before the date of the Encounter. The data comes from the [place] facility where the Encounter took place. Date/Time Smoking Status/Tobacco Use Comment F acility Jul 22, 2023 10:30 AM VA-TOBACCO QUIT 15 YRS OR MORE [place] Jul 23, 2022 10:30 AM VA-TOBACCO FORMER USER [place] Jul 23, 2022 10:30 AM VA-TOBACCO QUIT 15 YRS OR MORE [place] Jun 07, 2021 11:00 AM VA-TOBACCO FORMER USER [place] Jun 07, 2021 11:00 AM VA-TOBACCO QUIT 15 YRS OR MORE [place] Jun 02, 2018 05:44 AM VA-TOBACCO FORMER USER [place] Jun 02, 2018 05:44 AM VA-TOBACCO QUIT 15 YRS OR MORE [place] May 14, 2017 08:31 AM QUIT TOBACCO USE > 7 YEARS AGO 25 years ago [place] May 10, 2016 10:40 AM LIFETIME NON-TOBACCO USER [place] Aug 27, 2011 08:36 AM QUIT TOBACCO USE > 7 YEARS AGO Patient quit in 1999. [place] Encounter Notes: All associated encounter notes This section contains the clinical notes associated to the Encounter. Date/Time Encounter Note(s) Provider Source Apr 15, 2024 11:46 AM SOCIAL WORK NOTE: LOCAL TITLE: SOCIAL WORK NOTE STANDARD TITLE: SOCIAL WORK NOTE DATE OF NOTE: APR 15, 2024@11:46 ENTRY DATE: APR 15, 2024@11:46:26 AUTHOR: ELFI GILLILANDIGNER: CECY MOSCOSO URGENCY: STATUS: COMPLETED INFORMED CONSENT REVIEWED: At beginning of session reviewed rights and limits of confidentiality, mandatory reporting situations, duty to warn and protect, Diop Warning, (if treatment team finds patient to be an acute danger to himself or others, that this information could be relayed to a court of law and presented to a servicer travel trailers), and DOD access for active duty service [...] getting over these humps sometimes. SESSION FOCUS: [place] reported continued struggle with having had prostate cancer. Although the cancer has been successfully treated, [place] states that he is finding himself in a depressive state on a frequent basis. said that his family members are noticing mood swings that he is often unaware of. 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 [place] said that he met people at his christian who were also treated for cancer and they compared experiences. [place] stated that this conversation was very helpful to him and felt relieving in many ways. [place] stated that he is aware that there [...] Denies current suicidal/homicidal ideation PLAN FOR FOLLOW-UP: [facility] March This case is supervised by [facility]. Diagnosis, treatment plan, and response to care are reviewed in standard 1-hour, or more, weekly individual supervision meeting. /deepika/ ELIF GILLILAND OIL TANKER CAPTAIN Signed: 04/15/2024 11:50 /es/ CECY MOSCOSO [facility] Control Supervisor Mental Health Cosigned: 04/15/2024 12:13 ELIF GILLILAND
--- OUTSIDE RECORDS SUMMARY | 2024-09-21 12:43 | XMS_ITS | Encounter Summary ---
Author Name [place] Address [address] [place] [address] Care Team Providers Care Machinist Bench Name Role Phone CANDE DOMINGUEZ Primary Care [...] PART A Apr 24, 2013 PART A [id number] IMELDA LOZA HN PATIENT MEDICARE (WNR) MEDICARE (M) PART B Apr 24, 2013 PART B [id number] IMELDA LOZA HN PATIENT MEDICARE (WNR) MEDICARE (M) PART A Apr 24, 2013 PART A [id number] IMELDA LOZA HN PATIENT MEDICARE (WNR) MEDICARE (M) PART B Apr 24, 2013 PART B [id number] IMELDA LOZA HN PATIENT [facility] [place] RE Jun 24, 2006 [id number] ISABELLA LOZA ENDOLYN SPOUSE [employer] EXPENSE (OPT/PROF ) [place] [facility] Jun 24, 2006 [id number] [phone] ISABELLA LOZA SPOUSE [employer] (OPT/PROF ) [facility] * Apr 24, 2013 [id number] ISABELLA LOZA SPOUSE [employer] (OPT/PROF ) [facility] Jun 24, 2006 [id number] ISABELLA LOZA SPOUSE Selected Encounter This section includes the information on record at [place] for the Encounter. Date/Time Encounter Type Encounter Description Reason Pro vider Source Sep 18, 2024 09:23 AM Outpatient Encounter PRIMARY CARE/MEDICINE [facility] Encounter Template Text not used by [place] Plan of Treatment: Future Appointments (+ 6 [...] Date/Time Appointment Type Appointme nt Facility Name Sep 23, 2024 09:30 AM AMBULATORY - MEDICINE [facility] [place] Nov 25, 2024 09:00 AM AMBULATORY - PSYCHIATRY [facility] Social History: Smoking Status (Most current) [...] Facil ity Jun 03, 2020 10:02 AM VA-TOBACCO FORMER USER [facility] Tobacco Use History This section includes a history of the smoking, or tobacco-related health factors, that were collected on or before the date of the Encounter. The data comes from the [place] facility where the Encounter took place. Date/Time Smoking Status/Tobacco Use Comment F acility Jun 03, 2020 10:02 AM [place]-TOBACCO QUIT 15 YRS OR MORE [facility] Encounter Notes: All associated encounter notes This section contains the clinical notes associated to the Encounter. Date/Time Encounter Note(s) Provider Source Sep 18, 2024 09:23 AM PRIMARY CARE NOTE: LOCAL TITLE: WALK-IN NOTE PRIMARY CARE (T) STANDARD TITLE: PRIMARY CARE NOTE DATE OF NOTE: SEP 18, 2024@09:23 ENTRY DATE: SEP 18, 2024@09:23:22 AUTHOR: NICHELLE KEVIN EXP COSIGNER: URGENCY: STATUS: COMPLETED WALK-IN NOTE PRIMARY CARE (T) Has ADDENDA <====Click to Start Advanced Medical Support presents to the Primary Care clinic with the following request: [ X ]Medication Renewal/Refill [ ]Consultation with Team RN [ ]Symptoms [ ]Other The [place] states they are: [ ]Waiting [ X ]Not Waiting No Walk in visit scheduled with PACT Nurse [ X ] At this encounter the [place]'s demographics were verified. [ X ] At this encounter the 's Insurance information was verified. [ X ] At this encounter the below scheduled visits for the [place] were discussed and appointment reminder card was offered. Future appointments: 09/23/2024 09:30 SPR PODIATRY 1 11/25/2024 09:00 SPR MHC SW 1 07/21/2025 10:00 SPR PACT 10 MD SEN [place] POTASSIUM TAB 25MG WILL MURAL PAINTER /deepika/ NICHELLE DE GUZMAN Signed: 09/18/2024 09:23 Receipt Acknowledged By: 09/18/2024 09:48 /jackson LYLES LPN PACT 10 for TRAV RAMEY 09/18/2024 09:46 /jackson LLYES LPN PACT 10 09/18/2024 ADDENDUM STATUS: COMPLETED Will have Vet call outside PCP for a new script. /jackson LYLES LPN PACT 10 Signed: 09/18/2024 09:46 NICHELLE KEVIN
--- OUTSIDE RECORDS SUMMARY | 2024-09-21 12:43 | XMS_ITS | Encounter Summary ---
Author Name [facility] [place] Address [address] [place] [address] Care Team Providers Care Synthetic Resin Operator Name Role Phone ALBERTOCANDE Primary Care [...] PART B Apr 24, 2013 PART B [id number] IMELDA LOZA HN PATIENT MEDICARE (WNR) MEDICARE (M) PART A Apr 24, 2013 PART A [id number] IMELDA LOZA HN PATIENT MEDICARE (WNR) MEDICARE (M) PART A Apr 24, 2013 PART A [id number] IMELDA LOZA HN PATIENT MEDICARE (WNR) MEDICARE (M) PART B Apr 24, 2013 PART B [id number] IMELDA LOZA HN PATIENT [facility] [place] RE Jun 24, 2006 [id number] ISABELLA LOZA ENDOLYN SPOUSE [employer] (OPT/PROF ) [facility] Jun 24, 2006 [id number] [phone] ISABELLA LOZA SPOUSE [employer] (OPT/PROF ) [facility] * Apr 24, 2013 [id number] ISABELLA LOZA SPOUSE [employer] (OPT/PROF ) [facility] Jun 24, 2006 [id number] ISABELLA LOZA SPOUSE Selected Encounter This section includes the information on record at [place] for the Encounter. Date/Time Encounter Type Encounter Description Reason Provider Source Jul 03, 2024 09:00 AM PSYTX W PT 60 MINUTES [facility] - IND ICD-10-CM F32.A Depression, unspecified ELIF GILLILAND Encounter Template Text not used by [place] Assessments - Encounter Diagnoses This section includes the primary and secondary diagnoses documented for the Encounter. Date/Time Primary/Secondary Diagnosis Diagnosis Name Provider Source Jul 03, 2024 01:01 PM PRIMARY Depression, unspecELIF Shah Jul 03, 2024 01:01 PM SECONDARY Post-traumatic stress disorder, unspecified ELIF GILLILAND Plan of Treatment: Future Appointments (+ 6 months) and Future Tests (+/- 45 days) The Plan of Treatment section includes future care activities for the patient from all [place] treatmentfacilities. This section includes future appointments and future orders which are active, pending or scheduled. Future Appointments This section includes appointments that were scheduled to occur 6 months from the date of the Encounter, up to a maximum of 20 appointments. The data comes from all [place] treatment facilities. Appointment Date/Time Appointment Type Appointme nt Facility Name Jul 22, 2024 10:30 AM AMBULATORY - MEDICINE [place] [facility] Aug 26, 2024 11:00 AM [facility] Sep 09, 2024 10:00 AM AMBULATORY - [facility]IATRY [place] [facility] Sep 23, 2024 09:30 AM AMBULATORY - MEDICINE [facility] Nov 25, 2024 09:00 AM [facility] Social History: Smoking Status (Most current) and Tobacco Use (All prior to encounter date) This section includes the most current, and the historical, smoking and tobacco- related health factors from the [facility] where the Encounter took place. Current Smoking Status This section includes the most current smoking, or tobacco-related health factor, from the [facility] where the Encounter took place. Date/Time Current Smoking Status Comment Geogre mclaughlin Jul 22, 2023 10:30 AM VA-TOBACCO FORMER USER [place] Tobacco Use History This section includes a history of the smoking, or tobacco-related health factors, that were collected on or before the date of the Encounter. The data comes from the [facility] where the Encounter took place. Date/Time Smoking Status/Tobacco Use Comment F acility Jul 22, 2023 10:30 AM VA-TOBACCO QUIT 15 YRS OR MORE [place] Jul 23, 2022 10:30 AM VA-TOBACCO FORMER USER [place] Jul 23, 2022 10:30 AM VA-TOBACCO QUIT 15 YRS OR MORE [place] Jun 07, 2021 11:00 AM VA-TOBACCO FORMER USER [place] Jun 07, 2021 11:00 AM VA-TOBACCO QUIT 15 YRS OR MORE [place] Jun 02, 2018 05:44 AM VA-TOBACCO FORMER USER [place] Jun 02, 2018 05:44 AM VA-TOBACCO QUIT 15 YRS OR MORE [place] May 14, 2017 08:31 AM QUIT TOBACCO USE > 7 YEARS AGO 25 years ago [place] May 10, 2016 10:40 AM LIFETIME NON-TOBACCO USER [place] Aug 27, 2011 08:36 AM QUIT TOBACCO USE > 7 YEARS AGO Patient quit in 1999. [place] Encounter Notes: All associated encounter notes This section contains the clinical notes associated to the Encounter. Date/Time Encounter Note(s) Provider Source Jul 03, 2024 09:52 AM SOCIAL WORK NOTE: LOCAL TITLE: SOCIAL WORK NOTE STANDARD TITLE: SOCIAL WORK NOTE DATE OF NOTE: JUL 03, 2024@09:52 ENTRY DATE: JUL 03, 2024@09:52:56 AUTHOR: ELIF GILLILAND EXP COSIGNER: CECY MOSCOSO URGENCY: STATUS: COMPLETED INFORMED CONSENT REVIEWED: At beginning of session reviewed rights and limits of confidentiality, mandatory reporting situations, duty to warn and protect, Diop Warning, (if treatment team finds patient to be an acute danger to himself or others, that this information could be relayed to a court of law and presented to a turbine inspector), and DOD access for active duty service members. Provided Suicide Prevention Hotline number, and other contact numbers as necessary. VISIT DURATION 60 minutes DIAGNOSES: Depression, PTSD, unspec VETERANS STATEMENT OF GOALS/CONCERNS: I [...] these humps sometimes. SESSION FOCUS: reported a positive experience on a vacation cruise that he took with his family. [place] described meeting several other Veterans aboard and connecting with them about experiences as an , as a [place], and as a cancer survivor. [place] stated that he felt very positive and supported by these people and he feels he would benefit from group therapy more than individual therapy. Shear Setter will inquire about PTSD FTF group at clinic. INTERVENTIONS: Psychotherapeutic Interventions: Active listening, validating Psychoeducation [...] Denies current suicidal/homicidal ideation PLAN FOR FOLLOW-UP: Monthly. inquired about FTF PTSD group. Shear Setter will follow up. This case is supervised by [facility]. Diagnosis, treatment plan, and response to care are reviewed in standard 1-hour, or more, weekly individual supervision meeting. Suicide Screen: C-SSRS Screening [place]-Suicide Severity Rating Scale (C-SSRS Screener) 1. Over the past month, have you [...] required due to responses to other questions. /deepika/ ELIF GILLILADN FLOOR REFINISHER Signed: 07/03/2024 13:02 /deepika/ [facility] First Coat Sander Mental Health Cosigned: 07/03/2024 14:57 ELIF GILLILANDFIELD
--- OUTSIDE RECORDS SUMMARY | 2024-09-21 12:44 | XMS_ITS | Encounter Summary ---
Author Name [facility] [place] [facility] [place] Address [address] [place] [id number] Care Team Providers Care Alley Cleaner Name Role Phone ALBERTOCANDE Primary Care Provider [...] PART A Apr 24, 2013 PART A [id number] IMELDA LOZA HN PATIENT MEDICARE (WNR) MEDICARE (M) PART B Apr 24, 2013 PART B [id number] IMELDA LOZA HN PATIENT MEDICARE (WNR) MEDICARE (M) PART B Apr 24, 2013 PART B [id number] [id number] IMELDA LOZA HN PATIENT MEDICARE (WNR) MEDICARE (M) PART A Apr 24, 2013 PART A [id number] IMELDA LOZA HN PATIENT [facility] [place] RE Jun 24, 2006 [id number] [phone] ISABELLA LOZA ENDOLYN SPOUSE [employer]PENSE (OPT/PROF ) [facility] Jun 24, 2006 [id number] ISABELLA LOZA SPOUSE [facility] (OPT/PROF ) [facility] * Apr 24, 2013 [id number] ISABELLA LOZA SPOUSE [employer] (OPT/PROF ) [facility] Jun 24, 2006 [id number] ISABELLA LOZA SPOUSE Selected Encounter This section includes the information on record at [place] for the Encounter. Date/Time Encounter Type Encounter Description Reason Provider Source Oct 16, 2023 09:00 AM PSYTX W PT 60 MINUTES [facility] - IND ICD-10-CM F43.10 Post-traumatic stress disorder, unspecified ELIF GILLILAND Adriane Encounter Template Text not used by [place] Assessments - Encounter Diagnoses This section includes the primary and secondary diagnoses documented for the Encounter. Date/Time Primary/Secondary Diagnosis Diagnosis Name Provider Source Oct 16, 2023 10:05 AM PRIMARY Post-traumatic stress disorder, unspecified ELIF GILLILAND [place] Plan of Treatment: Future Appointments (+ 6 months) and Future Tests (+/- 45 days) The Plan of Treatment section includes future care activities for the patient from all [place] treatmentfacilities. This section includes future appointments and future orders which are active, pending or scheduled. Future Appointments This section includes appointments that were scheduled to occur 6 months from the date of the Encounter, up to a maximum of 20 appointments. The data comes from all [place] treatment facilities. Appointment Date/Time Appointment Type Appointme nt Facility Name November 04, 2023 11:00 AM [facility] Dec 04, 2023 10:00 AM AMBULATORY - [place]IATRY [place] [facility] [place] [facility] Dec 16, 2023 09:00 AM AMBULATORY - MEDICINE [place] [facility] [place] [facility] Dec 18, 2023 01:00 PM AMBULATORY - PSYCHIATRY [place] [facility] [place] [facility] Mar 04, 2024 09:00 AM AMBULATORY - PSYCHIATRY [place] [facility] [place] [facility] Apr 15, 2024 10:00 AM AMBULATORY - PSYCHIATRY [place] [facility] [place] [facility] Social History: Smoking Status (Most current) and Tobacco Use (All prior to encounter date) This section includes the most current, and the historical, smoking and tobacco- related health factors from the [facility] where the Encounter took place. Current Smoking Status This section includes the most current smoking, or tobacco-related health factor, from the [facility] where the Encounter took place. Date/Time Current Smoking Status Comment George ity Jul 22, 2023 10:30 AM VA-TOBACCO QUIT 15 YRS OR MORE [place] Tobacco Use History This section includes a history of the smoking, or tobacco-related health factors, that were collected on or before the date of the Encounter. The data comes from the [facility] where the Encounter took place. Date/Time Smoking Status/Tobacco Use Comment F acility Jul 22, 2023 10:30 AM VA-TOBACCO QUIT 15 YRS OR MORE [place] Jul 23, 2022 10:30 AM VA-TOBACCO FORMER USER [place] Jul 23, 2022 10:30 AM VA-TOBACCO QUIT 15 YRS OR MORE [place] Jun 07, 2021 11:00 AM VA-TOBACCO FORMER USER [place] Jun 07, 2021 11:00 AM VA-TOBACCO QUIT 15 YRS OR MORE [place] Jun 02, 2018 05:44 AM VA-TOBACCO FORMER USER [place] Jun 02, 2018 05:44 AM VA-TOBACCO QUIT 15 YRS OR MORE [place] May 14, 2017 08:31 AM QUIT TOBACCO USE > 7 YEARS AGO 25 years ago [place] May 10, 2016 10:40 AM LIFETIME NON-TOBACCO USER [place] Aug 27, 2011 08:36 AM QUIT TOBACCO USE > 7 YEARS AGO Patient quit in 1999. 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 SESSION FOCUS: [place] reports his last six months have been generally positive however he was diagnosed with colon cancer and went through radiation treatment. [place] said the treatment was successful and painless. [place] noted that this event brought about many thoughts about his life, especially the racist experiences that he's had both in and out of the . [place] talked about some specific racist experiences and his thoughts about whether or not he should have reacted more violently to the injustices. On balance, [place] stated that he is glad that he did not resort to violence in the face of racism but he acknowledges that sometimes he feels a desire to encounter certain perpetrators again so he can express to them his anger at being treated unfairly. will return to clinic in April 2024. [...] weekly individual supervision meeting. /deepika/ ELIF GILLILAND [employer] Signed: 10/16/2023 10:06 /deepika/ [facility] [employer] Mental Health Cosigned: 10/16/2023 11:59 ELIF GILLILAND
--- OUTSIDE RECORDS SUMMARY | 2024-09-21 12:44 | XMS_ITS | Clinical Summary ---
Author Organization [facility] [address] [facility] Address [address] [place] [address] Phone Care Team Providers Care Street Commissioner Name Role Phone Tor Greene MD Primary Care Provider [phone] Social History Tobacco Use Types Packs/Day Years Used Date Smoking Tobacco: Never Assessed Sex and Gender Information Value Date Recorded Sex Assigned at Not on file Legal Sex Male 12:36 AM EST Gender Identity Not on file Sexual Orientation Not on file Obstetrics History Last Filed Vital Signs Vital Sign Reading Time Taken Comments Blood Pressure 122/78 11/15/2021 5:36 PM EDT L A rm Pulse 98 11/15/2021 5:36 PM EDT Temperature - - Respiratory Rate - - Oxygen Saturation - - Inhaled Oxygen Concentration - - Weight - - Height - - Body Mass Index - - Plan of Treatment Health Maintenance Due Date Last Done Comments DTaP,Tdap,and Td Vaccines (1 - Tdap) 1967 Pneumococcal Vaccine: 50+ Years (1 of 1 - PCV) 1998 Zoster Vaccines (1 of 2) 1998 Cholesterol Screening (Lipid Panel) 05/27/2022 Depression Screening 05/27/2022 Falls Risk Assessment 05/27/2022 Hepatitis C Screening 05/27/2022 Medicare Annual Wellness Visit 05/27/2022 Social Influencers of Health Screening 05/27/2022 RSV Immunization Patients 60 + Years Old (1 - 1-dose 75+ series) 2023 COVID-19 Vaccine ( - 2023-2 5 season) 2024 Influenza Vaccine (#1) 2024 Colorectal Cancer Screening: Colonoscopy Discontinued 07/27/2024, 06/30/2018 HIB Vaccines Aged Out No longer eligi ble based on patient's age to complete this topic HPV Vaccines Aged Out No longer eligi ble based on patient's age to complete this topic Hepatitis A Vaccines Aged Out No long er eligible based on patient's age to complete this topic Hepatitis B Vaccines Aged Out No long er eligible based on patient's age to complete this topic IPV Vaccines Aged Out No longer eligi ble based on patient's age to complete this topic MMR Vaccines Aged Out No longer eligi ble based on patient's age to complete this topic Meningococcal ACWY Vaccine Aged Out N o longer eligible based on patient's age to complete this topic Meningococcal B Vacine Aged Out No lo nger eligible based on patient's age to complete this topic RSV Immunization Patients Under 20 months Aged Out No longer eligible based on patient's age to complete this topic Varicella Vaccines Aged Out No longer eligible based on patient's age to complete this topic Procedures Procedure Name Priority Date/Time Associated Diagnosis Comments EXTERNAL COLONOSCOPY REPORT Routine 07/27/2024 3:45 PM EST from Last 3 Months Results * External Colonoscopy Report (07/27/2024 3:45 PM EST) Anatomical Region Laterality Modality Endoscopy Historical Provider GI~PROCEDURE ORDERABLES F inal Result from Last 3 Months Insurance MEDICARE [facility] [place] [id number] Commissioner Relationship Specialty Start Date End Date Tor Greene MD [address] [place] [id number] PCP - General Internal Medicine 05/22/24
--- OUTSIDE RECORDS SUMMARY | 2024-09-21 12:44 | XMS_ITS | Encounter Summary ---
Author Name [facility] [place] [facility] [place] Organization [facility] [place] [facility] [place] Address [address] [place] [address] Care Team Providers Care Supervisor [employer] Name Role Phone ALBERTOCANDE Primary Care Provider [...] PART B Apr 24, 2013 PART B [id number] IMELDA LOZA HN PATIENT MEDICARE (WNR) MEDICARE (M) PART A Apr 24, 2013 PART A [id number] IMELDA LOZA HN PATIENT MEDICARE (WNR) MEDICARE (M) PART A Apr 24, 2013 PART A [id number] IMELDA LOZA HN PATIENT MEDICARE (WNR) MEDICARE (M) PART B Apr 24, 2013 PART B [id number] IMELDA LOZA HN PATIENT [facility] [place] RE Jun 24, 2006 [id number] ISABELLA LOZA ENDOLYN SPOUSE [employer] MEDICAL EXPENSE (OPT/PROF ) [place] [facility] Jun 24, 2006 [id number] ISABELLA LOZA SPOUSE [facility] [employer] (OPT/PROF ) [facility] * Apr 24, 2013 [id number] ISABELLA LOZA SPOUSE [employer] (OPT/PROF ) [facility] Jun 24, 2006 [id number] ISABELLA LOZA SPOUSE Selected Encounter This section includes the information on record at [place] for the Encounter. Date/Time Encounter Type Encounter Description Reason Provider Source May 29, 2024 09:30 AM OFFICE O/P EST LOW 20 MIN PODIATRY ICD-10-CM L60.0 Ingrowing nail NEHA WATKINS Adriane Encounter Template Text not used by [place] Assessments - Encounter Diagnoses This section includes the primary and secondary diagnoses documented for the Encounter. Date/Time Primary/Secondary Diagnosis Diagnosis Name Provider Source Jun 30, 2024 12:56 PM PRIMARY Ingrowing nail NEHA WATKINS Jun 30, 2024 12:56 PM SECONDARY Pain in left toe(s) NEHA WATKINS Jun 30, 2024 12:56 PM SECONDARY Pain in right toe(s) NEHA WATKINS Jun 30, 2024 12:56 PM SECONDARY Peripheral vascular disease, unspecified NEHA WATKINS Plan of Treatment: Future Appointments (+ 6 months) and Future Tests (+/- 45 days) The Plan of Treatment section includes future care activities for the patient from all [place] treatmentfacilities. This section includes future appointments and future orders which are active, pending or scheduled. Future Appointments This section includes appointments that were scheduled to occur 6 months from the date of the Encounter, up to a maximum of 20 appointments. The data comes from all [place] treatment facilities. Appointment Date/Time Appointment Type Appointme nt Facility Name Jul 03, 2024 09:00 AM AMBULATORY - PSYCHIATRY [place] [facility] [place] [facility] Jul 22, 2024 10:30 AM AMBULATORY - MEDICINE [place] [facility] [place] [facility] Aug 26, 2024 11:00 AM AMBULATORY - PSYCHIATRY [place] [facility] [place] [facility] Sep 09, 2024 10:00 AM AMBULATORY - PSYCHIATRY [place] [facility] [place] [facility] Sep 23, 2024 09:30 AM AMBULATORY - MEDICINE [facility] 04, 2025 09:00 AM AMBULATORY - PSYCHIATRY [facility] [place] [facility] Social History: Smoking Status (Most current) and Tobacco Use (All prior to encounter date) This section includes the most current, and the historical, smoking and tobacco- related health factors from the [place] facility where the Encounter took place. Current Smoking Status This section includes the most current smoking, or tobacco-related health factor, from the [place] facility where the Encounter took place. Date/Time Current Smoking Status Comment Facil ity Jul 22, 2023 10:30 AM VA-TOBACCO FORMER USER [place] Tobacco Use History This section includes a history of the smoking, or tobacco-related health factors, that were collected on or before the date of the Encounter. The data comes from the [place] facility where the Encounter took place. Date/Time Smoking Status/Tobacco Use Comment F acility Jul 22, 2023 10:30 AM VA-TOBACCO QUIT 15 YRS OR MORE [place] Jul 23, 2022 10:30 AM VA-TOBACCO FORMER USER [place] Jul 23, 2022 10:30 AM VA-TOBACCO QUIT 15 YRS OR MORE [place] Jun 07, 2021 11:00 AM VA-TOBACCO FORMER USER [place] Jun 07, 2021 11:00 AM VA-TOBACCO QUIT 15 YRS OR MORE [place] Jun 02, 2018 05:44 AM VA-TOBACCO FORMER USER [place] Jun 02, 2018 05:44 AM VA-TOBACCO QUIT 15 YRS OR MORE [place] May 14, 2017 08:31 AM QUIT TOBACCO USE > 7 YEARS AGO 25 years ago [place] May 10, 2016 10:40 AM LIFETIME NON-TOBACCO USER [place] Aug 27, 2011 08:36 AM QUIT TOBACCO USE > 7 YEARS AGO Patient quit in 1999. [place] Encounter Notes: All associated encounter notes This [...] BOTH COVID VACCINE DOSES + BOOSTER AT [facility] S: Pt. is a 74 yo alert [...] present physical-medical status. Protective sensation utilizing a [place] lOg monofilament is 0/10 bilateral. BIOMECHANICAL: Exam [...] Remote Allergy/ADR Data available for this patient [place] [facility] [place] [facility] No Known Allergies Med [facility] (Tool #1) INCLUDED IN THIS LIST: Alphabetical [...] the patient into personal health records (i.e. [employer]) are NOT included in this list. Non-VA medications documented outside this [place], remote inpatient orders (regardless of status) and [...] MOUTH ONCE DAILY FOR BLOOD PRESSURE/HEART Rx# [id number] Last Released: 03/17/24 Qty/Days Supply: Rx Expiration Date: 09/05/24 Refills Remainin Indication: FOR HIGH BLOOD PRESSURE SUPPLIES OUTPT DEPEND UNDERWEAR,MAXIMUM,MEN X-LARGE (Status = Active) USE 1 BRIEF DIRECTED ONCE DAILY NEEDED FOR BLOWEL/BLADDER CARE Rx# [id number] Last Released: 12/17/23 Qty/Days Supply: Rx Expiration Date: 12/16/24 Refills Remainin Indication: FOR BLOWEL/BLADDER CARE /es/ NEHA WATKINS DPM [employer]ST[employer] ELASTIC ATTACHER Signed: 05/29/2024 09:59 NEHA WATKINS [place]
--- OUTSIDE RECORDS SUMMARY | 2024-09-21 12:44 | XMS_ITS | Encounter Summary ---
Author Name [facility] [place] Address [address] [place] [address] Care Team Providers Care Community Development Specialist Name Role Phone ALBERTOCANDE Primary Care Provider [...] PART A Apr 24, 2013 PART A [id number] IMELDA LOZA HN PATIENT MEDICARE (WNR) MEDICARE (M) PART B Apr 24, 2013 PART B [id number] IMELDA LOZA HN PATIENT MEDICARE (WNR) MEDICARE (M) PART A Apr 24, 2013 PART A [id number] IMELDA LOZA HN PATIENT MEDICARE (WNR) MEDICARE (M) PART B Apr 24, 2013 PART B [id number] IMELDA LOZA HN PATIENT [facility] [place] RE Jun 24, 2006 [id number] [phone] ISABELLA LOZA ENDOLYN SPOUSE [employer] MEDICAL EXPENSE (OPT/PROF ) [facility] [facility] Jun 24, 2006 [id number] ISABELLA LOZA SPOUSE [employer] (OPT/PROF ) [facility] * Apr 24, 2013 [id number] ISABELLA LOZA SPOUSE [employer] EXPENSE (OPT/PROF ) [facility] Jun 24, 2006 [id number] ISABELLA LOZA SPOUSE Selected Encounter This section includes the information on record at [place] for the Encounter. Date/Time Encounter Type Encounter Description Reason Provider Source Dec 16, 2023 09:00 AM OFFICE O/P EST LOW 20 MIN PRIMARY CARE/MEDICINE ICD-10-CM R32 Unspecified urinary incontinence CANDE DOMINGUEZ Adriane Encounter Template Text not used by [place] Assessments - Encounter Diagnoses This section includes the primary and secondary diagnoses documented for the Encounter. Date/Time Primary/Secondary Diagnosis Diagnosis Name Provider Source Jan 09, 2024 01:20 PM PRIMARY Unspecified urinary incontinence CANDE DOMINGUEZ [place] Plan of Treatment: Future Appointments (+ 6 months) and Future Tests (+/- 45 days) The Plan of Treatment section includes future care activities for the [facility] [place] [facility] This section includes future appointments and future orders which are active, pending or scheduled. Future Appointments This section includes appointments that were scheduled to occur 6 months from the date of the Encounter, up to a maximum of 20 appointments. The data comes from all [place] treatment facilities. Appointment Date/Time Appointment Type Appointme nt Facility Name Dec 18, 2023 01:00 PM [facility] Mar 04, 2024 09:00 AM [facility] Apr 15, 2024 10[facility]00 AM [facility] May 06, 2024 10:00 AM [facility] May 27, 2024 11:00 AM [facility] May 29, 2024 09:30 AM [...] smoking, or tobacco-related health factor, from the [facility] where the Encounter took place. Date/Time Current Smoking Status Comment George ity Jul 22, 2023 10:30 AM VA-TOBACCO QUIT 15 YRS OR MORE [place] Tobacco Use History This section includes a history of the smoking, or tobacco-related health factors, that were collected on or before the date of the Encounter. The data comes from the [facility] where the Encounter took place. Date/Time Smoking Status/Tobacco Use Comment F acility Jul 22, 2023 10:30 AM VA-TOBACCO QUIT 15 YRS OR MORE [place] Jul 23, 2022 10:30 AM VA-TOBACCO FORMER USER [place] Jul 23, 2022 10:30 AM VA-TOBACCO QUIT 15 YRS OR MORE [place] Jun 07, 2021 11:00 AM VA-TOBACCO FORMER USER [place] Jun 07, 2021 11:00 AM VA-TOBACCO QUIT 15 YRS OR MORE [place] Jun 02, 2018 05:44 AM VA-TOBACCO FORMER USER [place] Jun 02, 2018 05:44 AM VA-TOBACCO QUIT 15 YRS OR MORE [place] May 14, 2017 08:31 AM QUIT TOBACCO USE > 7 YEARS AGO 25 years ago [place] May 10, 2016 10:40 AM LIFETIME NON-TOBACCO USER [place] Aug 27, 2011 08:36 AM QUIT TOBACCO USE > 7 YEARS AGO Patient quit in 1999. [place] Encounter Notes: All associated encounter notes This section contains the clinical notes associated to the Encounter. Date/Time Encounter Note(s) Provider Source Dec 16, 2023 09:14 AM PREVENTIVE MEDICIN E NURSING NOTE: LOCAL TITLE: CLINICAL REMINDERS/NURSING STANDARD TITLE: PREVENTIVE MEDICINE NURSING NOTE DATE OF NOTE: DEC 16, 2023@09:14 ENTRY DATE: DEC 16, 2023@09:14:50 AUTHOR: RM LYLES COSIGNER: URGENCY: STATUS: COMPLETED Pneumococcal Conjugate Vaccine [...] full rights to use it throughout the [place] system. PRIMARY SCREEN RESULT: The Primary Screen [...] 2023 05:32 AM PHYSICIAN NOTE: LOCAL TITLE: NOTE STANDARD TITLE: PHYSICIAN NOTE DATE OF NOTE: DEC 16, 2023@05:32 ENTRY DATE: DEC 16, 2023@05:32:25 AUTHOR: CANDE DOMINGUEZ EXP COSIGNER: URGENCY: STATUS: COMPLETED HISTORY OF PRESENT ILLNESS: ANANTH LOZA, is a 73 yo MALE [place], who presents at the [facility] to discuss his prostate cancer. He has been having incontinence on occassion, a couple times a week. He is requesting liners to prevent leakage when he goes out. Pt maintains a non-VA PCP: Dr Greene. utilizes podiatry, pharmacy, and MH services at the [place]. NonVA Providers: Urologist: Dr Kaiser Rn Pediatric Icu: Dr Alexis Active problems - Computerized Problem [...] answered NKA HISTORY: PERIOD OF SERVICE - [employer] FROM May TO Mar COMBAT SERVICE INDICATED: [...] Remote Allergy/ADR Data available for this patient [place] [facility] [place] [facility] No Known Allergies Med Recon NoGlossary (Tool #1) INCLUDED IN THIS LIST: Alphabetical list of active outpatient prescriptions dispensed from this [place] (local) and dispensed from another VA or [...] the patient into personal health records (i.e. [employer]) are NOT included in this list. Non-VA medications documented outside this [place], remote inpatient orders (regardless of status) and [...] MOUTH ONCE DAILY FOR BLOOD PRESSURE/HEART Rx# [id number] Last Released: 09/07/23 Qty/Days Supply: Rx Expiration Date: 09/05/24 Refills Remainin Indication: FOR HIGH BLOOD PRESSURE ------ SUPPLIES ------ /deepika/ CANDE DOMINGUEZ MD Primary Care Physician Signed: 12/16/2023 09:33 CANDE DOMINGUEZ
--- OUTSIDE RECORDS SUMMARY | 2024-09-21 12:44 | XMS_ITS | Encounter Summary ---
Author Name [facility] [place] [facility] [place] Address [address] [place] [id number] Care Team Providers Care Quill Machine Operator Name Role Phone CANDE DOMINGUEZ [...] PART A Apr 24, 2013 PART A [id number] DAGOIMELDA HN PATIENT MEDICARE (WNR) MEDICARE (M) PART B Apr 24, 2013 PART B [id number] DAGOIMELDA HN PATIENT MEDICARE (WNR) MEDICARE (M) PART A Apr 24, 2013 PART A [id number] [phone] [id number] DAGOIMELDA HN PATIENT MEDICARE (WNR) MEDICARE (M) PART B Apr 24, 2013 PART B [id number] DAGOIMELDA HN PATIENT [facility] [place] RE Jun 24, 2006 [id number] [phone] ISABELLA LOZA ENDOLYN SPOUSE [employer] (OPT/PROF ) [place] [facility] Jun 24, 2006 [id number] ISABELLA LOZA SPOUSE [employer] (OPT/PROF ) NELLY [facility] * Apr 24, 2013 [id number] ISABELLA LOZA SPOUSE [employer] (OPT/PROF ) [facility] IND Jun 24, 2006 [id number] ISABELLA LOZA SPOUSE Selected Encounter This section includes the information on record at [place] for the Encounter. Date/Time Encounter Type Encounter Description Reason Provider Source Sep 18, 2024 01:20 PM NQHP OL DIG ASSMT&MGMT 5-10 CLINICAL PHARMACY ICD-10-CM I11.9 Hypertensive heart disease without heart failure RATNA LANGFORD [facility] Encounter Template Text not used by [place] Assessments - Encounter Diagnoses This section includes the primary and secondary diagnoses documented for the Encounter. Date/Time Primary/Secondary Diagnosis Diagnosis Name Provider Source Sep 18, 2024 01:21 PM PRIMARY Hypertensive heart disease without heart failure RATNA LANGFORD [facility] Plan of Treatment: Future Appointments (+ 6 months) and Future Tests (+/- 45 days) The Plan of Treatment section includes future care activities for the patient from all [place] treatmentfacilities. This section includes future appointments and future orders which are active, pending or scheduled. Future Appointments This section includes appointments that were scheduled to occur 6 months from the date of the Encounter, up to a maximum of 20 appointments. The data comes from all [place] treatment facilities. Appointment Date/Time Appointment Type Appointme nt Facility Name Sep 23, 2024 09:30 AM AMBULATORY - MEDICINE [facility] Nov 25, 2024 09:00 AM AMBULATORY - PSYCHIATRY [facility] Social History: Smoking Status (Most current) and Tobacco Use (All prior to encounter date) This section includes the most current, and the historical, smoking and tobacco- related health factors from the [facility] facility where the Encounter took place. Current Smoking Status This section includes the most current smoking, or tobacco-related health factor, from the [place] facility where the Encounter took place. Date/Time Current Smoking Status Willy mclaughlin Jun 03, 2020 10:02 AM VA-TOBACCO FORMER USER [facility] Tobacco Use History This section includes a history of the smoking, or tobacco-related health factors, that were collected on or before the date of the Encounter. The data comes from the [place] facility where the Encounter took place. Date/Time Smoking Status/Tobacco Use Comment F acility Jun 03, 2020 10:02 AM VA-TOBACCO QUIT 15 YRS OR MORE [facility] Encounter Notes: All associated encounter notes This section contains the clinical notes associated to the Encounter. Date/Time Encounter Note(s) Provider Source Sep 18, 2024 01:20 PM PHARMACY OUTPATIEN T MEDICATION MGT NOTE: LOCAL TITLE: [facility] PRESCRIPTION NOTE STANDARD TITLE: PHARMACY OUTPATIENT MEDICATION MGT NOTE DATE OF NOTE: SEP 18, 2024@13:20 ENTRY DATE: SEP 18, 2024@13:20:47 AUTHOR: LINA LANGFORD COSIGNER: URGENCY: STATUS: COMPLETED Pharmacy has received a [facility] prescription. The prescription below CANNOT BE FILLED due to the absence of an active consult. PRESCRIPTIONS HAVE BEEN DISPOSED OF APPROPRIATELY BASED ON ROUTE RECEIVED, FOLLOWING LOCAL AND FEDERAL GUIDELINES. IF PRESCRIPTION IS NEEDED, PLEASE CONTACT PROVIDER/OFFICE LISTED. PHARMACY NO LONGER HAS PRESCRIPTION(S) AND ARE UNABLE TO PROVIDE. eRx Drug: losartan 25 mg tablet [facility]: [id number] Written Date: SEP 18, 2024@16:44:52 Issue Date: Qty: 90 Days Supply: 90 Refills: 3 eRx Si mg orally bedtime Name: ROXANNE MCGOVERN Clinic: [facility] Address: [address] [place] [address] EVAN: [id number] [facility] Lic: [id number] Primary Phone: [phone] Fax: [phone] Please re-write the above prescription for the OR input a new consult. IF A NEW CONSULT IS PLACED PLEASE: 1. Reach out to the to have them get a new prescription, OR 2. Call the community care provider's office directly for them to resend Thank you /deepika/ LINA LANGFORD PHARMD. [facility] Clinical Pharmacist Signed: 09/18/2024 13:21 Receipt Acknowledged By: 09/18/2024 14:22 /deepika/ RM LYLES LPN PACT 10 for TRAV RAMEY 09/18/2024 14:22 /es/ CANDE DOMINGUEZ MD Primary Care Physician [facility]INA LANGFORD [facility]
--- OUTSIDE RECORDS SUMMARY | 2024-09-21 12:44 | XMS_ITS | Encounter Summary ---
Author Name [facility] [place] Address [address] [place] [address] Care Team Providers Care Career Placement Services Counselor Name Role Phone ALBERTOCANDE Primary Care Provider [...] PART A Apr 24, 2013 PART A [id number] IMELDA LOZA HN PATIENT MEDICARE (WNR) MEDICARE (M) PART B Apr 24, 2013 PART B [id number] IMELDA LOZA HN PATIENT MEDICARE (WNR) MEDICARE (M) PART A Apr 24, 2013 PART A [id number] IMELDA LOZA HN PATIENT MEDICARE (WNR) MEDICARE (M) PART B Apr 24, 2013 PART B [id number] IMELDA LOZA HN PATIENT [facility] [place] RE Jun 24, 2006 [id number] ISABELLA LOZA ENDOLYN SPOUSE [employer] (OPT/PROF ) [place] [facility] Jun 24, 2006 [id number] ISABELLA LOZA SPOUSE [facility] (OPT/PROF ) [facility] * Apr 24, 2013 [id number] ISABELLA LOZA SPOUSE [employer] (OPT/PROF ) [facility] IND Jun 24, 2006 [id number] ISABELLA LOZA SPOUSE Selected Encounter This section includes the information on record at [place] for the Encounter. Date/Time Encounter Type Encounter Description Reason Provider Source Mar 04, 2024 09:00 AM PSYTX W PT 60 MINUTES [facility] ICD-10-CM F43.10 Post-traumatic stress disorder, unspecified ELIF GILLILAND Adriane Encounter Template Text not used by [place] Assessments - Encounter Diagnoses This section includes the primary and secondary diagnoses documented for the Encounter. Date/Time Primary/Secondary Diagnosis Diagnosis Name Provider Source Mar 21, 2024 06:25 AM PRIMARY Post-traumatic stress disorder, unspecified ELIF GILLILAND [place] Plan of Treatment: Future Appointments (+ 6 months) and Future Tests (+/- 45 days) The Plan of Treatment section includes future care activities for the patient from all [place] treatmentfacilities. This section includes future appointments and future orders which are active, pending or scheduled. Future Appointments This section includes appointments that were scheduled to occur 6 months from the date of the Encounter, up to a maximum of 20 appointments. The data comes from all [place] treatment facilities. Appointment Date/Time Appointment Type Appointme nt Facility Name Apr 15, 2024 10:00 AM AMBULATORY - PS[place]CHIATRY [place] [facility] [place] [facility] May 06, 2024 10:00 AM AMBULATORY - PS[place]CHIATRY [place] [facility] [place] [facility] May 27, 2024 11:00 AM AMBULATORY - PSYCHIATRY [place] [facility] [place] [facility] May 29, 2024 09:30 AM AMBULATORY - MEDICINE [facility] [place] Jul 03, 2024 09:00 AM AMBULATORY - PSYCHIATRY [place] [facility] [place] [facility] Jul 22, 2024 10:30 AM AMBULATORY - MEDICINE [place] [facility] [place] [facility] Aug 26, 2024 11:00 AM AMBULATORY - PSYCHIATRY [place] [facility] [place] [facility] Social History: Smoking Status (Most current) and Tobacco Use (All prior to encounter date) This section includes the most current, and the historical, smoking and tobacco- related health factors from the [place] facility where the Encounter took place. Current Smoking Status This section includes the most current smoking, or tobacco-related health factor, from the [facility] where the Encounter took place. Date/Time Current Smoking Status Comment George ity Jul 22, 2023 10:30 AM VA-TOBACCO QUIT 15 YRS OR MORE [place] Tobacco Use History This section includes a history of the smoking, or tobacco-related health factors, that were collected on or before the date of the Encounter. The data comes from the [facility] where the Encounter took place. Date/Time Smoking Status/Tobacco Use Comment F acility Jul 22, 2023 10:30 AM VA-TOBACCO QUIT 15 YRS OR MORE [place] Jul 23, 2022 10:30 AM VA-TOBACCO FORMER USER [place] Jul 23, 2022 10:30 AM VA-TOBACCO QUIT 15 YRS OR MORE [place] Jun 07, 2021 11:00 AM VA-TOBACCO FORMER USER [place] Jun 07, 2021 11:00 AM VA-TOBACCO QUIT 15 YRS OR MORE [place] Jun 02, 2018 05:44 AM VA-TOBACCO FORMER USER [place] Jun 02, 2018 05:44 AM VA-TOBACCO QUIT 15 YRS OR MORE [place] May 14, 2017 08:31 AM QUIT TOBACCO USE > 7 YEARS AGO 25 years ago [place] May 10, 2016 10:40 AM LIFETIME NON-TOBACCO USER [place] Aug 27, 2011 08:36 AM QUIT TOBACCO USE > 7 YEARS AGO Patient quit in 1999. 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 SESSION FOCUS: reported continued struggle with having had prostate cancer. Although the cancer has been successfully treated, states that he is finding himself in a depressive state on a frequent basis. said that his family members are noticing mood swings that he is often unaware of. 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 [place] stated that there are times when he dreads going home and will go to the park instead. expressed some strong emotion at this point in the session and stated that he has never publicly expressed these kinds of feelings. 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 /deepika/ ELIF GILLILAND GARLAND MACHINE OPERATOR Signed: 03/04/2024 10:06 /deepika/ CECY MOSCOSO [facility] Toxicology Supervisor Mental Health Cosigned: 03/04/2024 15:49 ELIF GILLILAND
[2024-09-21 13:51] LABS: Prostate Specific Antigen < 0.10 ng/mL (<0.05-4.0)
[2024-09-25 17:23] LABS: Testosterone, Total 84 ng/dL (250-1100)
== END 2024-09-21 11:06 | disposition home or self-care (01) ==
LOC: HO.10HDL 11:05
PROVIDERS: Visit Provider Urology
DX: C61 Malignant neoplasm of prostate (principal); Z12.5 Encounter for screening for malignant neoplasm of prostate
CPT/HCPCS: 36415; 84153; 84403

== ENCOUNTER 2024-09-30 09:27 | Outpatient (AMB) | payer MEDICARE, OTHER, SELFPAY ==
--- NOTE | 2024-09-30 09:31 | A.OFFVIS_ITS ---
Intake Visit Reasons: 4m/labs(TESTO PENDING) Intake Note: Patient is present for 4M/TESTO Urology Medication:NONE Antibiotic Allergy:NONE Blood Thinner:NONE Plan Manager Required: No Allergies No Known Allergies Allergy (Verified 09/30/24 09:33) HPI Comments Details: Mr Jackson is a very pleasant male. He is a patient of Dr. Greene. He seen for the following urologic conditions - prostate cancer - lower urinary tract symptoms Lab work stable Has planned upcoming [employer] cruise with family to [place] and [place] Testosterone recovering 06/16 <0.1, T 5, 09/15 <0.1 T 85 Prostate cancer therapy with hormones triggered depression during radiation therapy. He did undergo evaluation and treatment through the [facility]. Hopefully this will resolve as his testosterone recovers 03/17 PSA <0.1, T 1 11/14 PSA <0.1 T 4 - ceased finasteride 07/17 <0.1 06/15 completed SBRT [facility] 7000 Gy 28 fractions 2nd GnRH given 04/15 Space Oar with Markers Prostate cancer diagnosed by Dr. Kaiser March 2021 grade group 3 low volume Prostate cancer diagnosed by Dr. Kaiser March 2021 PSA at diagnosis 5.2 on finasteride 02/13 PET-CT [place] 2nd biopsy 11/13 PSA 8.0 on finasteride high-grade, increased volume [place] score: 4+4=8 (F 3.5, F 2.5, e 3.5, e 3.0, e 2.0, 4+3=7 (F 3.0) Tumor quantitation: ? Number cores positive: 6 Total number of cores: 18 % of tissue involved: 20% of all tissue examined Perineural inv.: Present 1st biopsy 05/14 - unfavorable intermediate, low volume Histologic grade: Joel score: 4+3=7 (left base lateral) 07/05 cores total - 20% of core % of tissue involved: Less than 5% of all tissue examined - Periprostatic fat inv. Not identified Seminal vesicle inv.: Not identified Perineural inv. Not identified LVI: Not identified Polaris 08/15 single modal therapy suggested PSA 10/13 4.7-5.7 - 6%, 08/16 8.0 on finasteride Prostate MRI - 75 g prostate, 14 mm left peripheral zone lesion BPH GreenLight procedure January 2022 Significant improvement symptomatology Voiding parameters nocturia x1 with good bladder emptying Elevated PSA/Abnormal JEFF:? ? Laboratory investigations include?a total PSA evaluation ?07/10 3.8, ?03/10 6.8, ?04/09 6.6, 07/11 4.4, 01/08 3.5, 01/09 3.6, 02/10 3.9, 03/14 5.2 ? Symptoms include?weak stream, and are stable ?02/09 , weak stream, nocturia, x 1, and are stable.? Overall symptoms are?mild.? His prior IPSS was?mild.? Therapeutic plan will be?continued surveillance. [facility] Medical History Benign prostatic hyperplasia without lower urinary tract symptoms Chronic prostatitis Elevated PSA Microscopic hematuria Hypertension Surgical History Hx of knee surgery History of prostate surgery Hx of prostate biopsy Social History Are you a primary care taker to a significant other at home: No Do you presently have visiting nurse or other home services: No Patient Tobacco Use Status: Former Tobacco user Tobacco use type: Cigarette Review of Systems Const Denies chills and Denies fever(s) Card Reports no additional complaints and Denies syncope Resp Denies cough GI Denies abdominal pain and Denies heartburn Reports as per HPI and Denies change in libido Neuro Denies syncope Psych Denies change in libido Endo Denies change in libido Physical Exam Const General: cooperative, healthy appearing, comfortable and no acute distress Orientation/consciousness: patient oriented x3 HEENT Face and sinus: Yes normal facial exam Mouth: moist mucous membranes Neck Neck: Yes normal visual inspection, Yes full ROM and Yes trachea midline Chest Chest palpation & inspection: normal inspection of the chest Resp Effort & Inspection: normal respiratory effort, able to speak in complete sentences and no respiratory distress GI Inspection: Yes normal to inspection Back/Spine/Pelvis Cervical Spine: normal cervical lordosis Thoracic/Lumbar Spine: thoracic and lumbar spine normal to inspection Skin General skin exam: no rashes or lesions noted Neuro General: patient oriented x3, gait normal, tone normal and moves all extremities Extrem General: Yes normal to inspection and Yes capillary refill normal Assessment & Plan Assessment & Plan (1) Prostate cancer: Comment: 04/13 Gl 4+3 07/05 core 20% Code(s): C61 - Malignant neoplasm of prostate Category: Medical (2) Benign prostatic hyperplasia without lower urinary tract symptoms: Code(s): N40.0 - Benign prostatic hyperplasia without lower urinary tract symptoms Category: Medical Plan Six-month follow-up testosterone labs Orders: Orders Testosterone, Total 6 Months C61 - Malignant neoplasm of prostate Prostate Specific Antigen 6 Months C61 - Malignant neoplasm of prostate Patient Instructions: This note is constructed using voice recognition software. While every effort has been made to ensure accuracy senior publications specialist errors may have been included. Imaging studies, laboratory and physical exam results were discussed and reviewed in detail. No major barriers to patient understanding were identified. An opportunity to ask questions regarding the treatment plan was provided. All questions were answered. The patient expressed understanding and agreement with the above treatment plan. The patient is aware they should contact our office by phone for worsening of their current condition or the appearance of new urologic symptoms. Compliance is encouraged with any medications and followup testing that is ordered. It is a privilege to participate in the urologic care of your patient. If you have any questions or concerns regarding treatment for the above conditions, or other urologic issues, please do not hesitate to contact me. The office telephone contact is [phone]. Sincerely, Dr Joey Kaiser MD, [facility] - Urology Compassionate Specialist Care for the Genitourinary System Coding Level of Care Code Est Pt Level 3 (72543) Complex EM visit Add On G2211 Diagnoses Prostate cancer C61 Benign prostatic hyperplasia without lower urinary tract symptoms N40.0
--- OUTSIDE RECORDS SUMMARY | 2024-09-30 10:14 | XMS_ITS | Encounter Summary ---
Author Name [facility] [place] [facility] [place] Address [address] [place] [address] Care Team Providers Care Molding Fitter Name Role Phone ALBERTOCANDE Primary Care Provider [...] PART A Apr 24, 2013 PART A [id number] [phone] IMELDA LOZA HN PATIENT MEDICARE (WNR) MEDICARE (M) PART B Apr 24, 2013 PART B [id number] IMELDA LOZA HN PATIENT MEDICARE (WNR) MEDICARE (M) PART A Apr 24, 2013 PART A [id number] IMELDA LOZA HN PATIENT MEDICARE (WNR) MEDICARE (M) PART B Apr 24, 2013 PART B [id number] IMELDA LOZA HN PATIENT [facility] [place] RE Jun 24, 2006 [id number] ISABELLA LOZA ENDOLYN SPOUSE [employer] (OPT/PROF ) [place] RE [facility] Jun 24, 2006 [id number] [phone] ISABELLA LOZA SPOUSE [employer] (OPT/PROF ) [facility] * Apr 24, 2013 [id number] ISABELLA LOZA SPOUSE [employer] (OPT/PROF ) [facility]LLY [facility] Jun 24, 2006 [id number] ISABELLA LOZA SPOUSE Selected Encounter This section includes the information on record at [place] for the Encounter. Date/Time Encounter Type Encounter Description Reason Provider Source Sep 23, 2024 09:30 AM OFFICE O/P EST LOW 20 MIN PODIATRY ICD-10-CM L60.0 Ingrowing nail NEHA WATKINS Adriane Encounter Template Text not used by [facility] Assessments - Encounter Diagnoses This section includes the primary and secondary diagnoses documented for the Encounter. Date/Time Primary/Secondary Diagnosis Diagnosis Name Provider Source Sep 23, 2024 09:54 AM PRIMARY Ingrowing nail NEHA WATKINS Sep 23, 2024 09:54 AM SECONDARY Idiopathic progressive neuropathy NEHA WATKINS Sep 23, 2024 09:54 AM SECONDARY Pain in left toe(s) NEHA WATKINS Sep 23, 2024 09:54 AM SECONDARY Pain in right toe(s) NEHA WATKINS Sep 23, 2024 09:54 AM SECONDARY Peripheral vascular disease, unspecified NEHA [...] Date/Time Appointment Type Appointme nt Facility Name Nov 25, 2024 09:00 AM AM[place]AT[place] [facility] Jan 27, 2025 09:30 AM AMBULATORY - MEDICINE [facility] Social History: Smoking Status (Most [...] 2024 10:30 AM VA-TOBACCO NEVER USED CIGARETTES [place] Tobacco Use History This section includes a history of the smoking, or tobacco-related health factors, that were collected on or before the date of the Encounter. The data comes from the [place] facility where the Encounter took place. Date/Time Smoking Status/Tobacco Use Comment F acility Jul 22, 2024 10:30 AM VA-TOBACCO NEVER U SED OTHER TYPE [place] Jul 22, 2023 10:30 AM VA-TOBACCO FORMER USER [place] Jul 22, 2023 10:30 AM VA-TOBACCO QUIT 15 YRS OR MORE [place] Jul 23, 2022 10:30 AM VA-TOBACCO FORMER USER [place] Jul 23, 2022 10:30 AM VA-TOBACCO QUIT 15 YRS OR MORE [place] Jun 07, 2021 11:00 AM VA-TOBACCO FORMER USER [place] Jun 07, 2021 11:00 AM VA-TOBACCO QUIT 15 YRS OR MORE [place] Jun 02, 2018 05:44 AM VA-TOBACCO FORMER USER [place] Jun 02, 2018 05:44 AM VA-TOBACCO QUIT 15 YRS OR MORE [place] May 14, 2017 08:31 AM QUIT TOBACCO USE > 7 YEARS AGO 25 years ago [place] May 10, 2016 10:40 AM LIFETIME NON-TOBACCO USER [place] Aug 27, 2011 08:36 AM QUIT TOBACCO USE > 7 YEARS AGO Patient quit in 1999. [place] Encounter Notes: All associated encounter notes This section contains the clinical notes associated to the Encounter. Date/Time Encounter Note(s) Provider Source Sep 23, 2024 07:55 AM PODIATRY NOTE: LOCAL TITLE: PODIATRY NOTE STANDARD TITLE: PODIATRY NOTE DATE OF NOTE: SEP 23, 2024@07:55 ENTRY DATE: SEP 23, 2024@07:55:55 AUTHOR: NEHA WATKINS EXP COSIGNER: URGENCY: STATUS: COMPLETED LAST SEEN FOR TREATMENT: 05/29/2024 NOTE: HAS RECEIVED BOTH COVID VACCINE DOSES + BOOSTER AT [facility] S: Pt. is a 74 yo alert [...] present physical-medical status. Protective sensation utilizing a [place] lOg monofilament is 0/10 bilateral. BIOMECHANICAL: Exam [...] underlying medical conditions. RTC: 24 Weeks ( 01/27 @ 9:30am ) *DISCUSSED NEW PROTOCOLS AND CALLED RORY TODAY FOR RESCHEDULING I DISCUSSED THE FINDINGS & PLAN WITH PATIENT (UNCHANGED SINCE PREVIOUS VISIT) & PATIENT AGREES AND UNDERSTANDS PLAN *DISCUSSED A VARIETY OF CURRENT SOCIAL TOPICS WELL FAMILTY HISTORY, ETC. Medication Reconciliation: PERFORMED TODAY - SEE BELOW. Outpatient: Has the patient been taking medications as documented in the EMLR? YES: The patient has been taking medications as documented in the EMLR. Essential Medication List for Review used to complete this medication reconciliation. INCLUDED IN THIS LIST: Alphabetical list of active outpatient prescriptions dispensed from this [place] (local) and dispensed from another [place] or [facility]D facility (remote) as well as [...] Remote Allergy/ADR Data available for this patient [place] [facility] No Known Allergies Med Elvie Ochoa (Tool #1) INCLUDED IN THIS LIST: Alphabetical list of active outpatient prescriptions dispensed from this [place] (local) and dispensed from another [place] or [facility] facility (remote) as well as inpatient orders (local pending and active), local clinic medications, locally documented non-VA medications, and local prescriptions that have or been discontinued in the past 90 days. Non-VA Meds Last Documented On: Jul 24, 2021 NOTE The display of VA prescriptions dispensed from another [place] or [facility] facility (remote) is limited to active outpatient prescription entries matched to National Drug File at the originating site and may not include some items such as investigational drugs, compounds, etc. NOT INCLUDED IN THIS LIST: Medications self-entered by the patient into personal health records (i.e. Blue Box) are NOT included in this list. Non-VA medications documented outside this [place], remote inpatient orders (regardless of status) and remote clinic medications are NOT included in this list. The patient and provider must always discuss medications the patient is taking, regardless of where the medication was dispensed or obtained. OUTPT LOSARTAN 25MG TAB (Status = Discontinued) TAKE ONE TABLET BY MOUTH ONCE DAILY FOR BLOOD PRESSURE/HEART Rx# [id number] Last Released: 06/10/24 Qty/Days Supply: Rx Expiration Date: 09/05/24 Refills Remainin Indication: FOR HIGH BLOOD PRESSURE OUTPT LOSARTAN 25MG TAB (Status = Active) TAKE ONE TABLET BY MOUTH ONCE DAILY FOR BLOOD PRESSURE/HEART Rx# [id number] Last Released: 09/21/24 Qty/Days Supply: Rx Expiration Date: 09/19/25 Refills Remainin Indication: FOR HIGH BLOOD PRESSURE SUPPLIES OUTPT DEPEND UNDERWEAR,MAXIMUM,MEN X-LARGE (Status = Active) USE 1 BRIEF DIRECTED ONCE DAILY NEEDED FOR BLOWEL/BLADDER CARE Rx# [id number] Last Released: 12/17/23 Qty/Days Supply: Rx Expiration Date: 12/16/24 Refills Remainin Indication: FOR BLOWEL/BLADDER CARE /es/ NEHA WATKINS DPM INSPECTOR DIALS Signed: 09/23/2024 09:55 NEHA WATKINS [place]
--- OUTSIDE RECORDS SUMMARY | 2024-09-30 10:14 | XMS_ITS | Continuity of Care Document ---
Author Name [facility] Organization [facility] Care Team Providers Care Night Filler Name Role Phone [facility] Unavailable Unavailable Problems Combined list of problems from Department of Defense and Veterans Affairs facilities. It does not include entries that were removed or entered in error. Problem Status Onset Date Problem Type Date of Resolution Comments Source Benign prostatic hypertrophy Active Condition [place] [facility] [place] [facility] Bilateral hearing loss Active Condition [place] [facility] [place] [facility] Chronic prostatitis Active Condition Mar 15, 2017 Entered By: CANDE DOMINGUEZ Comment: [facility] - Dr Kaiser [place] [facility] [place] [facility] Colonoscopy Screening Active Condition May 14, 2017 Entered By: CANDE DOMINGUEZ Comment: Approx 2007 [place] [facility] [place] [facility] Elevated PSA Active Condition May 14, 2017 Entered By: CANDE DOMINGUEZ Comment: [facility] Urology - Dr Kaiser [place] [facility] [place] [facility] Essential hypertension Active Condition [place] Exposure to potentially hazardous substance Active Condition Sep 11, 2023 Entered By: JERMAINE MENDEZ Comment: Original MARCY Screen completed 07/23/22 [place] [facility] [place] [facility] Hyperlipidemia Active Condition [facility]esity Active Condition [place] [facility] [place] [facility] Primary Care Physician Active Condition May 14, 2017 Entered By: SHAUN HERNANDEZ Comment: Dr. Greene [phone] [place] [facility] [place] 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 Ramirez 2016 Entered By: CANDE DOMINGUEZ Comment: Oncologist--- --Dr. Kaiser [place] [facility] [place] [facility] Tinnitus Inactive Condition 05/14/2017 [place] [facility] [place] [facility] Diagnosis: ICD-10-CM F43.12 Post-traumatic stress disorder, chronic Active Diagnosis [place] Diagnosis: ICD-10-CM L60.0 Ingrowing nail Active Diagnosis [place] [facility] Diagnosis: ICD-10-CM I11.9 Hypertensive heart disease without heart failure Active Diagnosis [facility] Diagnosis: ICD-10-CM F43.10 Post-traumatic stress disorder, unspecified Active Diagnosis [place] Diagnosis: ICD-10-CM F32.A Depression, unspecified Active Diagnosis [place] Diagnosis: ICD-10-CM R32 Unspecified urinary incontinence Active Diagnosis [place] Medications Combined list of outpatient medications from Department of Defense and Veterans [facility] facilities.Medications provided include 1) outpatient medications from the last 15 months, and 2) patient-reported medications. Medication Details Route Status Patient Instructions Prescription Expires Prescription Number Last Dispense Date Ordering Provider Order Date Order Qty Source LOSARTAN 25MG TAB TAKE ONE TABLET BY MOUTH ONCE DAILY FOR BLOOD PRESSURE /HEART ORAL ACTIVE 09/19/2025 [id number] JORDI DOMINGUEZ SA 2024 90 [place] [facility] LOSARTAN 25MG TAB TAKE ONE TABLET BY MOUTH ONCE DAILY FOR BLOOD PRESSURE /HEART ORAL DISCONT INUED BY PROVIDE R 09/05/2024 [id number] JORDI DOMINGUEZ SA 2023 90 [facility] Immunizations Combined list of available immunizations from the Department of Defense and [facility] facilities. Immunization Series Date Given Administered By Site Reaction Lot Number CVX Code Drug Typewriter Repairer Status Comments Source ZOSTER RECOMBINANT 2 2021 187 complet ed [facility] ZOSTER RECOMBINANT 1 2021 187 complet ed [facility] COVID-19 (PFIZER), MRNA, LNP-S, PF, 30 [...] complet ed [facility] [place] [facility] INFLUENZA, SEASONAL, INJECTABLE 2018 141 complet ed outside [facility] TDAP 2017 115 complet ed Above re entered with correct date of vaccine is 09/04/2017 [facility] [place] [facility] FLU,3 YRS (HISTORICAL) 2011 88 complet ed [facility] [place] [facility] DTAP, UNSPECIFIED FORMULATION 2005 107 complet ed [facility] [place] [facility] Vital Signs Combined list of [...] 0 07/22/2024 10:50:52 [facility] [place] [facility] HEIGHT 71 07/22/2024 10:50:52 VA [...] included; 2) Encounters from the Department of [facility] facilities going backup to 280 months. Location Location Details Encounter Type Encounter Number Reason For Visit Attending Provider ADM Date DC Date Status Disposition Source [facility] Outpatient Encounter [id number] 04/03 [facility] [place] W PT 60 MINUTES [id number] Diagnos is: ICD-10- CM F43.10 Post-tr aumatic stress disorde r, unspeci fiDoris Coker 04/10 [facility] [place] OFF[place] O/P EST LOW 20-29 MIN [id number] Diagnos is: ICD-10- CM L60.0 Ingrowi ng YOGI Rodas F 06/10 [place] [facility] Out[facility] Encounter [id number] 07/22 [facility] [place] O/P EST LOW 20 MIN [id number] Diagnos is: ICD-10- CM I11.9 Hyperte nsive heart disease without heart failure BERENICE DOMINGUEZ JANN 07/22 [place] [facility] Outpatient Encounter [id number] 09/01 [facility] [place] [place] Outpatient Encounter [id number] 09/04 [facility] [place] [place] [facility] [place] W PT 60 MINUTES [id number] Diagnos is: ICD-10- CM F43.10 Post-tr aumatic stress disorde r, unspeci fied Doris GILLILAND YLER 10/15 [place] [facility] [place] Outpatient Encounter [id number] 11/03 [facility] [place] [place] W PT 60 MINUTES [id number] Diagnos is: ICD-10- CM F43.10 Post-tr aumatic stress disorde r, unspeci fied Doris GILLILAND YLER 12/03 [place] [facility] Outpatient Encounter [id number] 12/05 [facility] [place] [facility] [place] OFF[place] O/P EST LOW 20 MIN [id number] Diagnos is: ICD-10- CM R32 Unspeci fied urinary inconti BERENICE Quinonez 12/15 [facility] [place] PSY[place] W PT 60 MINUTES [id number] Diagnos is: ICD-10- CM F43.10 Post-tr aumatic stress disorde r, unspeci fied Doris GILLILAND YLER 12/17 [place] W PT 60 MINUTES [id number] Diagnos is: ICD-10- CM F43.10 Post-tr aumatic stress disorde r, unspeci fied TALAT,T YLER 03/04 [facility] [place] PSY[place] W PT 60 MINUTES [id number] Diagnos is: ICD-10- CM F43.10 Post-tr aumatic stress disorde r, unspeci fied REJI MOSCOSO 04/15 [place] W PT 60 MINUTES [id number] Diagnos is: ICD-10- CM F43.10 Post-tr aumatic stress disorde r, unspeci fied TALAT,Doris YLER 05/06 [place] W PT 60 MINUTES [id number] Diagnos is: ICD-10- CM F32.A Depress ion, unspeci firamone TALAT,Doris YLER 05/27 [facility] [place] OFF[place] O/P EST LOW 20 MIN [id number] Diagnos is: ICD-10- CM L60.0 Ingrowi YOGI Aguilar F 05/29 [facility] [place] [facility] [facility] Outpatient Encounter [id number] 06/02 [facility] [place] [place] [facility] [place] W PT 60 MINUTES [id number] Diagnos is: ICD-10- CM F32.A Depress ion, unspeci fied TALAT,T YLER 07/03 [facility] [facility] [facility] Outpatient Encounter [id number] 07/20 [facility] [place] OFF[facility] O/P EST LOW 20 MIN [id number] Diagnos is: ICD-10- CM I11.9 Hyperte nsive heart disease without heart failure BERENICE DOMINGUEZ JANN 07/22 [facility] [place] PSY[place] W PT 60 MINUTES [id number] Diagnos is: ICD-10- CM F43.10 Post-tr aumatic stress disorde r, unspeci fied TALAT,T YLER 08/26 [facility] [place] W PT 60 MINUTES [id number] Diagnos is: ICD-10- CM F43.12 Post-tr aumatic stress disorde r, chronic TALAT,T YLER 09/09 [place] [place] [facility] [place] [facility] Outpatient Encounter [id number] 09/18 [facility] [place] [facility] [place] NQHP OL DIG ASSMT&MGMT 5-10 [id number] Diagnos is: ICD-10- CM I11.9 Hyperte nsive heart disease without heart failure ANASTASIYAKIESHA RISTY A 09/18 [facility] [place] [place] O/P EST LOW 20 MIN [id number] Diagnos is: ICD-10- CM L60.0 Ingrowi ng YOGI Rodas ES F 09/23 [facility] [place] PSY[place] W PT 60 MINUTES [id number] Diagnos is: ICD-10- CM F43.12 Post-tr aumatic stress disorde r, chronic TALAT,T YLER 09/23 [facility] Social History Combined list of available smoking, tobacco, and other social history from Department of Defense and Veterans Affairs facilities. Social History Type Response Date Comment Source Tobacco smoking status [facility]-TOBACCO NEVER USED CIGARETTES 07/22/2024 [place] History of tobacco use [place]-TOBACCO NEVER USED OTHER TYPE 07/22/2024 [place] History of tobacco use [place]-TOBACCO FORMER USER 07/22/2023 [place] History of tobacco use [place]-TOBACCO FORMER USER 07/23/2022 [place] History of tobacco use [place]-TOBACCO FORMER USER 06/07/2021 [place] History of tobacco use [place]03[facility] History of tobacco use [facility]-TOBACCO FORMER USER 06/02/2018 [place] History of tobacco use QUIT TOBACCO USE > 7 YEARS AGO 05/14/2017 25 years ago [place] History of tobacco use LIFETIME NON-TOBACCO USER 05/10/2016 [place] History of tobacco use QUIT TOBACCO USE > 7 YEARS AGO 08/27/2011 Patient quit in 1999. [place] Plan of Care List of future care activities from Department of [facility] Affairs facilities. Additional future care activities may be listed in the Assessment and Plan section. Date/Time Care Activity Care Activity Detail Facili ty 11/25/2024 AMBULATORY - PSYCHIATRY AMBULATORY - PSYC HIATRY [facility]
--- OUTSIDE RECORDS SUMMARY | 2024-09-30 10:14 | XMS_ITS | Clinical Summary ---
Author Organization [facility] [address] [facility] Address [address] [place] [address] Phone Care Team Providers Care Research Compliance Specialist Name Role Phone Tor Greene MD Primary Care Provider [phone] Social History Tobacco Use Types Packs/Day Years [...] Influencers of Health Screening 05/27/2022 RSV Immunization Adult Patients (1 - 1-dose 75+ series) 2023 COVID-19 [...] age to complete this topic Meningococcal B Vaccine Aged Out No l onger eligible based on patient's age to complete [...] PM EST) Anatomical Region Laterality Modality Endoscopy us Historical Provider GI~PROCEDURE ORDERABLES F inal Result from Last 3 Months Insurance MEDICARE [facility] [place] [id number] Care Teams Research Compliance Specialist Relationship Specialty Start Date End Date Tor Greene MD [address] [place] [id number] PCP - General Internal Medicine 05/22/24
--- OUTSIDE RECORDS SUMMARY | 2024-09-30 10:14 | XMS_ITS | Encounter Summary ---
Author Name [facility] [place] [facility] [place] [facility] [facility] [place] Address [address] [place] [address] Care Team Providers Care Bladder Trimmer Name Role Phone ALBERTOCANDE Primary Care Provider [...] PART A Apr 24, 2013 PART A [id number] IMELDA LOZA HN PATIENT MEDICARE (WNR) MEDICARE (M) PART B Apr 24, 2013 PART B [id number] IMELDA LOZA HN PATIENT MEDICARE (WNR) MEDICARE (M) PART A Apr 24, 2013 PART A [id number] [id number] IMELDA LOZA HN PATIENT MEDICARE (WNR) MEDICARE (M) PART B Apr 24, 2013 PART B [id number] IMELDA LOZA HN PATIENT [facility] [place] RE Jun 24, 2006 [id number] ISABELLA LOZA ENDOLYN SPOUSE [employer] (OPT/PROF ) [place] [facility] Jun 24, 2006 [id number] ISABELLA LOZA SPOUSE [employer] (OPT/PROF ) [facility] * Apr 24, 2013 [id number] ISABELLA LOZA SPOUSE [employer] (OPT/PROF ) [facility] Jun 24, 2006 [id number] ISABELLA LOZA SPOUSE Selected Encounter This section includes the information on record at [place] for the Encounter. Date/Time Encounter Type Encounter Description Reason Provider Source Sep 23, 2024 10:00 AM PSYTX W PT 60 MINUTES [facility] ICD-10-CM F43.12 Post-traumatic stress disorder, ELIF Arteaga Adriane Encounter Template Text not used by [place] Assessments - Encounter Diagnoses This section includes the primary and secondary diagnoses documented for the Encounter. Date/Time Primary/Secondary Diagnosis Diagnosis Name Provider Source Sep 23, 2024 10:00 AM PRIMARY Post-traumatic stress disorder, ELIF Arteaga ENRICO Plan of Treatment: Future Appointments (+ [...] 25, 2024 09:00 AM [facility] [place] [facility] Jan 27, 2025 09:30 AM AMBULATORY - MEDICINE [facility] Social History: Smoking Status (Most current) [...] Current Smoking Status Willy mclaughlin Jul 22, 2024 10:30 AM [place]-TOBACCO NEVER USED CIGARETTES [place] Tobacco Use History This section includes a history of the smoking, or tobacco-related health factors, that were collected on or before the date of the Encounter. The data comes from the [place] facility where the Encounter took place. Date/Time Smoking Status/Tobacco Use Comment F acility Jul 22, 2024 10:30 AM VA-TOBACCO NEVER U SED OTHER TYPE [place] Jul 22, 2023 10:30 AM VA-TOBACCO FORMER USER [place] Jul 22, 2023 10:30 AM VA-TOBACCO QUIT 15 YRS OR MORE [place] Jul 23, 2022 10:30 AM VA-TOBACCO FORMER USER [place] Jul 23, 2022 10:30 AM VA-TOBACCO QUIT 15 YRS OR MORE [place] Jun 07, 2021 11:00 AM VA-TOBACCO FORMER USER [place] Jun 07, 2021 11:00 AM VA-TOBACCO QUIT 15 YRS OR MORE [place] Jun 02, 2018 05:44 AM VA-TOBACCO FORMER USER [place] Jun 02, 2018 05:44 AM VA-TOBACCO QUIT 15 YRS OR MORE [place] May 14, 2017 08:31 AM QUIT TOBACCO USE > 7 YEARS AGO 25 years ago [place] May 10, 2016 10:40 AM LIFETIME NON-TOBACCO USER [place] Aug 27, 2011 08:36 AM QUIT TOBACCO USE > 7 YEARS AGO Patient quit in 1999. [place] Encounter Notes: All associated encounter notes This section contains the clinical notes associated to the Encounter. Date/Time Encounter Note(s) Provider Source Sep 23, 2024 03:39 PM SOCIAL WORK GROUP COUNSELING NOTE: LOCAL TITLE: SOCIAL WORK GROUP NOTE STANDARD TITLE: SOCIAL WORK GROUP COUNSELING NOTE DATE OF NOTE: SEP 23, 2024@15:39 ENTRY DATE: SEP 23, 2024@15:39:10 AUTHOR: ELIF GILLILAND EXP COSIGNER: CECY MOSCOSO URGENCY: STATUS: COMPLETED PTSD Support Group Length of session - 60 minutes Prior group session: NA Next group session on 10/07/2024 at 10:00am. Roberto was one of FOUR Veterans present for this day's PTSD Support FTF group session. Group members used this session to introduce check in and discuss their personal understandings of PTSD in daily life. Remaining group time allowed for group members to talk about their experiences or kowledge of homelessness and PTSD. miguel a Loza attends in-person for this day's PTSD Support. He remains highly attentive/engaged group participant... No other issues presented this day and no indication of either SI or HI. Related to: Service Connected Condition Diagnoses: Chronic post-traumatic stress disorder ([facility] [id number]) - Post- traumatic stress disorder, chronic (ICD-10-CM F43.12) (Primary) Procedures: Group Psychotherapy (other than of a Multiple-Family Group) - Clinical Hockey Instructor This case is supervised by [facility]. Diagnosis, treatment plan, and response to care are reviewed in standard 1-hour, or more, weekly individual supervision meeting. /deepika/ ELIF GILLILAND EMPLOYMENT LAW SPECIALIST Signed: 09/23/2024 15:40 /deepika/ [facility] Hockey Instructor Mental Health Cosigned: 09/24/2024 07:33 ELIF GILLILAND
--- OUTSIDE RECORDS SUMMARY | 2024-09-30 10:14 | XMS_ITS | Clinical Summary ---
Author Organization [facility] Address [address] [facility] [address] [place] [address] Phone Care Team Providers Care Roofer Helper Vinyl Coating Name Role Phone Tor Greene MD Primary Care Provider [phone] Allergies No known active allergies Medications finasteride [...] of 2 - PCV) 1956 Influenza Vaccine (Season Ended) 2025 04/11/2021, 06/24/2011 Hepatitis B Vaccine Aged Out No longe r eligible based on patient's age to complete this topic [facility] UNICARE MEDICARE Care Teams Roofer Helper Vinyl Coating Relationship Specialty Start Date End Date Tor Greene MD [address] [place] [address] PCP - General 07/04/20
== END 2024-09-30 10:29 | disposition home or self-care (01) ==
LOC: HO.HUSH 09:28
PROVIDERS: PCP Internal Medicine; Visit Provider Urology
DX: C61 Malignant neoplasm of prostate (principal); N40.0 Benign prostatic hyperplasia without lower urinary tract symptoms
CPT/HCPCS: 99213; G2211

== ENCOUNTER → 2024-09-30 09:27 | Outpatient (BNVA) | payer MEDICARE, OTHER, SELFPAY | PROVIDERS: PCP Internal Medicine; Visit Provider Urology | DX: C61 Malignant neoplasm of prostate (principal); N40.0 Benign prostatic hyperplasia without lower urinary tract symptoms | CPT/HCPCS: 99212 ==

== ENCOUNTER 2024-12-30 09:00 | Outpatient (REF) | payer MEDICARE, OTHER, SELFPAY ==
--- OUTSIDE RECORDS SUMMARY | 2024-07-22 06:30 | XMS_ITS | Encounter Summary ---
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 Name Role Phone ALBERTOCANDE Primary Care Provider [...] PART A Apr 24, 2013 PART A [id number] IMELDA LOZA HN PATIENT MEDICARE (WNR) MEDICARE (M) PART B Apr 24, 2013 PART B [id number] IMELDA LOZA HN PATIENT MEDICARE (WNR) MEDICARE (M) PART A Apr 24, 2013 PART A [id number] IMELDA OLZA HN PATIENT MEDICARE (WNR) MEDICARE (M) PART B Apr 24, 2013 PART B [id number] IMELDA LOZA HN PATIENT [facility] [place] [facility] Jun 24, 2006 [id number] ISABELLA LOZA ENDOLYN SPOUSE [employer] (OPT/PROF ) [place] [facility] Jun 24, 2006 [id number] [phone] ISABELLA LOZA SPOUSE [facility] (OPT/PROF ) [facility] * Apr 24, 2013 [id number] ISABELLA LOZA SPOUSE [facility] (OPT/PROF ) [facility] Jun 24, 2006 [id number] ISABELLA LOZA SPOUSE Selected Encounter This section includes the information on record at [place] for the Encounter. Date/Time Encounter Type Encounter Description Reason Provider Source Jul 22, 2024 10:30 AM OFFICE O/P EST LOW 20 MIN PRIMARY CARE/MEDICINE ICD-10-CM I11.9 Hypertensive heart disease without heart failure CANDE DOMINGUEZ Encounter Template Text not used by [place] Assessments - Encounter Diagnoses This section includes the primary and secondary diagnoses documented for the Encounter. Date/Time Primary/Secondary Diagnosis Diagnosis Name Provider Source Jul 22, 2024 10:59 AM PRIMARY Hypertensive heart disease without heart failure CANDE DOMINGUEZ Jul 22, 2024 10:59 AM SECONDARY Obesity, unspecified CANDE DOMINGUEZ Plan of Treatment: Future Appointments (+ 6 months) and Future Tests (+/- 45 days) The Plan of Treatment section includes future care activities for the patient from all [place] treatment[facility]. This section includes future appointments and future orders which are active, pending or scheduled. Future Appointments This section includes appointments that were scheduled to occur 6 months from the date of the Encounter, up to a maximum of 20 appointments. The data comes from all [place] treatment facilities. Appointment Date/Time Appointment Type Appointme nt Facility Name Aug 26, 2024 11:00 AM AMBULATORY - [facility] [place] [facility] Sep 09, 2024 10:00 AM AMBULATORY - PS[facility]AT[facility] [place] [facility] Sep 23, 2024 09:30 AM AMBULATORY - MEDICINE [facility] Sep 23, 2024 10:00 AM AMBULATORY - PS[facility]IATRY [facility] [place] [facility] Oct 14, 2024 10:00 AM AMBULATORY - [facility] [place] [facility] October 28, 2024 10:00 AM [facility] Dec 02, 2024 10:00 AM [facility]ULATORY - [facility] [place] [facility] Social History: Smoking Status (Most current) and Tobacco Use (All prior to encounter date) This section includes the most current, and the historical, smoking and tobacco- related health factors from the [place] facility where the Encounter took place. Current Smoking Status This section includes the most current smoking, or tobacco-related health factor, from the [place] facility where the Encounter took place. Date/Time Current Smoking Status Comment George ity Jul 22, 2024 10:30 AM VA-TOBACCO NEVER USED CIGARETTES [facility] Tobacco Use History This section includes a history of the smoking, or tobacco-related health factors, that were collected on or before the date of the Encounter. The data comes from the [facility] where the Encounter took place. Date/Time Smoking Status/Tobacco Use Comment F acility Jul 22, 2024 10:30 AM VA-TOBACCO NEVER U SED OTHER TYPE [facility] Jul 22, 2023 10:30 AM VA-TOBACCO FORMER USER [facility] Jul 22, 2023 10:30 AM VA-TOBACCO QUIT 15 YRS OR MORE [facility] Jul 23, 2022 10:30 AM VA-TOBACCO FORMER USER [facility] Jul 23, 2022 10:30 AM VA-TOBACCO QUIT 15 YRS OR MORE [facility] Jun 07, 2021 11:00 AM VA-TOBACCO FORMER USER [facility] Jun 07, 2021 11:00 AM VA-TOBACCO QUIT 15 YRS OR MORE [facility] Jun 02, 2018 05:44 AM VA-TOBACCO FORMER USER [facility] Jun 02, 2018 05:44 AM VA-TOBACCO QUIT 15 YRS OR MORE [facility] May 14, 2017 08:31 AM QUIT TOBACCO USE > 7 YEARS AGO 25 years ago [facility] May 10, 2016 10:40 AM LIFETIME NON-TOBACCO USER [facility] Aug 27, 2011 08:36 AM QUIT TOBACCO USE > 7 YEARS AGO Patient quit in 1999. [facility] Encounter Notes: All associated encounter notes This section contains the clinical notes associated to the Encounter. Date/Time Encounter Note(s) Provider Source Jul 22, 2024 10:51 AM PREVENTIVE MEDICIN E NURSING NOTE: LOCAL TITLE: CLINICAL REMINDERS/NURSING STANDARD TITLE: PREVENTIVE MEDICINE NURSING NOTE DATE OF NOTE: JUL 22, 2024@10:51 ENTRY DATE: JUL 22, 2024@10:51:27 AUTHOR: RM LYLES EXP COSIGNER: URGENCY: STATUS: COMPLETED Advance Directive Screen MH AD: Patient does not have a completed advance directive on file at any facility, [facility] or outside. S/he is not interested in completing one at this time. The patient received education about Advance Directives and written notification of his/her rights. Homelessness/Food Insecurity Screen: In the past 2 [...] Not worried about housing near future The reports the following: Within the past 12 [...] down, depressed, or hopeless Not at all Falls & Incontinence Screen: Falls Screen: 4. No falls within the past year. Incontinence Screen No incontinence. Pneumococcal Conjugate Vaccine (PCV15/PCV20): Refuses PCV vaccine Immunization: PNEUMOCOCCAL CONJUGATE, UNSPECIFIED FORMULATION Refusal Reason: PATIENT DECISION Patient refuses all immunization(s) in the PneumoPCV group Date Documented: 07/22/24 10:52 Tobacco Use Screening: The patient has never smoked cigarettes. The patient has never used other types of tobacco. Influenza Immunization: Deferral / Refusal The patient declines to receive the recommended dose of seasonal influenza vaccine. Immunization: INFLUENZA, UNSPECIFIED FORMULATION Refusal Reason: PATIENT DECISION Patient refuses all immunization(s) in the FLU group Date Documented: 07/22/24 10:54 Alcohol Use Screen (AUDIT-C): Alcohol Screen: SCREEN FOR ALCOHOL (AUDIT-C) An alcohol screening test (AUDIT-C) was negative (score=0). 1. How often did you have a drink containing alcohol in the past year? Consider a drink to be a 12 ounce can or bottle of regular beer, 8 ounces of malt liquor, a 5 ounce glass of table wine, or a 1.5 ounce shot of liquor (like scotch, gin, or vodka). Never 2. How many drinks containing alcohol did you have on a typical day when you were drinking in the past year? Response not required due to responses to other questions. 3. How often did you have six or more drinks on one occasion in the past year? Response not required due to responses to other questions. COVID-19 Immunization: Refused Moderna Monovalent COVID-19 vaccine Immunization: COVID-19 (MODERNA), MRNA, LNP-S, PF, 50 MCG/0.5 ML (AGES 12+ YEARS) Refusal Reason: PATIENT DECISION Patient refuses all immunization(s) in the COVID-19 group Date Documented: 07/22/24 10:55 Sexual Orientation: The patient thinks of their sexual orientation as: Straight or Heterosexual RSV Immunization: Respiratory Syncytial Virus (RSV) Vaccine: Refused [employer] (Abrysvo, RSVpreF vaccine). Immunization: RSV, BIVALENT, PROTEIN SUBUNIT RSVPREF, DILUENT RECONSTITUTED, 0.5 ML, PF Refusal Reason: PATIENT DECISION Patient refuses all immunization(s) in the RSV group Date Documented: 07/22/24 10:55 /deepika/ RM LYLES LPN PACDoris 10 Signed: 07/22/2024 10:55 RM LYLES [facility] Jul 22, 2024 06:21 AM PHYSICIAN NOTE: LOCAL TITLE: MD NOTE STANDARD TITLE: PHYSICIAN NOTE DATE OF NOTE: JUL 22, 2024@06:21 ENTRY DATE: JUL 22, 2024@06:21:28 AUTHOR: CANDE DOMINGUEZ EXP COSIGNER: URGENCY: STATUS: COMPLETED HISTORY OF PRESENT ILLNESS: ANANTH LOZA is a 74 yo MALE who presents at the [facility] for his annual visit. Pt maintains a non-VA PCP: Dr Greene. [place] utilizes podiatry, pharmacy, and services at the [place]. NonVA Providers: Urologist: Dr Kaiser Clip Loading Machine Feeder: Dr Alexis Active problems - Computerized Problem List is the source for the followin. Exposure to potentially hazardous substance 2. Primary Care Physician 3. Colonoscopy Screening 4. Vitamin D deficiency 5. Obesity 6. Benign prostatic hypertrophy 7. specialty providers 8. Elevated PSA 9. Chronic prostatitis 10. Essential hypertension 11. Hyperlipidemia 12. Bilateral hearing loss Active and Recently Outpatient Medications (including Supplies): Active Outpatient Medications Status 1) DEPEND UNDERWEAR,MAXIMUM,MEN X-LARGE USE 1 BRIEF DIRECTED ACTIVE ONCE DAILY NEEDED Indication: FOR BLOWEL/BLADDER CARE 2) LOSARTAN 25MG TAB TAKE ONE TABLET BY MOUTH ONCE DAILY FOR ACTIVE BLOOD PRESSURE/HEART Indication: FOR HIGH BLOOD PRESSURE ALLERGIES: ========= Patient has answered NKA HISTORY: PERIOD OF SERVICE - [facility] FROM May TO Mar COMBAT SERVICE INDICATED: No VITAL SIGNS: Blood Pressure 139/89 (07/22/2024 10:50) Pulse 76 (07/22/2024 10:50) Respiration 16 (07/22/2024 10:50) Pulse Oximetry 97% (07/22/2024 10:50) Temperature 97.6 F [36.4 C] (07/22/2024 10:50) Pain 0 (07/22/2024 10:50) Height 71 in [180.3 cm] (07/22/2024 10:50) Weight 210 lb [95.25 kg] (07/22/2024 10:50) BMI BMI: 29.4 REVIEW OF SYSTEMS: CARDIOVASCULAR: No chest pain, no palps RESPIRATORY: No SOB, no wheezing GASTROINTESTINAL: No abd pain, no N/V/D MUSCULOSKELETAL: No joint pain NEUROLOGIC: No H/A, no weakness EXAMINATION: GENERAL: WD/WN in NAD HEENT: Moist mucosa NECK: Supple HEART: RRR, S1-S2, no murmurs LUNGS: CTA B/L ABDOMEN: Soft, NT/ND EXTREMITIES: FROM x 4 NEUROLOGIC: AAO x3, no FF's PSYCHIATRIC: Good eye contact, affect normal ASSESSMENT/PLAN: 1. Hypertension: well controlled on losartan 25mg/day, followed by Dr Alexis 2. Prediabetes: diet controlled 3. BPH/Chronic Prostatitis: not on meds, managed by Dr Kaiser 4. Prostate CA: TURP 04/2021, completed radiation txs, now undergoing hormonal txs since 10/2022, monitered by Dr Kaiser 5. Incontinence: uses Depends for daily prn use, size XL 6. PTSD: in the [facility] 05/1967 - 03/1969, managed by 7. Colonoscopy Screening: managed by nonVA PCP FOLLOW UP 1 year - Annual - vet to bring PCP labs ========= UPCOMING APPOINTMENTS: 08/07/2024 08:00 CWM/SO/MHC/TALAT 09/23/2024 09:30 [facility] POD[facility] 1 No barriers; Patient understands and agrees to [...] this [facility] (local) and dispensed from another [place] or [facility] facility (remote) as well as [...] Remote Allergy/ADR Data available for this patient [facility] No Known Allergies Med [facility] [place] (Tool #1) INCLUDED IN THIS LIST: Alphabetical list of active outpatient prescriptions dispensed from this [place] (local) and dispensed from another [place] or [facility] facility (remote) as well as inpatient orders (local pending and active), local clinic medications, locally documented non-VA medications, and local prescriptions that have or been discontinued in the past 90 days. Non-VA Meds Last Documented On: Jul 24, 2021 NOTE The display of VA prescriptions dispensed from another [place] or [facility] facility (remote) is limited to active outpatient prescription entries matched to National Drug File at the originating site and may not include some items such as investigational drugs, compounds, etc. NOT INCLUDED IN THIS LIST: Medications self-entered by the patient into personal health records (i.e. giddy) are NOT included in this list. Non-VA medications documented outside this [place], remote inpatient orders (regardless of status) and remote clinic medications are NOT included in this list. The patient and provider must always discuss medications the patient is taking, regardless of where the medication was dispensed or obtained. ------ OUTPT LOSARTAN 25MG TAB (Status = Active) TAKE ONE TABLET BY MOUTH ONCE DAILY FOR BLOOD PRESSURE/HEART Rx# [id number] Last Released: 06/10/24 Qty/Days Supply: Rx Expiration Date: 09/05/24 Refills Remainin Indication: FOR HIGH BLOOD PRESSURE ------ SUPPLIES ------ OUTPT DEPEND UNDERWEAR,MAXIMUM,MEN X-LARGE (Status = Active) USE 1 BRIEF DIRECTED ONCE DAILY NEEDED FOR BLOWEL/BLADDER CARE Rx# [id number] Last Released: 12/17/23 Qty/Days Supply: Rx Expiration Date: 12/16/24 Refills Remainin Indication: FOR BLOWEL/BLADDER CARE /es/ CANDE DOMINGUEZ MD Primary Care Physician Signed: 07/22/2024 11:10 CANDE DOMINGUEZ [facility]
--- OUTSIDE RECORDS SUMMARY | 2024-12-30 09:15 | XMS_ITS | Clinical Summary ---
Author Organization [facility] Address [address] [facility] [[email or web address] [address] [place] [address] Phone Care Team Providers Care Entertainment Manager Name Role Phone Tor Greene MD Primary Care Provider [phone] Allergies No known active allergies Medications finasteride [...] Due Date Last Done Comments Pneumococcal Vaccine: 50+ Years (1 of 2 - PCV) 1969 Influenza Vaccine (#1) 2025 1, 06/24/2011 Hepatitis B Vaccine Aged Out No longe r eligible based on patient's age to complete this topic Insurance [facility] Medicare [facility] Medicare Care Teams Entertainment Manager Relationship Specialty Start Date End Date Tor Greene MD [address] [place] [address] PCP - General 07/04/20
--- OUTSIDE RECORDS SUMMARY | 2024-12-30 09:15 | XMS_ITS | Clinical Summary ---
Author Organization [facility] [address] [facility] Address [address] [place] [address] Phone Care Team Providers Care Standards Analyst Name Role Phone Tor Greene MD Primary Care Provider [phone] Social History Tobacco Use Types Packs/Day Years [...] 2023-2 5 season) 2024 Influenza Vaccine (#1) 2025 Colorectal Cancer Screening: Colonoscopy Discontinued 07/27/2024, 06/30/2018 [...] 3:45 PM EST from Last 3 Months or Most Recently Relevant to Health Maintenance Results * External Colonoscopy Report (07/27/2024 3:45 PM EST) Anatomical Region Laterality Modality Endoscopy us Historical Provider GI~PROCEDURE ORDERABLES F inal Result from Last 3 Months or Most Recently Relevant to Health Maintenance Insurance MEDICARE [facility] [place] [id number] Care Teams Standards Analyst Relationship Specialty Start Date End Date Tor Greene MD [address] [place] [id number] PCP - General Internal Medicine 05/22/24
[2024-12-30 10:08] LABS: Anion Gap 12 (12-20); Blood Urea Nitrogen 11 mg/dL (9-16); Calcium 9.4 mg/dL (8.4-10.2); Carbon Dioxide 26 mmol/L (22-29); Chloride 105 mmol/L (96-108); Estimated Glomerular Filt Rate > 60; Potassium 4.0 mmol/L (3.3-5.1); Sodium 139 mmol/L (135-145)
== END 2024-12-30 09:01 | disposition home or self-care (01) ==
LOC: HO.10HDL 09:00
PROVIDERS: Visit Provider Internal Medicine Nephrology
DX: I10 Essential (primary) hypertension (principal); E83.52 Hypercalcemia
CPT/HCPCS: 36415; 80051; 82310; 82565; 84520

== ENCOUNTER 2025-01-12 14:56 | Outpatient (AMB) | payer MEDICARE, OTHER, SELFPAY ==
--- NOTE | 2025-01-12 15:19 | HO.NEPHOV ---
Vital Signs 01/12/25 15:21 Height 5 ft 11 in Weight 214 lb 4 oz BMI 29.9 BP 114/60 Blood Pressure Location Lt brachial Position Sitting Pulse 83 Pulse Source Pulse Oximeter Pulse Oximetry (%) 97 Oxygen Delivery Method Room Air Intake Visit Reasons: 6mon follow-up w/labs-Conf Service Line Bus Cleaner Required: No Accompanied by: Self / Same As Patient Allergies No Known Allergies Allergy (Verified 01/12/25 15:20) HPI Comments Details: Marc in the office in follow-up of his hypertension. He has prostate cancer and had radiotherapy . He had PET scan which did not show any metastatic disease as per him. His serum calcium was high but resolved. He does not have any dysuria, frequency, hematuria, urinary infection, weight loss, bone pain, nausea, vomiting, diarrhea, orthostatic symptoms, chest pain, shortness of breath . He feels well [facility] Medical History Benign prostatic hyperplasia without lower urinary tract symptoms Chronic prostatitis Elevated PSA Microscopic hematuria Hypertension Surgical History Hx of knee surgery History of prostate surgery Hx of prostate biopsy Social History Are you a primary hearing healthcare practitioner to a significant other at home: No Do you presently have visiting nurse or other home services: No Patient Tobacco Use Status: Former Tobacco user Tobacco use type: Cigarette Review of Systems Const All systems reviewed & are unremarkable except as noted in HPI and below Physical Exam Vital Signs: Last Vital Signs Pulse 83 01/12/25 15:21 BP 114/60 01/12/25 15:21 Pulse Ox 97 01/12/25 15:21 Oxygen Delivery Method Room Air 01/12/25 15:21 BMI result Body Mass Index 29.9 Const General: comfortable and no acute distress Orientation/consciousness: patient oriented x3 HEENT Head: Yes normocephalic Mouth: Normal oral and palatal mucosa present Eyes EOM: EOMs intact bilaterally Neck Neck: Yes supple Resp Auscultation: clear to auscultation bilaterally Cardio Jugular venous distension: no JVD Rate: regular rate GI Palpation (GI): Soft to palpation Auscultation: normal bowel sounds General: Yes no CVA tenderness Back/Spine/Pelvis Back: no CVA tenderness Skin General skin exam: no rashes or lesions noted Neuro General: patient oriented x3 and moves all extremities Extrem General: Yes no pedal edema Results Reviewed Nephrology Results: Sodium, (135-145) 139 mmol/L 12/30/24 Potassium, (3.3-5.1) 4.0 mmol/L 12/30/24 Chloride, (96-108) 105 mmol/L 12/30/24 Carbon Dioxide, (22-29) 26 mmol/L 12/30/24 BUN, (9-16) 11 mg/dL 12/30/24 Creatinine, (0.5-1.4) 1.00 mg/dL 12/30/24 Calcium, (8.4-10.2) 9.4 mg/dL 12/30/24 Assessment & Plan Assessment & Plan (1) Hypertension: Code(s): I10 - Essential (primary) hypertension Category: Medical Qualifiers: Hypertension type: primary hypertension Qualified Code(s): I10 - Essential (primary) hypertension Plan Marc has hypertension for long time. His blood pressure is well controlled on current dose of losartan and is at goal. He is compliant with his medications. He should cut back salt in the diet. He should maintain good hydration. He should avoid nonsteroidal anti-inflammatory medications. His renal functions are at baseline. He has no history of LVH or retinopathy. He may need initiation of statins.I did not make any other medication changes today. Follow-up appointment given. Coding Level of Care Code Est Pt Level 4 (11619) Diagnoses Primary hypertension I10 Hypertension type: primary hypertension
[2025-01-12 15:21] VITALS: BP 114/60; PULSE 83; O2SAT 97; BMI 29.9
--- OUTSIDE RECORDS SUMMARY | 2025-01-12 16:02 | XMS_ITS | Clinical Summary ---
Author Organization [facility] [address] [facility] Address [address] [place] [address] Phone Care Team Providers Care Wireline Field Operator Name Role Phone Tor Greene MD Primary Care Provider [phone] Social History Tobacco Use Types Packs/Day Years [...] 2) 1998 Cholesterol Screening (Lipid Panel) 05/27/2022 Falls Risk Assessment 05/27/2022 Hepatitis C Screening 05/27/2022 Medicare Annual Wellness Visit 05/27/2022 Social Influencers of Health Screening 05/27/2022 RSV Immunization Adult Patients (1 - 1-dose 75+ series) 2023 COVID-19 Vaccine ( - 2023-2 5 season) 2024 Depression Screening 06/24/2024 Influenza Vaccine (#1) 2025 Colorectal Cancer Screening: [...] Recently Relevant to Health Maintenance Insurance MEDICARE [facility] [place] [id number] Care Teams Wireline Field Operator Relationship Specialty Start Date End Date Tor Greene MD [address] [place] [id number] PCP - General Internal Medicine 05/22/24
--- OUTSIDE RECORDS SUMMARY | 2025-01-12 16:02 | XMS_ITS | Clinical Summary ---
Author Organization [facility] Address [address] [facility] [address] [place] [address] Phone Care Team Providers Care Lecturer In Marketing Name Role Phone Tor Greene MD Primary Care Provider [phone] Allergies No known active allergies Medications finasteride [...] patient's age to complete this topic Insurance [facility] Medicare [facility] Medicare Care Teams Lecturer In Marketing Relationship Specialty Start Date End Date Tor Greene MD [address] [place] [address] PCP - General 07/04/20
== END 2025-01-12 15:52 | disposition home or self-care (01) ==
LOC: HO.HKAS 14:57
PROVIDERS: PCP Internal Medicine; Visit Provider Internal Medicine Nephrology
DX: I10 Essential (primary) hypertension (principal)
CPT/HCPCS: 99214

== ENCOUNTER → 2025-01-12 14:56 | Outpatient (BNVA) | payer MEDICARE, OTHER, SELFPAY | PROVIDERS: PCP Internal Medicine; Visit Provider Internal Medicine Nephrology | DX: I10 Essential (primary) hypertension (principal) | CPT/HCPCS: 99212 ==

== ENCOUNTER 2025-03-31 09:07 | Outpatient (REF) | payer MEDICARE, OTHER, SELFPAY ==
[2025-03-31 11:34] LABS: Prostate Specific Antigen < 0.10 ng/mL (<0.05-4.0)
== END 2025-03-31 09:08 | disposition home or self-care (01) ==
LOC: HO.10HDL 09:07
PROVIDERS: Visit Provider Urology
DX: Z12.5 Encounter for screening for malignant neoplasm of prostate (principal); C61 Malignant neoplasm of prostate
CPT/HCPCS: 36415; 84153; 84403

== ENCOUNTER 2025-04-14 09:39 | Outpatient (AMB) | payer MEDICARE, OTHER, SELFPAY ==
--- NOTE | 2025-04-14 09:39 | A.OFFVIS_ITS ---
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 He is a patient of Dr. Greene. He seen for the following urologic conditions - prostate cancer - lower urinary tract symptoms Telemedicine Evaluation 15 min Consultation Appsembler Padilla Video Testosterone has doubled 06/16 <0.1, T 5, 09/15 <0.1 T 85, 04/17 <0.1 130 Back Marc has noticed that the hair is growing back on his chest. He is feeling good to to be a man again Prostate cancer therapy with hormones triggered depression during radiation therapy. [facility] Hopefully this will resolve as his testosterone recovers 03/17 PSA <0.1, T 1 11/14 PSA <0.1 T 4 - ceased finasteride 07/17 <0.1 06/15 completed SBRT [facility] 7000 Gy 28 fractions and GnRH given 04/15 Space Oar with Markers Prostate cancer diagnosed by Dr. Kaiser March 2021 grade group 3 low volume Prostate cancer diagnosed by Dr. Kaiser March 2021 PSA at diagnosis 5.2 on finasteride 02/13 PET-CT [place] 2nd biopsy 11/13 PSA 8.0 on finasteride high-grade, increased volume Mayfield score: 4+4=8 (F 3.5, F 2.5, e 3.5, e 3.0, e 2.0, 4+3=7 (F 3.0) Tumor quantitation: Number cores positive: 6 Total number of cores: 18 % of tissue involved: 20% of all tissue examined Perineural inv.: Present 1st biopsy 05/14 - unfavorable intermediate, low volume Histologic grade: Mayfield score: 4+3=7 (left base lateral) 1/12 cores total - 20% of core % of tissue involved: Less than 5% of all tissue examined - Periprostatic fat inv. Not identified Seminal vesicle inv.: Not identified Perineural inv. Not identified LVI: Not identified Polaris 08/15 single modal therapy suggested PSA 10/13 4.7-5.7 - 6%, 08/16 8.0 on finasteride Prostate MRI - 75 g prostate, 14 mm left peripheral zone lesion Bladder outlet obstruction GreenLight procedure January 2022 Significant improvement symptomatology Voiding parameters nocturia x1 with good bladder emptying Elevated PSA/Abnormal JEFF:? ? Laboratory investigations include?a total PSA evaluation ?07/10 3.8, ?03/10 6.8, ?04/09 6.6, 07/11 4.4, 01/08 3.5, 01/09 3.6, 02/10 3.9, 03/14 5.2 ? Symptoms include?weak stream, and are stable ?02/09 , weak stream, nocturia, x 1, and are stable.? Overall symptoms are?mild.? His prior IPSS was?mild.? Therapeutic plan will be?continued surveillance. [facility] Medical History Benign prostatic hyperplasia without lower urinary tract symptoms Chronic prostatitis Elevated PSA Microscopic hematuria Hypertension Surgical History Hx of knee surgery History of prostate surgery Hx of prostate biopsy Social History Are you a primary rental boats caretaker to a significant other at home: No Do you presently have visiting nurse or other home services: No Patient Tobacco Use Status: Former Tobacco user Tobacco use type: Cigarette Review of Systems Const All systems reviewed & are unremarkable except as noted in HPI and below Reports no additional complaints Resp Reports no additional complaints GI Reports no additional complaints Reports as per HPI Musc Reports no additional complaints Physical Exam Telemedicine evaluation Appropriate responses Regular breathing rate and rhythm HEENT Head: Yes normal to inspection Ears: hearing grossly normal bilaterally Eyes General: appearance normal, both eyes and all related structures Neck Neck: Yes normal visual inspection Chest Chest palpation & inspection: normal inspection of the chest Resp Effort & Inspection: normal respiratory effort and able to speak in complete sentences Telehealth Telehealth Telehealth Platform: [facility] Location of provider rendering services: practice address Location of patient: address on file Patient Identification confirmed using: Name, : Yes Telehealth method: video Patient verbally consented to treatment: Yes Patient verbally consented to billing insurance company: Yes Patient informed of any privacy concerns related to visit: Yes Minutes spent on Phone/Video with Pt.: 15 Assessment & Plan Assessment & Plan (1) Prostate cancer: Comment: 04/13 Gl 4+3 07/05 core 20% Code(s): C61 - Malignant neoplasm of prostate Category: Medical Plan Six-month follow-up lab work office Orders: Orders Testosterone, Total 6 Months C61 - Malignant neoplasm of prostate Prostate Specific Antigen 6 Months C61 - Malignant neoplasm of prostate Patient Instructions: This note is constructed using voice recognition software. While every effort has been made to ensure accuracy wall attendant errors may have been included. Imaging studies, laboratory and physical exam results were discussed and reviewed in detail. No major barriers to patient understanding were identified. An opportunity to ask questions regarding the treatment plan was provided. All questions were answered. The patient expressed understanding and agreement with the above treatment plan. The patient is aware they should contact our office by phone for worsening of their current condition or the appearance of new urologic symptoms. Compliance is encouraged with any medications and followup testing that is ordered. It is a privilege to participate in the urologic care of your patient. If you have any questions or concerns regarding treatment for the above conditions, or other urologic issues, please do not hesitate to contact me. The office telephone contact is [phone]. Sincerely, Dr Joey Kaiser MD, [facility] - Urology Compassionate Specialist Care for the Genitourinary System Coding Level of Care Code Tele Est Pt Level 3 (11403) Complex EM visit Add On G2211 Diagnoses Prostate cancer C61
--- OUTSIDE RECORDS SUMMARY | 2025-04-14 11:10 | XMS_ITS | Clinical Summary ---
Author Organization [facility] 299 [facility] Address [address] [place] [address] Phone Care Team Providers Care Conflicts Analyst Name Role Phone Tor Greene MD Primary Care Provider [phone] Social History Tobacco Use Types Packs/Day Years [...] Patients (1 - 1-dose 75+ series) 2023 Depression Screening 06/24/2024 COVID-19 Vaccine ( - 2023-2 5 season) 2025 Influenza Vaccine (#1) 2025 Colorectal Cancer Screening: [...] Recently Relevant to Health Maintenance Insurance MEDICARE [facility] [place] [id number] Care Teams Conflicts Analyst Relationship Specialty Start Date End Date Tor Greene MD [address] [place] [id number] PCP - General Internal Medicine 05/22/24
== END 2025-04-14 10:40 | disposition home or self-care (01) ==
LOC: HO.HUSH 09:39
PROVIDERS: PCP Internal Medicine; Visit Provider Urology
DX: C61 Malignant neoplasm of prostate (principal)
CPT/HCPCS: 99213; G2211